=== PATIENT | male | born 1985 | race Caucasian/White ===

== ENCOUNTER 2019-08-11 02:31 | Emergency (ER) | payer SELFPAY ==
[2019-08-11 02:34] VITALS: PULSE 130; RESP 18; TEMP 36.2; O2SAT 98; BMI 23.1
--- NOTE | 2019-08-11 02:43 | CTR_ITS ---
PROCEDURE INFORMATION: Exam: CT Head Without Contrast Exam date and time: 08/11/2019 3:37 AM Age: 33 years old Clinical indication: Other: Left ear pain; Additional info: Left ear pain/ mastoid pain TECHNIQUE: Imaging protocol: Computed tomography of the head without contrast. Total DLP: 783.22 mGy-cm Radiation optimization: All CT scans at this facility use at least one of these dose optimization techniques: automated exposure control; mA and/or kV adjustment per patient size (includes targeted exams where dose is matched to clinical indication); or iterative reconstruction. COMPARISON: CT head wo con* [id number] 06/07/2018 8:02 AM FINDINGS: Brain: No hemorrhage. Unremarkable white matter. No mass effect. Ventricles: Still no ventriculomegaly. Bones/joints: Old fracture of the anterior wall of the left frontal sinus associated with mild depression, unchanged. No acute skull fracture. Sinuses: Slight mucosal thickening in several paranasal sinuses representing interval improvement. No air-fluid levels. Mastoid air cells: Probable mucosal thickening in the partially-included inferior left mastoid air cells. Visualized right mastoids clear. Soft tissues: Unremarkable. CT/CT head wo con* [id number] IMPRESSION: No acute intracranial findings. Probable minimal left mastoid disease. Interval improvement in the chronic sinus disease. Radiation Dose CTDIVOL = (mGy): DLP = 783.22 (mGy-cm)
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
[2019-08-11] MEDS: sodium chloride 0.9% 1,000 ML 999 ML IV (02:49)
[2019-08-11] MEDS: metoclopramide 5 mg/mL SDV 2 mL 10 MG IVP (02:50)
[2019-08-11] MEDS: diphenhydrAMINE 50 mg/mL SDV 1mL IVP (02:50)
[2019-08-11 03:23] LABS: Alanine Aminotransferase 45 U/L (0-41); Albumin Level 4.7 g/dL (3.5-5.2); Alkaline Phosphatase 79 IU/L (40-130); Anion Gap 28.1 (5-19); Aspartate Amino Transferase 56 U/L (0-40); Blood Urea Nitrogen 33 mg/dL (6-20); Calcium 10.2 mg/dL (8.5-10.5); Carbon Dioxide 19 mmol/L (22-29); Chloride 96 mmol/L (98-107); Globulin 3.7 g/dL (1.3-4.6); Glomerular Filtration Rate 27.2 mL/min (90-130); Glucose 64 mg/dL (65-115); Lipase 12 U/L (13-60); Osmolality Calculated 283 mOsm/kg (285-295); Potassium 4.1 mmol/L (3.5-5.1); Sodium 139 mmol/L (136-145); Total Bilirubin 2.5 mg/dL (0.15-1.2); Total Protein 8.4 g/dL (6.6-8.7)
[2019-08-11] MEDS: LORazepam 2 mg/mL INJ 1 mL 1 MG IVP (03:26)
[2019-08-11 03:28] VITALS: BP 117/81; PULSE 106; RESP 16; O2SAT 96
[2019-08-11 03:28] LABS: Basophils # 0.1 10^3/uL (0.0-0.1); Basophils % 0.4 %; Eosinophils % 0.1 %; Hematocrit 46.1 % (42.0-52.0); Hemoglobin 15.5 g/dL (11.7-16.6); Lymphocytes # 1.1 10^3/uL (0.8-4.8); Lymphocytes % 5.6 %; Mean Corpuscular HGB Conc 33.6 g/dL (30.0-36.0); Mean Corpuscular Hemoglobin 30.7 pg (28.0-34.0); Mean Corpuscular Volume 91.3 fL (80-94); Mean Platelet Volume 9.6 fL (7.4-10.4); Monocytes # 1.8 10^3/uL (0.2-0.9); Monocytes % 8.9 %; Neutrophils # 16.6 10^3/uL (1.8-7.7); Neutrophils % 84.3 %; Nucleated Red Blood Cells % 0 %; Platelet Count 326 10^3/cmm (130-400); Red Blood Count 5.05 10^6/uL (4.1-5.3); Red Cell Distribution Width 12.4 % (12.1-15.1); White Blood Count 19.7 10^3/uL (4.0-10.0)
--- NOTE | 2019-08-11 03:43 | US_ITS ---
WS: [id number] Gallbladder ultrasound, 08/11/2019 Clinical Data: abd pain Comparison: None. Findings: The gallbladder shows sludge but no stones. The wall measures 0.3 mm with no pericholecystic fluid. The common bile duct is 0.3 mm and there are no intrahepatic ductal abnormalities. Liver shows no cysts, masses or dilated intrahepatic ducts. The pancreas is obscured by overlying bowel gas but no cyst, pseudocyst, or evidence of pancreatitis is noted. Right kidney measures 5.41 x 5.50 x 10.3 cm and no cyst, masses or hydronephrosis can be seen. The aorta and inferior vena cava show no vascular abnormalities. US/US gall bladder [id number] Impression: 1. Sludge in the gallbladder. 2. No gallstones.
[2019-08-11 03:58] VITALS: BP 117/81; PULSE 68; RESP 16; O2SAT 97
[2019-08-11 04:13] LABS: ABG PCO2 34.9 mmHg (35-45); ABG PH Result 7.29 (7.35-7.45); Arterial Blood Gas Hematocrit 44.3 % (42-52); Blood Gas Allen Test Pos; Blood Gas Sample Site Radial, right; Blood Gas Sample Type Arterial; HCO3 ABG 16.7 mmol/L (22-26); Oxygen Device ROOM AIR
[2019-08-11] MEDS: lactated ringers 1,000 ML 999 ML IV (04:34)
[2019-08-11 04:38] LABS: Alcohol Level 18 mg/dL (0-10)
[2019-08-11 05:00] LABS: Anion Gap 25.3 (5-19); Blood Urea Nitrogen 36 mg/dL (6-20); Calcium 9.1 mg/dL (8.5-10.5); Carbon Dioxide 17 mmol/L (22-29); Chloride 100 mmol/L (98-107); Glomerular Filtration Rate 32.7 mL/min (90-130); Glucose 93 mg/dL (65-115); Osmolality Calculated 283 mOsm/kg (285-295); Potassium 4.3 mmol/L (3.5-5.1); Sodium 138 mmol/L (136-145)
[2019-08-11 05:38] VITALS: BP 110/73; PULSE 90; RESP 16; O2SAT 98
== END 2019-08-11 05:40 | disposition home or self-care (01) ==
PROVIDERS: Emergency Provider Emergency Medicine; Family Provider Family Medicine; PCP Family Medicine
DX: H60.502 Unspecified acute noninfective otitis externa, left ear (principal); R11.10 Vomiting, unspecified; F17.200 Nicotine dependence, unspecified, uncomplicated; Z59.0 Homelessness
CPT/HCPCS: 12345; 36415; 36600; 70450; 76705; 80048; 80053; 80307; 82803; 83690; 85025; 96361; 96365; 96375; 99283; 99284; J1200; J2060; J2765; J7030

== ENCOUNTER 2019-08-13 11:21 | Inpatient (IN) | payer SELFPAY ==
[2019-08-13 11:23] VITALS: BP 135/89; PULSE 118; RESP 18; O2SAT 98; BMI 21.2
--- NOTE | 2019-08-13 11:32 | ED_ITS ---
Entered by Rasheeda Lo, acting as scribe for Aug 13, 2019 11:21 HPI - Extremity Problem General: Chief complaint: Extremity Injury, Upper Stated complaint: BOTH HAND PAIN/SI Time Seen by Provider: 08/13/19 11:31 Source: patient and RN notes reviewed Mode of arrival: ambulatory Limitations: no limitations History of Present Illness: HPI Narrative: 33 yo male presents to ED with complaints of bilateral hand pain, redness and swelling. The patient's history is limited to agitation and is limited to the following: The patient states he has been punching anything and everything around him today. He said he has auditory and visual hallucinations. He said he feels like he is losing his mind. He said it has not been this bad before. He admits thoughts of self harm and suicidal ideation. 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 MD Complaint: extremity pain and extremity swelling Onset (ago): hour(s) (today) Pain Consistency: constant Location: left, right and upper extremity Severity scale (1-10): 8 Quality: aching Radiation: none Relieving factors: nothing Exacerbating factors: nothing Associated symptoms: Reports other (psychiatric symptoms); Deny chest pain, fever(s) or rash Context: other (per patient: drug induced schizophrenia) Review of Systems General: Reports: other (negative unless marked) Const: Denies: fever, chills, body aches, fatigue, malaise or diaphoresis Eyes: Denies: change in vision or blurry vision ENMT: Denies: throat pain, painful swallowing, hoarseness, ear pain, ear discharge, Change in hearing or nasal discharge Card: Denies: chest pain, palpitations, irregular heart rhythm, syncope, pre- syncope, shortness of breath on exertion or shortness of breath when lying down Resp: Denies: shortness of breath, productive cough, non-productive cough, wheezing, coughing up blood or chest congestion GI: Denies: abdominal pain, nausea, vomiting, vomiting blood, coffee grounds in vomit, diarrhea, constipation, cramping, blood in stool or black tarry stool : Denies: flank pain, difficulty urinating, painful urination, urinary frequency, urinary urgency, decreased urine ouput, urinary incontinence or blood in urine Musc: Denies: neck pain, back pain, joint warmth or joint stiffness Skin/Breast: Denies: rash, skin tenderness or yellow skin Neuro: Denies: headache, numbness in extremities, weakness in extremities, changes in sensation, lack of coordination, difficulty walking, dizziness, vertigo or confusion Endo: Denies: excessive thirst, tired all the time, cold intolerance, excessive sweating, flushing or hot flashes Delvis/Lymph: Denies: easy bruising, easy bleeding, petechiae or enlarged lymph nodes All/Imm: Denies: hives, throat swelling, tongue swelling, facial swelling or acute wheezing PFSH ED PFSH: Social History Smoking and tobacco status: current every day smoker Physical Exam Const: COMMON NORMALS: no apparent distress, oriented x3, no limitations, healthy appearing and well nourished EXAM LIMITATIONS: no altered mental status GENERAL APPEARANCE: cooperative and well developed ORIENTATION/CONSCIOUSNESS: Yes awake HENMT: COMMON NORMALS: normocephalic, head/scalp atraumatic, hearing grossly normal bilaterally, external ears normal, EAC's normal, external nose normal and moist oral mucous membranes HEAD & SCALP: normal to inspection, normocephalic and atraumatic FACE & SINUS: normal facial exam and face symmetric NOSE: external nose normal and nares normal EXTERNAL EAR: Yes external ears normal EXTERNAL AUDITORY CANAL: EAC's normal MOUTH: oral and palatal mucosa normal and tongue normal Eye: COMMON NORMALS: PERRL, EOMs intact bilaterally, conjunctivae normal and no scleral icterus GENERAL EYE: normal appearance of both eyes and normal light reflex CONJUNCTIVA: Yes conjunctivae normal SCLERA: sclerae normal CORNEA: Yes corneas normal PUPIL: Yes PERRL DIRECT OPHTHALMOSCOPY: Yes normal light reflex Neck/C-Spine: COMMON NORMALS: full ROM, no lymphadenopathy, supple, no meningeal signs and no JVD GENERAL: Yes normal visual inspection and Yes trachea midline CERVICAL SPINE: Yes cervical ROM normal Chest: COMMONS NORMALS: inspection of chest normal and palpation of chest normal Resp: COMMON NORMALS: normal respiratory effort, no retractions, no use of accessory muscles and clear to auscultation bilaterally EFFORT & INSPECTION: Yes able to speak in complete sentences AUSCULTATION: clear to auscultation bilaterally Cardio: COMMON NORMALS: no JVD, regular rate, regular rhythm, S1 normal heart sound, S2 normal heart sound, no gallops, no clicks, no murmurs and no rub JUGULAR VENOUS DISTENTION: no JVD RATE: regular rate RHYTHM: regular rhythm HEART SOUNDS: S1 normal and S2 normal GI: COMMON NORMALS: soft to palpation, non-tender, no hepatosplenomegaly and no masses INSPECTION: Yes normal to inspection PALPATION: Yes soft and Yes no hepatosplenomegaly : COMMON NORMALS: Yes no CVA tenderness BLADDER/KIDNEY EXAM: Yes no CVA tenderness Back/Pelvis: COMMON NORMALS: no CVA tenderness, thoracic and lumbar spine normal to inspection, no thoracic nor lumbar tenderness and thoraco-lumbar ROM normal Extremity: COMMON NORMALS: normal capillary refill, no clubbing, cyanosis or edema and no calf tenderness RIGHT UPPER EXTREMITY: Yes hand & digits (swelling, redness, tenderness) LEFT UPPER EXTREMITY: Yes hand & digits (swelling, redness, tenderness) Neuro: COMMON NORMALS: oriented x3, CN's II-XII intact bilaterally, moves all extremities, no focal motor deficits and no sensory deficits noted MENINGEAL SIGNS: Yes no meningeal signs Psych: COMMON NORMALS: mental status grossly normal, thought process normal, cooperative, affect normal, speech normal and activity/motor behavior normal SPEECH: Yes normal speech THOUGHT PROCESS: normal thought process Skin: COMMON NORMALS: no rashes or lesions noted, skin turgor normal, no jaundice, no petechiae and no mottling GENERAL SKIN EXAM: no rashes or lesions noted and turgor normal Course Vital Signs: Vital signs: Vital Signs Temperature 98.2 F 08/13/19 15:16 Pulse Rate 89 08/13/19 15:16 Respiratory Rate 18 08/13/19 15:16 Blood Pressure 121/78 08/13/19 15:16 Pulse Oximetry 99 08/13/19 15:16 MDM - Extremity (Nontraumatic) MDM Narrative: Medical decision making narrative: Sven is a 33-year-old male who comes in with homicidal and suicidal ideation. He will not mention who he wants to hurt or kill. He is also having auditory and visual hallucinations. I discussed the case in full with Dr. Kim he agrees to accept him. He is aware of his bilateral boxers fractures. Patient's liver enzymes are elevated but he does share that he has a history of hepatitis C. Lab Data: Attestation: I reviewed the patient's lab results. Labs: Lab Results 08/13/19 08/13/19 08/13/19 Range/Units 12:02 12:02 12:02 WBC 15.5 H (4.0-10.0) 10^3/ uL RBC 4.20 (4.1-5.3) 10^6/u L Hgb 12.4 (11.7-16.6) g/dL Hct 37.3 L (42.0-52.0) % MCV 88.8 (80-94) fL MCH 29.5 (28.0-34.0) pg MCHC 33.2 (30.0-36.0) g/dL RDW 12.6 (12.1-15.1) % Plt Count 234 (130-400) 10^3/c mm MPV 9.4 (7.4-10.4) fL Neut % (Auto) 84.6 % Lymph % (Auto) 6.9 % [place] % (Auto) 8.0 % Eos % (Auto) 0.0 % Baso % (Auto) 0.2 % Neut # (Auto) 13.1 H (1.8-7.7) 10^3/u L Lymph # (Auto) 1.1 (0.8-4.8) 10^3/u L [place] # (Auto) 1.2 H (0.2-0.9) 10^3/u L Eos # (Auto) 0.0 (0.0-0.8) 10^3/u L Baso # (Auto) 0.0 (0.0-0.1) 10^3/u L Nucleated RBC % (a uto) 0 % Nucleated RBCs # 0.0 /100WBC Sodium 140 (136-145) mmol/L Potassium 3.7 (3.5-5.1) mmol/L Chloride 100 (98-107) mmol/L Carbon Dioxide 21 L (22-29) mmol/L Anion Gap 22.7 H (5-19) BUN 26 H (6-20) mg/dL Creatinine 1.3 H (0.7-1.2) mg/dL GFR Calculation 63.2 L (90-130) mL/min Glucose 45 L (65-115) mg/dL POC Glucose (70-110) mg/dL Calculated Osmolal ity 284 L (285-295) mOsm/k g Calcium 9.6 (8.5-10.5) mg/dL Total Bilirubin 1.6 H (0.15-1.2) mg/dL AST 377 H (0-40) U/L ALT 97 H (0-41) U/L Alkaline Phosphata se 66 (40-130) IU/L Total Protein 7.0 (6.6-8.7) g/dL Albumin 4.3 (3.5-5.2) g/dL Globulin 2.7 (1.3-4.6) g/dL TSH 0.34 (0.27-4.20) uIU/ mL Salicylates < 0.3 L (3-10) mg/dL Acetaminophen < 5.0 L (10-30) ug/mL Phenytoin < 0.8 L (10-20) ug/mL Valproic Acid < 2.8 L (50-100) mcg/mL Carbamazepine 2.0 L (4.0-12.0) ug/mL [place] 0.1 L (0.6-1.2) mmol/L Ethyl Alcohol < 10 (0-10) mg/dL Hepatitis A IgM Ab (Nonreactive) Hep Bs Antigen (Nonreactive) Hep B Core IgM Ab (Nonreactive) Hepatitis C Antibo dy (Nonreactive) 08/13/19 08/13/19 Range/Units 12:02 13:08 WBC (4.0-10.0) 10^3/ uL RBC (4.1-5.3) 10^6/u L Hgb (11.7-16.6) g/dL Hct (42.0-52.0) % MCV (80-94) fL MCH (28.0-34.0) pg MCHC (30.0-36.0) g/dL RDW (12.1-15.1) % Plt Count (130-400) 10^3/c mm MPV (7.4-10.4) fL Neut % (Auto) % Lymph % (Auto) % [place] % (Auto) % Eos % (Auto) % Baso % (Auto) % Neut # (Auto) (1.8-7.7) 10^3/u L Lymph # (Auto) (0.8-4.8) 10^3/u L [place] # (Auto) (0.2-0.9) 10^3/u L Eos # (Auto) (0.0-0.8) 10^3/u L Baso # (Auto) (0.0-0.1) 10^3/u L Nucleated RBC % (a uto) % Nucleated RBCs # /100WBC Sodium (136-145) mmol/L Potassium (3.5-5.1) mmol/L Chloride (98-107) mmol/L Carbon Dioxide (22-29) mmol/L Anion Gap (5-19) BUN (6-20) mg/dL Creatinine (0.7-1.2) mg/dL GFR Calculation (90-130) mL/min Glucose (65-115) mg/dL POC Glucose 74 (70-110) mg/dL Calculated Osmolal ity (285-295) mOsm/k g Calcium (8.5-10.5) mg/dL Total Bilirubin (0.15-1.2) mg/dL AST (0-40) U/L ALT (0-41) U/L Alkaline Phosphata se (40-130) IU/L Total Protein (6.6-8.7) g/dL Albumin (3.5-5.2) g/dL Globulin (1.3-4.6) g/dL TSH (0.27-4.20) uIU/ mL Salicylates (3-10) mg/dL Acetaminophen (10-30) ug/mL Phenytoin (10-20) ug/mL Valproic Acid (50-100) mcg/mL Carbamazepine (4.0-12.0) ug/mL [place] (0.6-1.2) mmol/L Ethyl Alcohol (0-10) mg/dL Hepatitis A IgM Ab Non-reactive (Nonreactive) Hep Bs Antigen Non-reactive (Nonreactive) Hep B Core IgM Ab Non-reactive (Nonreactive) Hepatitis C Antibo dy Reactive H (Nonreactive) Imaging Data^: Xray Ortho: Radiologist's impression: [address] [address] XRay Report Signed Patient: Sven Wade #: [id number] : 1985Acct#:[id number] Age/Sex: 33 / MADM Date: 08/13/19 Loc: ERRoom/Bed: Attending Dr: Ordering Provider/Ordering MD: Henny Grant DO Date of Service: 08/13/19 Procedure(s): XR hand LT min 3V* [id number] Accession Number(s): [id number] Report Number: [id number] WS: [id number] Left hand, 3 views, 08/13/2019 Clinical Data: INJURY Comparison: Left hand, 07/20/2017. Findings: There is a fracture of the head of the left fifth metacarpal with ventral angulation. Soft tissue swelling over the fracture site is seen. The remainder of the hand is unremarkable. XR/XR hand LT min 3V* [id number] Impression: Fracture of the head of the left fifth metacarpal. Dictated By:Aaliyah Camacho MD Signed By:Aaliyah Camacho MDSigned Date/Time:08/13/19 [place] [address] XRay Report Signed Patient: Sven Wade #: [id number] : 1985Acct#:[id number] Age/Sex: 33 / MADM Date: 08/13/19 Loc: ERRoom/Bed: Attending Dr: Ordering Provider/Ordering MD: Henny Grant DO Date of Service: 08/13/19 Procedure(s): XR hand RT min 3V* [id number] Accession Number(s): [id number] Report Number: [id number] WS: [id number] Right hand, 3 views, 08/13/2019 Clinical Data: INJURY Comparison: Right hand x-ray, 06/23/2018. Findings: There is a fracture of the head of the right fifth metacarpal with ventral angulation. Soft tissue swelling over the fracture site is noted. The remainder of the hand is unremarkable. XR/XR hand RT min 3V* [id number] Impression: Fracture of the head of the right fifth metacarpal. Dictated By:Aaliyah Camacho MD Signed By:Aaliyah Camacho MDSigned Date/Time:08/13/19 EKG Data^: EKG 1: Attestation: I personally reviewed and interpreted this EKG as follows: EKG interpretation date: 08/13/19 EKG interpretation time: 12:34 Discharge Plan Discharge Patient Disposition: Admitted As Inpatient Admit Provider: Julio Kim Clinical Impression: Suicide ideation, Auditory hallucinations Boxer's fracture Qualifiers: Encounter type: initial encounter Fracture type: closed Qualified Code(s): S62.339A - Displaced fracture of neck of unspecified metacarpal bone, initial encounter for closed fracture Condition: Stable Referrals: Augusto Gallo Jr, MD [Primary Care Provider] - Discharge Date/Time: 08/13/19 15:15 Coding Level of Care Code ED Inspector Floor Sub Assembly for Chg Fwd Exam Comprehensive The documentation recorded by the Teresita burton Valerie R, accurately reflects the service I personally performed and the decisions made by Rudy chatman Eli N Aug 13, 2019 11:21
--- NOTE | 2019-08-13 11:36 | XR_ITS ---
WS: [id number] Right hand, 3 views, 08/13/2019 Clinical Data: INJURY Comparison: Right hand x-ray, 06/23/2018. Findings: There is a fracture of the head of the right fifth metacarpal with ventral angulation. Soft tissue sw elling over the fracture site is noted. The remainder of the hand is unremarkable. XR/XR hand RT min 3V* [id number] Impression: Fracture of the head of the right fifth metacarpal.
--- NOTE | 2019-08-13 11:36 | XR_ITS ---
WS: [id number] Left hand, 3 views, 08/13/2019 Clinical Data: INJURY Comparison: Left hand, 07/20/2017. Findings: There is a fracture of the head of the left fifth metacarpal with ventral angulation. Soft tissue swe lling over the fracture site is seen. The remainder of the hand is unremarkable. XR/XR hand LT min 3V* 72041 Impression: Fracture of the head of the left fifth metacarpal.
--- NOTE | 2019-08-13 11:36 | ECG_ITS ---
Measurements Intervals [place] Rate: 88 P: 69 HI: 139 QRS: 19 QRSD: 118 T: 48 QT: 393 QTc: 477 SINUS RHYTHM POSSIBLE LEFT ATRIAL ENLARGEMENT [-0.1mV P WAVE IN V1/V2] INCOMPLETE RIGHT BUNDLE BRANCH BLOCK [90+ ms QRS DURATION, TERMINAL R IN V1/V2, 40+ ms S IN I/aVL/V4/V5/V6] POSSIBLE LATERAL MYOCARDIAL INFARCTION , OF INDETERMINATE AGE [30 ms Q WAVE IN I/ I/aVL/V5/V6] Compared to ECG 07/03/2018 11:45:48 Incomplete right bundle-branch block now present Myocardial infarct finding now present Sinus bradycardia no longer present Electronically Signed On 08-13-2019 17:22:50 CDT by Jose Nance M.D. [email or web address]
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
--- NOTE | 2019-08-13 11:43 | PC.PHAR ---
pt states he takes no medications and when he was here on 08/11/2019 he never got those medications filled
[2019-08-13] MEDS: haloperidol inj 5 mg/mL INJ 1 mL IM (11:48)
[2019-08-13] MEDS: ibuprofen 200 mg Tablet 400 MG PO (11:48)
[2019-08-13 12:08] LABS: Basophils % 0.2 %; Hematocrit 37.3 % (42.0-52.0); Hemoglobin 12.4 g/dL (11.7-16.6); Lymphocytes # 1.1 10^3/uL (0.8-4.8); Lymphocytes % 6.9 %; Mean Corpuscular HGB Conc 33.2 g/dL (30.0-36.0); Mean Corpuscular Hemoglobin 29.5 pg (28.0-34.0); Mean Corpuscular Volume 88.8 fL (80-94); Mean Platelet Volume 9.4 fL (7.4-10.4); Monocytes # 1.2 10^3/uL (0.2-0.9); Neutrophils # 13.1 10^3/uL (1.8-7.7); Neutrophils % 84.6 %; Nucleated Red Blood Cells % 0 %; Platelet Count 234 10^3/cmm (130-400); Red Cell Distribution Width 12.6 % (12.1-15.1); White Blood Count 15.5 10^3/uL (4.0-10.0)
[2019-08-13 12:27] LABS: Lithium 0.1 mmol/L (0.6-1.2)
[2019-08-13 12:38] LABS: Alanine Aminotransferase 97 U/L (0-41); Albumin Level 4.3 g/dL (3.5-5.2); Alkaline Phosphatase 66 IU/L (40-130); Anion Gap 22.7 (5-19); Aspartate Amino Transferase 377 U/L (0-40); Blood Urea Nitrogen 26 mg/dL (6-20); Calcium 9.6 mg/dL (8.5-10.5); Carbon Dioxide 21 mmol/L (22-29); Chloride 100 mmol/L (98-107); Globulin 2.7 g/dL (1.3-4.6); Glomerular Filtration Rate 63.2 mL/min (90-130); Glucose 45 mg/dL (65-115); Osmolality Calculated 284 mOsm/kg (285-295); Phenytoin Dilantin < 0.8 ug/mL (10-20); Potassium 3.7 mmol/L (3.5-5.1); Sodium 140 mmol/L (136-145); Thyroid Stimulating Hormone 0.34 uIU/mL (0.27-4.20); Total Bilirubin 1.6 mg/dL (0.15-1.2)
[2019-08-13 12:39] LABS: Valproic Acid Level < 2.8 mcg/mL (50-100)
[2019-08-13 12:45] LABS: Acetaminophen < 5.0 ug/mL (10-30); Alcohol Level < 10 mg/dL (0-10); Salicylate < 0.3 mg/dL (3-10)
[2019-08-13 13:11] LABS: Glucose Point of Care 74 mg/dL (70-110)
[2019-08-13 13:42] LABS: Hepatitis A Antibody IgM. Non-Reactive (Nonreactive); Hepatitis B Core IgM Non-Reactive (Nonreactive); Hepatitis B Surface Antigen. Non-Reactive (Nonreactive); Hepatitis C Virus Antibody Reactive (Nonreactive)
[2019-08-13 14:45] VITALS: BP 127/78; PULSE 87; RESP 16; TEMP 37.1; O2SAT 97
[2019-08-13 15:16] VITALS: BP 121/78; PULSE 89; RESP 18; TEMP 36.8; O2SAT 99
[2019-08-13] MEDS: nicotine 2 mg Gum BUCCAL (20:27)
[2019-08-13] MEDS: acetaminophen 325 mg Tablet 650 MG PO (20:27)
[2019-08-13] MEDS: trazodone 50 mg Tablet PO (20:27)
--- NOTE | 2019-08-13 20:28 | PC.NURSE ---
tylenol given for bilateral arm pain.
[2019-08-13 21:29] VITALS: BP 108/73; PULSE 100; RESP 19; TEMP 36.7; O2SAT 98
[2019-08-14 06:00] VITALS: BP 96/56; PULSE 77; RESP 16; TEMP 36.6; O2SAT 96
[2019-08-14] MEDS: acetaminophen 325 mg Tablet 650 MG PO ×2 (11:03→20:11)
[2019-08-14] MEDS: nicotine 2 mg Gum BUCCAL ×4 (11:04→19:44)
[2019-08-14] MEDS: hyDROXYzine 25 mg Capsule 50 MG PO ×2 (12:04→22:59)
[2019-08-14 14:00] VITALS: BP 116/80; PULSE 82; RESP 20; TEMP 36.4; O2SAT 98
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
[2019-08-14] MEDS: ibuprofen 600 mg Tablet PO ×2 (17:08→22:59)
--- NOTE | 2019-08-14 19:47 | PC.NURSE ---
nicorette gum given per pt request.
[2019-08-14 20:02] VITALS: BP 132/89; PULSE 70; RESP 18; TEMP 36.6; O2SAT 97
--- NOTE | 2019-08-14 20:04 | PC.NURSE ---
VITAL SIGNS BLOOD PRESSURE TAKEN IN LEFT LEG WHILE PATIENT WAS IN SUPINE POSITION.
--- NOTE | 2019-08-14 23:00 | PC.NURSE ---
pt given motrin for pain and visteril for sleep at this time.
[2019-08-15] MEDS: ibuprofen 600 mg Tablet PO (05:18)
[2019-08-15] MEDS: nicotine 2 mg Gum BUCCAL ×4 (05:19→21:11)
[2019-08-15 06:00] VITALS: BP 108/61; PULSE 62; RESP 19; TEMP 36.6; O2SAT 96
[2019-08-15] MEDS: acetaminophen 325 mg Tablet 650 MG PO (10:58)
[2019-08-15 14:00] VITALS: BP 105/70; PULSE 74; RESP 18
[2019-08-15 14:14] LABS: Amphetamines Screen Urine Positive (Negative); Barbiturates Screen Urine Negative (Negative); Benzodiazepines Screen Urine Negative (Negative); Cocaine Screen Urine Negative (Negative); Opiate Screen Urine Negative (Negative); PCP Screen Urine Negative (Negative); THC Screen Urine Negative (Negative)
--- NOTE | 2019-08-15 16:04 | PM.NPN ---
Subjective NPU Subjective: Interval history: The patient is grief-stricken and ashamed. He feels terrible about his mom; his dad of methamphetamine abuse and now her son is all messed up with it. He is saddened and in tears. He's decided this is not life as he wants to be. He cannot tolerate a future like this. He is ready to enter recovery. We discussed the tool and production planner, to whom I transmitted a message to assist with the discharge plan involving rehab. He is in a lot of pain from his bilateral metacarpal fractures. Medications: Reviewed: Yes Medication Review Details: Current Medications Acetaminophen (Tylenol) 650 mg PO Q4H PRN PRN Reason: MILD PAIN Last Admin: 08/15/19 10:58 Dose: 650 mg Documented by: Hydrocodone Bitart/Acetaminophen ([place] 10-325 Mg) 1 tab PO Q4H PRN PRN Reason: MODERATE PAIN Benztropine Mesylate (Cogentin) 1 mg PO BID PRN PRN Reason: Mild Extrapyramidal symptoms Camphor/Menthol/Phenol (Blistex) 1 applic TOPICAL Q1H PRN PRN Reason: DRYNESS Diphenhydramine HCl (Benadryl) 50 mg IM ONCE PRN PRN Reason: Severe Extrapyramidal Symptoms Diphenhydramine HCl (Benadryl) 50 mg IM Q4H PRN PRN Reason: Severe Aggression Haloperidol (Haldol) 5 mg PO Q4H PRN PRN Reason: AGITATION Haloperidol Lactate (Haldol Inj) 5 mg IM Q4H PRN PRN Reason: Severe Aggression Hydroxyzine Pamoate (Vistaril) 50 mg PO Q6H PRN PRN Reason: ANXIETY Last Admin: 08/14/19 22:59 Dose: 50 mg Documented by: Ibuprofen (Motrin) 600 mg PO Q6H PRN PRN Reason: MODERATE PAIN Last Admin: 08/15/19 05:18 Dose: 600 mg Documented by: Loperamide HCl (Imodium Capsule) 2 mg PO Q6H PRN PRN Reason: DIARRHEA Lorazepam (Ativan) 2 mg IM Q4H PRN PRN Reason: Severe Aggression Nicotine (Nicoderm 21 Mg Patch) 1 patch TRANSDERMA DAILY PRN PRN Reason: NICOTINE WITHDRAWAL Nicotine Polacrilex (Nicorette) 2 mg BUCCAL Q2H PRN PRN Reason: NICOTINE WITHDRAWAL Last Admin: 08/15/19 15:15 Dose: 2 mg Documented by: Olanzapine (Zyprexa Zydis) 5 mg PO Q4H PRN PRN Reason: Agitation/Psychosis Ondansetron HCl (Zofran) 4 mg PO Q6H PRN PRN Reason: NAUSEA AND VOMITING Trazodone HCl (Desyrel) 50 mg PO BEDTIME PRN PRN Reason: SLEEP Last Admin: 08/13/19 20:27 Dose: 50 mg Documented by: Mental Status Exam MSE Comments: The patient presents at his stated age. He is thin and his forearms and hands are splinted and cast. He is clean and well-groomed. Mood is clearly depressed and affect is flat, which is to say appropriate to his mood. Thought processes are integrated and free of any racing, blocking or looseness of association. Speech is of normal rate and volume, without dysarthria, aprosody or pressure. There is no evidence of psychosis, such as but not limited to hallucinations, delusions or ideas of reference. He denies suicidal or homicidal ideation, plan or intent. He has growing insight, having reached, I believe, bottom and being desirous of recovery. Vitals/I&O/Wt Last Vital Signs Temp 97.9 F 08/15/19 06:00 Pulse 74 08/15/19 14:00 Resp 18 08/15/19 14:00 BP 105/70 08/15/19 14:00 Pulse Ox 96 08/15/19 06:00 Data NPU : 08/13/19 12:02 08/13/19 12:02 Involuntary Hold Information 96 Hour Hold: 96 Hour Involuntary Admission: Yes Attestations NPU Medical Necessity Statement*: I anticipate 5-6 midnights. Time Spent in Patient Care: Greater than 35 minutes (>than 50% of time spent in counselling and/or direct pt care on unit). Coding Level of Care Code Acute Radial Arm Saw Operator for Sergei Matute
[2019-08-15] MEDS: HYDROcodone-acetaminophen 10-325 mg Tablet 1 TAB PO ×2 (16:49→21:09)
[2019-08-15 22:00] VITALS: BP 117/71; PULSE 76; RESP 18; TEMP 36.6; O2SAT 98
[2019-08-16] MEDS: HYDROcodone-acetaminophen 10-325 mg Tablet 1 TAB PO ×5 (01:30→20:15)
[2019-08-16] MEDS: nicotine 2 mg Gum BUCCAL ×6 (05:25→21:18)
--- NOTE | 2019-08-16 05:27 | PC.NURSE ---
pt requesting Hydrocodine q 4 hours, continues to rate pain at 10.
[2019-08-16 05:37] VITALS: BP 138/82; PULSE 59; RESP 19; TEMP 36.6; O2SAT 98
[2019-08-16 14:00] VITALS: BP 129/84; PULSE 74; RESP 18; O2SAT 97
[2019-08-16] MEDS: acetaminophen 325 mg Tablet 650 MG PO (14:48)
--- NOTE | 2019-08-16 15:52 | PM.NPN ---
Subjective NPU Subjective: Interval history: The patient states that he is feeling clear of mind. He would like to have the portion of the splints around his elbows removed so that he can flex and contract those particular joints. I consulted with Dr. Gallagher, the ED physician on duty just now, and he reports that that would be advantageous and unlikely to interfere with healing of the fractures and the wrist. In the meantime the patient is eager to get to rehab program. He has had enough of this kind of life. Medications: Reviewed: Yes Medication Review Details: Current Medications Acetaminophen (Tylenol) 650 mg PO Q4H PRN PRN Reason: MILD PAIN Last Admin: 08/16/19 14:48 Dose: 650 mg Documented by: Hydrocodone Bitart/Acetaminophen ([place] 10-325 Mg) 1 tab PO Q4H PRN PRN Reason: MODERATE PAIN Last Admin: 08/16/19 15:44 Dose: 1 tab Documented by: Benztropine Mesylate (Cogentin) 1 mg PO BID PRN PRN Reason: Mild Extrapyramidal symptoms Camphor/Menthol/Phenol (Blistex) 1 applic TOPICAL Q1H PRN PRN Reason: DRYNESS Diphenhydramine HCl (Benadryl) 50 mg IM ONCE PRN PRN Reason: Severe Extrapyramidal Symptoms Diphenhydramine HCl (Benadryl) 50 mg IM Q4H PRN PRN Reason: Severe Aggression Haloperidol (Haldol) 5 mg PO Q4H PRN PRN Reason: AGITATION Haloperidol Lactate (Haldol Inj) 5 mg IM Q4H PRN PRN Reason: Severe Aggression Hydroxyzine Pamoate (Vistaril) 50 mg PO Q6H PRN PRN Reason: ANXIETY Last Admin: 08/14/19 22:59 Dose: 50 mg Documented by: Ibuprofen (Motrin) 600 mg PO Q6H PRN PRN Reason: MODERATE PAIN Last Admin: 08/15/19 05:18 Dose: 600 mg Documented by: Loperamide HCl (Imodium Capsule) 2 mg PO Q6H PRN PRN Reason: DIARRHEA Lorazepam (Ativan) 2 mg IM Q4H PRN PRN Reason: Severe Aggression Neomycin/Polymyxin/Bacitracin (Neosporin Oint Tube) 1 applic TOPICAL BID PRN PRN Reason: SKIN IRRITATION Nicotine (Nicoderm 21 Mg Patch) 1 patch TRANSDERMA DAILY PRN PRN Reason: NICOTINE WITHDRAWAL Nicotine Polacrilex (Nicorette) 2 mg BUCCAL Q2H PRN PRN Reason: NICOTINE WITHDRAWAL Last Admin: 08/16/19 14:50 Dose: 2 mg Documented by: Olanzapine (Zyprexa Zydis) 5 mg PO Q4H PRN PRN Reason: Agitation/Psychosis Ondansetron HCl (Zofran) 4 mg PO Q6H PRN PRN Reason: NAUSEA AND VOMITING Trazodone HCl (Desyrel) 50 mg PO BEDTIME PRN PRN Reason: SLEEP Last Admin: 08/13/19 20:27 Dose: 50 mg Documented by: Mental Status Exam MSE Comments: This 33-year-old male presents at his stated age. He is clean and well-groomed. Mood is somewhat irritable with the elbow problem but not intrinsically. Affect is appropriate. Thought processes are integrated and free of any racing, blocking or looseness of association. There is no evidence of psychosis, such as but not limited to hallucinations, delusions or ideas of reference. Cognitive functions are clearer and more focused although not formally tested. The patient has increasing insight and judgment. He denies suicidal or homicidal ideation, plan or intent. Vitals/I&O/Wt Last Vital Signs Temp 98 F 08/16/19 05:37 Pulse 74 08/16/19 14:00 Resp 18 08/16/19 14:00 BP 129/84 08/16/19 14:00 Pulse Ox 97 08/16/19 14:00 Weight last 48 hrs Weight 189 lb Data NPU : 08/13/19 12:02 08/13/19 12:02 Involuntary Hold Information 96 Hour Hold: 96 Hour Involuntary Admission: Yes Attestations NPU Medical Necessity Statement*: I anticipate 2-3 midnights additional care pending placement in rehab Time Spent in Patient Care: Greater than 35 minutes (>than 50% of time spent in counselling and/or direct pt care on unit). Coding Level of Care Code Acute Solar Installation Supervisor for Sergei Matute
[2019-08-16] MEDS: hyDROXYzine 25 mg Capsule 50 MG PO (21:18)
[2019-08-16 22:00] VITALS: BP 120/69; PULSE 66; RESP 12; TEMP 36.7; O2SAT 96
[2019-08-17] MEDS: nicotine 2 mg Gum BUCCAL ×3 (02:25→21:54)
[2019-08-17] MEDS: HYDROcodone-acetaminophen 10-325 mg Tablet 1 TAB PO ×4 (02:25→19:19)
[2019-08-17 06:00] VITALS: BP 72/45; PULSE 58; RESP 17; TEMP 36.8; O2SAT 95
--- NOTE | 2019-08-17 12:15 | PM.NPN ---
Subjective NPU Subjective: Interval history: this is my first meeting with this patient. Details of his admission and mental health history were reviewed. He often hears auditory hallucinations. However when pressed, he only has these hallucinations when eating drugs or in the following his use. we discussed possible medication interventions that he chooses to be on no medications to avoid side effects. His reality testing is intact and is good when he is clean and sober. Medications: Medication Review Details: Current Medications Acetaminophen (Tylenol) 650 mg PO Q4H PRN PRN Reason: MILD PAIN Last Admin: 08/16/19 14:48 Dose: 650 mg Documented by: Hydrocodone Bitart/Acetaminophen ([place] 10-325 Mg) 1 tab PO Q4H PRN PRN Reason: MODERATE PAIN Last Admin: 08/16/19 15:44 Dose: 1 tab Documented by: Benztropine Mesylate (Cogentin) 1 mg PO BID PRN PRN Reason: Mild Extrapyramidal symptoms Camphor/Menthol/Phenol (Blistex) 1 applic TOPICAL Q1H PRN PRN Reason: DRYNESS Diphenhydramine HCl (Benadryl) 50 mg IM ONCE PRN PRN Reason: Severe Extrapyramidal Symptoms Diphenhydramine HCl (Benadryl) 50 mg IM Q4H PRN PRN Reason: Severe Aggression Haloperidol (Haldol) 5 mg PO Q4H PRN PRN Reason: AGITATION Haloperidol Lactate (Haldol Inj) 5 mg IM Q4H PRN PRN Reason: Severe Aggression Hydroxyzine Pamoate (Vistaril) 50 mg PO Q6H PRN PRN Reason: ANXIETY Last Admin: 08/14/19 22:59 Dose: 50 mg Documented by: Ibuprofen (Motrin) 600 mg PO Q6H PRN PRN Reason: MODERATE PAIN Last Admin: 08/15/19 05:18 Dose: 600 mg Documented by: Loperamide HCl (Imodium Capsule) 2 mg PO Q6H PRN PRN Reason: DIARRHEA Lorazepam (Ativan) 2 mg IM Q4H PRN PRN Reason: Severe Aggression Neomycin/Polymyxin/Bacitracin (Neosporin Oint Tube) 1 applic TOPICAL BID PRN PRN Reason: SKIN IRRITATION Nicotine (Nicoderm 21 Mg Patch) 1 patch TRANSDERMA DAILY PRN PRN Reason: NICOTINE WITHDRAWAL Nicotine Polacrilex (Nicorette) 2 mg BUCCAL Q2H PRN PRN Reason: NICOTINE WITHDRAWAL Last Admin: 08/16/19 14:50 Dose: 2 mg Documented by: Olanzapine (Zyprexa Zydis) 5 mg PO Q4H PRN PRN Reason: Agitation/Psychosis Ondansetron HCl (Zofran) 4 mg PO Q6H PRN PRN Reason: NAUSEA AND VOMITING Trazodone HCl (Desyrel) 50 mg PO BEDTIME PRN PRN Reason: SLEEP Last Admin: 08/13/19 20:27 Dose: 50 mg Documented by: Mental Status Exam MSE Comments: Discharge Mental Status Exam: patient has a both arms wrapped in splints from fingertips to just below the elbows. He is in no apparent distress. Appearance: hygiene is good; no gross neurological deficits., gait is unremarkable; AIMS=0 Speech: Speech is of normal rate and rhythm and easily understood. Thought processes: Thought processes are abstract. Judgment is adequate for safety. Associations: intact Psychotic processes: There is no indication of guarding or paranoia. There is no attention to the internal stimuli. Auditory and visual hallucinations are denied. Judgment: Insight is fair. Problem solving skills are adequate for safety. Orientation: The patient is oriented to person, place time and situation. Memory: no deficits noted in immediate, intermediate, or remote spheres. Attention: The patient is alert and interpersonally engaged. Language: Verbalizations are coherent. Fund of knowledge: Fund of knowledge is adequate. Affect/Mood: Affect is consistent with a euthymic mood. denied suicidal ideation Affective range is appropriate. Psychosis: perception unimpaired except through cognitive distortion; reality testing intact. Cognition: Patient Appearance: Appropriate and Disheveled/Poor Hygiene Level of Consciousness: Awake, Alert, Appropriate and Follows Commands Patient Cognition Impaired: No Ability to Follow Directions: Good Patient Orientation (long list): Person, Place, Time, Name, Age, Birthday, Day of Month, Day of Week, Month, Time of Day and Year Comprehension Ability: No Impairment Hallucination Type: None Delusion Description: Not Present Thought Process: Appropriate Affect: Affect Description: Appropriate Behavior: Patient Behavior: Appropriate Speech Pattern: Appropriate Vitals/I&O/Wt Last Vital Signs Temp 98.3 F 08/17/19 06:00 Pulse 58 L 08/17/19 06:00 Resp 17 08/17/19 06:00 BP 72/45 08/17/19 06:00 Pulse Ox 95 08/17/19 06:00 Weight last 48 hrs Weight 85.729 kg Data NPU : 08/13/19 12:02 08/13/19 12:02 A&P Assessment and plan (1) Boxer's fracture: orthopedic service has been consult and they will schedule follow-up following discharge. Status: Acute Qualifiers: Encounter type: initial encounter Fracture type: closed Qualified Code(s): S62.339A - Displaced fracture of neck of unspecified metacarpal bone, initial encounter for closed fracture Code(s): S62.339A - Displaced fracture of neck of unspecified metacarpal bone, initial encounter for closed fracture (2) Methamphetamine dependence: This has gone on for years. he is not interested in a rehabilitation program at this time. Status: Acute Code(s): F15.20 - Other stimulant dependence, uncomplicated (3) Amphetamine abuse-episodic: patient states that his amphetamine use his field primarily by psychosocial issues. He is currently homeless and unemployed. Plan is to pursue resolution of those problems or at least establish a plan of action. Status: Acute Code(s): F15.10 - Other stimulant abuse, uncomplicated Involuntary Hold Information 96 Hour Hold: 96 Hour Involuntary Admission: Yes Attestations NPU Medical Necessity Statement*: patient will remain in the hospital for another 2 nights for the completion of his 96 hour commitment. Coding Level of Care Code Acute Frame Welder Cargo Utility Trailers for Sergei Matute Diagnoses Boxer's fracture S62.339A Encounter type: initial encounter Fracture type: closed Methamphetamine dependence F15.20 Amphetamine abuse-episodic F15.10
[2019-08-17] MEDS: ibuprofen 600 mg Tablet PO (13:57)
[2019-08-17 14:00] VITALS: BP 116/68; PULSE 65; RESP 20; TEMP 36.4; O2SAT 97
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
[2019-08-17 20:22] VITALS: BP 102/64; PULSE 59; RESP 15; TEMP 36.7; O2SAT 99
[2019-08-17] MEDS: doxepin 50 mg Capsule PO (20:43)
[2019-08-18] MEDS: HYDROcodone-acetaminophen 10-325 mg Tablet 1 TAB PO ×5 (05:11→23:08)
[2019-08-18 05:47] VITALS: BP 107/69; PULSE 116; RESP 22; TEMP 36.7; O2SAT 94
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
[2019-08-18 14:00] VITALS: BP 106/72; PULSE 66; RESP 16; TEMP 36.7; O2SAT 96
[2019-08-18] MEDS: nicotine 2 mg Gum BUCCAL ×2 (14:13→17:19)
[2019-08-18] MEDS: acetaminophen 325 mg Tablet 650 MG PO (20:19)
[2019-08-18] MEDS: doxepin 50 mg Capsule PO (20:20)
[2019-08-18 22:00] VITALS: BP 105/70; PULSE 74; RESP 18; TEMP 36.9; O2SAT 98
[2019-08-19 06:00] VITALS: BP 96/52; PULSE 48; RESP 16; TEMP 36.9; O2SAT 97
[2019-08-19] MEDS: HYDROcodone-acetaminophen 10-325 mg Tablet 1 TAB PO ×2 (07:55→13:02)
[2019-08-19 09:14] VITALS: BP 96/52; PULSE 48; RESP 16; TEMP 36.9; O2SAT 97
[2019-08-19] MEDS: nicotine 2 mg Gum BUCCAL (09:53)
[2019-08-19 16:43] VITALS: BP 96/52; PULSE 48; RESP 16; TEMP 36.9; O2SAT 97
--- NOTE | 2019-08-19 16:46 | PC.NURSE ---
discharge meds called into [facility] pharmacy
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
== END 2019-08-19 17:10 | disposition home or self-care (01) | DRG 563 ==
LOC: ER 13:17 → NP 13:39
PROVIDERS: Emergency Provider Emergency Medicine; Family Provider Family Medicine; PCP Family Medicine
DX: S62.339A Displaced fracture of neck of unspecified metacarpal bone, initial encounter for closed fracture (principal); R45.851 Suicidal ideations; F20.9 Schizophrenia, unspecified; F15.10 Other stimulant abuse, uncomplicated; F17.210 Nicotine dependence, cigarettes, uncomplicated; X58.XXXA Exposure to other specified factors, initial encounter; Z79.2 Long term (current) use of antibiotics
CPT/HCPCS: 12345; 36415; 36416; 73130; 80053; 80074; 80156; 80164; 80178; 80185; 80306; 80307; 82962; 84443; 85025; 93005; 96372; 97530; 97760; 99284; J1630; L3919

== ENCOUNTER 2019-09-27 15:00 | Emergency (ER) | payer SELFPAY ==
[2019-09-27 15:01] VITALS: BP 115/72; PULSE 62; RESP 16; TEMP 36.6; O2SAT 100; BMI 22.5
--- NOTE | 2019-09-27 15:02 | ED_ITS ---
Documented by User: Annika Bolton DO 10/01/19 22:30 HPI - General Adult General: Chief complaint: General Medical Stated complaint: NECK MASS Time Seen by Provider: 09/27/19 15:01 History of Present Illness: HPI narrative: Pt has a neck mass left neck that he has had for many years. He was told he needed to go to [facility] to see specialists for this mass but he never made it. He states the dr once drained it with a needle and since then he periodically drains it with a needle. He thinks this time he may have hit a vein because he thinks it filled with blood. He usually gets out brownish fluid sometimes blood and pus. Now it is so hard that it is affecting his ability to swallow Onset (ago): year(s) Location: neck Radiation: neck and other (left ear) Severity: severe Severity scale (1-10): 10 Quality: stabbing and aching Pain Consistency: constant Relieving factors: none Exacerbating factors: movement Associated symptoms: Deny chest pain, dyspnea, fevers/chills, headache(s), rash or vomiting Treatments prior to arrival: other (self needle aspiration) Review of Systems General: Reports: 10 or more systems reviewed and unremarkable except in HPI and below Const: Denies: fever, chills or fatigue ENMT: Denies: throat pain, enlarged tonsils, hoarseness or oral sores/lesions Card: Denies: chest pain or swelling of feet/ankles Resp: Denies: shortness of breath or productive cough GI: Denies: vomiting Musc: Denies: back pain or extremity swelling Skin/Breast: Reports: skin swelling (swelling in left neck) and new lesion; Denies: rash Neuro: Denies: headache, numbness in extremities or weakness in extremities Psych: Denies: anxiety, depression or mood swings Endo: Denies: excessive urination, excessive thirst, tired all the time or cold intolerance PFSH ED PFSH: Medical History Methamphetamine dependence Family History Family/Other , The whole family is afflicted with schizoaffective disorder versus bipolar disease. Rampant methamphetamine abuse abounds. Psychiatric illness Social History Smoking and tobacco status: current every day smoker Physical Exam Const: COMMON NORMALS: no apparent distress and oriented x3 GENERAL APPEARANCE: cooperative; not in distress HENMT: COMMON NORMALS: normocephalic HEAD & SCALP: normal to inspection and normocephalic MOUTH: oral and palatal mucosa normal and lip normal THROAT: posterior oropharynx normal and tonsils normal Neck/C-Spine: COMMON NORMALS: no meningeal signs; negative for full ROM and negative for no lymphadenopathy GENERAL: Yes anterior neck swelling (ant left lateral 4cm neck mass firm, tender, not red, nonpulsatile) CERVICAL SPINE: Yes cervical ROM normal Lymph: LYMPHATIC: lymphadenopathy (left supraclavicular very small) Resp: COMMON NORMALS: normal respiratory effort and clear to auscultation bilaterally EFFORT & INSPECTION: Yes able to speak in complete sentences and No respiratory distress AUSCULTATION: clear to auscultation bilaterally, no rales, no rhonchi and no wheezes Cardio: COMMON NORMALS: regular rate, regular rhythm, S1 normal heart sound, S2 normal heart sound and no murmurs RATE: regular rate RHYTHM: regular rhythm HEART SOUNDS: S1 normal and S2 normal PERIPHERAL PULSES: radial pulses present and dorsalis pedis pulses present GI: COMMON NORMALS: normal to inspection, nondistended, normoactive bowel sounds, soft to palpation and non-tender INSPECTION: Yes normal to inspection AUSCULTATION: Yes normoactive bowel sounds PALPATION: Yes soft, No tender, No guarding and No rigid RECTAL EXAM: Yes deferred : COMMON NORMALS: Yes no CVA tenderness BLADDER/KIDNEY EXAM: Yes no CVA tenderness Back/Pelvis: COMMON NORMALS: no CVA tenderness Extremity: COMMON NORMALS: normal to inspection, full ROM, normal capillary refill, no calf tenderness and no pedal edema Neuro: COMMON NORMALS: oriented x3, CN's II-XII intact bilaterally, moves all extremities and no focal motor deficits MENINGEAL SIGNS: Yes no meningeal signs Skin: COMMON NORMALS: no rashes or lesions noted GENERAL SKIN EXAM: no rashes or lesions noted Course Vital Signs: Vital signs: Vital Signs Temperature 97.8 F 09/27/19 15:01 Pulse Rate 79 09/27/19 19:19 Respiratory Rate 18 04/26/20 19:19 Blood Pressure 111/75 09/27/19 19:19 Pulse Oximetry 99 09/27/19 19:19 MDM - General Adult MDM Narrative: Medical decision making narrative: pt has a large neck mass that is heterogenous and has a thickened wall, it is much larger than prior ct and has changed its density, it now appears to be occluding part of left jugular vein or there may be some thrombosis there, He punctured it with a needle last night to drain it and got blood and there does appear to be some blood within the mass. I have started him on unasyn and vanc. We do not have ENT so I will transfer. 1645: Charlee states they will get ENT and see if we need to transfer to er. Lab Data: Attestation: I reviewed the patient's lab results. Lab results narrative: I have ordered a uds as the pt may be at risk for mrsa and other more serious infections causing thie mass if he is positive for ivda Labs: Lab Results 09/27/19 09/27/19 09/27/19 Range/Units 15:12 15:12 15:12 WBC 10.1 H (4.0-10.0) 10^3/ uL RBC 4.25 (4.1-5.3) 10^6/u L Hgb 12.6 (11.7-16.6) g/dL Hct 39.8 L (42.0-52.0) % MCV 93.6 (80-94) fL MCH 29.6 (28.0-34.0) pg MCHC 31.7 (30.0-36.0) g/dL RDW 13.3 (12.1-15.1) % Plt Count 248 (130-400) 10^3/c mm MPV 9.7 (7.4-10.4) fL Neut % (Auto) 75.4 % Lymph % (Auto) 14.9 % [place] % (Auto) 7.6 % Eos % (Auto) 1.6 % Baso % (Auto) 0.3 % Neut # (Auto) 7.6 (1.8-7.7) 10^3/u L Lymph # (Auto) 1.5 (0.8-4.8) 10^3/u L [place] # (Auto) 0.8 (0.2-0.9) 10^3/u L Eos # (Auto) 0.2 (0.0-0.8) 10^3/u L Baso # (Auto) 0.0 (0.0-0.1) 10^3/u L Nucleated RBC % (a uto) 0 % Nucleated RBCs # 0.0 /100WBC Sodium 137 (136-145) mmol/L Potassium 3.8 (3.5-5.1) mmol/L Chloride 100 (98-107) mmol/L Carbon Dioxide 27 (22-29) mmol/L Anion Gap 13.8 (5-19) BUN 8 (6-20) mg/dL Creatinine 0.9 (0.7-1.2) mg/dL GFR Calculation 96.0 (90-130) mL/min Glucose 94 (65-115) mg/dL Calculated Osmolal ity 280 L (285-295) mOsm/k g Lactate 1.2 (0.5-2.2) mmol/L Calcium 9.2 (8.5-10.5) mg/dL Total Bilirubin 1.0 (0.15-1.2) mg/dL AST 19 (0-40) U/L ALT 24 (0-41) U/L Alkaline Phosphata se 75 (40-130) IU/L Total Protein 6.9 (6.6-8.7) g/dL Albumin 3.8 (3.5-5.2) g/dL Globulin 3.1 (1.3-4.6) g/dL Urine Opiates Scre en (Negative) ng/mL Ur Barbiturates Sc reen (Negative) ng/mL Ur Phencyclidine S crn (Negative) ng/mL Ur Amphetamines Sc reen (Negative) ng/mL U Benzodiazepines Scrn (Negative) ng/mL Urine Cocaine Scre en (Negative) ng/mL U Marijuana (THC) Screen (Negative) ng/mL 09/27/19 Range/Units 15:45 WBC (4.0-10.0) 10^3/ uL RBC (4.1-5.3) 10^6/u L Hgb (11.7-16.6) g/dL Hct (42.0-52.0) % MCV (80-94) fL MCH (28.0-34.0) pg MCHC (30.0-36.0) g/dL RDW (12.1-15.1) % Plt Count (130-400) 10^3/c mm MPV (7.4-10.4) fL Neut % (Auto) % Lymph % (Auto) % [place] % (Auto) % Eos % (Auto) % Baso % (Auto) % Neut # (Auto) (1.8-7.7) 10^3/u L Lymph # (Auto) (0.8-4.8) 10^3/u L [place] # (Auto) (0.2-0.9) 10^3/u L Eos # (Auto) (0.0-0.8) 10^3/u L Baso # (Auto) (0.0-0.1) 10^3/u L Nucleated RBC % (a uto) % Nucleated RBCs # /100WBC Sodium (136-145) mmol/L Potassium (3.5-5.1) mmol/L Chloride (98-107) mmol/L Carbon Dioxide (22-29) mmol/L Anion Gap (5-19) BUN (6-20) mg/dL Creatinine (0.7-1.2) mg/dL GFR Calculation (90-130) mL/min Glucose (65-115) mg/dL Calculated Osmolal ity (285-295) mOsm/k g Lactate (0.5-2.2) mmol/L Calcium (8.5-10.5) mg/dL Total Bilirubin (0.15-1.2) mg/dL AST (0-40) U/L ALT (0-41) U/L Alkaline Phosphata se (40-130) IU/L Total Protein (6.6-8.7) g/dL Albumin (3.5-5.2) g/dL Globulin (1.3-4.6) g/dL Urine Opiates Scre en Negative (Negative) ng/mL Ur Barbiturates Sc reen Negative (Negative) ng/mL Ur Phencyclidine S crn Negative (Negative) ng/mL Ur Amphetamines Sc reen Negative (Negative) ng/mL U Benzodiazepines Scrn Negative (Negative) ng/mL Urine Cocaine Scre en Negative (Negative) ng/mL U Marijuana (THC) Screen Positive H (Negative) ng/mL Imaging Data^: Other CT: Radiologist's impression: CT Scan Report Signed Patient: Sven Wade #: [id number] : 1985Acct#:[id number] Age/Sex: 34 / MADM Date: 09/27/19 Loc: ERRoom/Bed: Attending Dr: Ordering Provider/Ordering MD: Annika Bolton DO Date of Service: 09/27/19 Procedure(s): CT neck w con* [id number] Accession Number(s): [id number] Report Number: [id number] PROCEDURE INFORMATION: Exam: CT Neck With Contrast Exam date and time: 09/27/2019 3:35 PM Age: 34 years old Clinical indication: Mass, lump, or swelling in neck; Patient HX: Known L submandibular mass w clavicular lymph nodes noted - PT attempted to drain the mass himself 2 days ago; Additional info: Neck mass TECHNIQUE: Imaging protocol: Computed tomography images of the neck with intravenous contrast. Total DLP: 641.01 mGy-cm Radiation optimization: All CT scans at this facility use at least one of these dose optimization techniques: automated exposure control; mA and/or kV adjustment per patient size (includes targeted exams where dose is matched to clinical indication); or iterative reconstruction. Contrast material: OMNI 300; Contrast volume: 95 ml; Contrast route: 20G; COMPARISON: CT neck w con* [id number] 07/05/2018 7:16 PM FINDINGS: Sinuses: There is mild mucosal thickening in the sinuses. No air-fluid levels. Nasopharynx: Unremarkable. Oropharynx: Unremarkable. No significant tonsillar enlargement. Hypopharynx: Unremarkable. Larynx: Unremarkable. Normal epiglottis. Retropharyngeal space: Unremarkable. Submandibular/Parotid glands: The mass is posterior and separate from the left submandibular gland. It is anterior lateral to the jugular vein. Previously, the left jugular vein was only mildly compressed by the lesion but was well opacified. Thyroid: Normal. No enlarged or calcified nodules. Lymph nodes: Subcentimeter lymph nodes are noted in the neck. Trachea: Visualized trachea is unremarkable. Lungs: Unremarkable as visualized. Vasculature: The left jugular vein is opacified superiorly at the skull base bed as it is followed inferiorly, it decreases in size and there is no enhancement in the vessel at the level of the angle of the mandible image 42 continuing into the lower neck. There is a small amount of contrast in the distal vessel but most of this appears to be reflux from the left subclavian vein. The opacified portion of the distal jugular vein is markedly flattened by the cystic mass. Note is made that there is a small amount of air in the left jugular vein and left subclavian vein in the lower neck. The contrast injection was in the left upper extremity in this is most likely iatrogenic. Bones/joints: Old healed fracture deformity of the left frontal bone is noted with residual bony deformity and depression measuring up to 4 mm unchanged since the prior exam. No bony destruction or acute bony abnormality. Soft tissues: The there is a 4.2 by 4.1 by 6.7 cm heterogeneous density mass in the left neck along the deep aspect of the anterior border of the left sternocleidomastoid muscle. The majority of the mass has fluid density Hounsfield units.There is some heterogeneous density within the mass especially along the inferior aspect of the mass where there is a mural nodule that measures 1.2 by 1.4 by 2.1 cm in size. This abnormality is also visualized on the old exam but it had a more homogeneous appearance and measured 3.7 by 2.0 by 4.4 cm. The prior exam Hounsfield unit measurement was 41. Today it measures 35 superiorly. On the prior exam, the wall was imperceptible and there are no solid components or nodularities. There also appears to be a septation in the inferior aspect of this lesion. The wall of this mass has a thickened appearance and is much thicker than on the prior exam. Note is made that some of this heterogeneous density could reflect blood products or complicating features related to the patient's attempt to recently drain the mass. No additional mass is identified. The mass appears well marginated without involvement of the adjacent muscles or soft tissues. There is some mild induration of the overlying subcutaneous fat. The combination of the induration of the subcutaneous fat and thick wall may indicate secondarily infected mass/cystic lesion. CT/CT neck w con* [id number] IMPRESSION: 1. Heterogeneous density mass in the left neck. This has increased in size unchanged in appearance compared to the prior exam. This has complex density characteristics with a nodule and septation inferiorly. The wall has a thickened appearance and there is induration overlying subcutaneous fat. The mass is much larger than on the prior exam. Some of the complex features may indicate that there is either hemorrhage or early infection of the mass given the history of attempt to aspirate or drain the mass himself. 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 2. Note is made that the complex features of the lesion and questionable nodule inferiorly may be complicating features such as blood products or infection but the possibility of superimposed carcinoma cannot be excluded. There have been an and anecdotal cases describing carcinoma within branchial cleft cyst. Most likely these are metastatic lesions from occult primaries. 3. The large mass is compressing the left jugular vein. There is a segment of the vein deep to the mass that demonstrates no enhancement concerning for compression/occlusion versus thrombosis. No additional vascular occlusion or mass effect. 4. No pathologic adenopathy. Radiation Dose CTDIVOL = (mGy): DLP = 641.01 (mGy-cm) Dictated By:Lisa Alonso Signed By:Yovani Alonsoigned Date/Time:09/27/191626 DD/ 25 Discharge Plan Discharge Patient Disposition: Home, Self-Care Clinical Impression: Mass in neck Condition: Stable Prescriptions: New hydrocodone-acetaminophen [[place]] 5-325 mg tablet 1 tab PO Q6H PRN (Reason: pain) Qty: 14 RF: 0 amoxicillin-pot clavulanate [Augmentin] 875-125 mg tablet 1 tab PO BID Qty: 14 RF: 0 Discharge Orders: Discharge Order (Routine); Ordered 09/27/19 Ordered By: Eduarda Haddad Referrals: shanthi valladares [Other] - 1-3 days Augusto Gallo Jr, MD [Primary Care Provider] - Discharge Diet: Advance as tolerated Discharge Activity: Resume usual activity Activity Restrictions/Additional Instructions: Return if any difficulty swallowing or mass increases in size at all. Return if fever. Take antibiotics as prescribed. Follow-up as scheduled as well. Discharge Date/Time: 09/27/19 19:19 Coding Level of Care Code ED Advertising Copy Writer for Chg Fwd Exam Comprehensive Documented by User: Eduarda Haddad MD 09/27/19 19:22 HPI - General Adult General: Chief complaint: General Medical Stated complaint: NECK MASS Time Seen by Provider: 09/27/19 15:01 [facility] ED PFSH: Medical History Methamphetamine dependence Family History Family/Other , The whole family is afflicted with schizoaffective disorder versus bipolar disease. Rampant methamphetamine abuse abounds. Psychiatric illness Social History Smoking and tobacco status: current every day smoker Course Vital Signs: Vital signs: Vital Signs Temperature 97.8 F 09/27/19 15:01 Pulse Rate 79 09/27/19 19:19 Respiratory Rate 18 09/27/19 19:19 Blood Pressure 111/75 09/27/19 19:19 Pulse Oximetry 99 09/27/19 19:19 MDM - General Adult MDM Narrative: Medical decision making narrative: Patient presents here with a neck mass. I took patient over from Dr. Bolton. Patient's resting in the room comfortably with no difficulty breathing and he is able to swallow liquids and solids here. I did speak to [facility] about transfer. Sent images over the cloud and ENT Dr. 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 He felt the best care at this time would be to have him follow-up in his clinic in 1 to 2 days put him on antibiotics outpatient. I had discussion with the patient he agreed to this. They are to call and set up an appointment. I informed patient if he had any difficulty breathing or difficulty swallowing or increased size of mass to return to the ER immediately. He understands this and agrees to this as well. I informed him that is very important that he follows up with ENT as scheduled as well. He is also no longer to attempt to drain this on his own. Lab Data: Labs: Lab Results 09/27/19 09/27/19 09/27/19 Range/Units 15:12 15:12 15:12 WBC 10.1 H (4.0-10.0) 10^3/ uL RBC 4.25 (4.1-5.3) 10^6/u L Hgb 12.6 (11.7-16.6) g/dL Hct 39.8 L (42.0-52.0) % MCV 93.6 (80-94) fL MCH 29.6 (28.0-34.0) pg MCHC 31.7 (30.0-36.0) g/dL RDW 13.3 (12.1-15.1) % Plt Count 248 (130-400) 10^3/c mm MPV 9.7 (7.4-10.4) fL Neut % (Auto) 75.4 % Lymph % (Auto) 14.9 % [place] % (Auto) 7.6 % Eos % (Auto) 1.6 % Baso % (Auto) 0.3 % Neut # (Auto) 7.6 (1.8-7.7) 10^3/u L Lymph # (Auto) 1.5 (0.8-4.8) 10^3/u L [place] # (Auto) 0.8 (0.2-0.9) 10^3/u L Eos # (Auto) 0.2 (0.0-0.8) 10^3/u L Baso # (Auto) 0.0 (0.0-0.1) 10^3/u L Nucleated RBC % (a uto) 0 % Nucleated RBCs # 0.0 /100WBC Sodium 137 (136-145) mmol/L Potassium 3.8 (3.5-5.1) mmol/L Chloride 100 (98-107) mmol/L Carbon Dioxide 27 (22-29) mmol/L Anion Gap 13.8 (5-19) BUN 8 (6-20) mg/dL Creatinine 0.9 (0.7-1.2) mg/dL GFR Calculation 96.0 (90-130) mL/min Glucose 94 (65-115) mg/dL Calculated Osmolal ity 280 L (285-295) mOsm/k g Lactate 1.2 (0.5-2.2) mmol/L Calcium 9.2 (8.5-10.5) mg/dL Total Bilirubin 1.0 (0.15-1.2) mg/dL AST 19 (0-40) U/L ALT 24 (0-41) U/L Alkaline Phosphata se 75 (40-130) IU/L Total Protein 6.9 (6.6-8.7) g/dL Albumin 3.8 (3.5-5.2) g/dL Globulin 3.1 (1.3-4.6) g/dL Urine Opiates Scre en (Negative) ng/mL Ur Barbiturates Sc reen (Negative) ng/mL Ur Phencyclidine S crn (Negative) ng/mL Ur Amphetamines Sc reen (Negative) ng/mL U Benzodiazepines Scrn (Negative) ng/mL Urine Cocaine Scre en (Negative) ng/mL U Marijuana (THC) Screen (Negative) ng/mL 09/27/19 Range/Units 15:45 WBC (4.0-10.0) 10^3/ uL RBC (4.1-5.3) 10^6/u L Hgb (11.7-16.6) g/dL Hct (42.0-52.0) % MCV (80-94) fL MCH (28.0-34.0) pg MCHC (30.0-36.0) g/dL RDW (12.1-15.1) % Plt Count (130-400) 10^3/c mm MPV (7.4-10.4) fL Neut % (Auto) % Lymph % (Auto) % [place] % (Auto) % Eos % (Auto) % Baso % (Auto) % Neut # (Auto) (1.8-7.7) 10^3/u L Lymph # (Auto) (0.8-4.8) 10^3/u L [place] # (Auto) (0.2-0.9) 10^3/u L Eos # (Auto) (0.0-0.8) 10^3/u L Baso # (Auto) (0.0-0.1) 10^3/u L Nucleated RBC % (a uto) % Nucleated RBCs # /100WBC Sodium (136-145) mmol/L Potassium (3.5-5.1) mmol/L Chloride (98-107) mmol/L Carbon Dioxide (22-29) mmol/L Anion Gap (5-19) BUN (6-20) mg/dL Creatinine (0.7-1.2) mg/dL GFR Calculation (90-130) mL/min Glucose (65-115) mg/dL Calculated Osmolal ity (285-295) mOsm/k g Lactate (0.5-2.2) mmol/L Calcium (8.5-10.5) mg/dL Total Bilirubin (0.15-1.2) mg/dL AST (0-40) U/L ALT (0-41) U/L Alkaline Phosphata se (40-130) IU/L Total Protein (6.6-8.7) g/dL Albumin (3.5-5.2) g/dL Globulin (1.3-4.6) g/dL Urine Opiates Scre en Negative (Negative) ng/mL Ur Barbiturates Sc reen Negative (Negative) ng/mL Ur Phencyclidine S crn Negative (Negative) ng/mL Ur Amphetamines Sc reen Negative (Negative) ng/mL U Benzodiazepines Scrn Negative (Negative) ng/mL Urine Cocaine Scre en Negative (Negative) ng/mL U Marijuana (THC) Screen Positive H (Negative) ng/mL Discharge Plan Discharge Patient Disposition: Home, Self-Care Clinical Impression: Mass in neck Condition: Stable Prescriptions: New hydrocodone-acetaminophen [[place]] 5-325 mg tablet 1 tab PO Q6H PRN (Reason: pain) Qty: 14 RF: 0 amoxicillin-pot clavulanate [Augmentin] 875-125 mg tablet 1 tab PO BID Qty: 14 RF: 0 Discharge Orders: Discharge Order (Routine); Ordered 09/27/19 Ordered By: Eduarda Haddad Referrals: shanthi valladares [Other] - 1-3 days Augusto Gallo Jr, MD [Primary Care Provider] - Discharge Diet: Advance as tolerated Discharge Activity: Resume usual activity Activity Restrictions/Additional Instructions: Return if any difficulty swallowing or mass increases in size at all. Return if fever. Take antibiotics as prescribed. Follow-up as scheduled as well. Discharge Date/Time: 09/27/19 19:19 Coding Level of Care Code ED Advertising Copy Writer for Chg Fwd Exam Comprehensive
--- NOTE | 2019-09-27 15:07 | CTR_ITS ---
PROCEDURE INFORMATION: Exam: CT Neck With Contrast Exam date and time: 09/27/2019 3:35 PM Age: 34 years old Clinical indication: Mass, lump, or swelling in neck; Patient HX: Known L submandibular mass w clavicular lymph nodes noted - PT attempted to drain the mass himself 2 days ago; Additional info: Neck mass TECHNIQUE: Imaging protocol: Computed tomography images of the neck with intravenous contrast. Total DLP: 641.01 mGy-cm Radiation optimization: All CT scans at this facility use at least one of these dose optimization techniques: automated exposure control; mA and/or kV adjustment per patient size (includes targeted exams where dose is matched to clinical indication); or iterative reconstruction. Contrast material: OMNI 300; Contrast volume: 95 ml; Contrast route: 20G; COMPARISON: CT neck w con* [id number] 07/05/2018 7:16 PM FINDINGS: Sinuses: There is mild mucosal thickening in the sinuses. No air-fluid levels. Nasopharynx: Unremarkable. Oropharynx: Unremarkable. No significant tonsillar enlargement. Hypopharynx: Unremarkable. Larynx: Unremarkable. Normal epiglottis. Retropharyngeal space: Unremarkable. Submandibular/Parotid glands: The mass is posterior and separate from the left submandibular gland. It is anterior lateral to the jugular vein. Previously, the left jugular vein was only mildly compressed by the lesion but was well opacified. Thyroid: Normal. No enlarged or calcified nodules. Lymph nodes: Subcentimeter lymph nodes are noted in the neck. Trachea: Visualized trachea is unremarkable. Lungs: Unremarkable as visualized. Vasculature: The left jugular vein is opacified superiorly at the skull base bed as it is followed inferiorly, it decreases in size and there is no enhancement in the vessel at the level of the angle of the mandible image 42 continuing into the lower neck. There is a small amount of contrast in the distal vessel but most of this appears to be reflux from the left subclavian vein. The opacified portion of the distal jugular vein is markedly flattened by the cystic mass. Note is made that there is a small amount of air in the left jugular vein and left subclavian vein in the lower neck. The contrast injection was in the left upper extremity in this is most likely iatrogenic. Bones/joints: Old healed fracture deformity of the left frontal bone is noted with residual bony deformity and depression measuring up to 4 mm unchanged since the prior exam. No bony destruction or acute bony abnormality. Soft tissues: The there is a 4.2 by 4.1 by 6.7 cm heterogeneous density mass in the left neck along the deep aspect of the anterior border of the left sternocleidomastoid muscle. The majority of the mass has fluid density Hounsfield units.There is some heterogeneous density within the mass especially along the inferior aspect of the mass where there is a mural nodule that measures 1.2 by 1.4 by 2.1 cm in size. This abnormality is also visualized on the old exam but it had a more homogeneous appearance and measured 3.7 by 2.0 by 4.4 cm. The prior exam Hounsfield unit measurement was 41. Today it measures 35 superiorly. On the prior exam, the wall was imperceptible and there are no solid components or nodularities. There also appears to be a septation in the inferior aspect of this lesion. The wall of this mass has a thickened appearance and is much thicker than on the prior exam. Note is made that some of this heterogeneous density could reflect blood products or complicating features related to the patient's attempt to recently drain the mass. No additional mass is identified. The mass appears well marginated without involvement of the adjacent muscles or soft tissues. There is some mild induration of the overlying subcutaneous fat. The combination of the induration of the subcutaneous fat and thick wall may indicate secondarily infected mass/cystic lesion. CT/CT neck w con* [id number] IMPRESSION: 1. Heterogeneous density mass in the left neck. This has increased in size unchanged in appearance compared to the prior exam. This has complex density characteristics with a nodule and septation inferiorly. The wall has a thickened appearance and there is induration overlying subcutaneous fat. The mass is much larger than on the prior exam. Some of the complex features may indicate that there is either hemorrhage or early infection of the mass given the history of attempt to aspirate or drain the mass himself. 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 2. Note is made that the complex features of the lesion and questionable nodule inferiorly may be complicating features such as blood products or infection but the possibility of superimposed carcinoma cannot be excluded. There have been an and anecdotal cases describing carcinoma within branchial cleft cyst. Most likely these are metastatic lesions from occult primaries. 3. The large mass is compressing the left jugular vein. There is a segment of the vein deep to the mass that demonstrates no enhancement concerning for compression/occlusion versus thrombosis. No additional vascular occlusion or mass effect. 4. No pathologic adenopathy. Radiation Dose CTDIVOL = (mGy): DLP = 641.01 (mGy-cm)
[2019-09-27 15:26] LABS: Basophils % 0.3 %; Eosinophils # 0.2 10^3/uL (0.0-0.8); Eosinophils % 1.6 %; Hematocrit 39.8 % (42.0-52.0); Hemoglobin 12.6 g/dL (11.7-16.6); Lymphocytes # 1.5 10^3/uL (0.8-4.8); Lymphocytes % 14.9 %; Mean Corpuscular HGB Conc 31.7 g/dL (30.0-36.0); Mean Corpuscular Hemoglobin 29.6 pg (28.0-34.0); Mean Corpuscular Volume 93.6 fL (80-94); Mean Platelet Volume 9.7 fL (7.4-10.4); Monocytes # 0.8 10^3/uL (0.2-0.9); Monocytes % 7.6 %; Neutrophils # 7.6 10^3/uL (1.8-7.7); Neutrophils % 75.4 %; Nucleated Red Blood Cells % 0 %; Platelet Count 248 10^3/cmm (130-400); Red Blood Count 4.25 10^6/uL (4.1-5.3); Red Cell Distribution Width 13.3 % (12.1-15.1); White Blood Count 10.1 10^3/uL (4.0-10.0)
[2019-09-27] MEDS: ondansetron 2 mg/ML SDV 2 mL 4 MG IVP (15:40)
[2019-09-27] MEDS: morphine 4 mg/mL SDV 1 mL IVP ×2 (15:40→17:50)
[2019-09-27 15:41] LABS: Lactate (Lactic Acid level) 1.2 mmol/L (0.5-2.2)
[2019-09-27 15:43] LABS: Alanine Aminotransferase 24 U/L (0-41); Albumin Level 3.8 g/dL (3.5-5.2); Alkaline Phosphatase 75 IU/L (40-130); Anion Gap 13.8 (5-19); Aspartate Amino Transferase 19 U/L (0-40); Blood Urea Nitrogen 8 mg/dL (6-20); Calcium 9.2 mg/dL (8.5-10.5); Carbon Dioxide 27 mmol/L (22-29); Chloride 100 mmol/L (98-107); Globulin 3.1 g/dL (1.3-4.6); Glucose 94 mg/dL (65-115); Osmolality Calculated 280 mOsm/kg (285-295); Potassium 3.8 mmol/L (3.5-5.1); Sodium 137 mmol/L (136-145); Total Protein 6.9 g/dL (6.6-8.7)
[2019-09-27] MEDS: iohexol 300 mg/mL 100 mL Btl IV (15:51)
[2019-09-27 16:00] LABS: Amphetamines Screen Urine Negative (Negative); Barbiturates Screen Urine Negative (Negative); Benzodiazepines Screen Urine Negative (Negative); Cocaine Screen Urine Negative (Negative); Opiate Screen Urine Negative (Negative); PCP Screen Urine Negative (Negative); THC Screen Urine Positive (Negative)
[2019-09-27 16:13] VITALS: BP 116/76; PULSE 58; RESP 16; O2SAT 98
[2019-09-27] MEDS: ampicillin-sulbactam 3 GM in sodium chloride 0.9% (plus) 50 ML IV (16:36)
[2019-09-27 17:48] VITALS: BP 101/66; PULSE 58; RESP 16; O2SAT 98
[2019-09-27] MEDS: vancomycin 1,000 MG in sodium chloride 0.9% 250 ML 250 MG IV (17:51)
[2019-09-27 19:19] VITALS: BP 111/75; PULSE 79; RESP 18; O2SAT 99
== END 2019-09-27 19:19 | disposition home or self-care (01) ==
PROVIDERS: Emergency Medicine; Emergency Provider Emergency Medicine; Family Provider Family Medicine; PCP Family Medicine
DX: R22.1 Localized swelling, mass and lump, neck (principal); F17.210 Nicotine dependence, cigarettes, uncomplicated
CPT/HCPCS: 12345; 70491; 80053; 80306; 83605; 85025; 87040; 96365; 96366; 96367; 96374; 96375; 96376; 99282; 99284; J0295; J2270; J2405; J3370; J7050; Q9967

== ENCOUNTER 2019-09-29 05:58 | Emergency (ER) | payer SELFPAY ==
--- NOTE | 2019-09-29 06:09 | W.ED.GENADLT ---
HPI - General Adult General: Chief complaint: Skin/Abscess/Foreign Body Stated complaint: MASS IN THROAT Time Seen by Provider: 09/29/19 06:07 History of Present Illness: HPI narrative: pt was seen two days ago for a mass in his neck. ent at [facility] was contacted and the pt was instructed to follow up in the clinic. pt returns to the er today with a complaint of the mass increasing in size and now is having trouble with swallowing and with secretions. Onset (ago): day(s) Location: neck Radiation: non-radiation Severity: severe Review of Systems General: Reports: 10 or more systems reviewed and unremarkable except in HPI and below ENMT: Reports: painful swallowing PFSH ED PFSH: Medical History Methamphetamine dependence Family History Family/Other , The whole family is afflicted with schizoaffective disorder versus bipolar disease. Rampant methamphetamine abuse abounds. Psychiatric illness Social History Smoking and tobacco status: current every day smoker Physical Exam HENMT: COMMON NORMALS: normocephalic, head/scalp atraumatic and external nose normal HEAD & SCALP: normocephalic and atraumatic FACE & SINUS: normal facial exam NOSE: external nose normal MOUTH: oral and palatal mucosa normal Neck/C-Spine: GENERAL: Yes mass left Resp: COMMON NORMALS: normal respiratory effort, no retractions, no use of accessory muscles and clear to auscultation bilaterally AUSCULTATION: clear to auscultation bilaterally Cardio: COMMON NORMALS: regular rate and regular rhythm RATE: regular rate RHYTHM: regular rhythm Extremity: COMMON NORMALS: normal to inspection, full ROM and normal capillary refill Skin: COMMON NORMALS: no rashes or lesions noted, no wounds, skin turgor normal, no jaundice, no petechiae and no mottling GENERAL SKIN EXAM: no rashes or lesions noted and turgor normal Course Vital Signs: Vital signs: Vital Signs Temperature 98.0 F 09/29/19 06:11 Pulse Rate 78 09/29/19 06:15 Respiratory Rate 18 09/29/19 06:15 Blood Pressure 130/74 09/29/19 06:15 Pulse Oximetry 98 09/29/19 06:15 Discharge Plan Discharge Patient Disposition: Xfer Other Clinical Impression: Mass in neck Condition: Stable Discharge Orders: Transfer Out of Facility (Order); Ordered 09/29/19 Ordered By: Fernando Walls Referrals: Augusto Gallo Jr, MD [Primary Care Provider] - Coding Level of Care Code ED Senior Research Scientist for Chg Fwd Exam Detailed
[2019-09-29 06:11] VITALS: BP 139/76; PULSE 79; RESP 18; TEMP 36.7; O2SAT 99; BMI 22.5
[2019-09-29 06:15] VITALS: BP 130/74; PULSE 78; RESP 18; O2SAT 98
[2019-09-29 07:00] VITALS: BP 124/79; RESP 15; O2SAT 95
[2019-09-29 07:17] VITALS: RESP 16
[2019-09-29] MEDS: sodium chloride 0.9% 1,000 ML 100 ML IV (07:17)
[2019-09-29] MEDS: ondansetron 2 mg/ML SDV 2 mL 4 MG IVP (07:17)
[2019-09-29] MEDS: morphine 4 mg/mL SDV 1 mL 2 MG IVP (07:17)
[2019-09-29 07:59] VITALS: BP 106/73; PULSE 70; RESP 16; O2SAT 96
== END 2019-09-29 08:00 | disposition other institution (70) ==
PROVIDERS: Emergency Provider Family Medicine; Family Provider Family Medicine; PCP Family Medicine
DX: R22.1 Localized swelling, mass and lump, neck (principal); F17.210 Nicotine dependence, cigarettes, uncomplicated
CPT/HCPCS: 12345; 96361; 96374; 96375; 99282; 99285; J2270; J2405; J7030

== ENCOUNTER 2019-10-25 11:36 | Inpatient (IN) | payer SELFPAY ==
[2019-10-25 11:38] VITALS: BP 140/86; PULSE 117; RESP 16; O2SAT 95; BMI 22.2
--- NOTE | 2019-10-25 11:41 | ECG_ITS ---
Measurements Intervals [place] Rate: 124 P: 51 TN: 152 QRS: 16 QRSD: 102 T: 48 QT: 309 QTc: 445 SINUS TACHYCARDIA ABNORMAL RHYTHM ECG Compared to ECG 08/13/2019 12:34:42 Sinus rhythm no longer present Incomplete right bundle-branch block no longer present Myocardial infarct finding no longer present Electronically Signed On 10-26-2019 10:33:08 CDT by Augusto Herring MD [email or web address]
--- NOTE | 2019-10-25 11:41 | XRR_ITS ---
PROCEDURE INFORMATION: Exam: XR Chest, 1 View Exam date and time: 10/25/2019 11:43 AM Age: 34 years old Clinical indication: Shortness of breath; Additional info: Cough TECHNIQUE: Imaging protocol: XR of the chest Views: 1 view. COMPARISON: CR Chest 2 views* [id number] 06/07/2018 8:10 AM FINDINGS: Lungs: Mild interstitial prominence without acute infiltrate. Pleural space: No pleural effusion. Heart/Mediastinum: No cardiomegaly. Bones/joints: Unremarkable. XR/XR chest 1V portable [id number] IMPRESSION: Mild interstitial prominence without acute infiltrate.
--- NOTE | 2019-10-25 11:43 | W.ED.AMS ---
HPI - Altered Mental Status General: Chief Complaint: Altered Mental Status Stated Complaint: AMS Time Seen by Provider: 10/25/19 11:40 History of Present Illness: HPI narrative: History is very limited as the patient is having hallucinations and appears to be acutely psychotic. Police found the patient in a park very diaphoretic and talking oddly. The concern of mental status changes was present and police called EMS. EMS reports the patient has been relatively cooperative but no meaningful history can be obtained. Patient is cooperative here but cannot give any further history. He does appear to be hallucinating during exam. Review of Systems General: Reports: ROS unobtainable due to mental status PFS ED PFSH: Medical History Methamphetamine dependence Family History Family/Other , The whole family is afflicted with schizoaffective disorder versus bipolar disease. Rampant methamphetamine abuse abounds. Psychiatric illness Social History Smoking and tobacco status: current every day smoker Physical Exam Const: GENERAL APPEARANCE: cooperative, anxious and disheveled NUTRITIONAL APPEARANCE: thin ORIENTATION/CONSCIOUSNESS: Yes awake and Yes oriented to place HENMT: COMMON NORMALS: normocephalic, atraumatic, hearing grossly normal bilaterally, external ears normal, EAC's normal, Normal external nose present and moist oral mucous membranes HEAD & SCALP: normal to inspection, normocephalic and atraumatic FACE & SINUS: normal facial exam and face symmetric NOSE: Normal external nose present and Normal nares present EXTERNAL EAR: Yes external ears normal EXTERNAL AUDITORY CANAL: EAC's normal MOUTH: Normal oral and palatal mucosa present, lip normal and tongue normal Eye: COMMON NORMALS: Equal, round and reactive pupils present, EOMs intact bilaterally, conjunctivae normal and no scleral icterus GENERAL EYE: appearance normal, both eyes and all related structures ALIGNMENT: Yes alignment normal PERIORBITAL: periorbital findings normal EYELID: eyelids normal CONJUNCTIVA: Yes conjunctivae normal SCLERA: sclerae normal PUPIL: Yes Equal, round and reactive pupils present Neck/C-Spine: COMMON NORMALS: full ROM, no lymphadenopathy, supple, no meningeal signs and no JVD GENERAL: Yes normal visual inspection and Yes trachea midline CERVICAL SPINE: Yes cervical ROM normal Chest: COMMONS NORMALS: normal inspection of the chest and normal palpation of entire chest wall Resp: COMMON NORMALS: normal respiratory effort, No retractions, No use of accessory muscles and clear to auscultation bilaterally EFFORT & INSPECTION: Yes able to speak in complete sentences AUSCULTATION: clear to auscultation bilaterally, no crackles, no rales, no rhonchi and no wheezes Cardio: COMMON NORMALS: no JVD, regular rate, regular rhythm, S1 normal heart sound present, S2 normal heart sound present, No gallops present (Cardio), No clicks present (Cardio), No murmurs present (Cardio) and No rub (Cardio) RATE: regular rate RHYTHM: regular rhythm HEART SOUNDS: S1 normal heart sound present, S2 normal heart sound present, no click, no gallops, no murmurs and no rubs GI: COMMON NORMALS: Soft to palpation, non-tender, No hepatosplenomegaly present and no masses PALPATION: Yes Soft to palpation, No Tenderness to palpation present (GI), No Guarding due to palpation present (GI), No Rigid due to palpation, Yes No hepatosplenomegaly present, No Hernia present, No Palpable mass present and No Pulsatile mass present : COMMON NORMALS: Yes no CVA tenderness BLADDER/KIDNEY EXAM: Yes no CVA tenderness Back/Pelvis: COMMON NORMALS: no CVA tenderness, thoracic and lumbar spine normal to inspection, no thoracic nor lumbar tenderness and thoraco-lumbar ROM normal Extremity: COMMON NORMALS: normal to inspection, full ROM, capillary refill normal, no joint enlargement, no clubbing, cyanosis or edema and no calf tenderness Neuro: OPHELIA COMA SCALE: document GCS findings Ophelia coma scale eye opening: Spontaneous [place] coma scale verbal response: Confused Ophelia coma scale motor response: Obey commands Ophelia coma scale total score: 14 COMMON NORMALS: CN's II-XII intact bilaterally, moves all extremities, no focal motor deficits and no sensory deficits noted SENSORIUM/ORIENTATION: Yes oriented to place MENINGEAL SIGNS: Yes no meningeal signs SPEECH: speech normal Psych: APPEARANCE: Yes disheveled ATTITUDE: Yes paranoid and Yes bizarre ACTIVITY/MOTOR BEHAVIOR: Yes fidgeting, Yes restless and Yes Avoids eye contact (attititude/behavior) SPEECH: Yes rapid and Yes Pressured speech present THOUGHT PROCESS: disorganized and Loose association thought process present THOUGHT CONTENT: Yes Hallucination(s) present Skin: COMMON NORMALS: no rashes or lesions noted, turgor normal, no jaundice, no petechiae and no mottling GENERAL SKIN EXAM: no rashes or lesions noted and turgor normal Course Vital Signs: Vital signs: Vital Signs Temperature 99.5 F 10/25/19 11:45 Pulse Rate 121 H 10/25/19 11:45 Respiratory Rate 16 10/25/19 11:45 Blood Pressure 140/86 10/25/19 11:45 Pulse Oximetry 96 10/25/19 11:45 MDM - Altered Mental Status MDM Narrative: Medical decision making narrative: The case was reviewed with Dr. Woodson. 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 The patient has not been combative or agitated here but did necessitate Haldol and Ativan as she kept trying to get out out of his bed and wander in the ER. Lab Data: Labs: Lab Results 10/25/19 10/25/19 10/25/19 Range/Units 11:50 11:50 11:50 WBC 5.3 (4.0-10.0) 10^3/ uL RBC 4.54 (4.1-5.3) 10^6/u L Hgb 13.5 (11.7-16.6) g/dL Hct 41.2 L (42.0-52.0) % MCV 90.7 (80-94) fL MCH 29.7 (28.0-34.0) pg MCHC 32.8 (30.0-36.0) g/dL RDW 14.6 (12.1-15.1) % Plt Count 267 (130-400) 10^3/c mm MPV 9.4 (7.4-10.4) fL Neut % (Auto) 61.5 % Lymph % (Auto) 25.9 % [place] % (Auto) 10.7 % Eos % (Auto) 1.1 % Baso % (Auto) 0.4 % Neut # (Auto) 3.3 (1.8-7.7) 10^3/u L Lymph # (Auto) 1.4 (0.8-4.8) 10^3/u L [place] # (Auto) 0.6 (0.2-0.9) 10^3/u L Eos # (Auto) 0.1 (0.0-0.8) 10^3/u L Baso # (Auto) 0.0 (0.0-0.1) 10^3/u L Nucleated RBC % (a uto) 0 % Nucleated RBCs # 0.0 /100WBC Sodium 140 (136-145) mmol/L Potassium 3.9 (3.5-5.1) mmol/L Chloride 102 (98-107) mmol/L Carbon Dioxide 25 (22-29) mmol/L Anion Gap 16.9 (5-19) BUN 12 (6-20) mg/dL Creatinine 1.2 (0.7-1.2) mg/dL GFR Calculation 68.9 L (90-130) mL/min Glucose 138 H (65-115) mg/dL Calculated Osmolal ity 288 (285-295) mOsm/k g Lactic Acid 1.7 (0.5-2.2) mmol/L Calcium 9.9 (8.5-10.5) mg/dL Magnesium 2.2 (1.7-2.3) mg/dL Total Bilirubin 0.6 (0.15-1.2) mg/dL AST 44 H (0-40) U/L ALT 25 (0-41) U/L Alkaline Phosphata se 88 (40-130) IU/L Creatine Kinase 623 H* (39-308) U/L Troponin T Baselin e (0-15) ng/mL Total Protein 7.5 (6.6-8.7) g/dL Albumin 4.4 (3.5-5.2) g/dL Globulin 3.1 (1.3-4.6) g/dL TSH 0.71 (0.27-4.20) uIU/ mL Urine Color (Yellow) Urine Appearance (CLEAR) Urine pH (5-7) Ur Specific Gravit y (1.005-1.030) Urine Protein (Negative) Urine Glucose (UA) (Normal) Urine Ketones (Negative) Urine Blood (Negative) Urine Nitrate (Negative) Urine Bilirubin (NEGATIVE) Urine Urobilinogen (Negative) mg/dL Ur Leukocyte Mela ase (Negative) Urine RBC (0-2) /hpf Urine WBC (0-5) /hpf Ur Squamous Epith Cells (0-5) Calcium Oxalate Cr ystal /hpf Urine Bacteria (NONE) Hyaline Casts Urine Mucus Salicylates < 0.3 L (3-10) mg/dL Urine Opiates Scre en (Negative) ng/mL Acetaminophen < 5.0 L (10-30) ug/mL Ur Barbiturates Sc reen (Negative) ng/mL Phenytoin < 0.8 L (10-20) ug/mL Valproic Acid 2.8 L (50-100) mcg/mL Carbamazepine < 2.0 L (4.0-12.0) ug/mL Ur Phencyclidine S crn (Negative) ng/mL Ur Amphetamines Sc reen (Negative) ng/mL U Benzodiazepines Scrn (Negative) ng/mL [place] (0.6-1.2) mmol/L Urine Cocaine Scre en (Negative) ng/mL U Marijuana (THC) Screen (Negative) ng/mL Ethyl Alcohol < 10 (0-10) mg/dL 10/25/19 10/25/19 10/25/19 Range/Units 11:50 11:50 13:00 WBC (4.0-10.0) 10^3/ uL RBC (4.1-5.3) 10^6/u L Hgb (11.7-16.6) g/dL Hct (42.0-52.0) % MCV (80-94) fL MCH (28.0-34.0) pg MCHC (30.0-36.0) g/dL RDW (12.1-15.1) % Plt Count (130-400) 10^3/c mm MPV (7.4-10.4) fL Neut % (Auto) % Lymph % (Auto) % [place] % (Auto) % Eos % (Auto) % Baso % (Auto) % Neut # (Auto) (1.8-7.7) 10^3/u L Lymph # (Auto) (0.8-4.8) 10^3/u L [place] # (Auto) (0.2-0.9) 10^3/u L Eos # (Auto) (0.0-0.8) 10^3/u L Baso # (Auto) (0.0-0.1) 10^3/u L Nucleated RBC % (a uto) % Nucleated RBCs # /100WBC Sodium (136-145) mmol/L Potassium (3.5-5.1) mmol/L Chloride (98-107) mmol/L Carbon Dioxide (22-29) mmol/L Anion Gap (5-19) BUN (6-20) mg/dL Creatinine (0.7-1.2) mg/dL GFR Calculation (90-130) mL/min Glucose (65-115) mg/dL Calculated Osmolal ity (285-295) mOsm/k g Lactic Acid (0.5-2.2) mmol/L Calcium (8.5-10.5) mg/dL Magnesium (1.7-2.3) mg/dL Total Bilirubin (0.15-1.2) mg/dL AST (0-40) U/L ALT (0-41) U/L Alkaline Phosphata se (40-130) IU/L Creatine Kinase (39-308) U/L Troponin T Baselin e 9 (0-15) ng/mL Total Protein (6.6-8.7) g/dL Albumin (3.5-5.2) g/dL Globulin (1.3-4.6) g/dL TSH (0.27-4.20) uIU/ mL Urine Color Yellow (Yellow) Urine Appearance Sl hazy (CLEAR) Urine pH 5 (5-7) Ur Specific Gravit y 1.025 (1.005-1.030) Urine Protein Neg (Negative) Urine Glucose (UA) Norm (Normal) Urine Ketones Negative (Negative) Urine Blood Neg (Negative) Urine Nitrate Negative (Negative) Urine Bilirubin 1+ H (NEGATIVE) Urine Urobilinogen Norm (Negative) mg/dL Ur Leukocyte Mela ase Negative (Negative) Urine RBC None (0-2) /hpf Urine WBC None (0-5) /hpf Ur Squamous Epith Cells Rare (0-5) Calcium Oxalate Cr ystal 5-10 H /hpf Urine Bacteria Trace (NONE) Hyaline Casts 10-15 H Urine Mucus 2+ Salicylates (3-10) mg/dL Urine Opiates Scre en (Negative) ng/mL Acetaminophen (10-30) ug/mL Ur Barbiturates Sc reen (Negative) ng/mL Phenytoin (10-20) ug/mL Valproic Acid (50-100) mcg/mL Carbamazepine (4.0-12.0) ug/mL Ur Phencyclidine S crn (Negative) ng/mL Ur Amphetamines Sc reen (Negative) ng/mL U Benzodiazepines Scrn (Negative) ng/mL [place] 0.1 L (0.6-1.2) mmol/L Urine Cocaine Scre en (Negative) ng/mL U Marijuana (THC) Screen (Negative) ng/mL Ethyl Alcohol (0-10) mg/dL 10/25/19 Range/Units 13:00 WBC (4.0-10.0) 10^3/ uL RBC (4.1-5.3) 10^6/u L Hgb (11.7-16.6) g/dL Hct (42.0-52.0) % MCV (80-94) fL MCH (28.0-34.0) pg MCHC (30.0-36.0) g/dL RDW (12.1-15.1) % Plt Count (130-400) 10^3/c mm MPV (7.4-10.4) fL Neut % (Auto) % Lymph % (Auto) % [place] % (Auto) % Eos % (Auto) % Baso % (Auto) % Neut # (Auto) (1.8-7.7) 10^3/u L Lymph # (Auto) (0.8-4.8) 10^3/u L [place] # (Auto) (0.2-0.9) 10^3/u L Eos # (Auto) (0.0-0.8) 10^3/u L Baso # (Auto) (0.0-0.1) 10^3/u L Nucleated RBC % (a uto) % Nucleated RBCs # /100WBC Sodium (136-145) mmol/L Potassium (3.5-5.1) mmol/L Chloride (98-107) mmol/L Carbon Dioxide (22-29) mmol/L Anion Gap (5-19) BUN (6-20) mg/dL Creatinine (0.7-1.2) mg/dL GFR Calculation (90-130) mL/min Glucose (65-115) mg/dL Calculated Osmolal ity (285-295) mOsm/k g Lactic Acid (0.5-2.2) mmol/L Calcium (8.5-10.5) mg/dL Magnesium (1.7-2.3) mg/dL Total Bilirubin (0.15-1.2) mg/dL AST (0-40) U/L ALT (0-41) U/L Alkaline Phosphata se (40-130) IU/L Creatine Kinase (39-308) U/L Troponin T Baselin e (0-15) ng/mL Total Protein (6.6-8.7) g/dL Albumin (3.5-5.2) g/dL Globulin (1.3-4.6) g/dL TSH (0.27-4.20) uIU/ mL Urine Color (Yellow) Urine Appearance (CLEAR) Urine pH (5-7) Ur Specific Gravit y (1.005-1.030) Urine Protein (Negative) Urine Glucose (UA) (Normal) Urine Ketones (Negative) Urine Blood (Negative) Urine Nitrate (Negative) Urine Bilirubin (NEGATIVE) Urine Urobilinogen (Negative) mg/dL Ur Leukocyte Mela ase (Negative) Urine RBC (0-2) /hpf Urine WBC (0-5) /hpf Ur Squamous Epith Cells (0-5) Calcium Oxalate Cr ystal /hpf Urine Bacteria (NONE) Hyaline Casts Urine Mucus Salicylates (3-10) mg/dL Urine Opiates Scre en Negative (Negative) ng/mL Acetaminophen (10-30) ug/mL Ur Barbiturates Sc reen Negative (Negative) ng/mL Phenytoin (10-20) ug/mL Valproic Acid (50-100) mcg/mL Carbamazepine (4.0-12.0) ug/mL Ur Phencyclidine S crn Negative (Negative) ng/mL Ur Amphetamines Sc reen Positive H (Negative) ng/mL U Benzodiazepines Scrn Negative (Negative) ng/mL [place] (0.6-1.2) mmol/L Urine Cocaine Scre en Negative (Negative) ng/mL U Marijuana (THC) Screen Negative (Negative) ng/mL Ethyl Alcohol (0-10) mg/dL EKG Data^: EKG 1: Attestation: I personally reviewed and interpreted this EKG as follows: EKG interpretation date: 10/25/19 EKG interpretation time: 11:49 Interpretation: Normal sinus rhythm 124 beats a minute, no blocks, normal intervals. No acute ST or T wave changes. Discharge Plan Discharge Patient Disposition: Admitted As Inpatient Clinical Impression: Acute psychosis Condition: Stable Prescriptions: No Action Unable to Assess RF: 0 Referrals: Augusto Gallo Jr, MD [Primary Care Provider] - Interventions: ED Charges Last Done: 10/25/19 11:57 Coding Level of Care Code ED Automobile Or Truck Rental Dispatcher for Sergei Matute
[2019-10-25 11:45] VITALS: BP 140/86; PULSE 121; RESP 16; TEMP 37.5; O2SAT 96
[2019-10-25] MEDS: LORazepam 2 mg/mL INJ 1 mL IVP (11:53)
[2019-10-25] MEDS: ondansetron 2 mg/ML SDV 2 mL 4 MG IVP (11:53)
[2019-10-25] MEDS: sodium chloride 0.9% 1,000 ML 999 ML IV (11:54)
[2019-10-25 11:59] LABS: Basophils % 0.4 %; Eosinophils # 0.1 10^3/uL (0.0-0.8); Eosinophils % 1.1 %; Hematocrit 41.2 % (42.0-52.0); Hemoglobin 13.5 g/dL (11.7-16.6); Lymphocytes # 1.4 10^3/uL (0.8-4.8); Lymphocytes % 25.9 %; Mean Corpuscular HGB Conc 32.8 g/dL (30.0-36.0); Mean Corpuscular Hemoglobin 29.7 pg (28.0-34.0); Mean Corpuscular Volume 90.7 fL (80-94); Mean Platelet Volume 9.4 fL (7.4-10.4); Monocytes # 0.6 10^3/uL (0.2-0.9); Monocytes % 10.7 %; Neutrophils # 3.3 10^3/uL (1.8-7.7); Neutrophils % 61.5 %; Nucleated Red Blood Cells % 0 %; Platelet Count 267 10^3/cmm (130-400); Red Blood Count 4.54 10^6/uL (4.1-5.3); Red Cell Distribution Width 14.6 % (12.1-15.1); White Blood Count 5.3 10^3/uL (4.0-10.0)
--- NOTE | 2019-10-25 12:12 | PC.NURSE ---
XR performed at bedside
[2019-10-25 12:20] LABS: Lactic Sepsis W/Reflex 1.7 mmol/L (0.5-2.2)
[2019-10-25 12:24] LABS: Troponin(5th) Baseline 9 ng/mL (0-15)
[2019-10-25 12:25] LABS: Lithium 0.1 mmol/L (0.6-1.2)
[2019-10-25 12:29] LABS: Alanine Aminotransferase 25 U/L (0-41); Albumin Level 4.4 g/dL (3.5-5.2); Alkaline Phosphatase 88 IU/L (40-130); Anion Gap 16.9 (5-19); Aspartate Amino Transferase 44 U/L (0-40); Blood Urea Nitrogen 12 mg/dL (6-20); Calcium 9.9 mg/dL (8.5-10.5); Carbon Dioxide 25 mmol/L (22-29); Chloride 102 mmol/L (98-107); Globulin 3.1 g/dL (1.3-4.6); Glomerular Filtration Rate 68.9 mL/min (90-130); Glucose 138 mg/dL (65-115); Magnesium 2.2 mg/dL (1.7-2.3); Osmolality Calculated 288 mOsm/kg (285-295); Potassium 3.9 mmol/L (3.5-5.1); Sodium 140 mmol/L (136-145); Thyroid Stimulating Hormone 0.71 uIU/mL (0.27-4.20); Total Bilirubin 0.6 mg/dL (0.15-1.2); Total Protein 7.5 g/dL (6.6-8.7); Valproic Acid Level 2.8 mcg/mL (50-100)
[2019-10-25 12:34] LABS: Acetaminophen < 5.0 ug/mL (10-30); Alcohol Level < 10 mg/dL (0-10); Salicylate < 0.3 mg/dL (3-10)
[2019-10-25 12:36] LABS: Carbamazepine Tegretol < 2.0 ug/mL (4.0-12.0); Phenytoin Dilantin < 0.8 ug/mL (10-20)
[2019-10-25 12:37] LABS: Creatine Phosphokinase 623 U/L (39-308)
[2019-10-25] MEDS: sodium chloride 0.9% 1,000 ML 100 ML IV (13:09)
[2019-10-25] MEDS: haloperidol inj 5 mg/mL INJ 1 mL IVP (13:09)
[2019-10-25 13:18] LABS: Bilirubin Urine 1+ (NEGATIVE); Blood Urine Neg (Negative); Glucose Urine UA Norm (Normal); Ketones Urine Negative (Negative); Leukocyte Esterase Urine Negative (Negative); Nitrate Urine Negative (Negative); Protein Urine Neg (Negative); Specific Gravity, Urine 1.025 (1.005-1.030); Urine Color Yellow (Yellow); Urobilinogen Urine Norm (Negative); pH Urine 5 (5-7)
[2019-10-25 13:20] LABS: Bacteria Urine TRACE; Mucus Urine 2+; Squamous Epithelial Cell Urine RARE (0-5)
[2019-10-25 13:21] LABS: Add Urine Culture? No; Urine Appearance SL Hazy (CLEAR)
[2019-10-25 13:22] LABS: Amphetamines Screen Urine Positive (Negative); Barbiturates Screen Urine Negative (Negative); Benzodiazepines Screen Urine Negative (Negative); Cocaine Screen Urine Negative (Negative); Opiate Screen Urine Negative (Negative); PCP Screen Urine Negative (Negative); THC Screen Urine Negative (Negative)
[2019-10-25 14:00] VITALS: BP 117/88; PULSE 85; RESP 16; O2SAT 98
[2019-10-25 14:27] VITALS: BP 114/72
--- NOTE | 2019-10-25 17:41 | ECG_ITS ---
Measurements Intervals [place] Rate: 62 P: 60 [place]: 146 QRS: 42 QRSD: 109 T: 53 QT: 389 QTc: 397 SINUS RHYTHM WITH SINUS ARRHYTHMIA Compared to ECG 08/13/2019 12:34:42 Incomplete right bundle-branch block no longer present Myocardial infarct finding no longer present Electronically Signed On 10-26-2019 10:34:54 CDT by Augusto Herring MD [email or web address]
--- NOTE | 2019-10-25 18:08 | PC.RESP ---
Smoking Cessation information and a schedule of classes sent to patient.
[2019-10-25 21:45] VITALS: BP 95/60; PULSE 90; RESP 12; TEMP 36.6; O2SAT 99
[2019-10-26 06:00] VITALS: BP 118/81; PULSE 86; RESP 16; TEMP 36.4; O2SAT 100
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
[2019-10-26 14:00] VITALS: BP 105/64; PULSE 81; RESP 18; TEMP 37; O2SAT 97
[2019-10-26] MEDS: paliperidone ER 6 mg Tablet PO (15:13)
[2019-10-26] MEDS: hyDROXYzine 25 mg Capsule 50 MG PO (21:20)
--- NOTE | 2019-10-26 21:20 | PC.NURSE ---
PRN VISTARIL PT REQUESTING VISTARIL FOR ANXIETY. VISTARIL 50 MG ADMINISTERED PO. WILL MONITOR FOR MEDICATION EFFECTIVENESS.
[2019-10-26 22:00] VITALS: BP 99/59; PULSE 57; RESP 17; TEMP 36.7; O2SAT 98
[2019-10-27 06:00] VITALS: BP 110/47; PULSE 83; RESP 17; TEMP 37; O2SAT 98
[2019-10-27] MEDS: paliperidone ER 6 mg Tablet PO (09:24)
[2019-10-27] MEDS: OLANZapine 5 mg ODT PO ×3 (11:59→21:19)
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
--- NOTE | 2019-10-27 12:58 | P.PN_ITS ---
Subjective NPU Subjective: Interval history: Sven presents today continuing to struggle with his energy level and psychotic thoughts. He reports that he is not having any side effects to the Invega and that he is feeling a little optimism that things might get better. Mental Status Exam MSE Comments: This is a well-nourished, well-developed, white male, with limited dress, grooming, and eye contact. No abnormal movements, except for psychomotor retardation. Cooperative with exam in mild distress, at times. Speech was decreased rate and volume. Mood described as down; affect congruent and occasionally tearful as he expressed fearfulness about things he was hearing and seeing with added agitation. Thought process, mostly organized, but confused at times. Thought content: patient denied any suicidal or homicidal ideation, there were no delusions reported but clear paranoia existed, possible hyper- congregational demon type thinking, he endorsed auditory and visual hallucinations. Attention and concentration were improving, and memory was unreliable, but none were formally tested. He is alert and oriented times three. Insight and judgment are impaired. Vitals/I&O/Wt Last Vital Signs Temp 98.5 F 10/27/19 22:00 Pulse 60 10/27/19 22:00 Resp 17 10/27/19 22:00 BP 98/57 10/27/19 22:00 Pulse Ox 98 10/27/19 22:00 Data NPU : 10/25/19 11:50 10/25/19 11:50 A&P Additional A&P Information (1) Acute psychosis: (2) Methamphetamine dependence: (3) Suicide ideation: (4) Auditory hallucinations: This is a 34 year old, white male, with reports of baseline psychosis, but with either exacerbation or creation of psychosis with methamphetamine use, with active methamphetamine addiction, who presents open to medication intervention. Continue current medication. Encourage individual, group, and milieu therapy. Continue q-15 minute checks for safety. Encourage follow up with mental health treatment, as well as sober living tr eatment at the highest level of care to which he is willing to commit. Involuntary Hold Information 96 Hour Hold: 96 Hour Involuntary Admission: Yes Attestations NPU Medical Necessity Statement*: Inpatient hospitalization is medically necessary and the clinically appropriate intervention at this time. We will monitor his medication and make adjustments as indicated. Likely length of stay is 3-5 days. Coding Level of Care Code Acute Telephone Clerk [employer] for Sergei Matute
--- NOTE | 2019-10-27 13:00 | PC.NURSE ---
PRN ZYPREXA DONOVAN FOLLOW UP MEDICATION EFFECTIVE. PATIENT LYING IN BED RESTING. NO FURTHER C/O HALLUCINATIONS.
[2019-10-27 14:00] VITALS: BP 104/64; PULSE 57; RESP 20; TEMP 36.7; O2SAT 99
--- NOTE | 2019-10-27 17:01 | PC.NURSE ---
PRN ZYPREXA ZYDIS ZYPREXA ZYDIS 5MG PO PER PATIENT C/O HALLUCINATIONS. WILL CONTINUE TO MONITOR FOR MEDICATION EFFECTIVENESS.
--- NOTE | 2019-10-27 18:00 | PC.NURSE ---
PRN ZYPREXA ZYDIS FOLLOW UP MEDICATION EFFECTIVE. NO FURTHER C/O HALLUCINATIONS. PATIENT LYING IN BED RESTING.
[2019-10-27] MEDS: hyDROXYzine 25 mg Capsule 50 MG PO (21:18)
[2019-10-27 22:00] VITALS: BP 98/57; PULSE 60; RESP 17; TEMP 36.9; O2SAT 98
[2019-10-28 06:00] VITALS: BP 91/52; PULSE 43; RESP 17; TEMP 36.8; O2SAT 98
[2019-10-28] MEDS: paliperidone ER 6 mg Tablet PO (08:25)
[2019-10-28 13:54] VITALS: BP 102/65; PULSE 79; RESP 18; TEMP 36.5; O2SAT 98
--- NOTE | 2019-10-28 15:43 | PM.NPN ---
Subjective NPU Subjective: Interval history: Sven presents today continuing to have paranoia and somewhat aggressive reactions to his thoughts about what people are thinking and things that he is seeing. He reports that he is doing okay with the medication. We discussed the fact that it would make sense for him to consider the Invega injection so that he does not get into the situation he is gotten into with nonadherence with his use and hopefully taking the medication regularly will increase his likelihood of sobriety. He was open to that possibility. Mental Status Exam MSE Comments: This is a well-nourished, well-developed, white male, with limited dress, grooming, and eye contact. No abnormal movements, except for psychomotor retardation. Cooperative with exam in mild distress, at times. Speech was decreased rate and volume. Mood described as down; affect congruent and occasionally tearful as he expressed fearfulness about things he was hearing and seeing with added agitation. Thought process, mostly organized, but confused at times. Thought content: patient denied any suicidal or homicidal ideation, there were no delusions reported but clear paranoia existed, possible hyper-scientology demon type thinking, he endorsed auditory and visual hallucinations. Attention and concentration were improving, and memory was unreliable, but none were formally tested. He is alert and oriented times three. Insight and judgment are impaired. Vitals/I&O/Wt Last Vital Signs Temp 98.4 F 10/28/19 21:43 Pulse 66 10/28/19 21:43 Resp 20 H 10/28/19 21:43 BP 102/61 10/28/19 21:43 Pulse Ox 97 10/28/19 21:43 Data NPU : 10/25/19 11:50 10/25/19 11:50 A&P Additional A&P Information (1) Acute psychosis: (2) Methamphetamine dependence: (3) Suicide ideation: (4) Auditory hallucinations: This is a 34 year old, white male, with reports of baseline psychosis, but with either exacerbation or creation of psychosis with methamphetamine use, with active methamphetamine addiction, who presents open to medication intervention. Continue current medication. Encourage individual, group, and milieu therapy. Continue q-15 minute checks for safety. Encourage follow up with mental health treatment, as well as sober living treatment at the highest level of care to which he is willing to commit. Involuntary Hold Information 96 Hour Hold: 96 Hour Involuntary Admission: Yes Attestations NPU Medical Necessity Statement*: Inpatient hospitalization is medically necessary and the clinically appropriate intervention at this time. We will monitor his medication and make adjustments as indicated. Likely length of stay is 2-4 days. Coding Level of Care Code Acute Block Making Machine Operator for Sergei Matute
[2019-10-28] MEDS: nicotine 2 mg Gum BUCCAL (19:39)
[2019-10-28] MEDS: hyDROXYzine 25 mg Capsule 50 MG PO (20:36)
[2019-10-28] MEDS: OLANZapine 5 mg ODT PO (20:37)
[2019-10-28] MEDS: acetaminophen 325 mg Tablet 650 MG PO (20:37)
[2019-10-28 21:43] VITALS: BP 102/61; PULSE 66; RESP 20; TEMP 36.9; O2SAT 97
[2019-10-29 06:00] VITALS: BP 96/60; PULSE 69; RESP 17; TEMP 36.7; O2SAT 97
[2019-10-29] MEDS: paliperidone ER 6 mg Tablet PO (08:08)
[2019-10-29] MEDS: nicotine 2 mg Gum BUCCAL ×3 (11:31→17:37)
--- NOTE | 2019-10-29 11:36 | P.PN_ITS ---
Subjective NPU Subjective: Interval history: Sven presents today reporting that he is starting to feel a little relief from his intense paranoia and seeing and hearing things. He reports that he is feeling more able to be outside of the room but it slow and improvement. He is still not made up his mind about the injection but has not said no to it. He was encouraged today to think about how troubling he finds the hallucinations and considering the injection as a layer protection against a poor choice. Mental Status Exam MSE Comments: This is a well-nourished, well-developed, white male, with limited dress, grooming, and eye contact. No abnormal movements, except for improving psychomotor retardation. Cooperative with exam in mild distress, at times. Speech was decreased rate and volume. Mood described as a little better; affect congruent. Thought process, mostly organized, and less confused. Thought content: patient denied any suicidal or homicidal ideation, there were no delusions reported but improving paranoia noted, possible hyper-catholic demon type thinking subsiding, he endorsed resolving auditory and visual hallucinations. Attention and concentration were improving, and memory was unreliable, but none were formally tested. He is alert and oriented times three. Insight and judgment are impaired, but improving. Vitals/I&O/Wt Last Vital Signs Temp 97.5 F L 10/29/19 21:25 Pulse 79 10/29/19 21:25 Resp 22 H 10/29/19 21:25 BP 111/76 10/29/19 21:25 Pulse Ox 98 10/29/19 21:25 Data NPU : 10/25/19 11:50 10/25/19 11:50 A&P Additional A&P Information (1) Acute psychosis: (2) Methamphetamine dependence: (3) Suicide ideation: (4) Auditory hallucinations: This is a 34 year old, white male, with reports of baseline psychosis, but with either exacerbation or creation of psychosis with methamphetamine use, with active methamphetamine addiction, who presents open to medication intervention. Continue current medication. Encourage individual, group, and milieu therapy. Continue q-15 minute checks for safety. Encourage follow up with mental health treatment, as well as sober living treatment at the highest level of care to which he is willing to commit. Involuntary Hold Information 96 Hour Hold: 96 Hour Involuntary Admission: Yes Attestations NPU Medical Necessity Statement*: Inpatient hospitalization is medically necessary and the clinically appropriate intervention at this time. We will monitor his medication and make adjustments as indicated. Likely length of stay is 1-3 days. Coding Level of Care Code Acute Public Health Aide for Sergei Matute
[2019-10-29 13:27] VITALS: BP 118/76; PULSE 87; RESP 18; TEMP 36.4; O2SAT 98
[2019-10-29] MEDS: acetaminophen 325 mg Tablet 650 MG PO (15:30)
[2019-10-29] MEDS: trazodone 50 mg Tablet PO (20:59)
[2019-10-29 21:25] VITALS: BP 111/76; PULSE 79; RESP 22; TEMP 36.4; O2SAT 98
[2019-10-30 06:00] VITALS: BP 98/55; PULSE 58; RESP 18; TEMP 36.6; O2SAT 99
[2019-10-30] MEDS: paliperidone ER 6 mg Tablet PO (08:11)
[2019-10-30] MEDS: nicotine 2 mg Gum BUCCAL ×5 (12:00→20:31)
--- NOTE | 2019-10-30 13:36 | PM.NPN ---
Subjective NPU Subjective: Interval history: Sven presents today reporting that he is feeling a lot better. We discussed the risks benefits and alternatives of initiating the Invega injection and he understood and agreed to proceed as is documented in his note. He reports that he feels like the injection gives him the best chance of being well and so we discussed the process a little more and he denied any other issues other than his resolving symptoms. Mental Status Exam MSE Comments: This is a well-nourished, well-developed, white male, with adequate dress, grooming, and eye contact. No abnormal movements, except for improving psychomotor retardation. Cooperative with exam in no acute distress. Speech was more normal rate and volume. Mood described as better; affect congruent. Thought process, mostly organized. Thought content: patient denied any suicidal or homicidal ideation, there were no delusions reported and improving paranoia noted, no hyper-congregation demon type thinking reported, he endorsed resolving auditory and visual hallucinations. Attention and concentration were improving, and memory was more reliable, but none were formally tested. He is alert and oriented times three. Insight and judgment are improving. Vitals/I&O/Wt Last Vital Signs Temp 98.6 F 10/31/19 12:31 Pulse 58 L 10/31/19 12:31 Resp 15 10/31/19 12:31 BP 100/58 10/31/19 12:31 Pulse Ox 97 10/31/19 12:31 Data NPU : 10/25/19 11:50 10/25/19 11:50 A&P Additional A&P Information (1) Acute psychosis: (2) Methamphetamine dependence: (3) Suicide ideation: (4) Auditory hallucinations: This is a 34 year old, white male, with reports of baseline psychosis, but with either exacerbation or creation of psychosis with methamphetamine use, with active methamphetamine addiction, who presents open to medication intervention. Continue current medication. Plan for Invega Sustenna 234 mg IM to deltoid tomorrow. Encourage individual, group, and milieu therapy. Continue q-15 minute checks for safety. Encourage follow up with mental health treatment, as well as sober living treatment at the highest level of care to which he is willing to commit. Involuntary Hold Information 96 Hour Hold: 96 Hour Involuntary Admission: Yes Attestations NPU Medical Necessity Statement*: Inpatient hospitalization is medically necessary and the clinically appropriate intervention at this time. We will monitor his medication and make adjustments as indicated. Likely length of stay is 1-2 days. Tentative plan for discharge tomorrow. Coding Level of Care Code Acute Housekeeping Supervisor for Sergei Matute
[2019-10-30 14:00] VITALS: BP 103/68; PULSE 95; RESP 18; TEMP 36.5; O2SAT 99
[2019-10-30] MEDS: hyDROXYzine 25 mg Capsule 50 MG PO (17:50)
--- NOTE | 2019-10-30 17:51 | PC.NURSE ---
PRN VISTARIL 50 MG GIVEN PO PER PT C/O STATED ANXIETY. PT SAYS MEM[facility] ARE COMING BACK WILL CONT TO MONITOR.
[2019-10-30] MEDS: trazodone 50 mg Tablet PO (20:31)
[2019-10-30 22:00] VITALS: BP 121/81; PULSE 75; RESP 20; TEMP 36.7; O2SAT 99
[2019-10-31 06:00] VITALS: BP 100/58; PULSE 58; RESP 15; TEMP 37; O2SAT 97
[2019-10-31] MEDS: paliperidone ER 6 mg Tablet PO (08:50)
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
[2019-10-31] MEDS: nicotine 2 mg Gum BUCCAL (12:10)
[2019-10-31] MEDS: paliperidone palmitate 234 mg Syringe IM (12:28)
[2019-10-31 12:31] VITALS: BP 100/58; PULSE 58; RESP 15; TEMP 37; O2SAT 97
== END 2019-10-31 13:00 | disposition home or self-care (01) | DRG 885 ==
LOC: ER 13:45 → NP 13:50
PROVIDERS: Emergency Medicine; Admitting Provider Psychiatry & Neurology Psychiatry; Family Provider Family Medicine; PCP Family Medicine; Visit Provider Psychiatry & Neurology Psychiatry
DX: F23 Brief psychotic disorder (principal); F15.20 Other stimulant dependence, uncomplicated; R45.851 Suicidal ideations; F17.210 Nicotine dependence, cigarettes, uncomplicated
CPT/HCPCS: 12345; 36415; 71045; 80053; 80156; 80164; 80178; 80185; 80306; 80307; 81001; 82550; 83605; 83735; 84443; 84484; 85025; 93005; 93010; 96372; 96375; 99283; J1630; J2060; J2405; J7030

== ENCOUNTER 2019-12-12 23:30 | Inpatient (IN) | payer SELFPAY ==
[2019-12-12 23:34] VITALS: BP 124/91; PULSE 110; RESP 18; TEMP 36.9; O2SAT 95; BMI 22.5
[2019-12-13 00:22] LABS: Basophils % 0.5 %; Eosinophils # 0.1 10^3/uL (0.0-0.8); Eosinophils % 0.7 %; Hematocrit 41.4 % (42.0-52.0); Hemoglobin 13.7 g/dL (11.7-16.6); Lymphocytes # 1.6 10^3/uL (0.8-4.8); Lymphocytes % 19.2 %; Mean Corpuscular HGB Conc 33.1 g/dL (30.0-36.0); Mean Corpuscular Hemoglobin 29.5 pg (28.0-34.0); Mean Platelet Volume 8.9 fL (7.4-10.4); Monocytes % 12.5 %; Neutrophils % 66.9 %; Nucleated Red Blood Cells % 0 %; Platelet Count 316 10^3/cmm (130-400); Red Blood Count 4.65 10^6/uL (4.1-5.3); White Blood Count 8.1 10^3/uL (4.0-10.0)
[2019-12-13] MEDS: ziprasidone 20 mg/mL SDV IM (00:25)
[2019-12-13 00:38] LABS: Alanine Aminotransferase 36 U/L (0-41); Alkaline Phosphatase 77 IU/L (40-130); Aspartate Amino Transferase 49 U/L (0-40); Blood Urea Nitrogen 13 mg/dL (6-20); Calcium 10.3 mg/dL (8.5-10.5); Carbon Dioxide 23 mmol/L (22-29); Chloride 101 mmol/L (98-107); Globulin 3.4 g/dL (1.3-4.6); Glomerular Filtration Rate 57.7 mL/min (90-130); Glucose 87 mg/dL (65-115); Osmolality Calculated 284 mOsm/kg (285-295); Sodium 139 mmol/L (136-145); Total Bilirubin 0.8 mg/dL (0.15-1.2); Total Protein 8.4 g/dL (6.6-8.7)
[2019-12-13 00:51] LABS: Acetaminophen < 5.0 ug/mL (10-30); Alcohol Level < 10 mg/dL (0-10); Salicylate < 0.3 mg/dL (3-10)
[2019-12-13 04:17] VITALS: RESP 16
[2019-12-13 05:22] VITALS: BP 120/76; PULSE 84; RESP 16; O2SAT 96
--- NOTE | 2019-12-13 05:36 | W.ED.PSYCH ---
HPI - Psych General: Chief Complaint: Psychiatric Symptoms Stated Complaint: HALLUCINATIONS Time Seen by Provider: 12/12/19 23:52 History of Present Illness: HPI Narrative: 34-year-old male brought in by EMS and police. Evidently this person was knocking on doors in the community, making nonsensical statements, and scaring neighbors. He made statements to police officers about bugs and is here trying to get into his brain. He also reports interactions with people that are not actually there. MD complaint: feels depressed and altered mental status Onset (ago): hour(s) Duration: constant History of same: Yes Relieving factors: none Exacerbating factors: drug use Associated psychiatric symptoms: auditory hallucinations and visual hallucinations Associated symptoms: Reports auditory hallucinations and visual hallucinations Review of Systems Const: Denies: fever(s) or chills Eyes: Reports: blurry vision ENMT: Denies: swelling of lips/tongue or epistaxis Card: Denies: chest pain, palpitations or irregular heart rhythm Resp: Denies: dyspnea, productive cough, non-productive cough or wheezing GI: Denies: abdominal pain, nausea or vomiting : Denies: difficulty urinating or hematuria Skin/Breast: Denies: rash Neuro: Reports: confusion; Denies: headache(s), dizziness, vertigo or seizure-like activity Psych: Reports: anxiety, visual hallucinations and auditory hallucinations PFSH ED PFSH: Medical History (Updated 12/13/19 @ 05:50 by Nomi Ramires DO) Methamphetamine dependence Family History Family/Other , The whole family is afflicted with schizoaffective disorder versus bipolar disease. Rampant methamphetamine abuse abounds. Psychiatric illness Social History Smoking and tobacco status: current every day smoker Physical Exam Const: GENERAL APPEARANCE: disheveled ORIENTATION/CONSCIOUSNESS: Yes oriented to person and Yes oriented to place; not oriented to time HENMT: COMMON NORMALS: normocephalic, external ears normal and Normal external nose present HEAD & SCALP: normocephalic FACE & SINUS: normal facial exam NOSE: Normal external nose present and No nasal discharge present EXTERNAL EAR: Yes external ears normal MOUTH: tongue normal Eye: COMMON NORMALS: Equal, round and reactive pupils present, EOMs intact bilaterally and conjunctivae normal EYELID: eyelids normal CONJUNCTIVA: Yes conjunctivae normal PUPIL: Yes Equal, round and reactive pupils present Neck/C-Spine: GENERAL: No tracheal deviation Chest: COMMONS NORMALS: normal inspection of the chest CHEST: No tenderness Resp: COMMON NORMALS: clear to auscultation bilaterally EFFORT & INSPECTION: No tachypneic, No respiratory distress, No retractions, No uses accessory muscles and No tracheal deviation AUSCULTATION: clear to auscultation bilaterally, no rhonchi, no wheezes and lung sounds not diminished Cardio: COMMON NORMALS: regular rate and regular rhythm RATE: regular rate RHYTHM: regular rhythm HEART SOUNDS: no murmurs PERIPHERAL PULSES: radial pulses present GI: INSPECTION: No abdominal distension AUSCULTATION: No Hyperactive bowel sounds present and No Hypoactive bowel sounds present PALPATION: No Guarding due to palpation present (GI) and No Rigid due to palpation PERCUSSION: no dullness to percussion and no tympanic to percussion Neuro: SENSORIUM/ORIENTATION: Yes oriented to person, Yes oriented to place and No oriented to time Psych: COMMON NORMALS: speech normal APPEARANCE: Yes disheveled ATTITUDE: Yes calm, Yes Withdrawn affect present and Yes bizarre ACTIVITY/MOTOR BEHAVIOR: Yes psychomotor slowing and Yes disorganized behavior SPEECH: Yes normal speech MOOD & AFFECT: Yes Flat affect present and Yes Blunted affect present THOUGHT PROCESS: Circumstantial thought process present, confused and Loose association thought process present THOUGHT CONTENT: Yes Hallucination(s) present ATTENTION/CONCENTRATION: Yes attention grossly impaired and Yes concentration grossly impaired MEMORY/COGNITION: Yes cognition grossly intact INSIGHT: Limited insight present (Psych) JUDGEMENT: Limited judgement present (Psych) Skin: COMMON NORMALS: no rashes or lesions noted GENERAL SKIN EXAM: no rashes or lesions noted MDM - Psych MDM Narrative: Medical decision making narrative: 34-year-old male who admits to methamphetamine use. He has a history significant for psychotic hallucinations, significant enough to place people around him in danger. He is willing to come in for neuropsychiatric evaluation. His labs are benign, save a creatinine of 1.4. Lab Data: Labs: Lab Results 12/13/19 12/13/19 Range/Units 00:14 00:14 WBC 8.1 (4.0-10.0) 10^3/ uL RBC 4.65 (4.1-5.3) 10^6/u L Hgb 13.7 (11.7-16.6) g/dL Hct 41.4 L (42.0-52.0) % MCV 89.0 (80-94) fL MCH 29.5 (28.0-34.0) pg MCHC 33.1 (30.0-36.0) g/dL RDW 13.0 (12.1-15.1) % Plt Count 316 (130-400) 10^3/c mm MPV 8.9 (7.4-10.4) fL Neut % (Auto) 66.9 % Lymph % (Auto) 19.2 % [place] % (Auto) 12.5 % Eos % (Auto) 0.7 % Baso % (Auto) 0.5 % Neut # (Auto) 5.40 (1.8-7.7) 10^3/u L Lymph # (Auto) 1.6 (0.8-4.8) 10^3/u L [place] # (Auto) 1.0 H (0.2-0.9) 10^3/u L Eos # (Auto) 0.1 (0.0-0.8) 10^3/u L Baso # (Auto) 0.0 (0.0-0.1) 10^3/u L Nucleated RBC % (a uto) 0 % Nucleated RBCs # 0.0 /100WBC Sodium 139 (136-145) mmol/L Potassium 4.0 (3.5-5.1) mmol/L Chloride 101 (98-107) mmol/L Carbon Dioxide 23 (22-29) mmol/L Anion Gap 19.0 (5-19) BUN 13 (6-20) mg/dL Creatinine 1.4 H (0.7-1.2) mg/dL GFR Calculation 57.7 L (90-130) mL/min Glucose 87 (65-115) mg/dL Calculated Osmolal ity 284 L (285-295) mOsm/k g Calcium 10.3 (8.5-10.5) mg/dL Total Bilirubin 0.8 (0.15-1.2) mg/dL AST 49 H (0-40) U/L ALT 36 (0-41) U/L Alkaline Phosphata se 77 (40-130) IU/L Total Protein 8.4 (6.6-8.7) g/dL Albumin 5.0 (3.5-5.2) g/dL Globulin 3.4 (1.3-4.6) g/dL Salicylates < 0.3 L (3-10) mg/dL Acetaminophen < 5.0 L (10-30) ug/mL Ethyl Alcohol < 10 (0-10) mg/dL Discharge Plan Discharge Patient Disposition: Admitted As Inpatient Admit Provider: Jose Antonio Cherry Clinical Impression: Amphetamine abuse-episodic, Acute psychosis Condition: Stable Interventions: ED Discharge Assessment Last Done: 12/13/19 05:22 ED Charges Last Done: 12/13/19 05:22 Discharge Date/Time: 12/13/19 04:18 Coding Level of Care Code ED Supervisor Riprap Placing for Michaelg Fwd Exam Comprehensive
[2019-12-13 06:00] VITALS: BP 102/58; PULSE 80; RESP 18; TEMP 36.1; O2SAT 97
--- NOTE | 2019-12-13 09:16 | PM.NHP ---
Providers/Chief Complaint Admitting Physician: Jose Antonio Cherry MD Primary Care Provider: Augusto Gallo Jr, MD Chief Complaint: HALLUCINATIONS HPI NPU History of Present Illness Sven Wade is a 34 year old male brought in by EMS and police. Evidently this person was knocking on doors in the community, making nonsensical statements, and scaring neighbors. He made statements to police officers about bugs and is here trying to get into his brain. He also reports interactions with people that are not actually there. His mood is depressed but he denies suicidal or homicidal ideation, plan or intent. He despairs of ever getting off meth. He has gone a number of times to inpatient rehab to have and wonders if it will help for him that here everything he already knows. Review of Systems Narrative: Const: Denies: fever(s) or chills Eyes: Reports: blurry vision ENMT: Denies: swelling of lips/tongue or epistaxis Card: Denies: chest pain, palpitations or irregular heart rhythm Resp: Denies: dyspnea, productive cough, non-productive cough or wheezing GI: Denies: abdominal pain, nausea or vomiting : Denies: difficulty urinating or hematuria Skin/Breast: Denies: rash Neuro: Reports: confusion; Denies: headache(s), dizziness, vertigo or seizure-like activity Psych: Reports: anxiety, visual hallucinations and auditory hallucinations Meds NPU Home Medications Medication Instructions Recorded Confirmed Last Taken Type paliperidone palmitate [Invega 156 mg IM Q30D #1 ml 10/31/19 Unknown Rx Sustenna] Allergies Allergy/AdvReac Type Severity Reaction Status Date / Time sulfamethoxazole Allergy ADR-Blurry Verified 09/27/19 15:09 [From Bactrim] Vision trimethoprim [From Bactrim] Allergy ADR-Blurry Verified 09/27/19 15:09 Vision PFSH NPU PFSH: Medical History (Updated 12/13/19 @ 05:50 by Nomi Ramires DO) Methamphetamine dependence Family History Family/Other , The whole family is afflicted with schizoaffective disorder versus bipolar disease. Rampant methamphetamine abuse abounds. Psychiatric illness Social History Smoking and tobacco status: current every day smoker Mental Status Exam MSE Comments: The patient is more coherent thyroid and he had been prescribed in the emergency room. He has a bit of a hangdog look but denies any suicidal or homicidal ideation, plan or intent. Mood is clearly depressed and affect is flat. Eye contact is poor. Thought processes organized and free of any racing blocking or looseness of association. Speech is of normal rate and volume, without dysarthria, aprosody or pressure. He acknowledges seeing things that are not there when he is on meth. Insight and judgment are reasonably good. He knows he has to get off the meth but finds terribly difficult. Cognitive functions are intact. Vitals/I&O/Wt Last Vital Signs Temp 97 F L 12/13/19 06:00 Pulse 80 12/13/19 06:00 Resp 18 12/13/19 06:00 BP 102/58 12/13/19 06:00 Pulse Ox 97 12/13/19 06:00 Weight last 48 hrs Weight 165 lb 3.2 oz Weight 180 lb Physical Exam Narrative: EXAM NARRATIVE: Const: GENERAL APPEARANCE: disheveled ORIENTATION/CONSCIOUSNESS: Yes oriented to person and Yes oriented to place; not oriented to time HENMT: COMMON NORMALS: normocephalic, external ears normal and Normal external nose present HEAD & SCALP: normocephalic FACE & SINUS: normal facial exam NOSE: Normal external nose present and No nasal discharge present EXTERNAL EAR: Yes external ears normal MOUTH: tongue normal Eye: COMMON NORMALS: Equal, round and reactive pupils present, EOMs intact bilaterally and conjunctivae normal EYELID: eyelids normal CONJUNCTIVA: Yes conjunctivae normal PUPIL: Yes Equal, round and reactive pupils present Neck/C-Spine: GENERAL: No tracheal deviation Chest: COMMONS NORMALS: normal inspection of the chest CHEST: No tenderness Resp: COMMON NORMALS: clear to auscultation bilaterally EFFORT & INSPECTION: No tachypneic, No respiratory distress, No retractions, No uses accessory muscles and No tracheal deviation AUSCULTATION: clear to auscultation bilaterally, no rhonchi, no wheezes and lung sounds not diminished Cardio: COMMON NORMALS: regular rate and regular rhythm RATE: regular rate RHYTHM: regular rhythm HEART SOUNDS: no murmurs PERIPHERAL PULSES: radial pulses present GI: INSPECTION: No abdominal distension AUSCULTATION: No Hyperactive bowel sounds present and No Hypoactive bowel sounds present PALPATION: No Guarding due to palpation present (GI) and No Rigid due to palpation PERCUSSION: no dullness to percussion and no tympanic to percussion Neuro: SENSORIUM/ORIENTATION: Yes oriented to person, Yes oriented to place and No oriented to time Psych: COMMON NORMALS: speech normal APPEARANCE: Yes disheveled ATTITUDE: Yes calm, Yes Withdrawn affect present and Yes bizarre ACTIVITY/MOTOR BEHAVIOR: Yes psychomotor slowing and Yes disorganized behavior SPEECH: Yes normal speech MOOD & AFFECT: Yes Flat affect present and Yes Blunted affect present THOUGHT PROCESS: Circumstantial thought process present, confused and Loose association thought process present THOUGHT CONTENT: Yes Hallucination(s) present ATTENTION/CONCENTRATION: Yes attention grossly impaired and Yes concentration grossly impaired MEMORY/COGNITION: Yes cognition grossly intact INSIGHT: Limited insight present (Psych) JUDGEMENT: Limited judgement present (Psych) Skin: COMMON NORMALS: no rashes or lesions noted GENERAL SKIN EXAM: no rashes or lesions noted Data NPU : 12/13/19 00:14 12/13/19 00:14 A&P Assessment and plan (1) Amphetamine abuse-episodic: We discussed possible rehabilitation resources. We will get the discharge planners to discuss this with him. Status: Acute (2) Methamphetamine dependence: See above Status: Acute (3) Acute psychosis: The patient has responded to paliperidone in depot and oral form. This will be continued. Status: Acute Involuntary Hold Information 96 Hour Hold: 96 Hour Involuntary Admission: No Attestations NPU Medical Necessity Statement*: I anticipate 7-10 midnights additional stay. Time Spent in Patient Care: Greater than 35 minutes Coding Level of Care Code Acute Pipe Fitter Supervisor Maintenance for [facility] Diagnoses Amphetamine abuse-episodic F15.10 Methamphetamine dependence F15.20 Acute psychosis F23
[2019-12-13] MEDS: paliperidone palmitate 156 mg Syringe IM (09:51)
[2019-12-13] MEDS: OLANZapine 5 mg ODT PO (10:48)
--- NOTE | 2019-12-13 10:48 | PC.NURSE ---
Addendum entered by Honey Pablo LPN 12/13/19 11:42: MEDICATION NOT EFFECTIVE. PATIENT ARGUING WITH PEOPLE THAT ARE NOT THERE. SEE NEXT NOTE. Original Note: PRN ZYPREX ZYDIS ZYPREXA ZYDIS 5MG PO FOR AGITATION/PSYCHOSIS. PATIENT IN THE HALLWAY HITTING AT THINGS THAT ARENT THERE IN THE AIR. WILL CONTINUE TO MONITOR FOR MEDICATION EFFECTIVENESS.
[2019-12-13] MEDS: ziprasidone hcl 20 mg Capsule PO (11:41)
--- NOTE | 2019-12-13 11:44 | PC.NURSE ---
PRN GEODON GEODON 20MG PO FOR AGITATION/PSYCHOSIS. WILL CONTINUE TO MONITOR FOR MEDICATION EFFECTIVENESS.
--- NOTE | 2019-12-13 12:40 | PC.NURSE ---
PRN GEODON FOLLOW UP MEDICATION EFFECTIVE. PATIENT IS LYING IN BED RESTING, RESPIRATIONS EVEN AND UNLABORED.
[2019-12-13 14:00] VITALS: BP 102/65; PULSE 65; RESP 16; TEMP 36.7; O2SAT 98
[2019-12-13 22:00] VITALS: BP 110/69; PULSE 74; RESP 18; TEMP 37; O2SAT 96
[2019-12-14 06:00] VITALS: BP 92/57; PULSE 82; RESP 19; TEMP 37; O2SAT 98
[2019-12-14] MEDS: paliperidone ER 6 mg Tablet PO (08:28)
--- NOTE | 2019-12-14 11:20 | PC.RESP ---
Smoking Cessation information and a schedule of classes sent to patient.
[2019-12-14 14:00] VITALS: BP 98/60; PULSE 70; RESP 18; TEMP 37; O2SAT 98
--- NOTE | 2019-12-14 14:33 | PM.NPN ---
Subjective NPU Subjective: Interval history: The patient says he feels better. He has been sleeping a lot, which he was unable to do and which he seriously needed. He is looking to go to rehab and will work with Jocelyne on that. Medications: Reviewed: Yes Medication Review Details: Current Medications Acetaminophen (Tylenol) 650 mg PO Q4H PRN PRN Reason: MILD PAIN Benztropine Mesylate (Cogentin) 1 mg PO BID PRN PRN Reason: Mild Extrapyramidal symptoms Camphor/Menthol/Phenol (Blistex) 1 applic TOPICAL Q1H PRN PRN Reason: DRYNESS Diphenhydramine HCl (Benadryl) 50 mg IM ONCE PRN PRN Reason: Severe Extrapyramidal Symptoms Diphenhydramine HCl (Benadryl) 50 mg IM Q4H PRN PRN Reason: Severe Aggression Haloperidol (Haldol) 5 mg PO Q4H PRN PRN Reason: AGITATION Haloperidol Lactate (Haldol Inj) 5 mg IM Q4H PRN PRN Reason: Severe Aggression Hydroxyzine Pamoate (Vistaril) 50 mg PO Q6H PRN PRN Reason: ANXIETY Loperamide HCl (Imodium Capsule) 2 mg PO Q6H PRN PRN Reason: DIARRHEA Lorazepam (Ativan) 2 mg IM Q4H PRN PRN Reason: Severe Aggression Nicotine (Nicoderm 21 Mg Patch) 1 patch TRANSDERMA DAILY PRN PRN Reason: NICOTINE WITHDRAWAL Nicotine Polacrilex (Nicorette) 2 mg BUCCAL Q2H PRN PRN Reason: NICOTINE WITHDRAWAL Olanzapine (Zyprexa Zydis) 5 mg PO Q4H PRN PRN Reason: Agitation/Psychosis Last Admin: 12/13/19 10:48 Dose: 5 mg Documented by: Ondansetron HCl (Zofran) 4 mg PO Q6H PRN PRN Reason: NAUSEA AND VOMITING Paliperidone (Invega) 6 mg PO DAILY MARIA A Last Admin: 12/14/19 08:28 Dose: 6 mg Documented by: Trazodone HCl (Desyrel) 50 mg PO BEDTIME PRN PRN Reason: SLEEP Ziprasidone (Geodon) 20 mg PO Q4H PRN PRN Reason: PSYCHOSIS Last Admin: 12/13/19 11:41 Dose: 20 mg Mental Status Exam MSE Comments: The patient is more coherent and he had been and as described in the emergency room. The hangdog look is gone. He now looks to straight in the eye and he continues to deny any suicidal or homicidal ideation, plan or intent. Mood is much brighter and affect is appropriate. Eye contact is poor. Thought processes are organized and free of any racing, blocking or looseness of association. Speech is of normal rate and volume, without dysarthria, aprosody or pressure. He acknowledges seeing things that are not there when he is on meth. Insight and judgment are reasonably good. He knows he has to get off the meth but finds it terribly difficult. Cognitive functions are intact. Vitals/I&O/Wt Last Vital Signs Temp 98.6 F 12/14/19 14:00 Pulse 70 12/14/19 14:00 Resp 18 12/14/19 14:00 BP 98/60 12/14/19 14:00 Pulse Ox 98 12/14/19 14:00 Weight last 48 hrs Weight 165 lb 3.2 oz Weight 180 lb Physical Exam Narrative: EXAM NARRATIVE: Const: GENERAL APPEARANCE: disheveled ORIENTATION/CONSCIOUSNESS: Yes oriented to person and Yes oriented to place; not oriented to time HENMT: COMMON NORMALS: normocephalic, external ears normal and Normal external nose present HEAD & SCALP: normocephalic FACE & SINUS: normal facial exam NOSE: Normal external nose present and No nasal discharge present EXTERNAL EAR: Yes external ears normal MOUTH: tongue normal Eye: COMMON NORMALS: Equal, round and reactive pupils present, EOMs intact bilaterally and conjunctivae normal EYELID: eyelids normal CONJUNCTIVA: Yes conjunctivae normal PUPIL: Yes Equal, round and reactive pupils present Neck/C-Spine: GENERAL: No tracheal deviation Chest: COMMONS NORMALS: normal inspection of the chest CHEST: No tenderness Resp: COMMON NORMALS: clear to auscultation bilaterally EFFORT & INSPECTION: No tachypneic, No respiratory distress, No retractions, No uses accessory muscles and No tracheal deviation AUSCULTATION: clear to auscultation bilaterally, no rhonchi, no wheezes and lung sounds not diminished Cardio: COMMON NORMALS: regular rate and regular rhythm RATE: regular rate RHYTHM: regular rhythm HEART SOUNDS: no murmurs PERIPHERAL PULSES: radial pulses present GI: INSPECTION: No abdominal distension AUSCULTATION: No Hyperactive bowel sounds present and No Hypoactive bowel sounds present PALPATION: No Guarding due to palpation present (GI) and No Rigid due to palpation PERCUSSION: no dullness to percussion and no tympanic to percussion Neuro: SENSORIUM/ORIENTATION: Yes oriented to person, Yes oriented to place and No oriented to time Psych: COMMON NORMALS: speech normal APPEARANCE: Yes disheveled ATTITUDE: Yes calm, Yes Withdrawn affect present and Yes bizarre ACTIVITY/MOTOR BEHAVIOR: Yes psychomotor slowing and Yes disorganized behavior SPEECH: Yes normal speech MOOD & AFFECT: Yes Flat affect present and Yes Blunted affect present THOUGHT PROCESS: Circumstantial thought process present, confused and Loose association thought process present THOUGHT CONTENT: Yes Hallucination(s) present ATTENTION/CONCENTRATION: Yes attention grossly impaired and Yes concentration grossly impaired MEMORY/COGNITION: Yes cognition grossly intact INSIGHT: Limited insight present (Psych) JUDGEMENT: Limited judgement present (Psych) Skin: COMMON NORMALS: no rashes or lesions noted GENERAL SKIN EXAM: no rashes or lesions noted Data NPU : 12/13/19 00:14 12/13/19 00:14 A&P Assessment and plan (1) Acute psychosis: The patient psychosis has receded. His brain is healing with lots of sleep. He intends to get involved in a recovery program. Status: Acute (2) Amphetamine abuse-episodic: The same elements apply. Status: Acute Involuntary Hold Information 96 Hour Hold: 96 Hour Involuntary Admission: No Attestations NPU Medical Necessity Statement*: I anticipate 3-5 additional midnights hospital stay. Coding Level of Care Code Acute Christmas Tree Contractor for Sergei Matute Diagnoses Acute psychosis F23 Amphetamine abuse-episodic F15.10
[2019-12-14] MEDS: nicotine 2 mg Gum BUCCAL (18:16)
[2019-12-14 21:05] VITALS: BP 91/55; PULSE 67; RESP 15; TEMP 36.8; O2SAT 99
[2019-12-15 06:00] VITALS: BP 80/45; PULSE 56; RESP 16; TEMP 36.6; O2SAT 98
[2019-12-15] MEDS: hyDROXYzine 25 mg Capsule 50 MG PO (08:32)
[2019-12-15] MEDS: paliperidone ER 6 mg Tablet PO (08:33)
--- NOTE | 2019-12-15 08:33 | PC.NURSE ---
Addendum entered by Maria Guadalupe Ross LPN 12/15/19 14:20: late entry prn med effective no further c/o anxiety Original Note: PRN VISTARIL 50 MG GIVEN PO PER PT C/O STATED ANXIETY. WILL CONT TO MONITOR
[2019-12-15 13:48] VITALS: BP 96/60; PULSE 95; RESP 18; TEMP 37.1; O2SAT 98
--- NOTE | 2019-12-15 16:44 | P.PN_ITS ---
Subjective NPU Subjective: Interval history: The patient continues to improve. He has been resting and sleeping, something of which he's not done a lot while on meth. There is a smile on his face and he says he really does not like the feeling of being on meth. Medications: Reviewed: Yes Medication Review Details: Current Medications Acetaminophen (Tylenol) 650 mg PO Q4H PRN PRN Reason: MILD PAIN Benztropine Mesylate (Cogentin) 1 mg PO BID PRN PRN Reason: Mild Extrapyramidal symptoms Camphor/Menthol/Phenol (Blistex) 1 applic TOPICAL Q1H PRN PRN Reason: DRYNESS Diphenhydramine HCl (Benadryl) 50 mg IM ONCE PRN PRN Reason: Severe Extrapyramidal Symptoms Diphenhydramine HCl (Benadryl) 50 mg IM Q4H PRN PRN Reason: Severe Aggression Haloperidol (Haldol) 5 mg PO Q4H PRN PRN Reason: AGITATION Haloperidol Lactate (Haldol Inj) 5 mg IM Q4H PRN PRN Reason: Severe Aggression Hydroxyzine Pamoate (Vistaril) 50 mg PO Q6H PRN PRN Reason: ANXIETY Last Admin: 12/15/19 08:32 Dose: 50 mg Documented by: Loperamide HCl (Imodium Capsule) 2 mg PO Q6H PRN PRN Reason: DIARRHEA Lorazepam (Ativan) 2 mg IM Q4H PRN PRN Reason: Severe Aggression Nicotine (Nicoderm 21 Mg Patch) 1 patch TRANSDERMA DAILY PRN PRN Reason: NICOTINE WITHDRAWAL Nicotine Polacrilex (Nicorette) 2 mg BUCCAL Q2H PRN PRN Reason: NICOTINE WITHDRAWAL Last Admin: 12/14/19 18:16 Dose: 2 mg Documented by: Olanzapine (Zyprexa Zydis) 5 mg PO Q4H PRN PRN Reason: Agitation/Psychosis Last Admin: 12/13/19 10:48 Dose: 5 mg Documented by: Ondansetron HCl (Zofran) 4 mg PO Q6H PRN PRN Reason: NAUSEA AND VOMITING Paliperidone (Invega) 6 mg PO DAILY MARIA A Last Admin: 12/15/19 08:33 Dose: 6 mg Documented by: Trazodone HCl (Desyrel) 50 mg PO BEDTIME PRN PRN Reason: SLEEP Ziprasidone (Geodon) 20 mg PO Q4H PRN PRN Reason: PSYCHOSIS Last Admin: 12/13/19 11:41 Dose: 20 mg Documented by: Mental Status Exam MSE Comments: The patient is more coherent and he had been and as described in the emergency room. The hangdog look is gone. He now looks to straight in the eye and he continues to deny any suicidal or homicidal ideation, plan or intent. Mood is much brighter and affect is appropriate. Eye contact is poor. Thought processes are organized and free of any racing, blocking or looseness of association. Speech is of normal rate and volume, without dysarthria, aprosody or pressure. He acknowledges seeing things that are not there when he is on meth. Insight and judgment are reasonably good. He knows he has to get off the meth but finds it terribly difficult. Cognitive functions are intact. Vitals/I&O/Wt Last Vital Signs Temp 98.7 F 12/15/19 13:48 Pulse 95 12/15/19 13:48 Resp 18 12/15/19 13:48 BP 96/60 12/15/19 13:48 Pulse Ox 98 12/15/19 13:48 Physical Exam Narrative: EXAM NARRATIVE: Narrative EXAM NARRATIVE: Const: GENERAL APPEARANCE: disheveled ORIENTAT ION/CONSCIOUSNESS: Yes oriented to person and Yes oriented to place; not oriented to time HENMT: COMMON NORMALS: normocephalic, external ears normal and Normal external nose present HEAD & SCALP: normocephalic FACE & SINUS: normal facial exam NOSE: Normal external nose present and No nasal discharge present EXTERNAL EAR: Yes external ears normal MOUTH: tongue normal Eye: COMMON NORMALS: Equal, round and reactive pupils present, EOMs intact bilaterally and conjunctivae normal EYELID: eyelids normal CONJUNCTIVA: Yes conjunctivae normal PUPIL: Yes Equal, round and reactive pupils present Neck/C-Spine: GENERAL: No tracheal deviation Chest: COMMONS NORMALS: normal inspection of the chest CHEST: No tenderness Resp: COMMON NORMALS: clear to auscultation bilaterally EFFORT & IN SPECTION: No tachypneic, No respiratory distress, No retractions, No uses accessory muscles and No tracheal deviation AUSCULTATION: clear to auscultation bilaterally, no rhonchi, no wheezes and lung sounds not diminished Cardio: COMMON NORMALS: regular rate and regular rhythm RATE: regular rate RHYTHM: regular rhythm HEART SOUNDS: no murmurs PERIPHERAL PULSES: radial pulses present GI: INSPECTION: No abdominal distension AUSCULTATION: No Hyperactive bowel sounds present and No Hypoactive bowel sounds present PALPATION: No Guarding due to palpation present (GI) and No Rigid due to palpation PERCUSSION: no dullness to percussion and no tympanic to percussion Neuro: SENSORIUM/ORIENTATION: Yes oriented to person, Yes oriented to place and No oriented to time Psych: COMMON NORMALS: speech normal APPEARANCE: Yes disheveled ATTITUDE: Yes calm, Yes Withdrawn affect present and Yes bizarre ACTIVITY/MOTOR BEHAVIOR: Yes psychomotor slowing and Yes disorganized behavior SPEECH: Yes normal speech MOOD & AFFECT: Yes Flat affect present and Yes Blunted affect present THOUGHT PROCESS: Circumstantial thought process present, confused and Loose association thought process present THOUGHT CONTENT: Yes Hallucination(s) present ATTENTION/CONCENTRATION: Yes attention grossly impaired and Yes concentration grossly impaired MEMORY/COGNITION: Yes cognition grossly intact INSIGHT: Limited insight present (Psych) JUDGEMENT: Limited judgement present (Psych) Skin: COMMON NORMALS: no rashes or lesions noted GENERAL SKIN EXAM: no rashes or lesions noted Data NPU : 12/13/19 00:14 12/13/19 00:14 A&P Assessment and plan (1) Amphetamine abuse-episodic: Status: Acute (2) Methamphetamine dependence: Status: Acute Involuntary Hold Information 96 Hour Hold: 96 Hour Involuntary Admission: No Attestations NPU Medical Necessity Statement*: I anticipate 3-5 midnights additional stay Time Spent in Patient Care: Greater than 35 minutes (>than 50% of time spent in counselling and/or direct pt care on unit) . 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
[2019-12-15] MEDS: nicotine 2 mg Gum BUCCAL (16:52)
[2019-12-15 22:00] VITALS: BP 120/71; PULSE 86; RESP 20; TEMP 36.6; O2SAT 97
[2019-12-16 06:00] VITALS: BP 108/64; PULSE 105; RESP 20; TEMP 36.1; O2SAT 94
[2019-12-16] MEDS: paliperidone ER 6 mg Tablet PO (08:48)
[2019-12-16] MEDS: nicotine 2 mg Gum BUCCAL (13:24)
--- NOTE | 2019-12-16 14:58 | P.DS_ITS ---
Diagnoses at Discharge Discharge Diagnosis (1) Amphetamine abuse-episodic: Status: Acute Problem details: Patient has successfully detoxed. He has an array of programs, 1 of which he has selected, into which he intends to enroll. (2) Methamphetamine dependence: Status: Acute Problem details: See above Reason for Visit Reason for Visit: HALLUCINATIONS Hospital Course Hospital Course The patient is once again relapse plan, essentially, his whole family is afflicted with substance abuse and schizoaffective disorder or schizophrenia. This is a very challenging case. Nonetheless, despite the long-term difficultie s, the patient is responding very well to the absence of toxic substances. He became very clear minded and developed insight into his problem. Every time I see him he looks better and feels better. The patient is a voluntary patient and is now requesting he be discharged, feeling like he is ready to reenter the real world. I have no clinical or factual information that would enable me to file a petition to the court to violate his [place] interests and so I have decided to discharge him. He is now competent, per my assessment today, to resume the increased risk of outpatient treatment. Involuntary Hold Information 96 Hour Hold: 96 Hour Involuntary Admission: No Mental Status Exam MSE Comments: The patient is more coherent and he had been and as described in the emergency room. The hangdog look is gone. He now looks to straight in the eye and he continues to deny any suicidal or homicidal ideation, plan or intent. Mood is much brighter and affect is appropriate. Eye contact is quite good. We see each other eye to eye. Thought processes are organized and free of any racing, blocking or looseness of association. Speech is of normal rate and volume, without dysarthria, aprosody or pressure. He acknowledges seeing things that are not there when he is on meth. Insight and judgment are reasonably good. He knows he has to get off the meth but finds it terribly difficult. He intends to deal with this through a recovery program. Cognitive functions are intact. Physical Exam Narrative: EXAM NARRATIVE: GENERAL APPEARANCE: disheveled ORIENTATION/CONSCIOUSNESS: Yes oriented to person and Yes oriented to place; not oriented to time HENMT: COMMON NORMALS: normocephalic, external ears normal and Normal external nose present HEAD & SCALP: normocephalic FACE & SINUS: normal facial exam NOSE: Normal external nose present and No nasal discharge present EXTERNAL EAR: Yes external ears normal MOUTH: tongue normal Eye: COMMON NORMALS: Equal, round and reactive pupils present, EOMs intact bilaterally and conjunctivae normal EYELID: eyelids normal CONJUNCTIVA: Yes conjunctivae normal PUPIL: Yes Equal, round and reactive pupils present Neck/C-Spine: GENERAL: No tracheal deviation Chest: COMMONS NORMALS: normal inspection of the chest CHEST: No tenderness Resp: COMMON NORMALS: clear to auscultation bilaterally EFFORT & INSPECTION: No tachypneic, No respiratory distress, No retractions, No uses accessory muscles and No tracheal deviation AUSCULTATION: clear to auscultation bilaterally, no rhonchi, no wheezes and lung sounds not diminished Cardio: COMMON NORMALS: regular rate and regular rhythm RATE: regular rate RHYTHM: regular rhythm HEART SOUNDS: no murmurs PERIPHERAL PULSES: radial pulses present GI: INSPECTION: No abdominal distension AUSCULTATION: No Hyperactive bowel sounds present and No Hypoactive bowel sounds present PALPATION: No Guarding due to palpation present (GI) and No Rigid due to palpation PERCUSSION: no dullness to percussion and no tympanic to percussion Neuro: SENSORIUM/ORIENTATION: Yes oriented to person, Yes oriented to place and No oriented to time Skin: no rashes or lesions noted Discharge Data Vitals: Last Vital Signs Temp 96.9 F L 12/16/19 06:00 Pulse 105 H 12/16/19 06:00 Resp 20 H 12/16/19 06:00 BP 108/64 12/16/19 06:00 Pulse Ox 94 12/16/19 06:00 Discharge Plan Discharge Patient Disposition: Home, Self-Care Condition: Stable Prescriptions: New paliperidone 6 mg Tablet Extended Release 24hr 6 mg PO DAILY 30 Days Qty: 30 RF: 1 Continued Invega Sustenna 156 mg/mL syringe 156 mg IM Q30D 30 Days Qty: 1 RF: 2 Discharge Orders: Discharge Order (Routine); Ordered 12/16/19 Ordered By: Julio Kim Referrals: [facility] [Outside] - 1-3 days (go to [facility] and request initial intake in order to get outpatient mental health services. go some time within the walk-in hours. It is first come first serve. walk-in hours: 7:30 a.m.-2:30 p.m.) [facility] [Outside] Discharge Diet: Usual diet Discharge Activity: Resume usual activity Activity Restrictions/Additional Instructions: You were given a list of ministries per your request. You said that you wanted to wait to make your phone calls when you get out of hospital. If you want to get help with medicaid application, call Jonathan from [facility]. [phone] ext. [phone]. Discharge Attestations NPU Time Spent in Discharge Care*: greater than 30 min Specific Discharge Activities: Specific discharge activities: educating patient, discussing with piano case and bench assembler/social workers/dc planners, documenting/other paperwork and evaluating patient/reviewing data Status at Discharge: Cognitive status at discharge: cognitively intact , Behavioral status at discharge: cooperative , Functional status at discharge: independent ambulation Overall status at discharge: patient is back to baseline Coding Level of Care Code Acute Senior Systems Architect for Sergei Matute Diagnoses Amphetamine abuse-episodic F15.10 Methamphetamine dependence F15.20
[2019-12-16 15:14] VITALS: BP 108/64; PULSE 105; RESP 20; TEMP 36.1; O2SAT 94
== END 2019-12-16 16:17 | disposition home or self-care (01) | DRG 897 ==
LOC: ER 12-13 00:30 → NP 12-13 02:12
PROVIDERS: Admitting Provider Psychiatry & Neurology Psychiatry; Emergency Provider Emergency Medicine; PCP Family Medicine; Visit Provider Psychiatry & Neurology Psychiatry
DX: F15.229 Other stimulant dependence with intoxication, unspecified (principal); F17.210 Nicotine dependence, cigarettes, uncomplicated
CPT/HCPCS: 12345; 80053; 80307; 85025; 96372; 99284; J3486

== ENCOUNTER 2020-03-05 04:42 | Emergency (ER) | payer SELFPAY ==
[2020-03-05 04:47] VITALS: BP 131/96; PULSE 79; RESP 18; TEMP 36.3; O2SAT 100; BMI 22.5
--- NOTE | 2020-03-05 05:32 | ED_ITS ---
HPI - Ear Problem General: Chief complaint: Ear Stated complaint: ear pain, lump on leg Time Seen by Provider: 03/05/20 05:01 History of Present Illness: MD Complaint: ear pain Location: right ear Duration: constant Severity: moderate Relieving factors: nothing Exacerbating factors: nothing Associated symptoms: Reports ear or mastoid pain; Denies fever(s), headache(s) or neck pain Treatment prior to arrival: none Review of Systems Const: Denies: fever(s) or chills ENMT: Reports: ear or mastoid pain; Denies: throat pain, odynophagia or ear discharge Card: Denies: chest pain or palpitations Resp: Denies: dyspnea or productive cough Musc: Denies: neck pain Neuro: Denies: headache(s) PFSH ED PFSH: Medical History (Updated 03/05/20 @ 05:18 by Nomi Ramires DO) Methamphetamine dependence See above Family History Family/Other , The whole family is afflicted with schizoaffective disorder versus bipolar disease. Rampant methamphetamine abuse abounds. Psychiatric illness Social History Smoking and tobacco status: current every day smoker Physical Exam Const: GENERAL APPEARANCE: well developed ORIENTATION/CONSCIOUSNESS: Yes oriented to person, Yes oriented to place and Yes oriented to time HENMT: COMMON NORMALS: normocephalic and Normal external nose present HEAD & SCALP: normocephalic FACE & SINUS: normal facial exam NOSE: Normal ext ernal nose present and No nasal discharge present EXTERNAL AUDITORY CANAL: Abnormal EAC present EAC laterality: right Details: erythema, edema and otic discharge MOUTH: tongue normal Eye: COMMON NORMALS: Equal, round and reactive pupils present, EOMs intact bilaterally and conjunctivae normal EYELID: eyelids normal CONJUNCTIVA: Yes conjunctivae normal PUPIL: Yes Equal, round and reactive pupils present Neck/C-Spine: COMMON NORMALS: full ROM GENERAL: No tracheal deviation CERVICAL SPINE: Yes normal cervical lordosis and No Cervical spine tenderness Chest: COMMONS NORMALS: normal inspection of the chest CHEST: No tenderness Resp: COMMON NORMALS: clear to auscultation bilaterally EFFORT & INSPECTION: No tachypneic, No respiratory distress, No retractions, No uses accessory muscles and No tracheal deviation AUSCULTATION: clear to auscultation bilaterally, no rhonchi, no wheezes and lung sounds not diminished Cardio: COMMON NORMALS: regular rate and regular rhythm RATE: regular rate RHYTHM: regular rhythm HEART SOUNDS: no murmurs PERIPHERAL PULSES: radial pulses present GI: INSPECTION: No abdominal distension AUSCULTATION: No Hyperactive bowel sounds present and No Hypoactive bowel sounds present PALPATION: No Guarding due to palpation present (GI) and No Rigid due to palpation PERCUSSION: no dullness to percussion and no tympanic to percussion : COMMON NORMALS: Yes no CVA tenderness BLADDER/KIDNEY EXAM: Yes no CVA tenderness Back/Pelvis: COMMON NORMALS: no CVA tenderness Neuro: SENSORIUM/ORIENTATION: Yes oriented to person, Yes oriented to place and Yes oriented to time Psych: COMMON NORMALS: mental status grossly normal Skin: NARRATIVE SKIN EXAM: Multiple red skin pick type areas to the forearms thighs and legs. None are mildly cellulitic. No streaking, no lymphadenitis. Course Vital Signs: Vital signs: Vital Signs Temperature 97.3 F L 03/05/20 04:47 Pulse Rate 79 03/05/20 04:47 Respiratory Rate 18 03/05/20 04:47 Blood Pressure 131/96 03/05/20 04:47 Pulse Oximetry 100 03/05/20 04:47 Discharge Plan Discharge Patient Disposition: Home Clinical Impression: Otitis externa Qualifiers: Otitis externa type: diffuse Chronicity: acute Laterality: right Qualified Code(s): H60.311 - Diffuse otitis externa, right ear Cellulitis Qualifiers: Site of cellulitis: extremity Site of cellulitis of extremity: upper extremity Laterality: unspecified laterality Qualified Code(s): L03.119 - Cellulitis of unspecified part of limb Condition: Stable Prescriptions: New Cortisporin-TC 3.3-3-10-0.5 mg/mL drops,suspension 4 drop EAR-BOTH QID Qty: 10 RF: 0 doxycycline hyclate 100 mg capsule 100 mg PO BID 14 Days Qty: 28 RF: 0 No Action paliperidone 6 mg Tablet Extended Release 24hr 6 mg PO DAILY 30 Days Qty: 30 RF: 1 Invega Sustenna 156 mg/mL syringe 156 mg IM Q30D 30 Days Qty: 1 RF: 2 Discharge Orders: Discharge Order (Routine); Ordered 03/05/20 Ordered By: Nomi Ramires Referrals: Augusto Gallo Jr, MD [Primary Care Provider] - 4-7 days Discharge Diet: Advance as tolerated Discharge Activity: Increase activity as tolerated Patient Instructions: Cellulitis (ED), Otitis Externa (ED) Activity Restrictions/Additional Instructions: Return for fever greater than 100 despite 2-3 doses of antibiotics, worsening pain, loss of hearing, other concerning symptoms. Coding Level of Care Code ED Consulting Analyst for Sergei Matute
[2020-03-05] MEDS: doxycycline 100 mg Tablet PO (05:33)
[2020-03-05 05:38] VITALS: BP 123/74; PULSE 88; RESP 16; O2SAT 98
== END 2020-03-05 05:39 | disposition home or self-care (01) ==
PROVIDERS: Emergency Provider Emergency Medicine; PCP Family Medicine
DX: H60.311 Diffuse otitis externa, right ear (principal); L03.113 Cellulitis of right upper limb; F17.210 Nicotine dependence, cigarettes, uncomplicated
CPT/HCPCS: 12345; 99282

== ENCOUNTER 2020-03-17 17:02 | Inpatient (IN) | payer SELFPAY ==
[2020-03-17 17:14] VITALS: BP 132/87; PULSE 123; RESP 18; TEMP 36.6; O2SAT 97
--- NOTE | 2020-03-17 17:15 | ECG_ITS ---
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 Measurements Intervals [place] Rate: 106 P: 69 [place]: 150 QRS: 31 QRSD: 101 T: 55 QT: 333 QTc: 444 Interpretive Statements SINUS TACHYCARDIA ABNORMAL RHYTHM ECG Compared to ECG 10/25/2019 17:18:16 Sinus rhythm no longer present Sinus arrhythmia no longer present Electronically Signed On 03-17-2020 18:33:12 CDT by Wei Alicia M.D. [id number]
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
[2020-03-17] MEDS: LORazepam 2 mg/mL INJ 1 mL IM ×2 (17:41→21:30)
[2020-03-17] MEDS: diphenhydrAMINE 50 mg/mL SDV 1mL IM ×2 (17:42→21:30)
[2020-03-17] MEDS: haloperidol inj 5 mg/mL INJ 1 mL IM ×2 (17:42→21:31)
[2020-03-17] MEDS: diphenhydrAMINE 50 mg Capsule PO (17:49)
[2020-03-17 18:01] LABS: Amphetamines Screen Urine Positive (Negative); Barbiturates Screen Urine Negative (Negative); Benzodiazepines Screen Urine Negative (Negative); Cocaine Screen Urine Negative (Negative); Opiate Screen Urine Negative (Negative); PCP Screen Urine Negative (Negative); THC Screen Urine Positive (Negative)
[2020-03-17 18:33] LABS: Basophils % 0.5 %; Eosinophils # 0.1 10^3/uL (0.0-0.8); Eosinophils % 1.1 %; Hematocrit 43.8 % (42.0-52.0); Hemoglobin 14.2 g/dL (11.7-16.6); Lymphocytes # 1.7 10^3/uL (0.8-4.8); Mean Corpuscular HGB Conc 32.4 g/dL (30.0-36.0); Mean Corpuscular Hemoglobin 30.3 pg (28.0-34.0); Mean Corpuscular Volume 93.4 fL (80-94); Mean Platelet Volume 9.1 fL (7.4-10.4); Monocytes # 0.7 10^3/uL (0.2-0.9); Monocytes % 8.4 %; Neutrophils # 5.88 10^3/uL (1.8-7.7); Neutrophils % 69.5 %; Nucleated Red Blood Cells % 0 %; Platelet Count 326 10^3/cmm (130-400); Red Blood Count 4.69 10^6/uL (4.1-5.3); Red Cell Distribution Width 13.4 % (12.1-15.1); White Blood Count 8.5 10^3/uL (4.0-10.0)
[2020-03-17 19:26] LABS: Alanine Aminotransferase 28 U/L (0-41); Albumin Level 4.6 g/dL (3.5-5.2); Alkaline Phosphatase 94 IU/L (40-130); Anion Gap 16.1 (5-19); Aspartate Amino Transferase 34 U/L (0-40); Blood Urea Nitrogen 19 mg/dL (6-20); Carbon Dioxide 26 mmol/L (22-29); Chloride 103 mmol/L (98-107); Globulin 3.3 g/dL (1.3-4.6); Glomerular Filtration Rate 62.8 mL/min (90-130); Glucose 99 mg/dL (65-115); Osmolality Calculated 294 mOsm/kg (285-295); Potassium 4.1 mmol/L (3.5-5.1); Sodium 141 mmol/L (136-145); Thyroid Stimulating Hormone 1.26 uIU/mL (0.27-4.20); Total Bilirubin 0.8 mg/dL (0.15-1.2); Total Protein 7.9 g/dL (6.6-8.7)
[2020-03-17 19:28] LABS: Acetaminophen < 5.0 ug/mL (10-30); Alcohol Level < 10 mg/dL (0-10)
[2020-03-17 19:56] VITALS: PULSE 102; RESP 20; TEMP 37; O2SAT 97
[2020-03-17] MEDS: hyDROXYzine 25 mg Capsule 50 MG PO (20:13)
[2020-03-17] MEDS: trazodone 50 mg Tablet PO (20:13)
[2020-03-17] MEDS: OLANZapine 5 mg ODT PO (20:14)
--- NOTE | 2020-03-17 21:31 | PC.NURSE ---
patient pacing barba , banging on door, hitting head on nurses station window, pushing at windows, going into other patients rooms, followed by 1:1 sitter, very manic. Given 50mg Benadril IM , 2mg Atavan IM, and 5 mg haldol IM.
[2020-03-17 22:00] VITALS: PULSE 102; RESP 20; TEMP 37; O2SAT 97
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
[2020-03-18 06:00] VITALS: PULSE 102; RESP 20; TEMP 37; O2SAT 97
[2020-03-18 06:19] VITALS: RESP 14
[2020-03-18] MEDS: paliperidone ER 6 mg Tablet PO (10:29)
[2020-03-18] MEDS: doxycycline 100 mg Tablet PO ×2 (10:29→16:52)
--- NOTE | 2020-03-18 11:20 | PC.RESP ---
Smoking Cessation information sent to patient.
[2020-03-18 14:00] VITALS: BP 88/57; PULSE 67; RESP 16; TEMP 36.9; O2SAT 98
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
[2020-03-18 21:40] VITALS: BP 110/66; PULSE 67; RESP 13; TEMP 36.8; O2SAT 96
[2020-03-19 06:00] VITALS: BP 123/92; PULSE 62; RESP 16; TEMP 36.7; O2SAT 97
[2020-03-19] MEDS: doxycycline 100 mg Tablet PO ×2 (09:26→18:02)
[2020-03-19] MEDS: paliperidone ER 6 mg Tablet PO (09:26)
[2020-03-19] MEDS: nicotine 2 mg Gum BUCCAL ×3 (13:07→18:02)
[2020-03-19 14:00] VITALS: BP 99/60; PULSE 88; RESP 18; TEMP 36.8; O2SAT 97
--- NOTE | 2020-03-19 14:56 | P.PN_ITS ---
Subjective NPU Subjective: Interval history: Sven presented today slightly more winded and able to articulate that in fact he has been struggling with being off of his medication for maybe about 3 weeks. He also has been struggling with active addiction but has not decided exactly what he wants to do. He has been compliant with the initiation of his Invega and reports he is starting to feel better today. Mental Status Exam MSE Comments: This is a slender white male in hospital crust with adequate grooming but limited eye contact. No abnormal movements except for improving psychomotor retardation. More cooperative with exam in no acute distress. Speech was limited and decreased rate and volume. Mood described as depressed, affect subdued. Thought process linear. Thought content: Patient endorses lessening suicidal ideation but denied homicidal ideation, there were no delusions reported and none were noted other than reports of paranoia but he was not able to elaborate given his level of somnolence, he did not endorse auditory visual hallucinations and did not appear to be attending to internal stimuli but again he was very lethargic. Attention and concentration were improving, and memory was more reliable but none were formally tested. He is less somnolent and oriented x3. Insight and judgment are impaired and impulse control is impaired. Vitals/I&O/Wt Last Vital Signs Temp 98.0 F 03/19/20 21:45 Pulse 110 H 03/19/20 21:45 Resp 15 03/19/20 21:45 BP 101/63 03/19/20 21:45 Pulse Ox 96 03/19/20 21:45 Weight last 48 hrs Weight 79.379 kg Data NPU : 03/17/20 17:58 03/17/20 17:58 A&P Additional A&P Information (1) Acute psychosis: (2) Amphetamine abuse-episodic: (3) Methamphetamine dependence: (4) Auditory hallucinations: This is a 34-year-old white male with psychosis and active methamphetamine addiction with reports that there is a foundational diagnosis of schizophrenia/schizoaffective disorder who presents extremely lethargic in methamphetamine withdrawal. 1. Continue current medications. He was restarted on his Invega. 2. Continue one-to-one for now and moved to every 15 minute checks as soon as is safe. 3. Encourage individual, group and milieu therapy. 4. Encourage sober living treatment after discharge to the highest level of care to which he is willing to commit Involuntary Hold Information 96 Hour Hold: 96 Hour Involuntary Admission: Yes 96 Hour Hold Ending Date: 03/23/20 96 Hour Hold Ending Time: 17:25 Attestations NPU Medical Necessity Statement*: Inpatient hospitalization is medically necessary and the clinically appropriate intervention at this time. We will initiate/monitor medications and make changes as indicated. Likely length of stay 3-5 days. Coding Level of Care Code Acute Spanish Speaking Babysitter for Sergei Matute
[2020-03-19] MEDS: OLANZapine 5 mg ODT PO (18:04)
--- NOTE | 2020-03-19 18:04 | PC.NURSE ---
PRN ZYPREXA ZYDIS Patient stated he was feeling anxious and hearing voices. Requested medication. Given 5 mg zyprexa zydis 5 mg po.
[2020-03-19 21:45] VITALS: BP 101/63; PULSE 110; RESP 15; TEMP 36.7; O2SAT 96
[2020-03-20] MEDS: nicotine 2 mg Gum BUCCAL ×5 (01:41→17:49)
[2020-03-20] MEDS: acetaminophen 325 mg Tablet 650 MG PO ×3 (01:41→16:01)
[2020-03-20 06:00] VITALS: BP 94/64; PULSE 118; RESP 15; TEMP 36.4; O2SAT 96
[2020-03-20] MEDS: paliperidone ER 6 mg Tablet PO (09:04)
[2020-03-20] MEDS: doxycycline 100 mg Tablet PO ×2 (09:04→17:13)
[2020-03-20 10:42] VITALS: O2SAT 96
[2020-03-20] MEDS: albuterol 8 gm MDI 2 PUFF INHALATION ×2 (10:50→21:04)
[2020-03-20 10:51] VITALS: PULSE 94; RESP 18; O2SAT 96
[2020-03-20 14:00] VITALS: BP 111/63; PULSE 56; RESP 16; TEMP 37; O2SAT 99
--- NOTE | 2020-03-20 14:25 | P.PN_ITS ---
Subjective NPU Subjective: Interval history: Sven presents today expressing significant increase in his overall clarity. He reports that he is really struggling with his addiction as well as his psychosis. We had a long discussion about the interconnectedness of those issues. He reports that in the height of his psychosis there is some creature that walks around with him showing him things that I would never want to see and are hard not to think about. He reports that the ability to stop using escapes him because he has been using since he was 12. He reports that he is considering rehab. We agreed we would work with the treatment team in the morning to see what the possibilities are. Mental Status Exam MSE Comments: This is a slender white male in hospital crust with adequate grooming but limited eye contact. No abnormal movements except for improving psychomotor retardation. More cooperative with exam in no acute distress. Speech was more spontaneous and more normal rate and volume. Mood described as feeling a bit better, affect less subdued. Thought process organized. Thought content: Patient denied suicidal ideation or homicidal ideation, there were no delusions reported and none were noted other than reports of paranoia, he did not endorse auditory visual hallucinations and did not appear to be attending to internal stimuli. Attention and concentration were improving, and memory was more reliable but none were formally tested. He is l alert and oriented x3. Insight and judgment are improving and impulse control is impaired. Vitals/I&O/Wt Last Vital Signs Temp 97.9 F 03/20/20 22:00 Pulse 66 03/20/20 22:00 Resp 17 03/20/20 22:00 BP 98/53 03/20/20 22:00 Pulse Ox 97 03/20/20 22:00 Weight last 48 hrs Weight 77.111 kg Data NPU : 03/17/20 17:58 03/17/20 17:58 A&P Additional A&P Information (1) Acute psychosis: (2) Amphetamine abuse-episodic: (3) Methamphetamine dependence: (4) Auditory hallucinations: This is a 34-year-old white male with psychosis and active methamphetamine addiction with reports that there is a foundational diagnosis of sc hizophrenia/schizoaffective disorder who presents extremely lethargic in methamphetamine withdrawal. 1. Continue current medications. 2. Continue one-to-one for now and moved to every 15 minute checks as soon as is safe. 3. Encourage individual, group and milieu therapy. 4. Encourage sober living treatment after discharge to the highest level of care to which he is willing to commit Involuntary Hold Information 96 Hour Hold: 96 Hour Involuntary Admission: Yes 96 Hour Hold Ending Date: 03/23/20 96 Hour Hold Ending Time: 17:25 Attestations NPU Medical Necessity Statement*: Inpatient hospitalization is medically necessary and the clinically appropriate intervention at this time. We will initiate/monitor medications and make changes as indicated. Likely length of stay 2-4 days. Coding Level of Care Code Acute Easement Worker for Sergei Matute
[2020-03-20] MEDS: hyDROXYzine 25 mg Capsule 50 MG PO ×2 (18:24→21:10)
--- NOTE | 2020-03-20 18:33 | PC.NURSE ---
PRN VISTARIL Patient stated he was feeling anxious and hearing voices. Given 50 mg VISTARIL po.
[2020-03-20 21:05] VITALS: PULSE 92; RESP 16; O2SAT 98
[2020-03-20] MEDS: guaiFENesin-dextromethorphan UDC 10 mL PO (21:10)
[2020-03-20 22:00] VITALS: BP 98/53; PULSE 66; RESP 17; TEMP 36.6; O2SAT 97
[2020-03-21] MEDS: guaiFENesin-dextromethorphan UDC 10 mL PO (04:20)
[2020-03-21 06:00] VITALS: BP 96/53; PULSE 65; RESP 16; TEMP 36.7; O2SAT 97
[2020-03-21] MEDS: doxycycline 100 mg Tablet PO ×2 (08:39→17:24)
[2020-03-21] MEDS: paliperidone ER 6 mg Tablet PO (08:39)
[2020-03-21] MEDS: nicotine 2 mg Gum BUCCAL ×2 (11:05→14:54)
[2020-03-21] MEDS: ziprasidone hcl 40 mg Capsule PO (12:16)
[2020-03-21 14:23] VITALS: BP 108/68; PULSE 70; RESP 18; TEMP 36.6; O2SAT 98
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
[2020-03-21 17:34] VITALS: BP 108/68; PULSE 70; RESP 18; TEMP 36.6; O2SAT 98
== END 2020-03-21 17:45 | disposition home or self-care (01) | DRG 885 ==
LOC: ER 17:51 → NP 18:26
PROVIDERS: Emergency Medicine; Admitting Provider Psychiatry & Neurology Psychiatry; PCP Family Medicine; Visit Provider Psychiatry & Neurology Psychiatry
DX: F23 Brief psychotic disorder (principal); F15.229 Other stimulant dependence with intoxication, unspecified; Z59.0 Homelessness; F17.210 Nicotine dependence, cigarettes, uncomplicated
CPT/HCPCS: 12345; 36415; 80053; 80306; 80307; 84443; 85025; 93005; 94640; 94664; 96372; 99284; J1200; J1630; J2060; J3535; Q0163

== ENCOUNTER 2020-07-12 21:54 | Inpatient (IN) | payer SELFPAY ==
[2020-07-12 22:00] VITALS: BP 149/90; PULSE 101; RESP 20; TEMP 36.4; O2SAT 96; BMI 23.7
--- NOTE | 2020-07-12 22:12 | ECG_ITS ---
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 Measurements Intervals [place] Rate: 89 P: 61 [place]: 147 QRS: 15 QRSD: 110 T: 44 QT: 375 QTc: 457 Interpretive Statements SINUS RHYTHM INCOMPLETE RIGHT BUNDLE BRANCH BLOCK [90+ ms QRS DURATION, TERMINAL R IN V1/V2, 40+ ms S IN I/aVL/V4/V5/V6] Compared to ECG 03/17/2020 17:36:42 Incomplete right bundle-branch block now present Sinus tachycardia no longer present Electronically Signed On 07-13-2020 11:45:28 RETAIL WORKER by Rosemary Ordaz M.D. [email or web address]
[2020-07-12 22:27] LABS: Basophils % 0.6 %; Eosinophils # 0.4 10^3/uL (0.0-0.8); Eosinophils % 7.7 %; Hematocrit 40.2 % (42.0-52.0); Hemoglobin 13.3 g/dL (11.7-16.6); Lymphocytes # 1.5 10^3/uL (0.8-4.8); Mean Corpuscular HGB Conc 33.1 g/dL (30.0-36.0); Mean Corpuscular Hemoglobin 30.6 pg (28.0-34.0); Mean Corpuscular Volume 92.4 fL (80-94); Monocytes # 0.6 10^3/uL (0.2-0.9); Monocytes % 11.2 %; Neutrophils # 2.67 10^3/uL (1.8-7.7); Neutrophils % 51.3 %; Nucleated Red Blood Cells % 0 %; Platelet Count 293 10^3/cmm (130-400); Red Blood Count 4.35 10^6/uL (4.1-5.3); White Blood Count 5.2 10^3/uL (4.0-10.0)
--- NOTE | 2020-07-12 22:34 | PC.NURSE ---
EKG taken and given to ED physician
[2020-07-12 22:41] LABS: Alanine Aminotransferase 77 U/L (0-41); Albumin Level 4.1 g/dL (3.5-5.2); Alkaline Phosphatase 63 IU/L (40-130); Anion Gap 14.6 (5-19); Aspartate Amino Transferase 80 U/L (0-40); Blood Urea Nitrogen 11 mg/dL (6-20); Calcium 9.1 mg/dL (8.5-10.5); Carbon Dioxide 27 mmol/L (22-29); Chloride 102 mmol/L (98-107); Globulin 2.8 g/dL (1.3-4.6); Glomerular Filtration Rate 68.9 mL/min (90-130); Glucose 93 mg/dL (65-115); Osmolality Calculated 289 mOsm/kg (285-295); Potassium 3.6 mmol/L (3.5-5.1); Salicylate 0.4 mg/dL (3-10); Sodium 140 mmol/L (136-145); Total Protein 6.9 g/dL (6.6-8.7)
[2020-07-12 22:46] LABS: Acetaminophen < 5.0 ug/mL (10-30); Alcohol Level < 10 mg/dL (0-10); Creatine Phosphokinase 962 U/L (39-308)
[2020-07-12 22:50] LABS: Amphetamines Screen Urine Positive (Negative); Barbiturates Screen Urine Negative (Negative); Benzodiazepines Screen Urine Negative (Negative); Cocaine Screen Urine Negative (Negative); Opiate Screen Urine Negative (Negative); PCP Screen Urine Negative (Negative); THC Screen Urine Positive (Negative)
[2020-07-12 22:51] LABS: Bilirubin Urine 1+ (Negative); Blood Urine 3+ (Negative); Glucose Urine UA Norm (Normal); Ketones Urine 1+ (Negative); Leukocyte Esterase Urine Trace (Negative); Nitrate Urine Negative (Negative); Protein Urine 1+ (Negative); Urine Appearance Hazy (CLEAR); Urine Color Dark Yellow (Yellow); Urobilinogen Urine 4 mg/dL (Negative); pH Urine 5 (5-7)
[2020-07-12 22:52] LABS: RBC Urine >100 /hpf (0-2); Squamous Epithelial Cell Urine 0-4 /hpf (0-5); WBC Urine 0-4 /hpf (0-5)
[2020-07-12 22:53] LABS: Bacteria Urine 2+ /hpf; Mucus Urine 3+ /hpf
[2020-07-12 22:54] LABS: Add Urine Culture? Yes
[2020-07-12] MEDS: sodium chloride 0.9% 1,000 ML 999 ML IV ×2 (23:01→23:49)
[2020-07-12] MEDS: LORazepam 2 mg/mL INJ 1 mL 1 MG IVP (23:12)
--- NOTE | 2020-07-12 23:21 | W.ED.PSYCH ---
HPI - Psych General: Chief Complaint: Psychiatric Symptoms Stated Complaint: SI Time Seen by Provider: 07/12/20 22:04 Source: patient Mode of arrival: ambulatory Limitations: altered mental status History of Present Illness: HPI Narrative: 34-year-old male with auditory and visual hallucinations, suicidal and homicidal ideations, difficulty sleeping, severe anxiety for the past several days. The visual hallucinations are causing him a lot of distress, he often feels like he needs to intervene in a violent manner. The voices he is hearing are telling him to do bad things . He has a history of underlying schizoaffective disorder, exacerbated by chronic methamphetamine abuse. He has not been on his prescribed medication for many months. He has had multiple admissions here for similar symptoms, the last being in March 2020. He states that he has been hospitalized at other hospitals since that time however. No recent alcohol ingestion. Duration: intermittent History of same: Yes Relieving factors: none Exacerbating factors: drug use Context: recent drug abuse and not taking psychiatric medications Associated psychiatric symptoms: depression, suicidal ideation, homicidal ideation, racing thoughts, auditory hallucinations, visual hallucinations and delusions Associated symptoms: Reports delusions Treatments prior to arrival: none If self harm: admits thoughts of self harm Review of Systems General: Reports: 10 or more systems reviewed and unremarkable except in HPI and below and ROS unobtainable due to mental status Const: Denies: fever(s) or chills Musc: Reports: neck pain and joint pain Skin/Breast: Denies: rash or pruritus Neuro: Denies: headache(s) Psych: Reports: anxiety and depression All/Imm: Denies: urticaria PFSH ED PFSH: Medical History Methamphetamine dependence See above Family History Family/Other , The whole family is afflicted with schizoaffective disorder versus bipolar disease. Rampant methamphetamine abuse abounds. Psychiatric illness Social History Smoking and tobacco status: current every day smoker Physical Exam Const: COMMON NORMALS: patient oriented x3 GENERAL APPEARANCE: anxious NUTRITIONAL APPEARANCE: thin ORIENTATION/CONSCIOUSNESS: Yes awake, Yes oriented to person, Yes oriented to place and Yes oriented to time HENMT: COMMON NORMALS: normocephalic and atraumatic HEAD & SCALP: normocephalic and atraumatic FACE & SINUS: face symmetric; no ecchymosis and no laceration Eye: COMMON NORMALS: conjunctivae normal and no scleral icterus GENERAL EYE: appearance normal, both eyes and all related structures ALIGNMENT: Yes alignment normal PERIORBITAL: periorbital findings normal EYELID: eyelids normal CONJUNCTIVA: Yes conjunctivae normal Neck/C-Spine: COMMON NORMALS: full ROM, no lymphadenopathy and supple Chest: COMMONS NORMALS: normal inspection of the chest and normal palpation of entire chest wall Resp: COMMON NORMALS: normal respiratory effort and No use of accessory muscles EFFORT & INSPECTION: Yes able to speak in complete sentences, No tachypneic and No respiratory distress Cardio: COMMON NORMALS: regular rate, regular rhythm, S1 normal heart sound present and S2 normal heart sound present RATE: regular rate RHYTHM: regular rhythm HEART SOUNDS: S1 normal heart sound present and S2 normal heart sound present GI: COMMON NORMALS: Normal to inspection, nondistended, normoactive bowel sounds present, Soft to palpation, non-tender and No hepatosplenomegaly present PALPATION: Yes Soft to palpation and Yes No hepatosplenomegaly present Extremity: COMMON NORMALS: normal to inspection, full ROM and no clubbing, cyanosis or edema Neuro: COMMON NORMALS: patient oriented x3, CN's II-XII intact bilaterally, moves all extremities and no focal motor deficits SENSORIUM/ORIENTATION: Yes oriented to person, Yes oriented to place and Yes oriented to time SPEECH: speech normal GAIT: Yes Normal gait present Psych: COMMON NORMALS: speech normal ATTITUDE: Yes agitated ACTIVITY/MOTOR BEHAVIOR: Yes psychomotor agitation, Yes fidgeting, Yes restless and Yes Avoids eye contact (attititude/behavior) SPEECH: Yes normal speech MOOD & AFFECT: Yes depressed mood, Yes anxious, Yes irritable and Yes tearful THOUGHT PROCESS: disorganized, Illogical thought process present and racing thoughts THOUGHT CONTENT: Yes Suicidality present, Yes Homicidality present, Yes delusions, Yes Hallucination(s) present and Yes Ideas of reference present (thought content) ATTENTION/CONCENTRATION: Yes attention grossly intact MEMORY/COGNITION: Yes memory grossly intact INSIGHT: Poor insight present (Psych) JUDGEMENT: Poor judgement present (Psych) Skin: COMMON NORMALS: no rashes or lesions noted GENERAL SKIN EXAM: no rashes or lesions noted, no ecchymo, no erythema and no excoriation(s) MDM - Psych MDM Narrative: Medical decision making narrative: 34-year-old male with a long history of polysubstance abuse and underlying schizoaffective disorder presenting in acute psychosis exacerbated by methamphetamine use. Expressing suicidal and homicidal ideations. Having command hallucinations Work-up significant for elevated [id number], and mildly elevated AST/ALT Repeat CK after 2 L saline bolus in the mid seven hundreds. Good urine output. Tox screen positive for methamphetamines, marijuana. Alcohol level<10 Normal CBC and chemistry. Anxiety and restlessness improved after an IV dose of lorazepam and Haldol. Discussed the case with Dr. Woodson, psychiatry, he accepts the admission to the Neuropsych Unit. Lab Data: Labs: Lab Results 07/12/20 07/12/20 07/12/20 Range/Units 22:20 22:20 22:30 WBC 5.2 (4.0-10.0) 10^3/ uL RBC 4.35 (4.1-5.3) 10^6/u L Hgb 13.3 (11.7-16.6) g/dL Hct 40.2 L (42.0-52.0) % MCV 92.4 (80-94) fL MCH 30.6 (28.0-34.0) pg MCHC 33.1 (30.0-36.0) g/dL RDW 14.0 (12.1-15.1) % Plt Count 293 (130-400) 10^3/c mm MPV 9.0 (7.4-10.4) fL Neut % (Auto) 51.3 % Lymph % (Auto) 29.0 % Mcdowell % (Auto) 11.2 % Eos % (Auto) 7.7 % Baso % (Auto) 0.6 % Neut # (Auto) 2.67 (1.8-7.7) 10^3/u L Lymph # (Auto) 1.5 (0.8-4.8) 10^3/u L Mcdowell # (Auto) 0.6 (0.2-0.9) 10^3/u L Eos # (Auto) 0.4 (0.0-0.8) 10^3/u L Baso # (Auto) 0.0 (0.0-0.1) 10^3/u L Nucleated RBC % (a uto) 0 % Nucleated RBCs # 0.0 /100WBC Sodium 140 (136-145) mmol/L Potassium 3.6 (3.5-5.1) mmol/L Chloride 102 (98-107) mmol/L Carbon Dioxide 27 (22-29) mmol/L Anion Gap 14.6 (5-19) BUN 11 (6-20) mg/dL Creatinine 1.2 (0.7-1.2) mg/dL GFR Calculation 68.9 L (90-130) mL/min Glucose 93 (65-115) mg/dL Calculated Osmolal ity 289 (285-295) mOsm/k g Calcium 9.1 (8.5-10.5) mg/dL Total Bilirubin 1.0 (0.15-1.2) mg/dL AST 80 H (0-40) U/L ALT 77 H (0-41) U/L Alkaline Phosphata se 63 (40-130) IU/L Creatine Kinase 962 H* (39-308) U/L Total Protein 6.9 (6.6-8.7) g/dL Albumin 4.1 (3.5-5.2) g/dL Globulin 2.8 (1.3-4.6) g/dL Urine Color (Yellow) Urine Appearance (CLEAR) Urine pH (5-7) Ur Specific Gravit y (1.005-1.030) Urine Protein (Negative) Urine Glucose (UA) (Normal) Urine Ketones (Negative) Urine Blood (Negative) Urine Nitrate (Negative) Urine Bilirubin (Negative) Urine Urobilinogen (Negative) mg/dL Ur Leukocyte Mela ase (Negative) Urine RBC (0-2) /hpf Urine WBC (0-5) /hpf Ur Squamous Epith Cells (0-5) /hpf Calcium Oxalate Cr ystal /hpf Amorphous Sediment Urine Bacteria (NONE) /hpf Urine Mucus /hpf Salicylates 0.4 L (3-10) mg/dL Urine Opiates Scre en Negative (Negative) ng/mL Acetaminophen < 5.0 L (10-30) ug/mL Ur Barbiturates Sc reen Negative (Negative) ng/mL Ur Phencyclidine S crn Negative (Negative) ng/mL Ur Amphetamines Sc reen Positive H (Negative) ng/mL U Benzodiazepines Scrn Negative (Negative) ng/mL Urine Cocaine Scre en Negative (Negative) ng/mL U Marijuana (THC) Screen Positive H (Negative) ng/mL Ethyl Alcohol < 10 (0-10) mg/dL 07/12/20 07/13/20 Range/Units 22:30 00:25 WBC (4.0-10.0) 10^3/ uL RBC (4.1-5.3) 10^6/u L Hgb (11.7-16.6) g/dL Hct (42.0-52.0) % MCV (80-94) fL MCH (28.0-34.0) pg MCHC (30.0-36.0) g/dL RDW (12.1-15.1) % Plt Count (130-400) 10^3/c mm MPV (7.4-10.4) fL Neut % (Auto) % Lymph % (Auto) % Mcdowell % (Auto) % Eos % (Auto) % Baso % (Auto) % Neut # (Auto) (1.8-7.7) 10^3/u L Lymph # (Auto) (0.8-4.8) 10^3/u L Mcdowell # (Auto) (0.2-0.9) 10^3/u L Eos # (Auto) (0.0-0.8) 10^3/u L Baso # (Auto) (0.0-0.1) 10^3/u L Nucleated RBC % (a uto) % Nucleated RBCs # /100WBC Sodium (136-145) mmol/L Potassium (3.5-5.1) mmol/L Chloride (98-107) mmol/L Carbon Dioxide (22-29) mmol/L Anion Gap (5-19) BUN (6-20) mg/dL Creatinine (0.7-1.2) mg/dL GFR Calculation (90-130) mL/min Glucose (65-115) mg/dL Calculated Osmolal ity (285-295) mOsm/k g Calcium (8.5-10.5) mg/dL Total Bilirubin (0.15-1.2) mg/dL AST (0-40) U/L ALT (0-41) U/L Alkaline Phosphata se (40-130) IU/L Creatine Kinase 726 H* (39-308) U/L Total Protein (6.6-8.7) g/dL Albumin (3.5-5.2) g/dL Globulin (1.3-4.6) g/dL Urine Color Dark yellow (Yellow) Urine Appearance Hazy A (CLEAR) Urine pH 5 (5-7) Ur Specific Gravit y 1.020 (1.005-1.030) Urine Protein 1+ H (Negative) Urine Glucose (UA) Norm (Normal) Urine Ketones 1+ H (Negative) Urine Blood 3+ H (Negative) Urine Nitrate Negative (Negative) Urine Bilirubin 1+ H (Negative) Urine Urobilinogen 4 H (Negative) mg/dL Ur Leukocyte Mela ase Trace H (Negative) Urine RBC >100 H (0-2) /hpf Urine WBC 0-4 H (0-5) /hpf Ur Squamous Epith Cells 0-4 H (0-5) /hpf Calcium Oxalate Cr ystal 10-15 H /hpf Amorphous Sediment Not Reportable Urine Bacteria 2+ H (NONE) /hpf Urine Mucus 3+ /hpf Salicylates (3-10) mg/dL Urine Opiates Scre en (Negative) ng/mL Acetaminophen (10-30) ug/mL Ur Barbiturates Sc reen (Negative) ng/mL Ur Phencyclidine S crn (Negative) ng/mL Ur Amphetamines Sc reen (Negative) ng/mL U Benzodiazepines Scrn (Negative) ng/mL Urine Cocaine Scre en (Negative) ng/mL U Marijuana (THC) Screen (Negative) ng/mL Ethyl Alcohol (0-10) mg/dL Discharge Plan Discharge Admit Provider: Westley Woodson Coding Level of Care Code ED Organizational Development Consultant for Chg Fwd Exam Comprehensive
[2020-07-12] MEDS: haloperidol inj 5 mg/mL INJ 1 mL IVP (23:37)
[2020-07-12 23:48] VITALS: PULSE 88; RESP 16; O2SAT 98
[2020-07-13 00:53] LABS: Creatine Phosphokinase 726 U/L (39-308)
[2020-07-13 01:37] VITALS: PULSE 68; RESP 16; O2SAT 98
[2020-07-13 01:54] VITALS: BP 120/71; PULSE 85; RESP 18; TEMP 36.4; O2SAT 97
[2020-07-13 02:11] VITALS: PULSE 68; RESP 18; O2SAT 99
--- NOTE | 2020-07-13 02:57 | PC.NURSE ---
34/M AH/VH, SI/HI, difficulty sleeping, severe anxiety for the past several days. The visual hallucinations are causing him a lot of distress, he often feels like he needs to intervene in a violent manner. The voices he is hearing are telling him to do bad things . He has a history of underlying schizoaffective disorder, exacerbated by chronic methamphetamine abuse. He has not been on his prescribed medication for many months. He has had multiple admissions here for similar symptoms, the last being in March 2020. He states that he has been hospitalized at other hospitals since that time however. No recent alcohol ingestion. POSITIVE METH AND THC
[2020-07-13 03:26] VITALS: BP 120/71; PULSE 85; RESP 18; TEMP 36.4; O2SAT 97
[2020-07-13 13:59] VITALS: BP 100/62; PULSE 65; RESP 16; TEMP 36.8; O2SAT 99
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
[2020-07-13 22:00] VITALS: BP 96/59; PULSE 74; RESP 18; TEMP 36.8; O2SAT 97
[2020-07-14 06:00] VITALS: BP 102/60; PULSE 66; RESP 16; TEMP 37.1; O2SAT 97
[2020-07-14 14:00] VITALS: BP 108/64; PULSE 61; RESP 18; TEMP 36.6; O2SAT 100
[2020-07-14] MEDS: OLANZapine 5 mg ODT PO (14:30)
--- NOTE | 2020-07-14 14:32 | PC.NURSE ---
Patient behavior Patient requested medication for anxiety. Given 5 mg zyprexa zydis. Patient pacing the barba.
--- NOTE | 2020-07-14 16:04 | P.PN_ITS ---
Subjective NPU Subjective: Interval history: Continues to report significant perceptual disturbances, auditory and visual hallucinations. States that he typically uses methamphetamine near daily but reports having perceptual disturbances outside of the use of substance. Reports near daily low mood states, decreased motivation and interest. Patient acknowledged his history of lack of compliance with both psychiatric medication, psychiatric follow-up as well as substance treatment. He communic ated his interest in talking to someone about setting up substance counseling and follow-up psychiatric care. Mental Status Exam MSE Comments: Lying down, unshaven, tattoos covering exposed skin on upper e xtremities, calm, cooperative, good eye contact Psychomotor activity is somewhat decreased, no agitation Speech is normal rate and volume, spontaneous, clear articulation, not pressured I am still having problems, constricted affect, not labile Alert and oriented to person, place, time, situation Memory and concentration is fair to intact per interview Thought process, linear, no flight of ideas Thought content, no delusions, does not appear to be attending to any internal stimuli, no suicidal or homicidal ideation Insight and judgment appear to be fair Vitals/I&O/Wt Last Vital Signs Temp 97.9 F 07/14/20 14:00 Pulse 61 07/14/20 14:00 Resp 18 07/14/20 14:00 BP 108/64 07/14/20 14:00 Pulse Ox 100 07/14/20 14:00 Weight last 48 hrs Weight 86.183 kg Data NPU : 07/12/20 22:20 07/12/20 22:20 Micro: Microbiology 07/12/20 22:30 Urine Culture - Preliminary Urine,Clean Catch Microbiology 07/12/20 22:30 Urine,Clean Catch Urine Culture - Preliminary A&P Assessment and plan (1) Psychosis: Status: Acute (2) Methamphetamine dependence: Status: Acute Additional A&P Information Patient continues to report significant perceptual disturbances and depressive symptoms with longstanding history of substance abuse. Communicates interest in seeking post discharge counseling for his substance use as well as outpatient medication management. START olanzapine 2.5 mg twice daily targeting mood and psychotic symptoms Encourage patient participate in unit activities to include group sessions and unit milieu Coordinate with social service technician for post discharge substance counseling and psychiatric follow-up Involuntary Hold Information 96 Hour Hold: 96 Hour Involuntary Admission: No Attestations NPU Medical Necessity Statement*: Require psychiatric hospitalization for medication stabilization as well as coordination for safe discharge including psychiatric and substance counseling follow-up Coding Level of Care Code Acute Customer Relations Consultant for Michaelg Fwd Diagnoses Psychosis F29 Methamphetamine dependence F15.20
[2020-07-14] MEDS: OLANZapine 5 mg TABLET 2.5 MG PO (16:56)
[2020-07-14 20:30] VITALS: BP 81/52; PULSE 55; RESP 17; TEMP 36.7; O2SAT 99
[2020-07-14] MEDS: trazodone 50 mg Tablet PO (21:40)
[2020-07-14] MEDS: hyDROXYzine 25 mg Capsule 50 MG PO (21:40)
[2020-07-15 06:00] VITALS: BP 89/60; PULSE 60; RESP 17; TEMP 36.3; O2SAT 97
[2020-07-15] MEDS: OLANZapine 5 mg TABLET 2.5 MG PO ×2 (08:42→17:46)
[2020-07-15 14:00] VITALS: BP 97/58; PULSE 59; RESP 20; TEMP 36.6; O2SAT 96
--- NOTE | 2020-07-15 16:40 | P.PN_ITS ---
Subjective NPU Subjective: Interval history: Reports significant improvement in his mood, denies any interval suicidal ideation Reports significant improvement in auditory hallucinations, reports that they are currently minimal Reports appetite is been good Reports that he slept well and feels rested Reports being compliant with medication and denies any medication side effects Mental Status Exam MSE Comments: Appears stated age, appropriately groomed and dressed, calm, cooperative, good eye contact Psychomotor activity is neither increased nor decreased, no agitation Speech is normal rate and volume, spontaneous, clear articulation, not pressured I feel a little better, constricted affect, not labile Alert and oriented to person, place, time, situation Memory and concentration is fair to intact per interview Thought process, linear, no flight of ideas Thought content, no delusions, does not appear to be attending to any internal stimuli, no suicidal or homicidal ideation Insight and judgment appear to be fair Vitals/I&O/Wt Last Vital Signs Temp 97.8 F 07/15/20 14:00 Pulse 59 L 07/15/20 14:00 Resp 20 H 07/15/20 14:00 BP 97/58 07/15/20 14:00 Pulse Ox 96 07/15/20 14:00 Data NPU : 07/12/20 22:20 07/12/20 22:20 Micro: Microbiology 07/12/20 22:30 Urine Culture - Final Urine,Clean Catch Microbiology 07/12/20 22:30 Urine,Clean Catch Urine Culture - Final A&P Assessment and plan (1) Psychosis: Status: Acute (2) Methamphetamine dependence: Status: Acute Additional A&P Information Patient continues to have some auditory hallucinations but reports significant improvement after starting low-dose antipsychotic. Reports significant improvement in mood. CONTINUE current medication, continue to monitor Anticipate discharge tomorrow Involuntary Hold Information 96 Hour Hold: 96 Hour Involuntary Admission: No Attestations NPU Medical Necessity Statement*: Continues to require psychiatric hospitalization for medication stabilization Coding Level of Care Code Acute Benefits Specialist Recruiter for Sergei Matute Diagnoses Psychosis F29 Methamphetamine dependence F15.20
[2020-07-15 20:05] VITALS: BP 103/55; PULSE 58; RESP 17; TEMP 36.8; O2SAT 97
[2020-07-15] MEDS: hyDROXYzine 25 mg Capsule 50 MG PO (21:01)
[2020-07-15] MEDS: trazodone 50 mg Tablet PO (21:02)
[2020-07-16 06:00] VITALS: BP 92/57; PULSE 57; RESP 16; TEMP 36.7; O2SAT 99
[2020-07-16] MEDS: OLANZapine 5 mg TABLET 2.5 MG PO ×2 (09:15→17:36)
[2020-07-16 14:00] VITALS: BP 107/66; PULSE 73; RESP 20; TEMP 36.2; O2SAT 97
--- NOTE | 2020-07-16 15:06 | PM.NPN ---
Subjective NPU Subjective: Interval history: Patient reports intermittent low mood symptoms but overall reports significant improvement. Denies any interval suicidal ideation. Reports minimal visual hallucinations, denies any auditory hallucinations, denies any delusions Patient reports good appetite, improved sleep Patient reports being compliant with his medication and denies any medication side effects No reports of any interval behavioral disturbances Mental Status Exam MSE Comments: Lying in bed, calm, cooperative, good eye contact Psychomotor activity is neither increased nor decreased, no agitation Speech is normal rate and volume, spontaneous, clear articulation, not pressured I feel okay, constricted affect, not labile Alert and oriented to person, place, time, situation Memory and concentration is fair to intact per interview Thought process, linear, no flight of ideas Thought content, no delusions, does not appear to be attending to any internal stimuli, no suicidal or homicidal ideation Insight and judgment appear to be fair Vitals/I&O/Wt Last Vital Signs Temp 98.0 F 07/16/20 06:00 Pulse 57 L 07/16/20 06:00 Resp 16 07/16/20 06:00 BP 92/57 07/16/20 06:00 Pulse Ox 99 07/16/20 06:00 Data NPU : 07/12/20 22:20 07/12/20 22:20 Micro: Microbiology 07/12/20 22:30 Urine Culture - Final Urine,Clean Catch Microbiology 07/12/20 22:30 Urine,Clean Catch Urine Culture - Final A&P Assessment and plan (1) Psychosis: Status: Acute Qualifiers: Psychosis type: unspecified psychosis type Qualified Code(s): F29 - Unspecified psychosis not due to a substance or known physiological condition (2) Methamphetamine dependence: Status: Acute Additional A&P Information Reports significant improvement in psychotic symptoms, some intermittent low mood, tolerating medication well with no reports of any medication side effects CONTINUE current medication, continue to monitor Repeat CMP Involuntary Hold Information 96 Hour Hold: 96 Hour Involuntary Admission: No Attestations NPU Medical Necessity Statement*: Continues to require psychiatric hospitalization for medication stabilization Coding Level of Care Code Acute Assembler Installer Structures for Sergei Matute Diagnoses Psychosis F29 Psychosis type: unspecified psychosis type Methamphetamine dependence F15.20
[2020-07-16] MEDS: nicotine 2 mg Gum BUCCAL ×2 (16:22→19:34)
[2020-07-16 19:23] LABS: Alanine Aminotransferase 79 U/L (0-41); Albumin Level 3.8 g/dL (3.5-5.2); Alkaline Phosphatase 61 IU/L (40-130); Anion Gap 10.3 (5-19); Aspartate Amino Transferase 49 U/L (0-40); Blood Urea Nitrogen 17 mg/dL (6-20); Carbon Dioxide 29 mmol/L (22-29); Chloride 96 mmol/L (98-107); Globulin 2.8 g/dL (1.3-4.6); Glucose 100 mg/dL (65-115); Osmolality Calculated 274 mOsm/kg (285-295); Potassium 4.3 mmol/L (3.5-5.1); Sodium 131 mmol/L (136-145); Total Bilirubin 0.4 mg/dL (0.15-1.2); Total Protein 6.6 g/dL (6.6-8.7)
[2020-07-16 21:36] VITALS: BP 125/75; PULSE 77; RESP 18; TEMP 36.7; O2SAT 98
[2020-07-16] MEDS: hyDROXYzine 25 mg Capsule 50 MG PO (22:42)
[2020-07-16] MEDS: trazodone 50 mg Tablet PO (22:44)
[2020-07-17 06:00] VITALS: BP 98/52; PULSE 82; RESP 17; TEMP 36.4; O2SAT 95
[2020-07-17] MEDS: OLANZapine 5 mg TABLET 2.5 MG PO (07:52)
[2020-07-17] MEDS: nicotine 2 mg Gum BUCCAL (13:47)
--- NOTE | 2020-07-17 13:57 | PM.NDC ---
Diagnoses at Discharge Discharge Diagnosis (1) Psychosis: Status: Acute Qualifiers: Psychosis type: unspecified psychosis type Qualified Code(s): F29 - Unspecified psychosis not due to a substance or known physiological condition (2) Methamphetamine dependence: Status: Acute Reason for Visit Reason for Visit: SI Hospital Course Hospital Course 34-year-old male with history of schizoaffective disorder methamphetamine dependence presented to the emergency department with report of worsening anxiety, insomnia, psychotic symptoms of seeing things and hearing things. Patient was started on olanzapine 2.5 mg twice daily targeting his psychotic symptoms with good effect. Patient had initially endorsed some depressive symptoms as well as suicidal ideation but subsequently reported improvement with no suicidal ideation to the remainder of his hospital stay. Patient mostly stayed in his room and sleeping but intermittently participate in unit milieu with no reports of any behavioral disturbances. Patient was compliant with medication and no reports of any medication side effects. Patient reported no perceptual disturbances for greater than 48 hours prior to discharge and continued to have no suicidal ideation and did not appear to pose an imminent threat of harm to self or others. Low to moderate risk of harm to self or others given no current suicidal ideation and no current report of any psychiatric symptoms although patient's risk may be elevated if he continues to be noncompliant with medication and medication management follow-up and continues to use substances which may lead to unexpected, impulsive behavior. Risk mitigation included psychiatric hospitalization for observation for any ongoing suicidal or homicidal ideation and psychotic symptoms as well as medication stabilization and recommendation to abstain from the use of substances and alcohol as well as coordinating for post discharge follow-up. Patient was able to communicate his understanding of the need to abstain from the use of substances and alcohol as well as the need for compliance with his medication, medication management and counseling follow-up in order to further mitigate his risk of harm to self and others. Involuntary Hold Information 96 Hour Hold: 96 Hour Involuntary Admission: No Mental Status Exam MSE Comments: Standing up in his room, calm, cooperative, good eye contact Psychomotor activity is neither increased nor decreased, no agitation Speech is normal rate and volume, spontaneous, clear articulation, not pressured I feel much better, somewhat constricted but full range of affect, not labile Alert and oriented to person, place, time, situation Memory and concentration is fair to intact per interview Thought process, linear, no flight of ideas Thought content, no delusions, does not appear to be attending to any internal stimuli, no suicidal or homicidal ideation Insight and judgment appear to be fair Discharge Data Data Completed and Pending: Labs from last 24 hours 07/16/20 18:45 Sodium 131 L Potassium 4.3 Chloride 96 L Carbon Dioxide 29 Anion Gap 10.3 BUN 17 Creatinine 0.9 GFR Calculation 96.0 Glucose 100 Calculated Osmolal ity 274 L Calcium 9.0 Total Bilirubin 0.4 AST 49 H ALT 79 H Alkaline Phosphata se 61 Total Protein 6.6 Albumin 3.8 Globulin 2.8 Vitals: Last Vital Signs Temp 97.6 F 07/17/20 06:00 Pulse 82 07/17/20 06:00 Resp 17 07/17/20 06:00 BP 98/52 07/17/20 06:00 Pulse Ox 95 07/17/20 06:00 Discharge Plan Discharge Patient Disposition: Home Condition: Stable Prescriptions: New olanzapine 5 mg Tablet 2.5 mg PO BID Qty: 60 RF: 0 Discontinued Invega Sustenna 156 mg/mL Syringe 156 mg IM Q30D RF: 0 paliperidone 6 mg Tablet Extended Release 24hr 6 mg PO DAILY 30 Days Qty: 30 RF: 1 ziprasidone HCl 40 mg Capsule 40 mg PO 0700,1700 30 Days Qty: 60 RF: 1 Discharge Orders: Discharge Order (Routine); Ordered 07/17/20 Ordered By: Meme Valdes Referrals: [facility] [Outside] (Paperwork was provided to you while at the hospital. 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
[2020-07-17 14:05] VITALS: BP 98/52; PULSE 82; RESP 17; TEMP 36.4; O2SAT 95
== END 2020-07-17 14:20 | disposition home or self-care (01) | DRG 885 ==
LOC: ER 23:05 → NP 07-13 02:08
PROVIDERS: Emergency Medicine; Admitting Provider Psychiatry & Neurology Psychiatry; Emergency Provider Family Medicine; PCP Family Medicine; Visit Provider Psychiatry & Neurology Psychiatry
DX: F29 Unspecified psychosis not due to a substance or known physiological condition (principal); R45.851 Suicidal ideations; F15.20 Other stimulant dependence, uncomplicated; R45.850 Homicidal ideations; G47.00 Insomnia, unspecified; F41.9 Anxiety disorder, unspecified; Z91.14 Patient's other noncompliance with medication regimen; F25.9 Schizoaffective disorder, unspecified
CPT/HCPCS: 12345; 36415; 80053; 80306; 80307; 81001; 82550; 85025; 87086; 93005; 99284; J1630; J2060; J7030

== ENCOUNTER 2020-09-02 12:33 | Emergency (ER) | payer SELFPAY ==
[2020-09-02 12:49] VITALS: BP 149/89; PULSE 113; RESP 18; TEMP 36.7; O2SAT 96
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
[2020-09-02] MEDS: vancomycin 1,000 MG in sodium chloride 0.9% 250 ML 250 MG IV (13:32)
[2020-09-02 13:35] LABS: Basophils % 0.5 %; Eosinophils # 0.6 10^3/uL (0.0-0.8); Hematocrit 36.5 % (42.0-52.0); Hemoglobin 11.9 g/dL (11.7-16.6); Lymphocytes % 25.5 %; Mean Corpuscular HGB Conc 32.6 g/dL (30.0-36.0); Mean Corpuscular Hemoglobin 28.4 pg (28.0-34.0); Mean Corpuscular Volume 87.1 fL (80-94); Mean Platelet Volume 9.1 fL (7.4-10.4); Monocytes # 0.7 10^3/uL (0.2-0.9); Monocytes % 8.9 %; Neutrophils # 4.62 10^3/uL (1.8-7.7); Neutrophils % 57.6 %; Nucleated Red Blood Cells % 0 %; Platelet Count 334 10^3/cmm (130-400); Red Blood Count 4.19 10^6/uL (4.1-5.3); Red Cell Distribution Width 12.8 % (12.1-15.1)
[2020-09-02 13:54] LABS: Alanine Aminotransferase 14 U/L (0-41); Alkaline Phosphatase 98 IU/L (40-130); Anion Gap 15.9 (5-19); Aspartate Amino Transferase 15 U/L (0-40); Blood Urea Nitrogen 17 mg/dL (6-20); Calcium 9.5 mg/dL (8.5-10.5); Carbon Dioxide 25 mmol/L (22-29); Chloride 99 mmol/L (98-107); Globulin 3.5 g/dL (1.3-4.6); Glomerular Filtration Rate 95.5 mL/min (90-130); Glucose 109 mg/dL (65-115); Osmolality Calculated 284 mOsm/kg (285-295); Potassium 3.9 mmol/L (3.5-5.1); Sodium 136 mmol/L (136-145); Total Bilirubin 0.3 mg/dL (0.15-1.2); Total Protein 7.5 g/dL (6.6-8.7)
[2020-09-02 13:55] LABS: Lactate (Lactic Acid level) 1.1 mmol/L (0.5-2.2)
[2020-09-02] MEDS: iohexol 300 mg/mL 100 mL Btl IV (13:55)
[2020-09-02] MEDS: cephALEXin 500 mg Capsule PO (16:30)
[2020-09-02] MEDS: HYDROcodone-acetaminophen 5-325 mg Tablet 1 TAB PO (16:30)
[2020-09-02 16:38] VITALS: BP 121/86; PULSE 105; RESP 18; O2SAT 99
== END 2020-09-02 16:34 | disposition home or self-care (01) ==
PROVIDERS: Emergency Provider Family Medicine; PCP Family Medicine
DX: T81.49XA Infection following a procedure, other surgical site, initial encounter (principal); F17.210 Nicotine dependence, cigarettes, uncomplicated
CPT/HCPCS: 73701; 80053; 83605; 85025; 87040; 87070; 87077; 87186; 96365; 99283; J3370; J7050; Q9967

== ENCOUNTER 2020-09-17 08:34 | Emergency (ER) | payer SELFPAY ==
[2020-09-17 08:38] VITALS: BP 130/95; PULSE 112; RESP 16; TEMP 36.8; O2SAT 97; BMI 21.2
[2020-09-17 08:55] VITALS: BP 130/95; PULSE 108; RESP 18; O2SAT 96
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
[2020-09-17 09:16] LABS: Basophils % 0.6 %; Eosinophils # 0.3 10^3/uL (0.0-0.8); Eosinophils % 4.2 %; Hematocrit 35.7 % (42.0-52.0); Hemoglobin 11.5 g/dL (11.7-16.6); Lymphocytes # 1.7 10^3/uL (0.8-4.8); Lymphocytes % 26.3 %; Mean Corpuscular HGB Conc 32.2 g/dL (30.0-36.0); Mean Corpuscular Hemoglobin 27.8 pg (28.0-34.0); Mean Corpuscular Volume 86.4 fL (80-94); Mean Platelet Volume 9.2 fL (7.4-10.4); Monocytes # 0.8 10^3/uL (0.2-0.9); Monocytes % 11.6 %; Neutrophils # 3.69 10^3/uL (1.8-7.7); Neutrophils % 56.8 %; Nucleated Red Blood Cells % 0 %; Platelet Count 336 10^3/cmm (130-400); Red Blood Count 4.13 10^6/uL (4.1-5.3); Red Cell Distribution Width 13.6 % (12.1-15.1); White Blood Count 6.5 10^3/uL (4.0-10.0)
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
[2020-09-17] MEDS: LORazepam 2 mg/mL INJ 1 mL IVP (09:31)
[2020-09-17 10:07] LABS: Alanine Aminotransferase 16 U/L (0-41); Albumin Level 4.1 g/dL (3.5-5.2); Alkaline Phosphatase 90 IU/L (40-130); Anion Gap 11.8 (5-19); Aspartate Amino Transferase 20 U/L (0-40); Blood Urea Nitrogen 12 mg/dL (6-20); Carbon Dioxide 30 mmol/L (22-29); Chloride 100 mmol/L (98-107); Glomerular Filtration Rate 84.5 mL/min (90-130); Glucose 89 mg/dL (65-115); Lipase 14 U/L (13-60); Osmolality Calculated 285 mOsm/kg (285-295); Potassium 3.8 mmol/L (3.5-5.1); Sodium 138 mmol/L (136-145); Total Bilirubin 0.4 mg/dL (0.15-1.2); Total Protein 7.1 g/dL (6.6-8.7)
[2020-09-17 10:19] LABS: Acetaminophen < 5.0 ug/mL (10-30); Salicylate < 0.3 mg/dL (3-10)
[2020-09-17 11:15] LABS: Amphetamines Screen Urine Positive (Negative); Barbiturates Screen Urine Negative (Negative); Benzodiazepines Screen Urine Negative (Negative); Cocaine Screen Urine Negative (Negative); Opiate Screen Urine Negative (Negative); PCP Screen Urine Negative (Negative); THC Screen Urine Positive (Negative)
[2020-09-17 11:20] LABS: Urine Appearance Clear (CLEAR); Urine Color Yellow (Yellow); pH Urine 5 (5-7)
[2020-09-17 11:21] LABS: Add Urine Culture? Yes; Add Urine Microscopic? YES; Bacteria Urine TRACE /hpf; Bilirubin Urine Neg (Negative); Blood Urine 3+ (Negative); Glucose Urine UA Norm (Normal); Ketones Urine 1+ (Negative); Leukocyte Esterase Urine Negative (Negative); Nitrate Urine Negative (Negative); Protein Urine Neg (Negative); RBC Urine 15-25 /hpf (0-2); Urobilinogen Urine Norm (Negative); WBC Urine 0-4 /hpf (0-5)
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
[2020-09-17 14:33] VITALS: BP 116/77; PULSE 86; RESP 18; TEMP 36.6; O2SAT 97
--- NOTE | 2020-09-22 09:10 | DCPLANNER ---
alteration manager had message to schedule a follow up appointment for patient with Wound Care. alteration manager called the Wound Care clinic, spoke with Debbie, a follow up appointment was scheduled for September at 10:00 with Gabriella. alteration manager called phone number [phone], case folder was unable to speak with patient, and unable to leave a voicemail for patient due to no voicemail box set up at this time. alteration manager then called phone number [phone] a recording stated that the text mail subscriber is not taking calls at this time. alteration manager called the Wound Care clinic, and cancelled the appointment.
== END 2020-09-17 14:40 | disposition home or self-care (01) ==
PROVIDERS: Emergency Provider Family Medicine; PCP Family Medicine
DX: F19.959 Other psychoactive substance use, unspecified with psychoactive substance-induced psychotic disorder, unspecified (principal); H60.90 Unspecified otitis externa, unspecified ear; S81.801A Unspecified open wound, right lower leg, initial encounter; W33.01XA Accidental discharge of shotgun, initial encounter; F17.210 Nicotine dependence, cigarettes, uncomplicated
CPT/HCPCS: 36415; 76882; 80053; 80306; 80307; 81001; 83690; 85025; 87086; 96374; 99284; J2060

== ENCOUNTER 2020-09-28 12:50 | Inpatient (IN) | payer SELFPAY ==
[2020-09-28 12:52] VITALS: BP 161/98; PULSE 91; RESP 18; TEMP 36.6; O2SAT 100; BMI 23.7
[2020-09-28 13:00] VITALS: BP 161/97; PULSE 91; RESP 18; O2SAT 100
--- NOTE | 2020-09-28 13:34 | PC.PHAR ---
PT STATES HE THINKS HE MAY HAVE TAKEN IBUPROFEN 600MG OR STATES MAYBE IT WAS A VIAGRA-PT STATES HE THINKS HE WAS SUPPOSE TO BE TAKING [id number] GABAPENTIN PT STATES HE IS UNSURE IF HE HAS TAKEN THEM RECENTLY-EXT MED HISTORY DOESNT PULL UP ANY OF THOSE MEDS EXCEPT FOR GABAPENTIN 300MG TID FILLED ON 04/12/20 30D/S
[2020-09-28 14:05] LABS: Basophils % 0.4 %; Eosinophils % 0.1 %; Hematocrit 37.8 % (42.0-52.0); Hemoglobin 11.6 g/dL (11.7-16.6); Lymphocytes % 11.4 %; Mean Corpuscular HGB Conc 30.7 g/dL (30.0-36.0); Mean Corpuscular Hemoglobin 26.7 pg (28.0-34.0); Mean Corpuscular Volume 87.1 fL (80-94); Mean Platelet Volume 9.2 fL (7.4-10.4); Monocytes # 0.7 10^3/uL (0.2-0.9); Monocytes % 8.1 %; Neutrophils # 7.14 10^3/uL (1.8-7.7); Neutrophils % 79.4 %; Nucleated Red Blood Cells % 0 %; Platelet Count 356 10^3/cmm (130-400); Red Blood Count 4.34 10^6/uL (4.1-5.3); Red Cell Distribution Width 13.5 % (12.1-15.1)
[2020-09-28 14:12] LABS: Amphetamines Screen Urine Positive (Negative); Barbiturates Screen Urine Negative (Negative); Benzodiazepines Screen Urine Negative (Negative); Cocaine Screen Urine Negative (Negative); Opiate Screen Urine Negative (Negative); PCP Screen Urine Negative (Negative); THC Screen Urine Positive (Negative)
[2020-09-28 14:22] LABS: Alanine Aminotransferase 14 U/L (0-41); Albumin Level 4.5 g/dL (3.5-5.2); Alkaline Phosphatase 101 IU/L (40-130); Anion Gap 19.5 (5-19); Aspartate Amino Transferase 26 U/L (0-40); Blood Urea Nitrogen 15 mg/dL (6-20); Calcium 9.5 mg/dL (8.5-10.5); Carbon Dioxide 25 mmol/L (22-29); Chloride 100 mmol/L (98-107); Globulin 3.3 g/dL (1.3-4.6); Glomerular Filtration Rate 68.5 mL/min (90-130); Glucose 78 mg/dL (65-115); Osmolality Calculated 292 mOsm/kg (285-295); Potassium 3.5 mmol/L (3.5-5.1); Salicylate 2.3 mg/dL (3-10); Sodium 141 mmol/L (136-145); Total Bilirubin 0.7 mg/dL (0.15-1.2); Total Protein 7.8 g/dL (6.6-8.7)
[2020-09-28 14:23] LABS: Acetaminophen < 5.0 ug/mL (10-30); Alcohol Level < 10 mg/dL (0-10)
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
[2020-09-28 15:47] VITALS: BP 159/89; PULSE 111; RESP 18; O2SAT 98
[2020-09-28 16:46] VITALS: BP 136/78; PULSE 110; RESP 20; TEMP 37.1; O2SAT 98
[2020-09-28 20:04] VITALS: BP 175/98; PULSE 93; RESP 16; TEMP 36.6; O2SAT 96
[2020-09-29 03:36] VITALS: BP 170/96; PULSE 90; RESP 18; TEMP 36.4; O2SAT 96
[2020-09-29] MEDS: OLANZapine 5 mg ODT PO ×2 (05:51→20:18)
[2020-09-29] MEDS: hyDROXYzine 25 mg Capsule 50 MG PO (05:51)
[2020-09-29 06:00] VITALS: RESP 19
[2020-09-29] MEDS: water for injection-sterile 10 ML (08:34)
[2020-09-29] MEDS: ziprasidone 20 mg/mL SDV (08:35)
--- NOTE | 2020-09-29 08:35 | PC.NURSE ---
Patient behavior At approximately 0800 the patient started making threats to punch you pussies out . He started punching the air towards female staff. He had an object in his sheet and was hitting the window. Called Dr Woodson and he gave orders to move patient to 170 and give PRN order of Geodon IM 20 mg. Code 10 was called at 0822 when patient started punching door in 170. Patient stated he did not want any females around him. Female nursing staff stood outside of doorway per pt request. After several minutes of verbal de escalation with male staff he calmly agreed to take the injection. Injection was administered at 0831 without incident.
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
[2020-09-29 14:00] VITALS: RESP 16
[2020-09-29] MEDS: nicotine 2 mg Gum BUCCAL ×2 (16:30→19:41)
[2020-09-29] MEDS: ziprasidone hcl 40 mg Capsule PO (16:41)
[2020-09-29] MEDS: acetaminophen 325 mg Tablet 650 MG PO ×2 (16:43→20:17)
[2020-09-29] MEDS: trazodone 50 mg Tablet PO (20:18)
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
--- NOTE | 2020-09-29 21:47 | PC.NURSE ---
Patient came to nurses station at approximately 20:00 requesting medication to help with his anxiety, increasing agitation, and his hallucinations. Patient was fighting with imaginary images and becoming increasingly more anxious and agitated. Patient was given 5mg Zyprexa and 50mg Trazodone PO at 20:18. Both RN's reassessed patient at approximately 21:30. Patient was much clearer in his thought process and was calmly resting in his room.
[2020-09-29 22:00] VITALS: BP 110/74; PULSE 102; RESP 17; TEMP 36.6; O2SAT 96
[2020-09-30 06:00] VITALS: BP 90/43; PULSE 64; RESP 16; TEMP 36.7; O2SAT 96
--- NOTE | 2020-09-30 06:16 | PC.NURSE ---
PM behavior pt calm and cooperative most of the night. At one point, PRN medication for anxiety and medication to help patient rest was needed. Med nurse notified. Pt did say his foot hurt some, gave tylenol and elevated it. He rested all night with few interruptions. will continue to observe
[2020-09-30] MEDS: ziprasidone hcl 20 mg Capsule PO (07:29)
[2020-09-30 14:00] VITALS: BP 94/52; PULSE 54; RESP 18; TEMP 36.7; O2SAT 97
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
[2020-09-30] MEDS: acetaminophen 325 mg Tablet 650 MG PO ×2 (15:27→19:27)
[2020-09-30] MEDS: nicotine 2 mg Gum BUCCAL ×3 (15:27→19:50)
[2020-09-30] MEDS: ziprasidone hcl 40 mg Capsule PO (16:48)
[2020-09-30] MEDS: hyDROXYzine 25 mg Capsule 50 MG PO (17:52)
--- NOTE | 2020-09-30 17:53 | PC.NURSE ---
PRN VISTARIL 50 MG GIVEN PO PER PT C/O STATED ANXIETY. WILL CONT TO MONITOR
[2020-09-30 19:58] VITALS: BP 93/62; PULSE 74; RESP 18; TEMP 36.9; O2SAT 96
[2020-09-30] MEDS: trazodone 50 mg Tablet PO (20:16)
--- NOTE | 2020-09-30 20:16 | PC.NURSE ---
PRN Trazodone patient requesting Trazodone to help him sleep this evening. Given at 2016. Will monitor for effectiveness.
--- NOTE | 2020-09-30 21:00 | PC.NURSE ---
PRN Follow Up Patient lying in bed with eyes closed. resp even and unlabored.
[2020-10-01 06:00] VITALS: BP 90/56; PULSE 60; RESP 16; TEMP 36.6; O2SAT 97
[2020-10-01] MEDS: ziprasidone hcl 20 mg Capsule 40 MG PO (06:44)
[2020-10-01] MEDS: nicotine 2 mg Gum BUCCAL ×3 (11:48→16:45)
[2020-10-01] MEDS: acetaminophen 325 mg Tablet 650 MG PO (12:47)
[2020-10-01 14:00] VITALS: BP 121/68; PULSE 78; RESP 16; TEMP 36.6; O2SAT 98
[2020-10-01] MEDS: ziprasidone hcl 40 mg Capsule PO (16:33)
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
[2020-10-01 20:54] VITALS: BP 87/53; PULSE 67; RESP 17; TEMP 36.6; O2SAT 99
[2020-10-02 06:00] VITALS: BP 87/54; PULSE 65; RESP 17; TEMP 36.6; O2SAT 99
[2020-10-02] MEDS: ziprasidone hcl 20 mg Capsule 40 MG PO (07:34)
[2020-10-02 14:00] VITALS: BP 96/59; PULSE 72; RESP 18; TEMP 36.6; O2SAT 96
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
[2020-10-02] MEDS: nicotine 2 mg Gum BUCCAL ×3 (15:23→20:52)
[2020-10-02] MEDS: ziprasidone hcl 40 mg Capsule PO (16:27)
[2020-10-02] MEDS: acetaminophen 325 mg Tablet 650 MG PO (17:18)
[2020-10-02] MEDS: hyDROXYzine 25 mg Capsule 50 MG PO ×2 (18:13→20:50)
--- NOTE | 2020-10-02 18:14 | PC.NURSE ---
PRN VISTARIL 50 MG GIVEN PO PER PT C/O STATED ANXIETY. PT STATED HE FEELS LIKE A WITCH HAS HER HANDS WRAPPED AROUND HIS THROAT PT SAID IT'S REALLY STARTING TO PISS ME OFF WILL CONT TO MONITOR
--- NOTE | 2020-10-02 21:34 | PC.NURSE ---
2049 Pt requested Vistaril 50mg po for anxiety and Nicotine Gum to help with cravings
[2020-10-02 21:41] VITALS: BP 127/70; PULSE 83; RESP 18; TEMP 36.8; O2SAT 95
[2020-10-03 06:00] VITALS: BP 106/51; PULSE 60; RESP 16; TEMP 36.9; O2SAT 98
[2020-10-03] MEDS: ziprasidone hcl 20 mg Capsule 40 MG PO (06:05)
[2020-10-03] MEDS: nicotine 2 mg Gum BUCCAL ×3 (11:53→16:13)
[2020-10-03 14:00] VITALS: PULSE 91; RESP 16; TEMP 36.5; O2SAT 96
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
[2020-10-03 15:26] VITALS: PULSE 91; RESP 16; TEMP 36.5; O2SAT 96
--- NOTE | 2020-10-03 18:18 | PC.RESP ---
Smoking Cessation information sent to patient.
== END 2020-10-03 16:30 | disposition home or self-care (01) | DRG 897 ==
LOC: ER 13:06 → NP 15:34
PROVIDERS: Admitting Provider Psychiatry & Neurology Psychiatry; Emergency Provider Family Medicine; PCP Family Medicine; Visit Provider Psychiatry & Neurology Psychiatry
DX: F15.259 Other stimulant dependence with stimulant-induced psychotic disorder, unspecified (principal); F15.222 Other stimulant dependence with intoxication with perceptual disturbance; F20.9 Schizophrenia, unspecified; S81.801D Unspecified open wound, right lower leg, subsequent encounter; W34.00XD Accidental discharge from unspecified firearms or gun, subsequent encounter; F17.210 Nicotine dependence, cigarettes, uncomplicated; Z81.8 Family history of other mental and behavioral disorders; Z91.5 Personal history of self-harm
CPT/HCPCS: 80053; 80306; 80307; 85025; 99285; J3486

== ENCOUNTER 2020-10-22 16:38 | Emergency (ER) | payer SELFPAY ==
[2020-10-22 16:46] VITALS: BP 94/67; PULSE 114; RESP 22; TEMP 36.6; O2SAT 99; BMI 23.1
--- NOTE | 2020-10-22 17:12 | W.ED.ABDPA2 ---
HPI - Abdominal Pain General: Chief Complaint: Abdominal Pain Stated Complaint: ABD PAIN Time Seen by Provider: 10/22/20 17:06 History of Present Illness: HPI narrative: Patient is a 35-year-old male comes to the ED with multiple complaints. He is complaining of having developing abdominal pain, shortness of breath and left knee pain. Patient is a poor historian and being very vague when answering my questions. Patient says the abdominal pain started a couple hours ago and he endorses having some nausea. He rates the abdominal pain a 6 out of 10 and location is generalized throughout the abdomen and no specific location of pain in the abdomen. Denies any emesis, diarrhea, constipation or UTI symptoms. He does endorse having less urine output. Patient reports not drinking much fluids and feeling dehydrated over the past couple days. He is also complaining of having shortness of breath that started today as well. He denies any chest pain, but states he feels like he cannot catch his breath. His third complaint is of left knee pain after having a fall. Patient says injury occurred a couple days ago when he fell causing some left knee pain and swelling. Patient also complained of some right ear pain. Denies fever, chills. Patient has a past medical history of schizophrenia and methamphetamine abuse. Associated Symptoms: Reports nausea; Denies chills, constipation, diarrhea, dysuria, fever(s), hematochezia, hematuria and vomiting Review of Systems Const: Denies: fever(s), chills or fatigue Eyes: Denies: change in vision or eye discomfort ENMT: Reports: ear or mastoid pain; Denies: throat pain, odynophagia, ear discharge, nasal discharge or nasal congestion Card: Denies: chest pain, palpitations, edema, swelling of feet/ankles, dyspnea on exertion or orthopnea Resp: Reports: dyspnea; Denies: productive cough or non-productive cough GI: Reports: abdominal pain and nausea; Denies: vomiting, diarrhea, constipation or hematochezia : Reports: oliguria; Denies: flank pain, difficulty urinating, dysuria or hematuria Musc: Denies: neck pain, back pain or extremity swelling Skin/Breast: Denies: rash or new lesions Neuro: Denies: headache(s), numbness in extremities or weakness in extremities PFS ED PFSH: Medical History Methamphetamine dependence Family History Family/Other , The whole family is afflicted with schizoaffective disorder versus bipolar disease. Rampant methamphetamine abuse abounds. Psychiatric illness Social History Smoking and tobacco status: current every day smoker Physical Exam Narrative: EXAM NARRATIVE: Patient is a 35-year-old male who is lying comfortably on exam bed when entered the room. He appears nontoxic and in no acute distress. He is very vague when answering HPI questions. Const: COMMON NORMALS: no acute distress, patient oriented x3 and alert GENERAL APPEARANCE: cooperative and comfortable HENMT: COMMON NORMALS: normocephalic HEAD & SCALP: normocephalic EXTERNAL AUDITORY CANAL: Abnormal EAC present EAC laterality: right Details: erythema, edema and EAC tenderness MOUTH: moist mucous membranes abnormal Details: parched THROAT: posterior oropharynx normal and uvula midline Eye: COMMON NORMALS: Equal, round and reactive pupils present PUPIL: Yes Equal, round and reactive pupils present Neck/C-Spine: COMMON NORMALS: supple GENERAL: Yes normal visual inspection Resp: COMMON NORMALS: normal respiratory effort, No retractions, No use of accessory muscles and clear to auscultation bilaterally EFFORT & INSPECTION: Yes able to speak in complete sentences, Yes tachypneic (20-22 rpm), No respiratory distress and No labored AUSCULTATION: clear to auscultation bilaterally and wheezes expiratory wheezes and upper bilaterally (Patient had very mild wheezing in the upper lungs bilaterally.) Cardio: COMMON NORMALS: regular rate, regular rhythm, S1 normal heart sound present, S2 normal heart sound present, No gallops present (Cardio), No clicks present (Cardio), No murmurs present (Cardio) and Peripheral pulses 2+ throughout RATE: regular rate RHYTHM: regular rhythm HEART SOUNDS: S1 normal heart sound present and S2 normal heart sound present PERIPHERAL PULSES: Peripheral pulses 2+ throughout GI: COMMON NORMALS: Normal to inspection, nondistended, normoactive bowel sounds present, Soft to palpation and no masses PALPATION: Yes Soft to palpation and Yes Tenderness to palpation present (GI) (Generalized abdominal tenderness. No localized tenderness noted.) : COMMON NORMALS: Yes no CVA tenderness BLADDER/KIDNEY EXAM: Yes no CVA tenderness Back/Pelvis: COMMON NORMALS: no CVA tenderness Extremity: COMMON NORMALS: normal to inspection and no pedal edema Neuro: COMMON NORMALS: patient oriented x3 SENSORIUM/ORIENTATION: Yes alert GAIT: Yes Normal gait present Skin: GENERAL SKIN EXAM: dry skin Course Reevaluation(s): Reevaluation #1: After patient received 2 L of IV fluid he reports an improvement in his symptoms. DuoNeb breathing treatment resolved his shortness of breath. Patient's wheezing resolved upon auscultation. Vital Signs: Vital signs: Vital Signs Temperature 97.6 F 10/22/20 22:32 Pulse Rate 118 H 10/22/20 22:32 Respiratory Rate 18 10/22/20 22:32 Blood Pressure 129/74 10/22/20 22:32 Pulse Oximetry 97 10/22/20 22:32 MDM - Abdominal Pain MDM Narrative: Medical decision making narrative: Patient is a 35-year-old male comes to the ED with abdominal pain, shortness of breath and left knee pain. Symptoms started a couple days ago. Patient states he has not had much to drink over the past couple days and feels very dehydrated. Patient was vague and did not give a lot of details during history. Exam showed a nontoxic appearing 35-year-old male was not in any acute distress or pain. He had dry oral mucous membranes. Mild generalized tenderness on the abdomen. Right EAC was remarkable for erythema edema and tenderness. He had some mild wheezing in the upper lobes in the right left lung. White blood cell count 16.6 and creatinine was 2.0. Rest of CBC and CMP were unremarkable. UA was unremarkable and urine drug screen was positive for methamphetamines. Troponins were negative and EKG showed sinus tachycardia, [address] segment elevation or depression seen. Chest x-ray shows no acute findings. CT of abdomen pelvis showed 2 nonobstructing kidney stones but no other acute findings. Left knee x-ray showed no acute findings. Patient was given 2 L of IV fluids and 1 DuoNeb breathing treatment while here in the ED. His shortness of breath resolved after breathing treatment. Mild upper lobe bilateral wheezing resolved as well upon auscultation. Patient was diagnosed with acute dehydration, creatinine elevation and otitis externa. Patient was told to follow-up with PCP 3 days for reevaluation and to recheck creatinine level. He was discharged home with a prescription for Ciprodex. Return to ED precautions given. Patient understood agree with plan. Lab Data: Attestation: I reviewed the patient's lab results. Labs: Lab Results 10/22/20 10/22/20 10/22/20 Range/Units 17:20 17:20 17:20 WBC 16.6 H (4.0-10.0) 10^3/ uL RBC 4.39 (4.1-5.3) 10^6/u L Hgb 11.7 (11.7-16.6) g/dL Hct 37.0 L (42.0-52.0) % MCV 84.3 (80-94) fL MCH 26.7 L (28.0-34.0) pg MCHC 31.6 (30.0-36.0) g/dL RDW 15.2 H (12.1-15.1) % Plt Count 322 (130-400) 10^3/c mm MPV 9.4 (7.4-10.4) fL Neut % (Auto) 80.4 % Lymph % (Auto) 8.3 % [place] % (Auto) 10.8 % Eos % (Auto) 0.0 % Baso % (Auto) 0.3 % Neut # (Auto) 13.30 H (1.8-7.7) 10^3/u L Lymph # (Auto) 1.4 (0.8-4.8) 10^3/u L [place] # (Auto) 1.8 H (0.2-0.9) 10^3/u L Eos # (Auto) 0.0 (0.0-0.8) 10^3/u L Baso # (Auto) 0.1 (0.0-0.1) 10^3/u L Nucleated RBC % (a uto) 0 % Nucleated RBCs # 0.0 /100WBC Sodium 135 L (136-145) mmol/L Potassium 4.2 (3.5-5.1) mmol/L Chloride 96 L (98-107) mmol/L Carbon Dioxide 17 L (22-29) mmol/L Anion Gap 26.2 H (5-19) BUN 40 H (6-20) mg/dL Creatinine 2.0 H (0.7-1.2) mg/dL GFR Calculation 38.0 L (90-130) mL/min Glucose 113 (65-115) mg/dL Calculated Osmolal ity 291 (285-295) mOsm/k g Calcium 9.0 (8.5-10.5) mg/dL Total Bilirubin 1.2 (0.15-1.2) mg/dL AST 61 H (0-40) U/L ALT 23 (0-41) U/L Alkaline Phosphata se 110 (40-130) IU/L Troponin T Gen 5 n g/L 25 H (0-15) ng/L Troponin T Baselin e (0-15) ng/L Troponin T 120 Min [place] (0-15) ng/L Delta Troponin T (0-10) ABS# Total Protein 7.6 (6.6-8.7) g/dL Albumin 4.6 (3.5-5.2) g/dL Globulin 3.0 (1.3-4.6) g/dL Lipase 12 L (13-60) U/L Urine Color (Yellow) Urine Appearance (CLEAR) Urine pH (5-7) Ur Specific Gravit y (1.005-1.030) Urine Protein (Negative) Urine Glucose (UA) (Normal) Urine Ketones (Negative) Urine Blood (Negative) Urine Nitrate (Negative) Urine Bilirubin (Negative) Urine Urobilinogen (Negative) mg/dL Ur Leukocyte Mela ase (Negative) Urine RBC (0-2) /hpf Urine WBC (0-5) /hpf Ur Squamous Epith Cells (0-5) /hpf Amorphous Sediment Urine Bacteria (NONE) /hpf Hyaline Casts /lpf Urine Opiates Scre en (Negative) ng/mL Ur Barbiturates Sc reen (Negative) ng/mL Ur Phencyclidine S crn (Negative) ng/mL Ur Amphetamines Sc reen (Negative) ng/mL U Benzodiazepines Scrn (Negative) ng/mL Urine Cocaine Scre en (Negative) ng/mL U Marijuana (THC) Screen (Negative) ng/mL Ethyl Alcohol 30 H (0-10) mg/dL 10/22/20 10/22/20 10/22/20 Range/Units 17:20 18:00 18:00 WBC (4.0-10.0) 10^3/ uL RBC (4.1-5.3) 10^6/u L Hgb (11.7-16.6) g/dL Hct (42.0-52.0) % MCV (80-94) fL MCH (28.0-34.0) pg MCHC (30.0-36.0) g/dL RDW (12.1-15.1) % Plt Count (130-400) 10^3/c mm MPV (7.4-10.4) fL Neut % (Auto) % Lymph % (Auto) % [place] % (Auto) % Eos % (Auto) % Baso % (Auto) % Neut # (Auto) (1.8-7.7) 10^3/u L Lymph # (Auto) (0.8-4.8) 10^3/u L [place] # (Auto) (0.2-0.9) 10^3/u L Eos # (Auto) (0.0-0.8) 10^3/u L Baso # (Auto) (0.0-0.1) 10^3/u L Nucleated RBC % (a uto) % Nucleated RBCs # /100WBC Sodium (136-145) mmol/L Potassium (3.5-5.1) mmol/L Chloride (98-107) mmol/L Carbon Dioxide (22-29) mmol/L Anion Gap (5-19) BUN (6-20) mg/dL Creatinine (0.7-1.2) mg/dL GFR Calculation (90-130) mL/min Glucose (65-115) mg/dL Calculated Osmolal ity (285-295) mOsm/k g Calcium (8.5-10.5) mg/dL Total Bilirubin (0.15-1.2) mg/dL AST (0-40) U/L ALT (0-41) U/L Alkaline Phosphata se (40-130) IU/L Troponin T Gen 5 n g/L (0-15) ng/L Troponin T Baselin e 25 H (0-15) ng/L Troponin T 120 Min [place] (0-15) ng/L Delta Troponin T (0-10) ABS# Total Protein (6.6-8.7) g/dL Albumin (3.5-5.2) g/dL Globulin (1.3-4.6) g/dL Lipase (13-60) U/L Urine Color Yellow (Yellow) Urine Appearance Clear (CLEAR) Urine pH 5 (5-7) Ur Specific Gravit y 1.020 (1.005-1.030) Urine Protein Neg (Negative) Urine Glucose (UA) Norm (Normal) Urine Ketones 1+ H (Negative) Urine Blood 3+ H (Negative) Urine Nitrate Negative (Negative) Urine Bilirubin Neg (Negative) Urine Urobilinogen Norm (Negative) mg/dL Ur Leukocyte Mela ase Negative (Negative) Urine RBC 25-40 H (0-2) /hpf Urine WBC 0-4 H (0-5) /hpf Ur Squamous Epith Cells 0-4 H (0-5) /hpf Amorphous Sediment Not Reportable Urine Bacteria Trace (NONE) /hpf Hyaline Casts 0-4 H /lpf Urine Opiates Scre en Negative (Negative) ng/mL Ur Barbiturates Sc reen Negative (Negative) ng/mL Ur Phencyclidine S crn Negative (Negative) ng/mL Ur Amphetamines Sc reen Positive H (Negative) ng/mL U Benzodiazepines Scrn Negative (Negative) ng/mL Urine Cocaine Scre en Negative (Negative) ng/mL U Marijuana (THC) Screen Positive H (Negative) ng/mL Ethyl Alcohol (0-10) mg/dL 10/22/20 Range/Units 19:42 WBC (4.0-10.0) 10^3/ uL RBC (4.1-5.3) 10^6/u L Hgb (11.7-16.6) g/dL Hct (42.0-52.0) % MCV (80-94) fL MCH (28.0-34.0) pg MCHC (30.0-36.0) g/dL RDW (12.1-15.1) % Plt Count (130-400) 10^3/c mm MPV (7.4-10.4) fL Neut % (Auto) % Lymph % (Auto) % [place] % (Auto) % Eos % (Auto) % Baso % (Auto) % Neut # (Auto) (1.8-7.7) 10^3/u L Lymph # (Auto) (0.8-4.8) 10^3/u L [place] # (Auto) (0.2-0.9) 10^3/u L Eos # (Auto) (0.0-0.8) 10^3/u L Baso # (Auto) (0.0-0.1) 10^3/u L Nucleated RBC % (a uto) % Nucleated RBCs # /100WBC Sodium (136-145) mmol/L Potassium (3.5-5.1) mmol/L Chloride (98-107) mmol/L Carbon Dioxide (22-29) mmol/L Anion Gap (5-19) BUN (6-20) mg/dL Creatinine (0.7-1.2) mg/dL GFR Calculation (90-130) mL/min Glucose (65-115) mg/dL Calculated Osmolal ity (285-295) mOsm/k g Calcium (8.5-10.5) mg/dL Total Bilirubin (0.15-1.2) mg/dL AST (0-40) U/L ALT (0-41) U/L Alkaline Phosphata se (40-130) IU/L Troponin T Gen 5 n g/L (0-15) ng/L Troponin T Baselin e (0-15) ng/L Troponin T 120 Min [place] 19.74 H (0-15) ng/L Delta Troponin T -5.26 L (0-10) ABS# Total Protein (6.6-8.7) g/dL Albumin (3.5-5.2) g/dL Globulin (1.3-4.6) g/dL Lipase (13-60) U/L Urine Color (Yellow) Urine Appearance (CLEAR) Urine pH (5-7) Ur Specific Gravit y (1.005-1.030) Urine Protein (Negative) Urine Glucose (UA) (Normal) Urine Ketones (Negative) Urine Blood (Negative) Urine Nitrate (Negative) Urine Bilirubin (Negative) Urine Urobilinogen (Negative) mg/dL Ur Leukocyte Mela ase (Negative) Urine RBC (0-2) /hpf Urine WBC (0-5) /hpf Ur Squamous Epith Cells (0-5) /hpf Amorphous Sediment Urine Bacteria (NONE) /hpf Hyaline Casts /lpf Urine Opiates Scre en (Negative) ng/mL Ur Barbiturates Sc reen (Negative) ng/mL Ur Phencyclidine S crn (Negative) ng/mL Ur Amphetamines Sc reen (Negative) ng/mL U Benzodiazepines Scrn (Negative) ng/mL Urine Cocaine Scre en (Negative) ng/mL U Marijuana (THC) Screen (Negative) ng/mL Ethyl Alcohol (0-10) mg/dL Imaging Data ^: CXR: Attestation: I personally reviewed and interpreted this imaging study as follows: Radiologist's impression: [facility] [address] [place] [address]. [place] [address] XRay Report Signed Patient: Sven Wade Unit #: [id number] : 1985 Age/Sex: 35 / M ADM Date: 10/22/20 Loc: ER Room/Bed: Attending Dr: Ordering Provider/Ordering MD: Georgi Simon Date of Service: 10/22/20 Procedure(s): XR chest 1V portable [id number] Accession Number(s): [id number] Report Number: [id number] PROCEDURE INFORMATION: Exam: XR Chest Exam date and time: 10/22/2020 6:33 PM Age: 35 years old Clinical indication: Dyspnea; Additional info: SOB TECHNIQUE: Imaging protocol: XR of the chest. Views: 1 view. COMPARISON: CR XR chest 1V portable [id number] 10/25/2019 12:02 PM FINDINGS: Lungs: Mildly hyperaerated lungs consistent with deep inspiratory effort vs mild reactive airway disease. Pleural spaces: Unremarkable. No pleural effusion. No pneumothorax. Heart/Mediastinum: Unremarkable. No cardiomegaly. Bones/joints: Dextroscoliosis. XR/XR chest 1V portable [id number] IMPRESSION: Mildly hyperaerated lungs consistent with deep inspiratory effort vs mild reactive airway disease. Dictated By: Chavez Huertas MD Signed By: Chavez Huertas MD Signed Date/Time: 10/22/201932 DD/ 31 CT Abd/Pel: Attestation: I personally reviewed and interpreted this imaging study as follows: Radiologist's impression: [facility] [address] [place] [address]. [place] [address] CT Scan Report Signed Patient: Sven Wade Unit #: [id number] : 1985 Age/Sex: 35 / M ADM Date: 10/22/20 Loc: ER Room/Bed: Attending Dr: Ordering Provider/Ordering MD: Georgi Simon Date of Service: 10/22/20 Procedure(s): CT abdomen pelvis wo con [id number] Accession Number(s): [id number] Report Number: [id number] PROCEDURE INFORMATION: Exam: CT Abdomen And Pelvis Without Contrast Exam date and time: 10/22/2020 6:39 PM Age: 35 years old Clinical indication: Abdominal pain; Localized; Patient HX: C/O upper abd pain today TECHNIQUE: Imaging protocol: Computed tomography of the abdomen and pelvis without contrast. Radiation optimization: All CT scans at this facility use at least one of these dose optimization techniques: automated exposure control; mA and/or kV adjustment per patient size (includes targeted exams where dose is matched to clinical indication); or iterative reconstruction. COMPARISON: CT Abdomen/Pelvis Renal [id number] 06/07/2018 10:17 AM RADIATION DOSE METRICS: Total DLP (mGy-cm): 1020.73 FINDINGS: Liver: Normal. No mass. Gallbladder and bile ducts: Normal. No calcified stones. No ductal dilation. Pancreas: Normal. No ductal dilation. Spleen: Calcified splenic granulomas. Adrenal glands: Normal. No mass. Kidneys and ureters: Bilateral nonobstructing renal calyceal stones. Stomach and bowel: Unremarkable. No obstruction. No mucosal thickening. Appendix: No evidence of appendicitis. Intraperitoneal space: Unremarkable. No free air. No significant fluid collection. Vasculature: One or more calcified pelvic phleboliths. Lymph nodes: Unremarkable. No enlarged lymph nodes. Urinary bladder: Unremarkable as visualized. Reproductive: Unremarkable as visualized. Bones/joints: Unremarkable. No acute fracture. Soft tissues: Unremarkable. CT/CT abdomen pelvis wo con [id number] IMPRESSION: 1. Bilateral nonobstructing renal calyceal stones. 2. No acute findings. Radiation Dose CTDIVOL = (mGy): DLP = 1020.73 (mGy-cm) Dictated By: Chavez Huertas MD Signed By: Chavez Huertas MD Signed Date/Time: 10/22/201931 DD/ 30 Xray Ortho: Attestation: I personally reviewed and interpreted this imaging study as follows: Radiologist's impression: [facility] [address] [place] [address] XRay Report Signed Patient: Sven Wade Unit #: [id number] : 1985 Age/Sex: 35 / M ADM Date: 10/22/20 Loc: ER Room/Bed: Attending Dr: Ordering Provider/Ordering MD: Georgi Simon Date of Service: 10/22/20 Procedure(s): XR knee LT 3V* [id number] Accession Number(s): [id number] Report Number: [id number] PROCEDURE INFORMATION: Exam: XR Left Knee Exam date and time: 10/22/2020 6:31 PM Age: 35 years old Clinical indication: Pain; Knee; Left; Additional info: Left knee injury TECHNIQUE: Imaging protocol: XR Left knee. Views: 3 views. COMPARISON: No relevant prior studies available. FINDINGS: Bones/joints: Normal. Soft tissues: Normal. XR/XR knee LT 3V* [id number] IMPRESSION: No acute findings. Dictated By: Chavez Huertas MD Signed By: Chavez Huertas MD Signed Date/Time: 10/22/201934 DD/ 33 EKG Data ^: EKG 1: Attestation: I personally reviewed and interpreted this EKG as follows: EKG interpretation date: 10/22/20 Interpretation: Sinus tachycardia, 103 bpm, no ST segment elevation or depression noted. EKG 2: Attestation: I personally reviewed and interpreted this EKG as follows: EKG interpretation date: 10/22/20 Interpretation: 2-hour EKG?sinus tachycardia, 105 bpm, no ST segment elevation or depression seen. Discharge Plan Discharge Patient Disposition: Home Clinical Impression: Acute dehydration, Creatinine elevation Otitis externa Qualifiers: Otitis externa type: other infective Chronicity: acute Laterality: right Qualified Code(s): H60.391 - Other infective otitis externa, right ear Condition: Stable Prescriptions: New Ciprodex 0.3-0.1 % drops,suspension 4 drp otic (ear) BID 7 Days Qty: 7.5 RF: 0 No Action Unable to Assess RF: 0 ziprasidone HCl 40 mg Capsule 40 mg PO BID 30 Days Qty: 60 RF: 1 Discharge Orders: Discharge ED (Routine); Ordered 10/22/20 Ordered By: Georgi Simon Referrals: Augusto Gallo Jr, MD [Primary Care Provider] - Discharge Diet: Regular Discharge Activity: Increase activity as tolerated Patient Instructions: Dehydration (ED), Otitis Externa (ED) Activity Restrictions/Additional Instructions: Follow-up with medical provider as directed in 2 to 3 days. And your PCP have them recheck your creatinine levels. Also will contact behavioral health on Saturday morning to discuss your Geodon prescription. Make sure you drink plenty of fluids and stay hydrated. Take medications as prescribed. Return to the ER or your medical provider if condition worsens. Please read and understand discharge instructions. Thank you for choosing [facility] for your healthcare needs today. Please realize this is an emergency room and that we are providing you with a medical screening exam and this may not be complete and all inclusive of all the testing and or work up that you may need to determine your ailment or severity of your illness. It is very important that you follow up as instructed or that you return to the Emergency Department should you have concerns or if your condition changes or worsens in any way. Coding Level of Care Code ED Internal Medicine Specialist for Sergei Fwd Exam Comprehensive
[2020-10-22 17:40] LABS: Basophils # 0.1 10^3/uL (0.0-0.1); Basophils % 0.3 %; Hemoglobin 11.7 g/dL (11.7-16.6); Lymphocytes # 1.4 10^3/uL (0.8-4.8); Lymphocytes % 8.3 %; Mean Corpuscular HGB Conc 31.6 g/dL (30.0-36.0); Mean Corpuscular Hemoglobin 26.7 pg (28.0-34.0); Mean Corpuscular Volume 84.3 fL (80-94); Mean Platelet Volume 9.4 fL (7.4-10.4); Monocytes # 1.8 10^3/uL (0.2-0.9); Monocytes % 10.8 %; Neutrophils % 80.4 %; Nucleated Red Blood Cells % 0 %; Platelet Count 322 10^3/cmm (130-400); Red Blood Count 4.39 10^6/uL (4.1-5.3); Red Cell Distribution Width 15.2 % (12.1-15.1); White Blood Count 16.6 10^3/uL (4.0-10.0)
[2020-10-22 17:48] VITALS: RESP 18
--- NOTE | 2020-10-22 17:48 | ECG_ITS ---
[facility] Test Date: 2020-10-22 Pat Name: Sven Wade Department: Room: Gender: Male [employer] Agent: : 1985 Requested By: Georgi Simon Order Number: [id number] Fleming MD: Wei Alicia M.D. Measurements Intervals [place] Rate: 103 P: 71 NM: 148 QRS: 53 QRSD: 118 T: 49 QT: 370 QTc: 485 Interpretive Statements SINUS TACHYCARDIA INCOMPLETE RIGHT BUNDLE BRANCH BLOCK [90+ ms QRS DURATION, TERMINAL R IN V1/V2, 40+ ms S IN I/aVL/V4/V5/V6] Compared to ECG 07/12/2020 22:20:43 Sinus rhythm no longer present Electronically Signed On 10-23-2020 15:34:41 CDT by Wei Alicia M.D. [id number]
--- NOTE | 2020-10-22 17:48 | XRR_ITS ---
PROCEDURE INFORMATION: Exam: XR Chest Exam date and time: 10/22/2020 6:33 PM Age: 35 years old Clinical indication: Dyspnea; Additional info: SOB TECHNIQUE: Imaging protocol: XR of the chest. Views: 1 view. COMPARISON: CR XR chest 1V portable [id number] 10/25/2019 12:02 PM FINDINGS: Lungs: Mildly hyperaerated lungs consistent with deep inspiratory effort vs mild reactive airway disease. Pleural spaces: Unremarkable. No pleural effusion. No pneumothorax. Heart/Mediastinum: Unremarkable. No cardiomegaly. Bones/joints: Dextroscoliosis. XR/XR chest 1V portable [id number] IMPRESSION: Mildly hyperaerated lungs consistent with deep inspiratory effort vs mild reactive airway disease.
[2020-10-22 17:50] LABS: Alanine Aminotransferase 23 U/L (0-41); Albumin Level 4.6 g/dL (3.5-5.2); Alcohol Level 30 mg/dL (0-10); Alkaline Phosphatase 110 IU/L (40-130); Aspartate Amino Transferase 61 U/L (0-40); Blood Urea Nitrogen 40 mg/dL (6-20); Carbon Dioxide 17 mmol/L (22-29); Chloride 96 mmol/L (98-107); Glucose 113 mg/dL (65-115); Lipase 12 U/L (13-60); Osmolality Calculated 291 mOsm/kg (285-295); Sodium 135 mmol/L (136-145); Total Bilirubin 1.2 mg/dL (0.15-1.2); Total Protein 7.6 g/dL (6.6-8.7)
[2020-10-22 17:52] LABS: Anion Gap 26.2 (5-19); Potassium 4.2 mmol/L (3.5-5.1)
[2020-10-22] MEDS: ondansetron 2 mg/ML SDV 2 mL 4 MG IVP (17:57)
[2020-10-22] MEDS: sodium chloride 0.9% 1,000 ML 999 ML IV ×2 (17:57→19:49)
[2020-10-22 18:15] LABS: Troponin T (5th) Once 25 ng/L (0-15)
[2020-10-22 18:20] LABS: Amphetamines Screen Urine Positive (Negative); Barbiturates Screen Urine Negative (Negative); Benzodiazepines Screen Urine Negative (Negative); Cocaine Screen Urine Negative (Negative); Opiate Screen Urine Negative (Negative); PCP Screen Urine Negative (Negative); THC Screen Urine Positive (Negative)
[2020-10-22 18:22] LABS: Urine Appearance Clear (CLEAR); Urine Color Yellow (Yellow)
[2020-10-22 18:23] LABS: Bilirubin Urine Neg (Negative); Blood Urine 3+ (Negative); Glucose Urine UA Norm (Normal); Ketones Urine 1+ (Negative); Leukocyte Esterase Urine Negative (Negative); Nitrate Urine Negative (Negative); Protein Urine Neg (Negative); Urobilinogen Urine Norm (Negative); pH Urine 5 (5-7)
[2020-10-22 18:24] LABS: RBC Urine 25-40 /hpf (0-2); Squamous Epithelial Cell Urine 0-4 /hpf (0-5); WBC Urine 0-4 /hpf (0-5)
[2020-10-22 18:25] LABS: Add Urine Culture? Yes; Bacteria Urine TRACE /hpf; Hyaline Casts Urine 0-4 /lpf
--- NOTE | 2020-10-22 18:27 | CTR_ITS ---
PROCEDURE INFORMATION: Exam: CT Abdomen And Pelvis Without Contrast Exam date and time: 10/22/2020 6:39 PM Age: 35 years old Clinical indication: Abdominal pain; Localized; Patient HX: C/O upper abd pain today TECHNIQUE: Imaging protocol: Computed tomography of the abdomen and pelvis without contrast. Radiation optimization: All CT scans at this facility use at least one of these dose optimization techniques: automated exposure control; mA and/or kV adjustment per patient size (includes targeted exams where dose is matched to clinical indication); or iterative reconstruction. COMPARISON: CT Abdomen/Pelvis Renal [id number] 06/07/2018 10:17 AM RADIATION DOSE METRICS: Total DLP (mGy-cm): 1020.73 FINDINGS: Liver: Normal. No mass. Gallbladder and bile ducts: Normal. No calcified stones. No ductal dilation. Pancreas: Normal. No ductal dilation. Spleen: Calcified splenic granulomas. Adrenal glands: Normal. No mass. Kidneys and ureters: Bilateral nonobstructing renal calyceal stones. Stomach and bowel: Unremarkable. No obstruction. No mucosal thickening. Appendix: No evidence of appendicitis. Intraperitoneal space: Unremarkable. No free air. No significant fluid collection. Vasculature: One or more calcified pelvic phleboliths. Lymph nodes: Unremarkable. No enlarged lymph nodes. Urinary bladder: Unremarkable as visualized. Reproductive: Unremarkable as visualized. Bones/joints: Unremarkable. No acute fracture. Soft tissues: Unremarkable. CT/CT abdomen pelvis wo con [id number] IMPRESSION: 1. Bilateral nonobstructing renal calyceal stones. 2. No acute findings. Radiation Dose CTDIVOL = (mGy): DLP = 1020.73 (mGy-cm)
--- NOTE | 2020-10-22 18:30 | XRR_ITS ---
PROCEDURE INFORMATION: Exam: XR Left Knee Exam date and time: 10/22/2020 6:31 PM Age: 35 years old Clinical indication: Pain; Knee; Left; Additional info: Left knee injury TECHNIQUE: Imaging protocol: XR Left knee. Views: 3 views. COMPARISON: No relevant prior studies available. FINDINGS: Bones/joints: Normal. Soft tissues: Normal. XR/XR knee LT 3V* [id number] IMPRESSION: No acute findings.
[2020-10-22 18:38] LABS: Troponin(5th) Baseline 25 ng/L (0-15)
[2020-10-22] MEDS: ipratropium-albuterol 3 mL Neb INHALATION (19:53)
[2020-10-22 19:54] VITALS: PULSE 109; RESP 18; O2SAT 99
--- NOTE | 2020-10-22 20:28 | ECG_ITS ---
[facility] Test Date: 2020-10-22 Pat Name: Sven Wade Department: Room: Gender: Male Family Practice Physician Assistant: ALKA : 1985 Requested By: Georgi Simon Order Number: [id number] Bernadette MD: Wei Alicia M.D. Measurements Intervals [place] Rate: 105 P: 70 HI: 153 QRS: 40 QRSD: 114 T: 52 QT: 370 QTc: 490 Interpretive Statements SINUS TACHYCARDIA MODERATE INTRAVENTRICULAR CONDUCTION DELAY [110+ ms QRS DURATION] Compared to ECG 10/22/2020 18:03:06 Intraventricular conduction delay now present Incomplete right bundle-branch block no longer present Electronically Signed On 10-23-2020 15:36:55 CDT by Wei Alicia M.D. [id number]
[2020-10-22 20:34] VITALS: RESP 16; O2SAT 96
[2020-10-22] MEDS: morphine 4 mg/mL SDV 1 mL IVP (20:34)
[2020-10-22 20:35] VITALS: BP 128/83; PULSE 130; RESP 16; TEMP 37; O2SAT 100
[2020-10-22 21:12] LABS: Troponin 5 2HR 19.74 ng/L (0-15); Troponin 5 2HR Delta -5.26 ABS# (0-10)
[2020-10-22] MEDS: hyDROXYzine 25 mg Capsule 50 MG PO (22:29)
[2020-10-22] MEDS: ciprofloxacin-dexameth Otic Susp 7.5 mL Btl 4 DROP EAR-RIGHT (22:30)
[2020-10-22 22:32] VITALS: BP 129/74; PULSE 118; RESP 18; TEMP 36.4; O2SAT 97
== END 2020-10-22 22:30 | disposition home or self-care (01) ==
PROVIDERS: Emergency Provider Physician Assistant; PCP Family Medicine
DX: E86.0 Dehydration (principal); H60.391 Other infective otitis externa, right ear; F17.210 Nicotine dependence, cigarettes, uncomplicated
CPT/HCPCS: 71045; 73562; 74176; 80053; 80306; 80307; 81001; 83690; 84484; 85025; 87086; 93005; 94640; 96361; 96374; 96375; 99284; J2270; J2405; J7030

== ENCOUNTER 2020-10-23 20:43 | Inpatient (IN) | payer SELFPAY ==
[2020-10-23] VITALS (13 sets, daily range): BP systolic 107–149; BP diastolic 57–102; PULSE 99–128; RESP 20–38; TEMP 37.7–38.7; O2SAT 92–100; BMI 23.1
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
--- NOTE | 2020-10-23 20:58 | CTR_ITS ---
PROCEDURE INFORMATION: Exam: CT Head Without Contrast Exam date and time: 10/23/2020 9:25 PM Age: 35 years old Clinical indication: Altered mental status/memory loss; Confusion or disorientation; Patient HX: Ans; Additional info: AMS TECHNIQUE: Imaging protocol: Computed tomography of the head without contrast. Radiation optimization: All CT scans at this facility use at least one of these dose optimization techniques: automated exposure control; mA and/or kV adjustment per patient size (includes targeted exams where dose is matched to clinical indication); or iterative reconstruction. COMPARISON: CT head wo con* [id number] 08/11/2019 3:52 AM RADIATION DOSE METRICS: Total DLP (mGy-cm): 1708.86 FINDINGS: Brain: Normal. No hemorrhage. Unremarkable white matter. No mass effect. Cerebral ventricles: No ventriculomegaly. Bones/joints: Unremarkable. No acute fracture. Paranasal sinuses: Visualized sinuses are unremarkable. No fluid levels. Mastoid air cells: Visualized mastoid air cells are well aerated. Soft tissues: Unremarkable. CT/CT head wo con* [id number] IMPRESSION: Negative for intracranial hemorrhage or mass effect. Radiation Dose CTDIVOL = (mGy): DLP = 1708.86 (mGy-cm)
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
[2020-10-23] MEDS: LORazepam 2 mg/mL INJ 1 mL IM (21:03)
--- NOTE | 2020-10-23 21:06 | ECG_ITS ---
[facility] Test Date: 2020-10-23 Pat Name: Sven Wade Department: Room: [facility] Gender: Male Mental Health Associate: : 1985 Requested By: Eduarda Haddad Order Number: [id number] Bernadette MD: Wei Alicia M.D. Measurements Intervals [place] Rate: 112 P: ID: QRS: 16 QRSD: 112 T: -1 QT: 328 QTc: 448 Interpretive Statements Sinus tachycardia INCOMPLETE RIGHT BUNDLE BRANCH BLOCK [90+ ms QRS DURATION, TERMINAL R IN V1/V2, 40+ ms S IN I/aVL/V4/V5/V6] POSSIBLE INFERIOR MYOCARDIAL INFARCTION , PROBABLY OLD [30 ms Q WAVE IN II/aVF] ABNORMAL RHYTHM ECG Compared to ECG 10/22/2020 20:31:30 Incomplete right bundle-branch block now present Myocardial infarct finding now present Intraventricular conduction delay no longer present Electronically Signed On 10-23-2020 22:51:53 CDT by Wei Alicia M.D. [id number]
[2020-10-23 21:09] LABS: Basophils # 0.1 10^3/uL (0.0-0.1); Basophils % 0.4 %; Eosinophils % 0.1 %; Hematocrit 32.4 % (42.0-52.0); Hemoglobin 10.5 g/dL (11.7-16.6); Lymphocytes # 1.3 10^3/uL (0.8-4.8); Lymphocytes % 9.7 %; Mean Corpuscular HGB Conc 32.4 g/dL (30.0-36.0); Mean Corpuscular Hemoglobin 27.2 pg (28.0-34.0); Mean Corpuscular Volume 83.9 fL (80-94); Mean Platelet Volume 9.2 fL (7.4-10.4); Monocytes # 1.3 10^3/uL (0.2-0.9); Monocytes % 9.4 %; Neutrophils # 10.97 10^3/uL (1.8-7.7); Nucleated Red Blood Cells % 0 %; Platelet Count 289 10^3/cmm (130-400); Red Blood Count 3.86 10^6/uL (4.1-5.3); Red Cell Distribution Width 15.3 % (12.1-15.1); White Blood Count 13.7 10^3/uL (4.0-10.0)
[2020-10-23] MEDS: LORazepam 2 mg/mL INJ 1 mL IVP ×2 (21:10→22:48)
[2020-10-23] MEDS: sodium chloride 0.9% 1,000 ML 999 ML IV ×3 (21:25→23:35)
[2020-10-23 21:31] LABS: Acetaminophen < 5.0 ug/mL (10-30); Alanine Aminotransferase 34 U/L (0-41); Albumin Level 4.3 g/dL (3.5-5.2); Alcohol Level < 10 mg/dL (0-10); Alkaline Phosphatase 94 IU/L (40-130); Anion Gap 21.8 (5-19); Aspartate Amino Transferase 119 U/L (0-40); Blood Urea Nitrogen 26 mg/dL (6-20); Calcium 8.8 mg/dL (8.5-10.5); Carbon Dioxide 18 mmol/L (22-29); Chloride 100 mmol/L (98-107); Globulin 2.7 g/dL (1.3-4.6); Glomerular Filtration Rate 68.5 mL/min (90-130); Glucose 126 mg/dL (65-115); Osmolality Calculated 288 mOsm/kg (285-295); Potassium 3.8 mmol/L (3.5-5.1); Salicylate 0.5 mg/dL (3-10); Sodium 136 mmol/L (136-145); Total Bilirubin 1.5 mg/dL (0.15-1.2)
[2020-10-23 21:42] LABS: Lactic Sepsis W/Reflex 1.6 mmol/L (0.5-2.2)
[2020-10-23 21:47] LABS: Creatine Phosphokinase 3333 U/L (39-308)
--- NOTE | 2020-10-23 21:59 | XRR_ITS ---
PROCEDURE INFORMATION: Exam: XR Chest Exam date and time: 10/23/2020 9:59 PM Age: 35 years old Clinical indication: Fever TECHNIQUE: Imaging protocol: XR of the chest. Views: 1 view. COMPARISON: CR (CHEST, ) 10/22/2020 6:21 PM FINDINGS: Lungs: Unremarkable. No consolidation. Pleural spaces: Unremarkable. No pleural effusion. No pneumothorax. Heart/Mediastinum: Unremarkable. No cardiomegaly. Bones/joints: Unremarkable. XR/XR chest 1V portable [id number] IMPRESSION: Negative for infiltrate.
--- NOTE | 2020-10-23 22:15 | CTR_ITS ---
PROCEDURE INFORMATION: Exam: CT Right Lower Extremity Without Contrast; Lower Leg Exam date and time: 10/23/2020 10:22 PM Age: 35 years old Clinical indication: Cellulitis; Lower leg; Right; Prior surgery; Surgery date: 1-6 months; Surgery type: Im yasmine, debridement; Patient HX: Medial aspect redness and swelling; Additional info: R/O abscess cellulitis TECHNIQUE: Imaging protocol: CT of the Right lower extremity without contrast was performed. Exam focused on the lower leg. Radiation optimization: All CT scans at this facility use at least one of these dose optimization techniques: automated exposure control; mA and/or kV adjustment per patient size (includes targeted exams where dose is matched to clinical indication); or iterative reconstruction. COMPARISON: CT lower leg RT w con [id number] 09/02/2020 2:06 PM RADIATION DOSE METRICS: Total DLP (mGy-cm): 1336.94 FINDINGS: Bones/joints: Intramedullary yasmine again seen bridging a comminuted displaced fracture of the mid tibia with associated surrounding radiodense foreign bodies, similar to prior exam. Surrounding this is some subcutaneous edema suggestive of cellulitis or dependent edema without focal fluid collection to indicate an abscess. Soft tissues: See Bones/joints finding. CT/CT lower leg RT w con [id number] IMPRESSION: Intramedullary yasmine again seen bridging a comminuted displaced fracture of the mid tibia with associated surrounding radiodense foreign bodies, similar to prior exam. Surrounding this is some subcutaneous edema suggestive of cellulitis or dependent edema without focal fluid collection to indicate an abscess. Presence of beam hardening artifact from the yasmine and radiodense foreign bodies somewhat limits evaluation. Radiation Dose CTDIVOL = (mGy): DLP = 1336.94 (mGy-cm)
[2020-10-23 22:28] LABS: Add Urine Microscopic? YES; Bilirubin Urine Neg (Negative); Blood Urine 3+ (Negative); Glucose Urine UA Norm (Normal); Ketones Urine 1+ (Negative); Leukocyte Esterase Urine Negative (Negative); Nitrate Urine Negative (Negative); Protein Urine Neg (Negative); Urine Appearance SL Hazy (CLEAR); Urine Color Yellow (Yellow); Urobilinogen Urine Norm (Negative); pH Urine 5 (5-7)
[2020-10-23 22:31] LABS: Amphetamines Screen Urine Positive (Negative); Barbiturates Screen Urine Negative (Negative); Benzodiazepines Screen Urine Negative (Negative); Cocaine Screen Urine Negative (Negative); Opiate Screen Urine Negative (Negative); PCP Screen Urine Negative (Negative); THC Screen Urine Positive (Negative)
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
[2020-10-23 22:42] LABS: RBC Urine >100 /hpf (0-2); Squamous Epithelial Cell Urine 0-4 /hpf (0-5); WBC Urine 0-4 /hpf (0-5)
[2020-10-23 22:43] LABS: Add Urine Culture? Yes; Bacteria Urine 2+ /hpf
[2020-10-23] MEDS: iohexol 300 mg/mL 100 mL Btl IV (23:03)
[2020-10-23 23:11] LABS: Procalcitonin 1.59 ng/mL (0-0.5)
[2020-10-23] MEDS: vancomycin 1,000 MG in sodium chloride 0.9% 250 ML 250 MG IV (23:35)
[2020-10-23] MEDS: lactated ringers 1,000 ML 150 ML IV (23:36)
[2020-10-23] MEDS: famotidine 20 mg/2 mL INJ IVP (23:36)
[2020-10-23] MEDS: heparin 5,000 unit/mL INJ 1 mL 5000 UNIT SUBCUT (23:37)
[2020-10-24] VITALS (37 sets, daily range): BP systolic 95–127; BP diastolic 54–83; PULSE 69–104; RESP 14–25; TEMP 36.2–37.1; O2SAT 93–100; BMI 21.9
[2020-10-24] MEDS: piperacillin-tazobactam 3.375 GM in sodium chloride 0.9% (plus) 50 ML IV ×3 (02:05→18:33)
[2020-10-24 04:01] LABS: Basophils % 0.4 %; Eosinophils % 0.1 %; Hematocrit 30.8 % (42.0-52.0); Hemoglobin 9.7 g/dL (11.7-16.6); Lymphocytes # 1.7 10^3/uL (0.8-4.8); Lymphocytes % 16.3 %; Mean Corpuscular HGB Conc 31.5 g/dL (30.0-36.0); Mean Corpuscular Hemoglobin 26.8 pg (28.0-34.0); Mean Corpuscular Volume 85.1 fL (80-94); Mean Platelet Volume 9.2 fL (7.4-10.4); Monocytes % 9.7 %; Neutrophils # 7.65 10^3/uL (1.8-7.7); Neutrophils % 73.1 %; Nucleated Red Blood Cells % 0 %; Platelet Count 224 10^3/cmm (130-400); Red Blood Count 3.62 10^6/uL (4.1-5.3); Red Cell Distribution Width 15.5 % (12.1-15.1); White Blood Count 10.5 10^3/uL (4.0-10.0)
[2020-10-24 04:27] LABS: Alanine Aminotransferase 27 U/L (0-41); Albumin Level 3.5 g/dL (3.5-5.2); Alkaline Phosphatase 74 IU/L (40-130); Anion Gap 14.2 (5-19); Aspartate Amino Transferase 86 U/L (0-40); Blood Urea Nitrogen 17 mg/dL (6-20); Calcium 7.6 mg/dL (8.5-10.5); Carbon Dioxide 21 mmol/L (22-29); Chloride 109 mmol/L (98-107); Creatinine Clr Calc Pharmacy 148.8709; Globulin 2.1 g/dL (1.3-4.6); Glomerular Filtration Rate 109.4 mL/min (90-130); Glucose 99 mg/dL (65-115); Magnesium 1.9 mg/dL (1.7-2.3); Osmolality Calculated 292 mOsm/kg (285-295); Potassium 4.2 mmol/L (3.5-5.1); Sodium 140 mmol/L (136-145); Total Bilirubin 1.3 mg/dL (0.15-1.2); Total Protein 5.6 g/dL (6.6-8.7)
[2020-10-24 04:29] LABS: Creatine Phosphokinase 1933 U/L (39-308)
[2020-10-24] MEDS: lactated ringers 1,000 ML 150 ML IV ×2 (06:18→20:16)
[2020-10-24] MEDS: heparin 5,000 unit/mL INJ 1 mL 5000 UNIT SUBCUT ×3 (06:19→21:54)
[2020-10-24] MEDS: vancomycin 1,250 MG/250 ML PIGGYBACK 250 MG IV ×3 (08:08→22:38)
--- NOTE | 2020-10-24 09:57 | PC.CHAP ---
Pastoral Care Encounter/Spiritual Assessment Type of Contact [] Declined sales representative consultant visit [] Patient/Family/Request visit [] Outpatient visit [x] Follow-up visit [] Physician referral [] Code/Alert [] Routine visit [] Staff referral [] Actively dying [x] Patient sleeping [] Family support [] [] Out of room [] Palliative care [] [] Receiving care in room [] Pre-surgical visit [] Trauma [] Long length of stay [] ICU visit [] Other: Relational/Emotional Strength [] Patient feels connected with others/family/visitors/staff [] Distress [] Loneliness/isolation [] Abandonment Spirituality of Patient [] Person of Corinna [] Attends Yarsanism of their [place] [] Believes in Prayer [] Reads Bible or Adventist materials [] There are Spiritual issues to be addressed Business Support Manager Interventions [] Prayer [] Active listening [] Non-anxious presence [] Spiritual/emotional support [] Crisis/trauma care [] Spiritual counseling [] Bereavement support [] Provided bereavement packet [] Provided Bible/devotional materials [] Provided toy/stuffed animal, coloring book to patient or family member [] Provided Communion [] Anointing/[place] [] Salvation [] Completed spiritual assessment [] Other: Impact on Illness or Injury [] Angry [] Fearful [] Anxious [] Often cries [] Exhaustion [] Unable to work [] Unable to attend orthodoxy [] Unable to walk/stand [] Unable to read [] Unable to drive [] Unable to eat/drink [] Unable to sleep [] Unable to be with family [] Patient intubated [] Other: Summary Time spent with patient
[2020-10-24] MEDS: famotidine 20 mg/2 mL INJ IVP ×2 (10:08→21:54)
[2020-10-24] MEDS: ziprasidone hcl 40 mg Capsule PO ×2 (13:06→18:33)
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
--- NOTE | 2020-10-24 15:49 | PC.NURSE ---
Report faxed to [facility].
--- NOTE | 2020-10-24 16:00 | PC.NURSE ---
Report called to [facility]. Report given to MAURO Lantigua.
--- NOTE | 2020-10-24 16:24 | PC.NURSE ---
Pt transferred to room [facility]. 1:1 sitter with pt. Further report given to MAURO Santana.
[2020-10-25] VITALS (8 sets, daily range): BP systolic 94–122; BP diastolic 54–83; PULSE 58–99; RESP 12–18; TEMP 36.4–37.1; O2SAT 95–99
[2020-10-25] MEDS: lactated ringers 1,000 ML 150 ML IV (01:52)
[2020-10-25] MEDS: piperacillin-tazobactam 3.375 GM in sodium chloride 0.9% (plus) 50 ML IV (02:42)
--- NOTE | 2020-10-25 05:24 | PC.NURSE ---
Shift Summary patient came in two days ago due to heat stroke and rabdo, CK is treanding down, he is on ivf and tolerating them well, he is having great urine output. Patients seems to be improving on mental status as the time goes on he is becoming more alert and aware of his surroundings, he is also developing a healthy appetite. Patient on IV antibiotics for now and has a 96 hour hold due to some admitting suicide ideation. Patient is not currently having any thoughts at this time.
[2020-10-25] MEDS: ziprasidone hcl 40 mg Capsule PO ×2 (06:00→16:08)
[2020-10-25] MEDS: heparin 5,000 unit/mL INJ 1 mL 5000 UNIT SUBCUT (06:01)
[2020-10-25 06:04] LABS: Basophils % 0.5 %; Eosinophils # 0.3 10^3/uL (0.0-0.8); Eosinophils % 5.9 %; Hematocrit 30.3 % (42.0-52.0); Hemoglobin 9.4 g/dL (11.7-16.6); Lymphocytes # 1.3 10^3/uL (0.8-4.8); Lymphocytes % 29.9 %; Mean Corpuscular Hemoglobin 27.2 pg (28.0-34.0); Mean Corpuscular Volume 87.6 fL (80-94); Mean Platelet Volume 9.3 fL (7.4-10.4); Monocytes # 0.4 10^3/uL (0.2-0.9); Monocytes % 8.6 %; Neutrophils # 2.31 10^3/uL (1.8-7.7); Neutrophils % 54.9 %; Nucleated Red Blood Cells % 0 %; Platelet Count 161 10^3/cmm (130-400); Red Blood Count 3.46 10^6/uL (4.1-5.3); Red Cell Distribution Width 15.9 % (12.1-15.1); White Blood Count 4.2 10^3/uL (4.0-10.0)
[2020-10-25 06:27] LABS: Anion Gap 10.8 (5-19); Blood Urea Nitrogen 8 mg/dL (6-20); Calcium 7.6 mg/dL (8.5-10.5); Carbon Dioxide 26 mmol/L (22-29); Chloride 109 mmol/L (98-107); Glomerular Filtration Rate 127.6 mL/min (90-130); Glucose 93 mg/dL (65-115); Osmolality Calculated 292 mOsm/kg (285-295); Potassium 3.8 mmol/L (3.5-5.1); Sodium 142 mmol/L (136-145)
[2020-10-25 06:43] LABS: Creatine Phosphokinase 443 U/L (39-308)
[2020-10-25] MEDS: vancomycin 1,250 MG/250 ML PIGGYBACK 250 MG IV (09:31)
--- NOTE | 2020-10-25 11:51 | PM.PN ---
Subjective Subjective: Interval history: Patient was seen and examined this morning, currently no active complaints. Vitals/I&O/Wt Last Vital Signs Temp 97.6 F 10/25/20 11:07 Pulse 79 10/25/20 11:07 Resp 15 10/25/20 11:07 BP 122/82 10/25/20 11:07 Pulse Ox 98 10/25/20 11:07 10/24/20 10/25/20 10/25/20 22:59 06:59 14:59 Intake Total 1350 / 3580 1090 / 4670 530 / 530 Output Total 1000 / 1000 2200 / 3200 Balance 350 / 2580 -1110 / 1470 530 / 530 Weight last 48 hrs Weight 85.275 kg Weight 79.379 kg Weight 79.379 kg Weight 83.915 kg Physical Exam Const: COMMON NORMALS: patient oriented x3 HENMT: COMMON NORMALS: normocephalic and atraumatic HEAD & SCALP: normocephalic and atraumatic Chest: COMMONS NORMALS: normal inspection of the chest Resp: COMMON NORMALS: clear to auscultation bilaterally EFFORT & INSPECTION: Yes symmetric chest movement AUSCULTATION: clear to auscultation bilaterally Cardio: COMMON NORMALS: regular rate, regular rhythm, S1 normal heart sound present, S2 normal heart sound present, No gallops present (Cardio), No murmurs present (Cardio), No rub (Cardio) and Peripheral pulses 2+ throughout RATE: regular rate RHYTHM: regular rhythm HEART SOUNDS: S1 normal heart sound present and S2 normal heart sound present PERIPHERAL PULSES: Peripheral pulses 2+ throughout GI: COMMON NORMALS: Normal to inspection, nondistended, normoactive bowel sounds present, Soft to palpation, non-tender, No hepatosplenomegaly present and no masses AUSCULTATION: Yes normoactive bowel sounds PALPATION: Yes Soft to palpation and Yes No hepatosplenomegaly present RECTAL EXAM: Yes deferred Extremity: COMMON NORMALS: no clubbing, cyanosis or edema and no pedal edema OTHER: Right lower extremity chronically healed wound present. Neuro: COMMON NORMALS: patient oriented x3 Urinary Catheter Management^: Malone: Cath Placed During This Visit: yes Reason for Continuing Indwelling Catheter: Accurate Measurement of Urinary Output in Critically Ill Patients Urinary Catheter Date of Insertion: 10/24/20 Urinary Catheter Time of Insertion: 02:20 Data : 10/25/20 05:44 10/25/20 05:44 Micro: Microbiology 10/24/20 14:50 MRSA Culture - Final Nose 10/23/20 21:45 Urine Culture - Preliminary Urine Catheterized 10/23/20 21:15 Blood Culture - Preliminary Blood NEGATIVE TO DATE 10/23/20 21:15 Blood Culture - Preliminary Blood NEGATIVE TO DATE A&P Assessment and plan (1) Cellulitis of right lower extremity: CT lower leg RT w con: Intramedullary yasmine again seen bridging a comminuted displaced fracture of the mid tibia with associated surrounding radiodense foreign bodies, similar to prior exam. Surrounding this is some subcutaneous edema suggestive of cellulitis or dependent edema without focal fluid collection to indicate an abscess. Procalcitonin:1.59 : Mildly elevated Blood culture: MRSA PCR : Positive: Blood Culture :Negative till date. Initially on Vanco and Zosyn. He was switched to levofloxacin 750 mg p.o. daily for another 7 days. Mupirocin nasal ointment twice daily for 3 days Status: Acute (2) Rhabdomyolysis: [id number] ---> 433 No gross electrolyte abnormalities, LES is improving. Initially on IV hydration (NS at 150 cc an hour).Currently he has been asked to have good oral intake. IV fluids has been discontinued. Monitor intake output Status: Acute (3) Acute dehydration: Resolved Status: Acute (4) LES (acute kidney injury): Prerenal LES: Resolved Status: Acute (5) Anemia: Status: Acute (6) Chronic schizophrenia: Status: Acute (7) Methamphetamine dependence: Status: Acute (8) Heat exhaustion: Status: Acute (9) Elevated troponin: Status: Acute Additional A&P Information CODE STATUS: Full code DVT prophylaxis: Heparin 5000 subcu every 8 hours Disposition: Currently under 96-hour hold, will transfer the patient to N.P.U once medically stable. Attestations Medical Necessity Statement*: Patient has been transferred to NPU for further management. Coding Level of Care Code Acute Counseling Center Manager for Michael Giovani Diagnoses Cellulitis of right lower extremity L03.115 Rhabdomyolysis M62.82 Acute dehydration E86.0 LES (acute kidney injury) N17.9 Anemia D64.9 Chronic schizophrenia F20.9 Methamphetamine dependence F15.20 Heat exhaustion T67.5XXA Elevated troponin R77.8
[2020-10-25] MEDS: hyDROXYzine 25 mg Capsule 50 MG PO (14:36)
[2020-10-25] MEDS: nicotine 2 mg Gum BUCCAL (16:07)
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
[2020-10-25] MEDS: mupirocin oint 22 gm 1 APPLIC NASAL (17:16)
[2020-10-26] MEDS: levoFLOXacin 750 mg Tablet PO (06:13)
[2020-10-26] MEDS: ziprasidone hcl 40 mg Capsule PO ×2 (06:13→16:52)
[2020-10-26 06:28] VITALS: BP 102/61; PULSE 61; RESP 16; TEMP 37.2; O2SAT 96
[2020-10-26 07:36] LABS: Basophils % 0.5 %; Eosinophils # 0.3 10^3/uL (0.0-0.8); Eosinophils % 7.3 %; Hematocrit 29.5 % (42.0-52.0); Hemoglobin 9.2 g/dL (11.7-16.6); Lymphocytes # 1.2 10^3/uL (0.8-4.8); Lymphocytes % 31.8 %; Mean Corpuscular HGB Conc 31.2 g/dL (30.0-36.0); Mean Corpuscular Hemoglobin 27.1 pg (28.0-34.0); Mean Corpuscular Volume 86.8 fL (80-94); Mean Platelet Volume 9.6 fL (7.4-10.4); Monocytes # 0.3 10^3/uL (0.2-0.9); Monocytes % 8.4 %; Neutrophils % 51.7 %; Nucleated Red Blood Cells % 0 %; Platelet Count 171 10^3/cmm (130-400); Red Cell Distribution Width 15.9 % (12.1-15.1); White Blood Count 3.7 10^3/uL (4.0-10.0)
[2020-10-26 07:55] LABS: Blood Urea Nitrogen 8 mg/dL (6-20); Calcium 7.7 mg/dL (8.5-10.5); Carbon Dioxide 28 mmol/L (22-29); Chloride 107 mmol/L (98-107); Creatine Phosphokinase 298 U/L (39-308); Glomerular Filtration Rate 188.1 mL/min (90-130); Glucose 89 mg/dL (65-115); Osmolality Calculated 292 mOsm/kg (285-295); Sodium 142 mmol/L (136-145)
--- NOTE | 2020-10-26 08:41 | PC.NURSE ---
refused scheduled Thiamine & Bactroban ointment this morning
--- NOTE | 2020-10-26 09:10 | PC.NURSE ---
Patient refused wound care 10/26/20 [id number]
--- NOTE | 2020-10-26 11:29 | PC.NURSE ---
Offered patient wound care to his right lower leg again. Patient states his leg is fine and it does not need to be cleaned. Patient also states the doctor came in this morning and stated his leg was fine and no wound care needed to be done This nurse did not see a provider enter patient's room and at this time no Physician notes are seen in the chart. Nurse will continue to monitor.
[2020-10-26] MEDS: nicotine 2 mg Gum BUCCAL ×4 (11:52→22:01)
[2020-10-26 14:00] VITALS: BP 110/73; PULSE 62; RESP 18; TEMP 36.9; O2SAT 98
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
[2020-10-26] MEDS: hyDROXYzine 25 mg Capsule 50 MG PO (15:03)
--- NOTE | 2020-10-26 15:03 | PC.NURSE ---
PRN VISTARIL 50 MG GIVEN PO PER PT C/O STATED ANXIETY. WILL CONT TO MONITOR FOR DESIRED MED EFFECTIVENESS.
[2020-10-26] MEDS: famotidine 20 mg Tablet PO (20:09)
[2020-10-26] MEDS: mupirocin oint 22 gm 1 APPLIC NASAL (20:09)
[2020-10-26 21:16] VITALS: BP 107/61; PULSE 62; RESP 20; TEMP 37.2; O2SAT 97
--- NOTE | 2020-10-26 22:02 | PC.NURSE ---
prn 2201 administered Santiago Gum, will continue to monitor until end of my shift.
[2020-10-27 05:41] VITALS: BP 110/71; PULSE 56; RESP 16; TEMP 37; O2SAT 97
[2020-10-27] MEDS: levoFLOXacin 750 mg Tablet PO (05:55)
[2020-10-27] MEDS: ziprasidone hcl 40 mg Capsule PO ×2 (06:26→16:07)
[2020-10-27 07:54] LABS: Basophils % 0.3 %; Eosinophils # 0.3 10^3/uL (0.0-0.8); Eosinophils % 8.6 %; Hematocrit 33.2 % (42.0-52.0); Hemoglobin 10.3 g/dL (11.7-16.6); Lymphocytes # 1.4 10^3/uL (0.8-4.8); Lymphocytes % 36.1 %; Mean Corpuscular Hemoglobin 26.9 pg (28.0-34.0); Mean Corpuscular Volume 86.7 fL (80-94); Monocytes # 0.4 10^3/uL (0.2-0.9); Monocytes % 9.1 %; Neutrophils # 1.81 10^3/uL (1.8-7.7); Neutrophils % 45.6 %; Nucleated Red Blood Cells % 0 %; Platelet Count 195 10^3/cmm (130-400); Red Blood Count 3.83 10^6/uL (4.1-5.3); Red Cell Distribution Width 15.8 % (12.1-15.1)
[2020-10-27] MEDS: thiamine 100 mg Tablet PO (07:58)
--- NOTE | 2020-10-27 07:59 | PC.NURSE ---
refused scheduled Bactroban ointment this morning
[2020-10-27 08:18] LABS: Anion Gap 10.3 (5-19); Blood Urea Nitrogen 10 mg/dL (6-20); Calcium 8.3 mg/dL (8.5-10.5); Carbon Dioxide 29 mmol/L (22-29); Chloride 104 mmol/L (98-107); Creatine Phosphokinase 160 U/L (39-308); Glomerular Filtration Rate 127.6 mL/min (90-130); Glucose 88 mg/dL (65-115); Osmolality Calculated 286 mOsm/kg (285-295); Potassium 4.3 mmol/L (3.5-5.1); Sodium 139 mmol/L (136-145)
[2020-10-27] MEDS: nicotine 2 mg Gum BUCCAL ×5 (09:58→19:33)
[2020-10-27 14:00] VITALS: BP 124/74; PULSE 84; RESP 20; TEMP 36.3; O2SAT 95
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
[2020-10-27] MEDS: trazodone 50 mg Tablet PO (20:43)
[2020-10-27] MEDS: famotidine 20 mg Tablet PO (20:43)
[2020-10-27] MEDS: acetaminophen 325 mg Tablet 650 MG PO (20:43)
[2020-10-27] MEDS: mupirocin oint 22 gm 1 APPLIC NASAL (20:47)
--- NOTE | 2020-10-27 20:47 | PC.NURSE ---
Addendum entered by Pamela Cline RN 10/28/20 01:05: Revisited patient to reassess, pt is sleeping, no visible display of pain noted. Original Note: PRN Meds/Dressing change Trazodone 50mg PO given to help patient with his insomnia, Tylenol 650mg PO given for pain in his right lower leg rated at a 6 at this time. Patient bathed, removed bandage and dressing, wound is clean and dry, no new open areas, mild clear drainage noted, pt has a hydrofera blue andtibacterial foam dressing applied, covered by curlex and regular tape. It is snug and circulation is good at this time.
--- NOTE | 2020-10-27 21:20 | PC.NURSE ---
Wound Care/Sunburn care PT bathed, new hydrofera blue dressing applied, and covered with curlex. Scant amount of serous drainage noted, pt tolerated dressing change well. Pt has a large sunburn that is peeling and tender to touch. Applied skin barrier cream to relieve itch.
[2020-10-27 22:00] VITALS: BP 125/89; PULSE 86; RESP 18; TEMP 36.7; O2SAT 100
--- NOTE | 2020-10-28 04:49 | PC.NURSE ---
PM ASSESSMENT PT IS RESTING IN HIS ROOM AFTER BATHING, HIS LEG IS MUCH IMPROVED FROM THE FIRST TIME THAT THIS NURSE SAW IT A MONTH AGO. PT STATES, IT DOES NOT CAUSE MUCH DISCOMFORT ANYMORE. NURSE APPLIED NEW DRESSING THIS EVENING, HYDROFERA BLUE, AND CURLEX. Tolerated dressing change well. Pt is resting at this time.
[2020-10-28 06:00] VITALS: BP 91/55; PULSE 53; RESP 17; TEMP 36.7; O2SAT 98
[2020-10-28] MEDS: ziprasidone hcl 40 mg Capsule PO (06:06)
[2020-10-28] MEDS: levoFLOXacin 750 mg Tablet PO (06:06)
[2020-10-28] MEDS: thiamine 100 mg Tablet PO (08:04)
--- NOTE | 2020-10-28 08:05 | PC.NURSE ---
REFUSED SCHEDULED BACTROBAN OINTMENT
[2020-10-28 09:05] VITALS: BP 91/55; PULSE 53; RESP 17; TEMP 36.7; O2SAT 98
[2020-10-28] MEDS: nicotine 2 mg Gum BUCCAL (09:42)
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
== END 2020-10-28 12:12 | disposition home or self-care (01) | DRG 92 ==
LOC: ER 22:04 → ICU 23:08 → MEDSURG 10-24 18:16 → NP 10-26 08:10 → ICU 10-26 09:48 → MEDSURG 10-26 09:48
PROVIDERS: Internal Medicine; Admitting Provider Internal Medicine; Emergency Provider Emergency Medicine; PCP Family Medicine; Visit Provider Psychiatry & Neurology Psychiatry
DX: G92 Toxic encephalopathy (principal); E87.2 Acidosis; F15.20 Other stimulant dependence, uncomplicated; M62.82 Rhabdomyolysis; L03.115 Cellulitis of right lower limb; N17.9 Acute kidney failure, unspecified; T43.625A Adverse effect of amphetamines, initial encounter; Z59.0 Homelessness; E86.0 Dehydration; T67.5XXA Heat exhaustion, unspecified, initial encounter; X58.XXXA Exposure to other specified factors, initial encounter; F12.90 Cannabis use, unspecified, uncomplicated; Z81.8 Family history of other mental and behavioral disorders; F17.210 Nicotine dependence, cigarettes, uncomplicated; D64.9 Anemia, unspecified; F20.9 Schizophrenia, unspecified; S81.831D Puncture wound without foreign body, right lower leg, subsequent encounter; W34.00XD Accidental discharge from unspecified firearms or gun, subsequent encounter
CPT/HCPCS: 36415; 51702; 70450; 71045; 73701; 80048; 80053; 80202; 80306; 80307; 81001; 82550; 83605; 83735; 84145; 85025; 87040; 87086; 87641; 93005; 96361; 96372; 96374; 99285; J1644; J2060; J2543; J3370; J3411; J3490; J7030; J7050; Q9967

== ENCOUNTER 2020-11-07 09:54 | Emergency (ER) | payer SELFPAY ==
[2020-11-07 09:56] VITALS: BP 151/100; PULSE 106; RESP 18; TEMP 36.3; O2SAT 96; BMI 24.3
--- NOTE | 2020-11-07 10:30 | ED_ITS ---
Documented by User: RACHEL Larios 11/08/20 12:52 HPI - Psych General: Chief Complaint: Psychiatric Symptoms Stated Complaint: AMS Time Seen by Provider: 11/07/20 09:59 History of Present Illness: HPI Narrative: Patient is a 35-year-old male who comes to the ED with altered mental status. Patient is seen random things that did not make any sense or answer any question I have asked. During HPI patient has made statements such as: He cannot hear me because I am 3 rooms away.... I am not demonic I had sex with a witch. That is what happens when you have sex with a witch...I've messed up my life. Also when I escorted patient to the bathroom he opened the door and said that he can going there there is a lady and there was a belt and link assembly supervisor and she will probably beat me up. (There was nobody in the bathroom) when I asked patient why he came to the ED he said because I want you guys to kill me. Associated symptoms: Reports auditory hallucinations, visual hallucinations and suicidal ideation Review of Systems Const: Denies: fever(s), chills or fatigue Eyes: Denies: change in vision or eye discomfort ENMT: Denies: throat pain, odynophagia, nasal discharge or nasal congestion Card: Denies: chest pain, palpitations, edema, swelling of feet/ankles, dyspnea on exertion or orthopnea Resp: Denies: dyspnea, productive cough or non-productive cough GI: Denies: abdominal pain, nausea, vomiting, diarrhea, constipation or hematochezia : Denies: flank pain, difficulty urinating, dysuria or hematuria Musc: Denies: neck pain, back pain or extremity swelling Skin/Breast: Denies: rash or new lesions Neuro: Denies: headache(s), numbness in extremities or weakness in extremities Psych: Reports: visual hallucinations, auditory hallucinations and suicidal ideation [facility] ED PFSH: Medical History Creatinine elevation Methamphetamine dependence Noncompliance Otitis externa Family History Family/Other , The whole family is afflicted with schizoaffective disorder versus bipolar disease. Rampant methamphetamine abuse abounds. Psychiatric illness Social History Smoking and tobacco status: current every day smoker Physical Exam Const: COMMON NORMALS: alert HENMT: COMMON NORMALS: normocephalic HEAD & SCALP: normocephalic MOUTH: Normal oral and palatal mucosa present THROAT: posterior oropharynx normal and uvula midline Neck/C-Spine: COMMON NORMALS: supple GENERAL: Yes normal visual inspection Resp: COMMON NORMALS: normal respiratory effort, No retractions, No use of accessory muscles and clear to auscultation bilaterally AUSCULTATION: clear to auscultation bilaterally Cardio: COMMON NORMALS: regular rate, regular rhythm, S1 normal heart sound present, S2 normal heart sound present, No gallops present (Cardio), No clicks present (Cardio), No murmurs present (Cardio) and Peripheral pulses 2+ throughout RATE: regular rate RHYTHM: regular rhythm HEART SOUNDS: S1 normal heart sound present and S2 normal heart sound present PERIPHERAL PU LSES: Peripheral pulses 2+ throughout GI: COMMON NORMALS: Normal to inspection, nondistended, normoactive bowel sounds present, Soft to palpation, non-tender and no masses PALPATION: Yes Soft to palpation : COMMON NORMALS: Yes no CVA tenderness BLADDER/KIDNEY EXAM: Yes no CVA tenderness Back/Pelvis: COMMON NORMALS: no CVA tenderness Extremity: COMMON NORMALS: normal to inspection Neuro: COMMON NORMALS: moves all extremities SENSORIUM/ORIENTATION: Yes alert Psych: COMMON NORMALS: speech normal APPEARANCE: Yes disheveled ATTITUDE: Yes bizarre ACTIVITY/MOTOR BEHAVIOR: Yes disorganized behavior SPEECH: Yes normal speech THOUGHT PROCESS: disorganized, confused and Illogical thought process present THOUGHT CONTENT: Yes Hallucination(s) present (Patient sees and is talking to people in the room that are not there.) auditory (he hears people talking to him that aren't there) and visual (sees people in room that arent there) INSIGHT: Poor insight present (Psych) JUDGEMENT: Poor judgement present (Psych) Skin: GENERAL SKIN EXAM: dry skin Course 2 Consultations: Consultation #1: Dr. Valdes was called and told about patient case. He then came down to the ED to evaluate patient. He thinks patient needs to be in a dual accredited psychiatric facility that handles substance abuse as well. He does not accept patient into Neuropsych Unit here at [facility]. Dr. Valdes then rescinded the 96-hour hold order. Patient is free to be discharged home. Time: 14:08 Vital Signs: Vital signs: Vital Signs Temperature 97.4 F L 11/07/20 09:56 Pulse Rate 79 11/07/20 17:00 Respiratory Rate 20 H 11/07/20 17:00 Blood Pressure 112/71 11/07/20 17:00 Pulse Oximetry 96 11/07/20 17:00 MDM - Psych MDM Narrative: Medical decision making narrative: Patient is a 35-year-old male comes to the ED for hallucinations. Patient has a history of substance abuse, especially meth and upon exam patient is having hallucinations. Cassidy olmos's urine drug screen tested positive for methamphetamines. I contacted Dr. Valdes and told about patient case and 96-hour hold due to his hallucinations. Dr. Valdes was consulted and he came down to the ED to evaluate patient. Dr. Valdes then rescinded the 96-hour hold and said that patient will not be admitted into the stress unit here. Patient can be discharged home. Patient diagnosed with substance abuse disorder. If patient causes any issues here in the ED upon discharge we will contact the police for them to detain him. Dr. Skinner was made aware of this case and was involved in plan of care and discharge. Lab Data: Attestation: I reviewed the patient's lab results. Labs: Lab Results 11/07/20 11/07/20 11/07/20 Range/Units 13:15 13:15 13:20 WBC 10.8 H (4.0-10.0) 10^3/ uL RBC 4.28 (4.1-5.3) 10^6/u L Hgb 11.7 (11.7-16.6) g/dL Hct 34.6 L (42.0-52.0) % MCV 80.8 (80-94) fL MCH 27.3 L (28.0-34.0) pg MCHC 33.8 (30.0-36.0) g/dL RDW 16.5 H (12.1-15.1) % Plt Count 425 H (130-400) 10^3/c mm MPV 8.5 (7.4-10.4) fL Neut % (Auto) 70.7 % Lymph % (Auto) 18.6 % Warren % (Auto) 9.4 % Eos % (Auto) 0.2 % Baso % (Auto) 0.8 % Neut # (Auto) 7.64 (1.8-7.7) 10^3/u L Lymph # (Auto) 2.0 (0.8-4.8) 10^3/u L Warren # (Auto) 1.0 H (0.2-0.9) 10^3/u L Eos # (Auto) 0.0 (0.0-0.8) 10^3/u L Baso # (Auto) 0.1 (0.0-0.1) 10^3/u L Nucleated RBC % (a uto) 0 % Nucleated RBCs # 0.0 /100WBC Sodium 136 (136-145) mmol/L Potassium 4.1 (3.5-5.1) mmol/L Chloride 99 (98-107) mmol/L Carbon Dioxide 25 (22-29) mmol/L Anion Gap 16.1 (5-19) BUN 14 (6-20) mg/dL Creatinine 1.3 H (0.7-1.2) mg/dL GFR Calculation 62.5 L (90-130) mL/min Glucose 101 (65-115) mg/dL Calculated Osmolal ity 283 L (285-295) mOsm/k g Calcium 9.1 (8.5-10.5) mg/dL Total Bilirubin 0.8 (0.15-1.2) mg/dL AST 26 (0-40) U/L ALT 14 (0-41) U/L Alkaline Phosphata se 107 (40-130) IU/L Total Protein 7.9 (6.6-8.7) g/dL Albumin 4.5 (3.5-5.2) g/dL Globulin 3.4 (1.3-4.6) g/dL Urine Color Yellow (Yellow) Urine Appearance Cloudy (CLEAR) Urine pH 5 (5-7) Ur Specific Gravit y 1.010 (1.005-1.030) Urine Protein Neg (Negative) Urine Glucose (UA) Norm (Normal) Urine Ketones Negative (Negative) Urine Blood 3+ H (Negative) Urine Nitrate Negative (Negative) Urine Bilirubin Neg (Negative) Urine Urobilinogen Norm (Negative) mg/dL Ur Leukocyte Mela ase Negative (Negative) Urine RBC 40-50 H (0-2) /hpf Urine WBC 0-4 H (0-5) /hpf Ur Squamous Epith Cells 0-4 H (0-5) /hpf Amorphous Sediment Not Reportable Urine Bacteria Trace (NONE) /hpf Salicylates < 0.3 L (3-10) mg/dL Urine Opiates Scre en (Negative) ng/mL Acetaminophen < 5.0 L (10-30) ug/mL Ur Barbiturates Sc reen (Negative) ng/mL Ur Phencyclidine S crn (Negative) ng/mL Ur Amphetamines Sc reen (Negative) ng/mL U Benzodiazepines Scrn (Negative) ng/mL Urine Cocaine Scre en (Negative) ng/mL U Marijuana (THC) Screen (Negative) ng/mL Ethyl Alcohol 14 H (0-10) mg/dL 11/07/20 Range/Units 13:20 WBC (4.0-10.0) 10^3/ uL RBC (4.1-5.3) 10^6/u L Hgb (11.7-16.6) g/dL Hct (42.0-52.0) % MCV (80-94) fL MCH (28.0-34.0) pg MCHC (30.0-36.0) g/dL RDW (12.1-15.1) % Plt Count (130-400) 10^3/c mm MPV (7.4-10.4) fL Neut % (Auto) % Lymph % (Auto) % Warren % (Auto) % Eos % (Auto) % Baso % (Auto) % Neut # (Auto) (1.8-7.7) 10^3/u L Lymph # (Auto) (0.8-4.8) 10^3/u L Warren # (Auto) (0.2-0.9) 10^3/u L Eos # (Auto) (0.0-0.8) 10^3/u L Baso # (Auto) (0.0-0.1) 10^3/u L Nucleated RBC % (a uto) % Nucleated RBCs # /100WBC Sodium (136-145) mmol/L Potassium (3.5-5.1) mmol/L Chloride (98-107) mmol/L Carbon Dioxide (22-29) mmol/L Anion Gap (5-19) BUN (6-20) mg/dL Creatinine (0.7-1.2) mg/dL GFR Calculation (90-130) mL/min Glucose (65-115) mg/dL Calculated Osmolal ity (285-295) mOsm/k g Calcium (8.5-10.5) mg/dL Total Bilirubin (0.15-1.2) mg/dL AST (0-40) U/L ALT (0-41) U/L Alkaline Phosphata se (40-130) IU/L Total Protein (6.6-8.7) g/dL Albumin (3.5-5.2) g/dL Globulin (1.3-4.6) g/dL Urine Color (Yellow) Urine Appearance (CLEAR) Urine pH (5-7) Ur Specific Gravit y (1.005-1.030) Urine Protein (Negative) Urine Glucose (UA) (Normal) Urine Ketones (Negative) Urine Blood (Negative) Urine Nitrate (Negative) Urine Bilirubin (Negative) Urine Urobilinogen (Negative) mg/dL Ur Leukocyte Mela ase (Negative) Urine RBC (0-2) /hpf Urine WBC (0-5) /hpf Ur Squamous Epith Cells (0-5) /hpf Amorphous Sediment Urine Bacteria (NONE) /hpf Salicylates (3-10) mg/dL Urine Opiates Scre en Negative (Negative) ng/mL Acetaminophen (10-30) ug/mL Ur Barbiturates Sc reen Negative (Negative) ng/mL Ur Phencyclidine S crn Negative (Negative) ng/mL Ur Amphetamines Sc reen Positive H (Negative) ng/mL U Benzodiazepines Scrn Negative (Negative) ng/mL Urine Cocaine Scre en Negative (Negative) ng/mL U Marijuana (THC) Screen Positive H (Negative) ng/mL Ethyl Alcohol (0-10) mg/dL Discharge Plan Discharge Patient Disposition: Home Clinical Impression: Active substance abuse Condition: Stable Prescriptions: No Action trazodone 50 mg Tablet 50 mg PO BEDTIME PRN (Reason: Sleep) 30 Days Qty: 30 RF: 1 ziprasidone HCl 40 mg Capsule 40 mg PO BID 30 Days Qty: 60 RF: 1 famotidine 20 mg tablet 20 mg PO BEDTIME RF: 0 Discharge Orders: Discharge ED (Routine); Ordered 11/07/20 Ordered By: Georgi Simon Referrals: Augusto Gallo Jr, MD [Primary Care Provider] - Discharge Diet: Regular Discharge Activity: Resume usual activity Patient Instructions: Methamphetamine Abuse (ED) Activity Restrictions/Additional Instructions: Follow-up with medical provider as directed. Continue taking all previously prescribed medications. Return to the ER or your medical provider if condition worsens. Please read and understand discharge instructions. Thank you for choosing [facility] for your healthcare needs today. Please realize this is an emergency room and that we are providing you with a medical screening exam and this may not be complete and all inclusive of all the testing and or work up that you may need to determine your ailment or severity of your illness. It is very important that you follow up as instructed or that you return to the Emergency Department should you have concerns or if your condition changes or worsens in any way. Coding Level of Care Code ED Runstitching Machine Operator for Chg Fwd Exam Comprehensive Documented by User: Reji Skinner DO 11/09/20 06:27 HPI - Psych General: Chief Complaint: Psychiatric Symptoms Stated Complaint: AMS Time Seen by Provider: 11/07/20 09:59 [facility] ED PFSH: Medical History Creatinine elevation Methamphetamine dependence Noncompliance Otitis externa Family History Family/Other , The whole family is afflicted with schizoaffective disorder versus bipolar disease. Rampant methamphetamine abuse abounds. Psychiatric illness Social History Smoking and tobacco status: current every day smoker Course Vital Signs: Vital signs: Vital Signs Temperature 97.4 F L 11/07/20 09:56 Pulse Rate 79 11/07/20 17:00 Respiratory Rate 20 H 11/07/20 17:00 Blood Pressure 112/71 11/07/20 17:00 Pulse Oximetry 96 11/07/20 17:00 MDM - Psych MDM Narrative: Medical decision making narrative: Patient is acutely psychotic secondary to methamphetamine use Dr. Valdes was consulted. He is not recommend admission and rescinded the 96-hour hold. See his note for details. Patient was released from restraints and observed once he had been awake and alert enough to ambulate he was discharged home. Reviewed the case with RACHEL Larios agree with his assessment and plan. Lab Data: Labs: Lab Results 11/07/20 11/07/20 11/07/20 Range/Units 13:15 13:15 13:20 WBC 10.8 H (4.0-10.0) 10^3/ uL RBC 4.28 (4.1-5.3) 10^6/u L Hgb 11.7 (11.7-16.6) g/dL Hct 34.6 L (42.0-52.0) % MCV 80.8 (80-94) fL MCH 27.3 L (28.0-34.0) pg MCHC 33.8 (30.0-36.0) g/dL RDW 16.5 H (12.1-15.1) % Plt Count 425 H (130-400) 10^3/c mm MPV 8.5 (7.4-10.4) fL Neut % (Auto) 70.7 % Lymph % (Auto) 18.6 % Warren % (Auto) 9.4 % Eos % (Auto) 0.2 % Baso % (Auto) 0.8 % Neut # (Auto) 7.64 (1.8-7.7) 10^3/u L Lymph # (Auto) 2.0 (0.8-4.8) 10^3/u L Warren # (Auto) 1.0 H (0.2-0.9) 10^3/u L Eos # (Auto) 0.0 (0.0-0.8) 10^3/u L Baso # (Auto) 0.1 (0.0-0.1) 10^3/u L Nucleated RBC % (a uto) 0 % Nucleated RBCs # 0.0 /100WBC Sodium 136 (136-145) mmol/L Potassium 4.1 (3.5-5.1) mmol/L Chloride 99 (98-107) mmol/L Carbon Dioxide 25 (22-29) mmol/L Anion Gap 16.1 (5-19) BUN 14 (6-20) mg/dL Creatinine 1.3 H (0.7-1.2) mg/dL GFR Calculation 62.5 L (90-130) mL/min Glucose 101 (65-115) mg/dL Calculated Osmolal ity 283 L (285-295) mOsm/k g Calcium 9.1 (8.5-10.5) mg/dL Total Bilirubin 0.8 (0.15-1.2) mg/dL AST 26 (0-40) U/L ALT 14 (0-41) U/L Alkaline Phosphata se 107 (40-130) IU/L Total Protein 7.9 (6.6-8.7) g/dL Albumin 4.5 (3.5-5.2) g/dL Globulin 3.4 (1.3-4.6) g/dL Urine Color Yellow (Yellow) Urine Appearance Cloudy (CLEAR) Urine pH 5 (5-7) Ur Specific Gravit y 1.010 (1.005-1.030) Urine Protein Neg (Negative) Urine Glucose (UA) Norm (Normal) Urine Ketones Negative (Negative) Urine Blood 3+ H (Negative) Urine Nitrate Negative (Negative) Urine Bilirubin Neg (Negative) Urine Urobilinogen Norm (Negative) mg/dL Ur Leukocyte Mela ase Negative (Negative) Urine RBC 40-50 H (0-2) /hpf Urine WBC 0-4 H (0-5) /hpf Ur Squamous Epith Cells 0-4 H (0-5) /hpf Amorphous Sediment Not Reportable Urine Bacteria Trace (NONE) /hpf Salicylates < 0.3 L (3-10) mg/dL Urine Opiates Scre en (Negative) ng/mL Acetaminophen < 5.0 L (10-30) ug/mL Ur Barbiturates Sc reen (Negative) ng/mL Ur Phencyclidine S crn (Negative) ng/mL Ur Amphetamines Sc reen (Negative) ng/mL U Benzodiazepines Scrn (Negative) ng/mL Urine Cocaine Scre en (Negative) ng/mL U Marijuana (THC) Screen (Negative) ng/mL Ethyl Alcohol 14 H (0-10) mg/dL 06/07/21 Range/Units 13:20 WBC (4.0-10.0) 10^3/ uL RBC (4.1-5.3) 10^6/u L Hgb (11.7-16.6) g/dL Hct (42.0-52.0) % MCV (80-94) fL MCH (28.0-34.0) pg MCHC (30.0-36.0) g/dL RDW (12.1-15.1) % Plt Count (130-400) 10^3/c mm MPV (7.4-10.4) fL Neut % (Auto) % Lymph % (Auto) % Warren % (Auto) % Eos % (Auto) % Baso % (Auto) % Neut # (Auto) (1.8-7.7) 10^3/u L Lymph # (Auto) (0.8-4.8) 10^3/u L Warren # (Auto) (0.2-0.9) 10^3/u L Eos # (Auto) (0.0-0.8) 10^3/u L Baso # (Auto) (0.0-0.1) 10^3/u L Nucleated RBC % (a uto) % Nucleated RBCs # /100WBC Sodium (136-145) mmol/L Potassium (3.5-5.1) mmol/L Chloride (98-107) mmol/L Carbon Dioxide (22-29) mmol/L Anion Gap (5-19) BUN (6-20) mg/dL Creatinine (0.7-1.2) mg/dL GFR Calculation (90-130) mL/min Glucose (65-115) mg/dL Calculated Osmolal ity (285-295) mOsm/k g Calcium (8.5-10.5) mg/dL Total Bilirubin (0.15-1.2) mg/dL AST (0-40) U/L ALT (0-41) U/L Alkaline Phosphata se (40-130) IU/L Total Protein (6.6-8.7) g/dL Albumin (3.5-5.2) g/dL Globulin (1.3-4.6) g/dL Urine Color (Yellow) Urine Appearance (CLEAR) Urine pH (5-7) Ur Specific Gravit y (1.005-1.030) Urine Protein (Negative) Urine Glucose (UA) (Normal) Urine Ketones (Negative) Urine Blood (Negative) Urine Nitrate (Negative) Urine Bilirubin (Negative) Urine Urobilinogen (Negative) mg/dL Ur Leukocyte Mela ase (Negative) Urine RBC (0-2) /hpf Urine WBC (0-5) /hpf Ur Squamous Epith Cells (0-5) /hpf Amorphous Sediment Urine Bacteria (NONE) /hpf Salicylates (3-10) mg/dL Urine Opiates Scre en Negative (Negative) ng/mL Acetaminophen (10-30) ug/mL Ur Barbiturates Sc reen Negative (Negative) ng/mL Ur Phencyclidine S crn Negative (Negative) ng/mL Ur Amphetamines Sc reen Positive H (Negative) ng/mL U Benzodiazepines Scrn Negative (Negative) ng/mL Urine Cocaine Scre en Negative (Negative) ng/mL U Marijuana (THC) Screen Positive H (Negative) ng/mL Ethyl Alcohol (0-10) mg/dL Discharge Plan Discharge Patient Disposition: Home Clinical Impression: Active substance abuse Condition: Stable Prescriptions: No Action trazodone 50 mg Tablet 50 mg PO BEDTIME PRN (Reason: Sleep) 30 Days Qty: 30 RF: 1 ziprasidone HCl 40 mg Capsule 40 mg PO BID 30 Days Qty: 60 RF: 1 famotidine 20 mg tablet 20 mg PO BEDTIME RF: 0 Discharge Orders: Discharge ED (Routine); Ordered 11/07/20 Ordered By: Georgi Simon Referrals: Augusto Gallo Jr, MD [Primary Care Provider] - Discharge Diet: Regular Discharge Activity: Resume usual activity Patient Instructions: Methamphetamine Abuse (ED) Activity Restrictions/Additional Instructions: Follow-up with medical provider as directed. Continue taking all previously prescribed medications. Return to the ER or your medical provider if condition worsens. Please read and understand discharge instructions. Thank you for choosing [facility] for your healthcare needs today. Please realize this is an emergency room and that we are providing you with a m edical screening exam and this may not be complete and all inclusive of all the testing and or work up that you may need to determine your ailment or severity of your illness. It is very important that you follow up as instructed or that you return to the Emergency Department should you have concerns or if your condition changes or worsens in any way. Coding Level of Care Code ED Runstitching Machine Operator for Chg Fwd Exam Comprehensive
[2020-11-07] MEDS: LORazepam 2 mg Tablet PO ×2 (10:35→13:07)
--- NOTE | 2020-11-07 10:53 | PC.NURSE ---
Unable to obtain blood or urine sample or change patient into disposable scrubs due to patient incoherence and staff safety. Will attempt later after medications have become effective or patients mental status improves
[2020-11-07] MEDS: OLANZapine 10 mg TABLET PO ×2 (11:16→13:07)
--- NOTE | 2020-11-07 11:28 | PC.PHAR ---
pt unable to verify medications-medications entered are meds that show have been filled recently by [facility] delivered to pt before leaving the hospital
[2020-11-07 13:17] VITALS: RESP 18
[2020-11-07 13:22] LABS: Basophils # 0.1 10^3/uL (0.0-0.1); Basophils % 0.8 %; Eosinophils % 0.2 %; Hematocrit 34.6 % (42.0-52.0); Hemoglobin 11.7 g/dL (11.7-16.6); Lymphocytes % 18.6 %; Mean Corpuscular HGB Conc 33.8 g/dL (30.0-36.0); Mean Corpuscular Hemoglobin 27.3 pg (28.0-34.0); Mean Corpuscular Volume 80.8 fL (80-94); Mean Platelet Volume 8.5 fL (7.4-10.4); Monocytes % 9.4 %; Neutrophils # 7.64 10^3/uL (1.8-7.7); Neutrophils % 70.7 %; Nucleated Red Blood Cells % 0 %; Platelet Count 425 10^3/cmm (130-400); Red Blood Count 4.28 10^6/uL (4.1-5.3); Red Cell Distribution Width 16.5 % (12.1-15.1); White Blood Count 10.8 10^3/uL (4.0-10.0)
[2020-11-07 13:37] LABS: Alanine Aminotransferase 14 U/L (0-41); Albumin Level 4.5 g/dL (3.5-5.2); Alcohol Level 14 mg/dL (0-10); Alkaline Phosphatase 107 IU/L (40-130); Anion Gap 16.1 (5-19); Aspartate Amino Transferase 26 U/L (0-40); Blood Urea Nitrogen 14 mg/dL (6-20); Calcium 9.1 mg/dL (8.5-10.5); Carbon Dioxide 25 mmol/L (22-29); Chloride 99 mmol/L (98-107); Globulin 3.4 g/dL (1.3-4.6); Glomerular Filtration Rate 62.5 mL/min (90-130); Glucose 101 mg/dL (65-115); Osmolality Calculated 283 mOsm/kg (285-295); Potassium 4.1 mmol/L (3.5-5.1); Sodium 136 mmol/L (136-145); Total Bilirubin 0.8 mg/dL (0.15-1.2); Total Protein 7.9 g/dL (6.6-8.7)
[2020-11-07 13:39] LABS: Bilirubin Urine Neg (Negative); Blood Urine 3+ (Negative); Glucose Urine UA Norm (Normal); Ketones Urine Negative (Negative); Leukocyte Esterase Urine Negative (Negative); Nitrate Urine Negative (Negative); Protein Urine Neg (Negative); RBC Urine 40-50 /hpf (0-2); Squamous Epithelial Cell Urine 0-4 /hpf (0-5); Urine Appearance Cloudy (CLEAR); Urine Color Yellow (Yellow); Urobilinogen Urine Norm (Negative); WBC Urine 0-4 /hpf (0-5); pH Urine 5 (5-7)
[2020-11-07 13:40] LABS: Bacteria Urine TRACE /hpf
[2020-11-07 13:41] LABS: Acetaminophen < 5.0 ug/mL (10-30); Salicylate < 0.3 mg/dL (3-10)
[2020-11-07 13:42] LABS: Amphetamines Screen Urine Positive (Negative); Barbiturates Screen Urine Negative (Negative); Benzodiazepines Screen Urine Negative (Negative); Cocaine Screen Urine Negative (Negative); Opiate Screen Urine Negative (Negative); PCP Screen Urine Negative (Negative); THC Screen Urine Positive (Negative)
[2020-11-07 13:46] LABS: Add Urine Culture? Yes
--- NOTE | 2020-11-07 14:15 | P.CONIM_ITS ---
Providers/Reason for Consult Consulting Physican/Specialty*: Meme Valdes DO Reason for Consult*: Amphetamine-induced psychotic episode Primary Care Provider: Augusto Gallo Jr, MD Psych Consult HPI History of Present Illness Sven Wade is a 35 year old male with multiple emergency department encounters in the context of ongoing methamphetamine and cannabis use presenting to the emergency department with psychotic symptoms in the context of amphetamine intoxication. Patient is currently unable to participate in interview secondary to substance intoxication as well as being provided as needed medication including 2 doses of Ativan and olanzapine. He has been observed acting bizarrely, responding to internal stimuli as well as demonstrating physically agitated behavior. Patient unable to participate in psychiatric review of systems; patient's chart with recent episodes of care reviewed as part of this evaluation. Review of Systems General: Reports: ROS unobtainable due to mental status PFSH NPU PFSH: Medical History (Updated 11/07/20 @ 14:30 by Meme Valdes DO) Creatinine elevation Methamphetamine dependence Noncompliance Otitis externa Family History Family/Other , The whole family is afflicted with schizoaffective disorder versus bipolar disease. Rampant methamphetamine abuse abounds. Psychiatric illness Social History Smoking and tobacco status: current every day smoker Other Psychiatric History: Other Psychiatric History: Patient with longstanding substance abuse history frequently presenting with substance- induced psychosis with no observed or reported history of disorganized thoughts, speech or behavior during periods of sustained sobriety. Mental Status Exam MSE Comments: Shaved head, lying in bed, malodorous, does not respond to verbal questions, does not participate in interview, keeps his eyes closed. Vitals/I&O/Wt Last Vital Signs Temp 97.4 F L 11/07/20 09:56 Pulse 106 H 11/07/20 09:56 Resp 18 11/07/20 13:17 BP 151/100 11/07/20 09:56 Pulse Ox 96 11/07/20 09:56 Weight last 48 hrs Weight 88.451 kg A&P Assessment and plan (1) Methamphetamine-induced psychotic disorder: Status: Acute (2) Methamphetamine abuse: Status: Acute (3) Cannabis abuse: Status: Acute Additional A&P Information Patient routinely presents to the emergency department with amphetamine intoxication and psychotic symptoms most recently being hospitalized with a mphetamine intoxication and dehydration. Patient currently presenting with psychotic symptoms and appears to be attending to internal stimuli and has episodes of physical agitation. Urine drug screen once again positive for amphetamines and cannabis with patient being positive for amphetamines on last several presentations to the emergency department. Per previous consultation, patient typically requests admission or presents in the context of acute substance intoxication only to not participate in care and immediately request discharge patient. He continues to be noncompliant with treatment and treatment follow-up although reportedly had attempted attending a [facility]-based program a month ago which did not allow for ongoing use of psychotropic medication. Despite reporting need for psychotropic medication as a means to gain admission, patient frequently refuses medication and has no documented outpatient medication management follow-up. Patient's longstanding history of substance use which demonstrates poor judgment and potential risk for subsequent unexpected, impulsive behavior continues to elevate his risk which cannot be modified or mitigated without ongoing substance treatment which the patient has not been compliant. Risk medication would include recommendation to abstain from the use of substances and alcohol as well as the need for post discharge compliance with substance counseling/treatment in order to further mitigate his risk of harm to self and others. Patient is not currently able to communicate his understanding of the above recommendations but unfortunately continues to engage in risk-taking behavior to include substance abuse. Inpatient psychiatric hospitalization is not indicated at this time. Inpatient psychiatric hospitalization will not further mitigate this risk. Patient's current and previous presentations are purely in the context of serial episodes of amphetamine intoxication with no demonstrated psychosis outside of substance use. Patient requires substance detox with follow on residential or intensive outpatient substance treatment. Involuntary Hold Information 96 Hour Hold: 96 Hour Involuntary Admission: Yes 96 Hour Hold Ending Date: 10/27/20 96 Hour Hold Ending Time: 17:00 Attestations NPU Medical Necessity Statement*: Intensive outpatient or residential substance treatment is the most appropriate level of care after substance detox. 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
[2020-11-07] MEDS: LORazepam 2 mg/mL INJ 1 mL IM (14:37)
[2020-11-07] MEDS: haloperidol inj 5 mg/mL INJ 1 mL 10 MG IM (14:38)
[2020-11-07 15:00] VITALS: BP 117/61; PULSE 90; RESP 16; O2SAT 97
[2020-11-07 17:00] VITALS: BP 112/71; PULSE 79; RESP 20; O2SAT 96
--- NOTE | 2020-11-07 18:05 | PC.NURSE ---
Patient incontinent of urine, cleansed, placed brief on patient, and new scrubs.
== END 2020-11-07 18:55 | disposition home or self-care (01) ==
PROVIDERS: Emergency Provider Physician Assistant; PCP Family Medicine
DX: F19.10 Other psychoactive substance abuse, uncomplicated (principal); F17.210 Nicotine dependence, cigarettes, uncomplicated
CPT/HCPCS: 80053; 80306; 80307; 81001; 85025; 87086; 96372; 99284; 99291; J1630; J2060

== ENCOUNTER 2020-11-12 05:31 | Emergency (ER) | payer SELFPAY ==
[2020-11-12 05:33] VITALS: BP 124/76; PULSE 114; RESP 18; TEMP 36.7; O2SAT 100; BMI 21.2
[2020-11-12 05:58] LABS: Basophils % 0.4 %; Hematocrit 38.3 % (42.0-52.0); Hemoglobin 12.3 g/dL (11.7-16.6); Lymphocytes # 0.7 10^3/uL (0.8-4.8); Mean Corpuscular HGB Conc 32.1 g/dL (30.0-36.0); Monocytes # 0.7 10^3/uL (0.2-0.9); Monocytes % 12.9 %; Neutrophils % 74.2 %; Nucleated Red Blood Cells % 0 %; Platelet Count 231 10^3/cmm (130-400); Red Blood Count 4.56 10^6/uL (4.1-5.3); Red Cell Distribution Width 16.3 % (12.1-15.1); White Blood Count 5.5 10^3/uL (4.0-10.0)
[2020-11-12 06:15] LABS: Alanine Aminotransferase 30 U/L (0-41); Albumin Level 4.4 g/dL (3.5-5.2); Alkaline Phosphatase 113 IU/L (40-130); Anion Gap 17.6 (5-19); Aspartate Amino Transferase 54 U/L (0-40); Blood Urea Nitrogen 16 mg/dL (6-20); Calcium 8.7 mg/dL (8.5-10.5); Carbon Dioxide 25 mmol/L (22-29); Chloride 91 mmol/L (98-107); Globulin 3.1 g/dL (1.3-4.6); Glomerular Filtration Rate 62.5 mL/min (90-130); Glucose 128 mg/dL (65-115); Osmolality Calculated 273 mOsm/kg (285-295); Potassium 3.6 mmol/L (3.5-5.1); Sodium 130 mmol/L (136-145); Total Bilirubin 0.8 mg/dL (0.15-1.2); Total Protein 7.5 g/dL (6.6-8.7)
[2020-11-12 06:17] LABS: Acetaminophen < 5.0 ug/mL (10-30); Salicylate < 0.3 mg/dL (3-10)
--- NOTE | 2020-11-12 06:18 | ED_ITS ---
HPI - Psych General: Chief Complaint: Psychiatric Symptoms Stated Complaint: HALLUCINATIONS Time Seen by Provider: 11/12/20 05:50 History of Present Illness: HPI Narrative: 35-year-old male presents to the emergency room with complaints of breath about every year. He is having some auditory hallucinations he denies any suicidal or homicidal ideation. Patient frequently is admitted to the emergency room with similar presentation. Multiple psychiatric consults on the chart. MD complaint: altered mental status Onset (ago): hour(s) Duration: intermittent History of same: Yes Relieving factors: medication Exacerbating factors: drug use Context: recent drug abuse Associated psychiatric symptoms: racing thoughts and auditory hallucinations Associated symptoms: Reports auditory hallucinations and racing thoughts; Deny homicidal ideation or suicidal ideation Treatments prior to arrival: none Review of Systems Const: Denies: fever(s), chills, body aches, change in appetite, fatigue or malaise ENMT: Denies: throat pain, ear or mastoid pain, nasal discharge or nasal congestion Card: Denies: chest pain, edema, dyspnea on exertion or orthopnea Resp: Denies: dyspnea, productive cough or non-productive cough GI: Denies: abdominal pain, nausea, vomiting, hematemesis, coffee ground emesis, diarrhea, constipation, bloating, hematochezia or melena : Denies: flank pain, dysuria, urinary frequency or urinary urgency Skin/Breast: Denies: rash or pruritus Psych: Reports: auditory hallucinations; Denies: suicidal ideation or homicidal ideation [facility] ED PFSH: Medical History Creatinine elevation Methamphetamine dependence Noncompliance Otitis externa Family History Family/Other , The whole family is afflicted with schizoaffective disorder versus bipolar disease. Rampant methamphetamine abuse abounds. Psychiatric illness Social History Smoking and tobacco status: current every day smoker Physical Exam Const: COMMON NORMALS: no acute distress GENERAL APPEARANCE: cooperative and comfortable ORIENTATION/CONSCIOUSNESS: Yes awake HENMT: COMMON NORMALS: normocephalic, atraumatic, hearing grossly normal bilaterally, external ears normal, EAC's normal, TM's normal bilaterally, Normal nasal mucous membranes and turbinates present, moist oral mucous membranes and oropharynx normal HEAD & SCALP: normocephalic and atraumatic NOSE: Normal nasal mucous membranes and turbinates present EXTERNAL EAR: Yes external ears normal EXTERNAL AUDITORY CANAL: EAC's normal TYMPANIC MEMBRANE: TM's normal bilaterally Eye: COMMON NORMALS: Equal, round and reactive pupils present, EOMs intact bilaterally, conjunctivae normal and no scleral icterus CONJUNCTIVA: Yes conjunctivae normal PUPIL: Yes Equal, round and reactive pupils present Neck/C-Spine: COMMON NORMALS: full ROM, no lymphadenopathy, supple and no JVD Lymph: LYMPHATIC: no lymphadenopathy noted and no lymphedema noted Resp: COMMON NORMALS: normal respiratory effort, No retractions, No use of accessory muscles and clear to auscultation bilaterally AUSCULTATION: clear to auscultation bilaterally Cardio: COMMON NORMALS: no JVD, regular rate, regular rhythm and No murmurs present (Cardio) RATE: regular rate RHYTHM: regular rhythm GI: COMMON NORMALS: Soft to palpation and No hepatosplenomegaly present AUSCULTATION: Yes normoactive bowel sounds PALPATION: Yes Soft to palpation, No Tenderness to palpation present (GI), No Guarding due to palpation present (GI) and Yes No hepatosplenomegaly present Extremity: COMMON NORMALS: normal to inspection, capillary refill normal, no clubbing, cyanosis or edema, no calf tenderness and no pedal edema Skin: COMMON NORMALS: no rashes or lesions noted GENERAL SKIN EXAM: no rashes or lesions noted Course Vital Signs: Vital signs: Vital Signs Temperature 98.0 F 11/12/20 05:33 Pulse Rate 114 H 11/12/20 05:33 Respiratory Rate 18 11/12/20 05:33 Blood Pressure 124/76 11/12/20 05:33 Pulse Oximetry 100 11/12/20 05:33 MDM - Psych MDM Narrative: Medical decision making narrative: Patient has a rather mild meth induced psychosis. On frequent occasions when he is coming he has been markedly worse tenderness. He is very cooperative today. He is neither suicidal or homicidal. The auditory hallucinations he is experiencing are due to methamphetamine. There is no indication for psychiatric care at this time patient again encouraged to stop using methamphetamine. His response indicates a low probability of that happening. Lab Data: Labs: Lab Results 0611/12/20 11/12/20 Range/Units 05:50 05:50 05:50 WBC 5.5 (4.0-10.0) 10^3/ uL RBC 4.56 (4.1-5.3) 10^6/u L Hgb 12.3 (11.7-16.6) g/dL Hct 38.3 L (42.0-52.0) % MCV 84.0 (80-94) fL MCH 27.0 L (28.0-34.0) pg MCHC 32.1 (30.0-36.0) g/dL RDW 16.3 H (12.1-15.1) % Plt Count 231 (130-400) 10^3/c mm MPV 9.0 (7.4-10.4) fL Neut % (Auto) 74.2 % Lymph % (Auto) 12.0 % [place] % (Auto) 12.9 % Eos % (Auto) 0.0 % Baso % (Auto) 0.4 % Neut # (Auto) 4.10 (1.8-7.7) 10^3/u L Lymph # (Auto) 0.7 L (0.8-4.8) 10^3/u L [place] # (Auto) 0.7 (0.2-0.9) 10^3/u L Eos # (Auto) 0.0 (0.0-0.8) 10^3/u L Baso # (Auto) 0.0 (0.0-0.1) 10^3/u L Nucleated RBC % (a uto) 0 % Nucleated RBCs # 0.0 /100WBC Sodium 130 L (136-145) mmol/L Potassium 3.6 (3.5-5.1) mmol/L Chloride 91 L (98-107) mmol/L Carbon Dioxide 25 (22-29) mmol/L Anion Gap 17.6 (5-19) BUN 16 (6-20) mg/dL Creatinine 1.3 H (0.7-1.2) mg/dL GFR Calculation 62.5 L (90-130) mL/min Glucose 128 H (65-115) mg/dL Calculated Osmolal ity 273 L (285-295) mOsm/k g Calcium 8.7 (8.5-10.5) mg/dL Total Bilirubin 0.8 (0.15-1.2) mg/dL AST 54 H (0-40) U/L ALT 30 (0-41) U/L Alkaline Phosphata se 113 (40-130) IU/L Total Protein 7.5 (6.6-8.7) g/dL Albumin 4.4 (3.5-5.2) g/dL Globulin 3.1 (1.3-4.6) g/dL Urine Color Dark yellow (Yellow) Urine Appearance Clear (CLEAR) Urine pH 5 (5-7) Ur Specific Gravit y 1.015 (1.005-1.030) Urine Protein Neg (Negative) Urine Glucose (UA) Norm (Normal) Urine Ketones Negative (Negative) Urine Blood 2+ H (Negative) Urine Nitrate Negative (Negative) Urine Bilirubin Neg (Negative) Urine Urobilinogen Norm (Negative) mg/dL Ur Leukocyte Mela ase Negative (Negative) Urine RBC 15-25 H (0-2) /hpf Urine WBC 0-4 H (0-5) /hpf Ur Squamous Epith Cells None (0-5) /hpf Amorphous Sediment Not Reportable Urine Bacteria 1+ H (NONE) /hpf Urine Mucus 1+ /hpf Salicylates < 0.3 L (3-10) mg/dL Acetaminophen < 5.0 L (10-30) ug/mL Discharge Plan Discharge Patient Disposition: Home Clinical Impression: Drug-induced psychotic disorder, Methamphetamine dependence, Amphetamine abuse- episodic Condition: Stable Prescriptions: No Action trazodone 50 mg Tablet 50 mg PO BEDTIME PRN (Reason: Sleep) 30 Days Qty: 30 RF: 1 ziprasidone HCl 40 mg Capsule 40 mg PO BID 30 Days Qty: 60 RF: 1 famotidine 20 mg tablet 20 mg PO BEDTIME RF: 0 Discharge Orders: Discharge ED (Routine); Ordered 11/12/20 Ordered By: Reji Skinner Referrals: Augusto Gallo Jr, MD [Primary Care Provider] - Discharge Diet: Usual diet Discharge Activity: Resume usual activity Patient Instructions: Opioid Safety Activity Restrictions/Additional Instructions: Avoid use of methamphetamine Coding Level of Care Code ED Manager Reliability for g Fwd Exam Comprehensive
[2020-11-12 07:04] LABS: Specific Gravity, Urine 1.015 (1.005-1.030); Urine Appearance Clear (CLEAR); Urine Color Dark Yellow (Yellow); pH Urine 5 (5-7)
[2020-11-12 07:05] LABS: Add Urine Microscopic? YES; Bilirubin Urine Neg (Negative); Blood Urine 2+ (Negative); Glucose Urine UA Norm (Normal); Ketones Urine Negative (Negative); Leukocyte Esterase Urine Negative (Negative); Nitrate Urine Negative (Negative); Protein Urine Neg (Negative); Urobilinogen Urine Norm (Negative)
[2020-11-12 07:06] LABS: Add Urine Culture? Yes; Bacteria Urine 1+ /hpf; Mucus Urine 1+ /hpf; RBC Urine 15-25 /hpf (0-2); WBC Urine 0-4 /hpf (0-5)
== END 2020-11-12 07:54 | disposition home or self-care (01) ==
PROVIDERS: Emergency Medicine; Emergency Provider Family Medicine; PCP Family Medicine
DX: F06.8 Other specified mental disorders due to known physiological condition (principal); F15.90 Other stimulant use, unspecified, uncomplicated
CPT/HCPCS: 80053; 80307; 81001; 85025; 87086; 99283

== ENCOUNTER 2020-11-15 04:21 | Emergency (ER) | payer SELFPAY ==
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
[2020-11-15 04:29] VITALS: BP 130/83; PULSE 110; RESP 16; TEMP 36.6; O2SAT 95; BMI 21.9
[2020-11-15 04:39] VITALS: PULSE 110; RESP 16; O2SAT 99
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
== END 2020-11-15 04:40 | disposition home or self-care (01) ==
PROVIDERS: Emergency Provider Emergency Medicine
DX: H92.01 Otalgia, right ear (principal); S81.839A Puncture wound without foreign body, unspecified lower leg, initial encounter; W34.00XA Accidental discharge from unspecified firearms or gun, initial encounter; F17.210 Nicotine dependence, cigarettes, uncomplicated
CPT/HCPCS: 99281

== ENCOUNTER 2020-11-28 18:58 | Emergency (ER) | payer SELFPAY ==
[2020-11-28 19:02] VITALS: BP 126/84; PULSE 117; RESP 18; TEMP 36.6; O2SAT 97; BMI 20.8
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
[2020-11-28] MEDS: sodium chloride 0.9% 1,000 ML 999 ML IV (20:02)
[2020-11-28 20:10] LABS: Basophils # 0.1 10^3/uL (0.0-0.1); Basophils % 0.7 %; Eosinophils % 0.4 %; Hemoglobin 10.9 g/dL (11.7-16.6); Lymphocytes # 0.5 10^3/uL (0.8-4.8); Lymphocytes % 6.9 %; Mean Corpuscular HGB Conc 32.1 g/dL (30.0-36.0); Mean Corpuscular Hemoglobin 27.3 pg (28.0-34.0); Mean Corpuscular Volume 85.2 fL (80-94); Mean Platelet Volume 8.9 fL (7.4-10.4); Monocytes # 0.4 10^3/uL (0.2-0.9); Monocytes % 4.7 %; Neutrophils # 6.45 10^3/uL (1.8-7.7); Nucleated Red Blood Cells % 0 %; Platelet Count 315 10^3/cmm (130-400); Red Blood Count 3.99 10^6/uL (4.1-5.3); Red Cell Distribution Width 16.3 % (12.1-15.1); White Blood Count 7.4 10^3/uL (4.0-10.0)
[2020-11-28 20:26] LABS: Alanine Aminotransferase 12 U/L (0-41); Alkaline Phosphatase 105 IU/L (40-130); Anion Gap 14.3 (5-19); Aspartate Amino Transferase 19 U/L (0-40); Blood Urea Nitrogen 11 mg/dL (6-20); C Reactive Protein 8.3 mg/L (0.0-4.9); Calcium 8.1 mg/dL (8.5-10.5); Carbon Dioxide 26 mmol/L (22-29); Chloride 99 mmol/L (98-107); Glomerular Filtration Rate 75.7 mL/min (90-130); Glucose 99 mg/dL (65-115); Osmolality Calculated 279 mOsm/kg (285-295); Potassium 4.3 mmol/L (3.5-5.1); Sodium 135 mmol/L (136-145); Total Bilirubin 0.6 mg/dL (0.15-1.2)
[2020-11-28] MEDS: vancomycin 1,500 MG/300 ML PIGGYBACK 200 MG IV (21:13)
[2020-11-28 21:16] VITALS: BP 117/71; PULSE 90; RESP 18; O2SAT 100
[2020-11-28 22:28] VITALS: BP 116/63; PULSE 90; O2SAT 100
[2020-11-28 22:51] VITALS: BP 138/78; PULSE 88; RESP 19; O2SAT 100
[2020-11-28 23:21] VITALS: BP 133/86; PULSE 104; RESP 18; O2SAT 95
--- NOTE | 2020-11-29 13:28 | DCPLANNER ---
Addendum entered by Sheron Quinn 12/14/20 09:43: medical manager spoke with Ginger at the ortho clinic about followup appointment. medical manager was told that Dr. Damon reviewed patients information, was told that the yasmine was placed by the [place] [facility], and patient would need to be referred back to them for review. Patient has not had a phone number in his chart, but one was placed in the chart. medical manager called [phone], unable to speak with patient and unable to leave a voicemail for patient at this time. Original Note: Body Team Member received message to schedule follow up with ortho for possible chronic osteomylitis-right lower leg. Called ortho clinic and spoke to Theresa and provided her needed information. She will contact patient with appointment details.
--- NOTE | 2020-11-29 13:34 | DCPLANNER ---
Addendum entered by Sheron Quinn 12/06/20 07:18: Patient did not attend appointment. Original Note: Received message to schedule follow up appoinment for patient with wound care clinic. Called wound care clinic and spoke to Gini. Scheduled appointment on Saturday12/02/20 @ 1000. Called patient's mother and was unable to reach her. No phone number listed for patient.
== END 2020-11-28 23:21 | disposition home or self-care (01) ==
PROVIDERS: Emergency Provider Physician Assistant
DX: L03.115 Cellulitis of right lower limb (principal); M86.661 Other chronic osteomyelitis, right tibia and fibula; H92.01 Otalgia, right ear; F17.210 Nicotine dependence, cigarettes, uncomplicated
CPT/HCPCS: 73590; 80053; 85025; 86140; 96365; 99284; J3370; J7030

== ENCOUNTER 2020-11-30 01:18 | Emergency (ER) | payer SELFPAY ==
[2020-11-30 01:23] VITALS: BP 119/79; PULSE 87; RESP 18; TEMP 37.3; O2SAT 99; BMI 20.5
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
== END 2020-11-30 01:40 | disposition home or self-care (01) ==
PROVIDERS: Emergency Provider Emergency Medicine
DX: S81.801A Unspecified open wound, right lower leg, initial encounter (principal); F17.210 Nicotine dependence, cigarettes, uncomplicated; W34.00XA Accidental discharge from unspecified firearms or gun, initial encounter
CPT/HCPCS: 99282

== ENCOUNTER 2020-12-05 00:54 | Emergency (ER) | payer SELFPAY ==
[2020-12-05 01:19] VITALS: BP 132/88; PULSE 107; RESP 20; TEMP 36.7; O2SAT 98
[2020-12-05 02:13] LABS: Basophils # 0.1 10^3/uL (0.0-0.1); Basophils % 0.8 %; Eosinophils # 0.1 10^3/uL (0.0-0.8); Hematocrit 35.3 % (42.0-52.0); Lymphocytes # 1.7 10^3/uL (0.8-4.8); Lymphocytes % 21.5 %; Mean Corpuscular HGB Conc 31.2 g/dL (30.0-36.0); Mean Corpuscular Hemoglobin 26.8 pg (28.0-34.0); Mean Corpuscular Volume 85.9 fL (80-94); Mean Platelet Volume 8.5 fL (7.4-10.4); Monocytes # 0.6 10^3/uL (0.2-0.9); Monocytes % 7.6 %; Neutrophils # 5.43 10^3/uL (1.8-7.7); Neutrophils % 68.6 %; Nucleated Red Blood Cells % 0 %; Platelet Count 312 10^3/cmm (130-400); Red Blood Count 4.11 10^6/uL (4.1-5.3); White Blood Count 7.9 10^3/uL (4.0-10.0)
[2020-12-05 02:30] LABS: Alanine Aminotransferase 17 U/L (0-41); Albumin Level 4.1 g/dL (3.5-5.2); Alkaline Phosphatase 114 IU/L (40-130); Anion Gap 14.7 (5-19); Aspartate Amino Transferase 26 U/L (0-40); Blood Urea Nitrogen 11 mg/dL (6-20); Calcium 9.3 mg/dL (8.5-10.5); Carbon Dioxide 29 mmol/L (22-29); Chloride 101 mmol/L (98-107); Globulin 3.1 g/dL (1.3-4.6); Glomerular Filtration Rate 75.7 mL/min (90-130); Glucose 98 mg/dL (65-115); Osmolality Calculated 291 mOsm/kg (285-295); Potassium 3.7 mmol/L (3.5-5.1); Sodium 141 mmol/L (136-145); Total Bilirubin 0.3 mg/dL (0.15-1.2); Total Protein 7.2 g/dL (6.6-8.7)
[2020-12-05 02:31] LABS: Acetaminophen < 5.0 ug/mL (10-30); Alcohol Level < 10 mg/dL (0-10); Salicylate < 0.3 mg/dL (3-10)
[2020-12-05 02:58] VITALS: BP 147/99; PULSE 88; RESP 16; O2SAT 100
[2020-12-05 03:05] LABS: Urine Appearance SL Hazy (CLEAR); Urine Color Yellow (Yellow); pH Urine 6.5 (5-7)
[2020-12-05 03:06] LABS: Add Urine Culture? Yes; Add Urine Microscopic? YES; Bacteria Urine TRACE /hpf; Bilirubin Urine Neg (Negative); Blood Urine 3+ (Negative); Glucose Urine UA Norm (Normal); Ketones Urine Negative (Negative); Leukocyte Esterase Urine Negative (Negative); Nitrate Urine Negative (Negative); Protein Urine Neg (Negative); RBC Urine TOO NUMEROUS TO CNT /hpf (0-2); Specific Gravity, Urine 1.015 (1.005-1.030); Squamous Epithelial Cell Urine 0-4 /hpf (0-5); Urobilinogen Urine Norm (Negative); WBC Urine 0-4 /hpf (0-5)
[2020-12-05 03:29] LABS: Amphetamines Screen Urine Positive (Negative); Barbiturates Screen Urine Negative (Negative); Benzodiazepines Screen Urine Negative (Negative); Cocaine Screen Urine Negative (Negative); Opiate Screen Urine Negative (Negative); PCP Screen Urine Negative (Negative); THC Screen Urine Positive (Negative)
[2020-12-05 04:10] VITALS: BP 137/95; PULSE 93; RESP 15; O2SAT 99
[2020-12-05] MEDS: sodium chloride 0.9% 1,000 ML 999 ML IV ×2 (04:16→04:19)
[2020-12-05] MEDS: LORazepam 2 mg/mL INJ 1 mL 1.5 MG IVP (05:29)
[2020-12-05 05:52] VITALS: BP 143/91; PULSE 88; RESP 16; O2SAT 100
--- NOTE | 2020-12-05 08:11 | W.ED.GENADLT ---
HPI - General Adult General: Chief complaint: General Medical Stated complaint: eye problems, sob Time Seen by Provider: 12/05/20 02:53 History of Present Illness: HPI narrative: 35-year-old male well-known to the ER. He presents feeling off . He states too much caffeine, too much heat, too much meth . He is feeling achy and dehydrated. He denies suicidality. He denies hallucinations. Onset (ago): hour(s) Radiation: non-radiation Severity: moderate Quality: aching ( All over ) Pain Consistency: constant Relieving factors: none Exacerbating factors: none Associated symptoms: Reports decreased appetite, headache(s), nausea and weakness (Generalized); Deny chest pain, cough, dyspnea, fevers/chills or vomiting Treatments prior to arrival: none Review of Systems Const: Denies: fever(s) Card: Denies: chest pain Resp: Denies: dyspnea GI: Reports: nausea; Denies: vomiting Neuro: Reports: headache(s) PFSH ED PFSH: Medical History Creatinine elevation Elevated troponin External otitis of right ear Methamphetamine dependence Noncompliance Open wound of right lower leg Otitis externa Family History Family/Other , The whole family is afflicted with schizoaffective disorder versus bipolar disease. Rampant methamphetamine abuse abounds. Psychiatric illness Social History Smoking and tobacco status: current every day smoker Physical Exam Const: GENERAL APPEARANCE: cooperative, disheveled and appears older than stated age NUTRITIONAL APPEARANCE: thin ORIENTATION/CONSCIOUSNESS: Yes awake, Yes oriented to person, Yes oriented to place and Yes oriented to time HENMT: COMMON NORMALS: normocephalic HEAD & SCALP: normocephalic Eye: COMMON NORMALS: Equal, round and reactive pupils present and EOMs intact bilaterally PUPIL: Yes Equal, round and reactive pupils present Chest: COMMONS NORMALS: normal inspection of the chest Resp: COMMON NORMALS: normal respiratory effort, No use of accessory muscles and clear to auscultation bilaterally AUSCULTATION: clear to auscultation bilaterally Cardio: COMMON NORMALS: regular rate and regular rhythm RATE: regular rate RHYTHM: regular rhythm GI: COMMON NORMALS: Normal to inspection, nondistended, normoactive bowel sounds present and Soft to palpation PALPATION: Yes Soft to palpation Neuro: SENSORIUM/ORIENTATION: Yes oriented to person, Yes oriented to place and Yes oriented to time Psych: COMMON NORMALS: mental status grossly normal, cooperative and speech normal APPEARANCE: Yes unkempt ATTITUDE: Yes calm ACTIVITY/MOTOR BEHAVIOR: Yes appropriate eye contact SPEECH: Yes normal speech MOOD & AFFECT: Yes depressed mood THOUGHT CONTENT: No Suicidality present and No Homicidality present ATTENTION/CONCENTRATION: Yes attention grossly intact and Yes concentration grossly intact MEMORY/COGNITION: Yes memory grossly intact and Yes cognition grossly intact Course Vital Signs: Vital signs: Vital Signs Temperature 98.1 F 12/05/20 01:19 Pulse Rate 88 12/05/20 05:52 Respiratory Rate 16 12/05/20 05:52 Blood Pressure 143/91 12/05/20 05:52 Pulse Oximetry 100 12/05/20 05:52 MDM - General Adult MDM Narrative: Medical decision making narrative: . 4-year presents not feeling well. Symptoms are likely related to methamphetamine abuse. He is given 2 L of fluids, and some lorazepam, and is feeling better. He denied being suicidal. He rested here and was discharged. He is medically stable. His labs are benign. Lab Data: Labs: Lab Results 12/05/20 12/05/20 12/05/20 Range/Units 02:02 02:02 02:50 WBC 7.9 (4.0-10.0) 10^3/ uL RBC 4.11 (4.1-5.3) 10^6/u L Hgb 11.0 L (11.7-16.6) g/dL Hct 35.3 L (42.0-52.0) % MCV 85.9 (80-94) fL MCH 26.8 L (28.0-34.0) pg MCHC 31.2 (30.0-36.0) g/dL RDW 16.0 H (12.1-15.1) % Plt Count 312 (130-400) 10^3/c mm MPV 8.5 (7.4-10.4) fL Neut % (Auto) 68.6 % Lymph % (Auto) 21.5 % [place] % (Auto) 7.6 % Eos % (Auto) 1.0 % Baso % (Auto) 0.8 % Neut # (Auto) 5.43 (1.8-7.7) 10^3/u L Lymph # (Auto) 1.7 (0.8-4.8) 10^3/u L [place] # (Auto) 0.6 (0.2-0.9) 10^3/u L Eos # (Auto) 0.1 (0.0-0.8) 10^3/u L Baso # (Auto) 0.1 (0.0-0.1) 10^3/u L Nucleated RBC % (a uto) 0 % Nucleated RBCs # 0.0 /100WBC Sodium 141 (136-145) mmol/L Potassium 3.7 (3.5-5.1) mmol/L Chloride 101 (98-107) mmol/L Carbon Dioxide 29 (22-29) mmol/L Anion Gap 14.7 (5-19) BUN 11 (6-20) mg/dL Creatinine 1.1 (0.7-1.2) mg/dL GFR Calculation 75.7 L (90-130) mL/min Glucose 98 (65-115) mg/dL Calculated Osmolal ity 291 (285-295) mOsm/k g Calcium 9.3 (8.5-10.5) mg/dL Total Bilirubin 0.3 (0.15-1.2) mg/dL AST 26 (0-40) U/L ALT 17 (0-41) U/L Alkaline Phosphata se 114 (40-130) IU/L Total Protein 7.2 (6.6-8.7) g/dL Albumin 4.1 (3.5-5.2) g/dL Globulin 3.1 (1.3-4.6) g/dL Urine Color Yellow (Yellow) Urine Appearance Sl hazy (CLEAR) Urine pH 6.5 (5-7) Ur Specific Gravit y 1.015 (1.005-1.030) Urine Protein Neg (Negative) Urine Glucose (UA) Norm (Normal) Urine Ketones Negative (Negative) Urine Blood 3+ H (Negative) Urine Nitrate Negative (Negative) Urine Bilirubin Neg (Negative) Urine Urobilinogen Norm (Negative) mg/dL Ur Leukocyte Mela ase Negative (Negative) Urine RBC Too numerous to c nt H (0-2) /hpf Urine WBC 0-4 H (0-5) /hpf Ur Squamous Epith Cells 0-4 H (0-5) /hpf Amorphous Sediment Not Reportable Urine Bacteria Trace (NONE) /hpf Urine Yeast 1+ H /hpf Salicylates < 0.3 L (3-10) mg/dL Urine Opiates Scre en (Negative) ng/mL Acetaminophen < 5.0 L (10-30) ug/mL Ur Barbiturates Sc reen (Negative) ng/mL Ur Phencyclidine S crn (Negative) ng/mL Ur Amphetamines Sc reen (Negative) ng/mL U Benzodiazepines Scrn (Negative) ng/mL Urine Cocaine Scre en (Negative) ng/mL U Marijuana (THC) Screen (Negative) ng/mL Ethyl Alcohol < 10 (0-10) mg/dL 12/05/20 Range/Units 02:50 WBC (4.0-10.0) 10^3/ uL RBC (4.1-5.3) 10^6/u L Hgb (11.7-16.6) g/dL Hct (42.0-52.0) % MCV (80-94) fL MCH (28.0-34.0) pg MCHC (30.0-36.0) g/dL RDW (12.1-15.1) % Plt Count (130-400) 10^3/c mm MPV (7.4-10.4) fL Neut % (Auto) % Lymph % (Auto) % [place] % (Auto) % Eos % (Auto) % Baso % (Auto) % Neut # (Auto) (1.8-7.7) 10^3/u L Lymph # (Auto) (0.8-4.8) 10^3/u L [place] # (Auto) (0.2-0.9) 10^3/u L Eos # (Auto) (0.0-0.8) 10^3/u L Baso # (Auto) (0.0-0.1) 10^3/u L Nucleated RBC % (a uto) % Nucleated RBCs # /100WBC Sodium (136-145) mmol/L Potassium (3.5-5.1) mmol/L Chloride (98-107) mmol/L Carbon Dioxide (22-29) mmol/L Anion Gap (5-19) BUN (6-20) mg/dL Creatinine (0.7-1.2) mg/dL GFR Calculation (90-130) mL/min Glucose (65-115) mg/dL Calculated Osmolal ity (285-295) mOsm/k g Calcium (8.5-10.5) mg/dL Total Bilirubin (0.15-1.2) mg/dL AST (0-40) U/L ALT (0-41) U/L Alkaline Phosphata se (40-130) IU/L Total Protein (6.6-8.7) g/dL Albumin (3.5-5.2) g/dL Globulin (1.3-4.6) g/dL Urine Color (Yellow) Urine Appearance (CLEAR) Urine pH (5-7) Ur Specific Gravit y (1.005-1.030) Urine Protein (Negative) Urine Glucose (UA) (Normal) Urine Ketones (Negative) Urine Blood (Negative) Urine Nitrate (Negative) Urine Bilirubin (Negative) Urine Urobilinogen (Negative) mg/dL Ur Leukocyte Mela ase (Negative) Urine RBC (0-2) /hpf Urine WBC (0-5) /hpf Ur Squamous Epith Cells (0-5) /hpf Amorphous Sediment Urine Bacteria (NONE) /hpf Urine Yeast /hpf Salicylates (3-10) mg/dL Urine Opiates Scre en Negative (Negative) ng/mL Acetaminophen (10-30) ug/mL Ur Barbiturates Sc reen Negative (Negative) ng/mL Ur Phencyclidine S crn Negative (Negative) ng/mL Ur Amphetamines Sc reen Positive H (Negative) ng/mL U Benzodiazepines Scrn Negative (Negative) ng/mL Urine Cocaine Scre en Negative (Negative) ng/mL U Marijuana (THC) Screen Positive H (Negative) ng/mL Ethyl Alcohol (0-10) mg/dL Discharge Plan Discharge Patient Disposition: Home Clinical Impression: Acute dehydration, Amphetamine abuse-episodic Condition: Stable Prescriptions: No Action trazodone 50 mg Tablet 50 mg PO BEDTIME PRN (Reason: Sleep) 30 Days Qty: 30 RF: 1 ziprasidone HCl 40 mg Capsule 40 mg PO BID 30 Days Qty: 60 RF: 1 Discharge Orders: Discharge ED (Routine); Ordered 12/05/20 Ordered By: Nomi Ramires Discharge Diet: Advance as tolerated Discharge Activity: Increase activity as tolerated Patient Instructions: Dehydration (ED), Methamphetamine Abuse (ED) Activity Restrictions/Additional Instructions: Avoid illicit substances. Push oral fluids, noncaffeinated, for the next 48 hours. Return for any problems. Coding Level of Care Code ED Public Finance Specialist for Sergei Matute
== END 2020-12-05 05:54 | disposition home or self-care (01) ==
PROVIDERS: Emergency Provider Emergency Medicine
DX: F15.10 Other stimulant abuse, uncomplicated (principal); E86.0 Dehydration; F17.210 Nicotine dependence, cigarettes, uncomplicated
CPT/HCPCS: 36415; 80053; 80306; 80307; 81001; 85025; 96361; 96374; 99284; J2060; J7030

== ENCOUNTER 2020-12-06 22:42 | Emergency (ER) | payer SELFPAY ==
[2020-12-06 23:16] VITALS: BP 109/66; RESP 18; TEMP 36.7; O2SAT 94; BMI 22.6
--- NOTE | 2020-12-07 00:36 | W.ED.PSYCH ---
HPI - Psych General: Chief Complaint: Psychiatric Symptoms Stated Complaint: BODY FEELS INFLAMED, DEHYDRATED Time Seen by Provider: 12/06/20 23:23 History of Present Illness: HPI Narrative: Patient is a well-appearing 35-year-old male seen for multiple psychiatric symptoms. He states that he hears voices almost constantly and wishes that they would stop. He also feels sensations in his body as if there are 2 magnets pulling at each other, affecting various parts of his body. He admits to using methamphetamine and other drugs various times. He is unsure of the last time he used methamphetamine. He is speaking clearly. He denies homicidal and suicidal ideation and I believe him. He has no other acute complaints. Review of Systems General: Reports: 10 or more systems reviewed and unremarkable except in HPI and below PFSH ED PFSH: Medical History Creatinine elevation Elevated troponin External otitis of right ear Methamphetamine dependence Noncompliance Open wound of right lower leg Otitis externa Family History Family/Other , The whole family is afflicted with schizoaffective disorder versus bipolar disease. Rampant methamphetamine abuse abounds. Psychiatric illness Social History Smoking and tobacco status: current every day smoker Physical Exam Const: COMMON NORMALS: no acute distress, patient oriented x3 and alert HENMT: COMMON NORMALS: normocephalic and atraumatic HEAD & SCALP: normocephalic and atraumatic Eye: COMMON NORMALS: Equal, round and reactive pupils present, EOMs intact bilaterally and no scleral icterus PUPIL: Yes Equal, round and reactive pupils present Resp: COMMON NORMALS: normal respiratory effort and No retractions Cardio: COMMON NORMALS: regular rate, regular rhythm and No murmurs present (Cardio) RATE: regular rate RHYTHM: regular rhythm GI: COMMON NORMALS: Normal to inspection, nondistended, normoactive bowel sounds present, Soft to palpation and non-tender PALPATION: Yes Soft to palpation Neuro: COMMON NORMALS: patient oriented x3 SENSORIUM/ORIENTATION: Yes alert Psych: COMMON NORMALS: cooperative, normal affect and speech normal APPEARANCE: Yes grossly normal ATTITUDE: Yes engaged, Yes paranoid, No agitated, No aggressive and No hostile ACTIVITY/MOTOR BEHAVIOR: Yes fidgeting SPEECH: Yes normal speech MOOD & AFFECT: Yes depressed mood and Yes tearful THOUGHT PROCESS: Flight of ideas present THOUGHT CONTENT: No Suicidality present, No Homicidality present and Yes Hallucination(s) present auditory, visual and tactile ATTENTION/CONCENTRATION: Yes attention grossly intact and Yes concentration grossly intact MEMORY/COGNITION: Yes memory grossly intact INSIGHT: Fair insight present (Psych) Skin: COMMON NORMALS: no rashes or lesions noted GENERAL SKIN EXAM: no rashes or lesions noted Course Vital Signs: Vital signs: Vital Signs Temperature 98.1 F 12/06/20 23:16 Respiratory Rate 18 12/06/20 23:16 Blood Pressure 109/66 12/06/20 23:16 Pulse Oximetry 94 12/06/20 23:16 Discharge Plan Discharge Prescriptions: No Action trazodone 50 mg Tablet 50 mg PO BEDTIME PRN (Reason: Sleep) 30 Days Qty: 30 RF: 1 ziprasidone HCl 40 mg Capsule 40 mg PO BID 30 Days Qty: 60 RF: 1 Coding Level of Care Code ED Systems Software Developer for Sergei Matute
[2020-12-07 01:07] VITALS: BP 104/60; PULSE 74; RESP 14; O2SAT 96
[2020-12-07] MEDS: OLANZapine 10 mg ODT PO (01:29)
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
[2020-12-07 06:31] VITALS: BP 116/68; PULSE 74; RESP 18; O2SAT 98
== END 2020-12-07 06:25 | disposition home or self-care (01) ==
PROVIDERS: Emergency Provider Student in an Organized Health Care Education/Training Program
DX: R44.0 Auditory hallucinations (principal); F17.210 Nicotine dependence, cigarettes, uncomplicated; F15.10 Other stimulant abuse, uncomplicated
CPT/HCPCS: 99283

== ENCOUNTER 2020-12-16 16:00 | Emergency (ER) | payer SELFPAY ==
[2020-12-16 16:08] VITALS: BP 154/90; PULSE 78; RESP 24; TEMP 37; O2SAT 100; BMI 21.6
--- NOTE | 2020-12-16 16:44 | CTR_ITS ---
PROCEDURE INFORMATION: Exam: CT Abdomen And Pelvis Without Contrast Exam date and time: 12/16/2020 4:44 PM Age: 35 years old Clinical indication: Abdominal pain; Left; Patient HX: C/O L flank/llq abd pain; Additional info: Flank pain TECHNIQUE: Imaging protocol: Computed tomography of the abdomen and pelvis without contrast. Radiation optimization: All CT scans at this facility use at least one of these dose optimization techniques: automated exposure control; mA and/or kV adjustment per patient size (includes targeted exams where dose is matched to clinical indication); or iterative reconstruction. COMPARISON: CT abdomen pelvis wo con [id number] 10/22/2020 6:44 PM RADIATION DOSE METRICS: Total DLP (mGy-cm): 687.75 FINDINGS: Liver: Normal. No mass. Gallbladder and bile ducts: Normal. No calcified stones. No ductal dilation. Pancreas: Normal. No ductal dilation. Spleen: Normal. No splenomegaly. Adrenal glands: Normal. No mass. Kidneys and ureters: Multiple small nonobstructing bilateral kidney stones. Left collecting system mild severity hydroureteronephrosis. 2 mm calcification in the left UVJ. Stomach and bowel: Unremarkable. No obstruction. No mucosal thickening. Appendix: No evidence of appendicitis. Normal appearance. Intraperitoneal space: Unremarkable. No free air. No significant fluid collection. Vasculature: Unremarkable. No abdominal aortic aneurysm. Lymph nodes: Unremarkable. No enlarged lymph nodes. Urinary bladder: Unremarkable as visualized. Reproductive: Unremarkable as visualized. Bones/joints: Unremarkable. No acute fracture. Soft tissues: Unremarkable. CT/CT kidney stone [id number] IMPRESSION: 1. Small left distal ureteral stone causing mild severity left-sided hydroureteronephrosis. 2. Numerous additional small nonobstructing bilateral kidney stones. Radiation Dose CTDIVOL = (mGy): DLP = 687.75 (mGy-cm)
--- NOTE | 2020-12-16 16:47 | ED_ITS ---
HPI - Back Pain/Injury General: Chief Complaint: Back Pain/Injury Stated Complaint: ABDOMINAL PAIN Time Seen by Provider: 12/16/20 16:43 History of Present Illness: HPI Narrative: This patient is a 35-year-old male who presents to the emergency department left flank pain going to the left lower side. Patient states it began earlier today. Patient has a long history of methamphetamine use and does admit that he used yesterday. Patient denies any history of back problems. Will do medical evaluation treat as needed Pertinent past history: kidney stones Onset (ago): hour(s) Severity: moderate Quality: sharp and stabbing Associated symptoms: Reports abdominal pain; Deny chills, dysuria, fatigue, fever(s), nausea, urinary urgency or vomiting Review of Systems General: Reports: 10 or more systems reviewed and unremarkable except in HPI and below Const: Denies: fever(s), chills, body aches or fatigue Eyes: Denies: change in vision or blurry vision ENMT: Denies: throat pain, hoarseness or mouth pain Card: Denies: chest pain, palpitations, irregular heart rhythm, edema, swelling of feet/ankles or lightheadedness Resp: Denies: dyspnea, productive cough, non-productive cough, wheezing or pain on inspiration GI: Reports: abdominal pain; Denies: nausea or vomiting : Reports: flank pain; Denies: dysuria, urinary frequency, urinary urgency or urinary hesitancy Musc: Denies: neck pain, back pain, extremity pain, extremity swelling, joint pain, joint swelling, joint redness, joint warmth or limited range of motion Skin/Breast: Denies: rash, pruritus, erythema or skin tenderness Neuro: Denies: headache(s), numbness in extremities or weakness in extremities Psych: Denies: anxiety or depression PFSH ED PFSH: Medical History Creatinine elevation Elevated troponin External otitis of right ear Methamphetamine dependence Noncompliance Open wound of right lower leg Otitis externa Family History Family/Other , The whole family is afflicted with schizoaffective disorder versus bipolar disease. Rampant methamphetamine abuse abounds. Psychiatric illness Social History Smoking and tobacco status: current every day smoker cigarettes Packs smoked per day: 1 Years cigarettes smoked: 11 Quit status (tobacco): has tried quititng Number of times tried to quit tobacco: 3 Second hand smoke exposure: Yes Physical Exam Const: COMMON NORMALS: no acute distress, average body habitus, patient oriented x3, no limitations, healthy appearing, alert and well nourished HENMT: COMMON NORMALS: normocephalic, atraumatic, external ears normal, EAC's normal, TM's normal bilaterally, Normal external nose present and Normal nasal mucous membranes and turbinates present HEAD & SCALP: normocephalic and atraumatic NOSE: Normal external nose present and Normal nasal mucous membranes and turbinates present EXTERNAL EAR: Yes external ears normal EXTERNAL AUDITORY CANAL: EAC's normal TYMPANIC MEMBRANE: TM's normal bilaterally Neck/C-Spine: COMMON NORMALS: full ROM, no lymphadenopathy, supple, no meningeal signs, no JVD, Thyroid normal and No carotid bruits THYROID: Thyroid normal Chest: COMMONS NORMALS: normal inspection of the chest, normal palpation of entire chest wall, normal inspection of the breasts and normal palpation of the breasts Breast/axilla inspection: Yes normal inspection of the breasts BREAST/AXILLA PALPATION: Yes normal palpation of the breasts Resp: COMMON NORMALS: normal respiratory effort, No retractions, No use of accessory muscles, clear to auscultation bilaterally and percussion normal AUSCULTATION: clear to auscultation bilaterally PERCUSSION: percussion normal Cardio: COMMON NORMALS: no JVD, regular rate, regular rhythm, S1 normal heart sound present, S2 normal heart sound present, No gallops present (Cardio), No clicks present (Cardio), No murmurs present (Cardio), No rub (Cardio) and Peripheral pulses 2+ throughout RATE: regular rate RHYTHM: regular rhythm HEART SOUNDS: S1 normal heart sound present and S2 normal heart sound present PERIPHERAL PULSES: Peripheral pulses 2+ throughout GI: COMMON NORMALS: Normal to inspection, nondistended, normoactive bowel sounds present, Soft to palpation, non-tender, No hepatosplenomegaly present, no masses and no bruits PALPATION: Yes Soft to palpation and Yes No hepatosplenomegaly present : COMMON NORMALS: Yes no CVA tenderness BLADDER/KIDNEY EXAM: Yes no CVA tenderness Back/Pelvis: COMMON NORMALS: no CVA tenderness, thoracic and lumbar spine normal to inspection, no thoracic nor lumbar tenderness, thoraco-lumbar ROM normal and straight leg raise negative bilaterally Extremity: COMMON NORMALS: normal to inspection, full ROM, capillary refill normal, no joint enlargement, no clubbing, cyanosis or edema, no calf tenderness and no pedal edema Neuro: COMMON NORMALS: patient oriented x3 SENSORIUM/ORIENTATION: Yes alert MENINGEAL SIGNS: Yes no meningeal signs Course Reevaluation(s): Reevaluation #1: Patient appears to have kidney stone on the left. Patient has a long history of methamphetamine abuse and does a admit the same. Patient be discharged home on Flomax and diclofenac. Patient is to follow-up with primary care physician or urology as instructed. Patient should avoid methamphetamine use and abuse. Time: 17:51 Vital Signs: Vital signs: Vital Signs Temperature 98.6 F 12/16/20 16:08 Pulse Rate 78 12/16/20 16:08 Respiratory Rate 24 H 12/16/20 16:08 Blood Pressure 154/90 12/16/20 16:08 Pulse Oximetry 100 12/16/20 16:08 MDM - Back Pain/Injury MDM Narrative: Medical decision making narrative: This patient is a 35-year-old male who presents to the emergency department left flank pain going to the left lower side. Patient states it began earlier today. Patient has a long history of methamphetamine use and does admit that he used yesterday. Patient denies any history of back problems. Patient appears to have kidney stone on the left. Patient has a long history of methamphetamine abuse and does a admit the same. Patient be discharged home on Flomax and diclofenac. Patient is to follow-up with primary care physician or urology as instructed. Patient should avoid methamphetamine use and abuse. Medical Records: Attestation: I reviewed the patient's medical records. Lab Data: Attestation: I reviewed the patient's lab results. Labs: Lab Results 12/16/20 12/16/20 12/16/20 Range/Units 15:45 17:09 17:09 WBC 6.3 (4.0-10.0) 10^3/ uL RBC 4.19 (4.1-5.3) 10^6/u L Hgb 11.4 L (11.7-16.6) g/dL Hct 35.7 L (42.0-52.0) % MCV 85.2 (80-94) fL MCH 27.2 L (28.0-34.0) pg MCHC 31.9 (30.0-36.0) g/dL RDW 16.0 H (12.1-15.1) % Plt Count 325 (130-400) 10^3/c mm MPV 9.7 (7.4-10.4) fL Neut % (Auto) 44.8 % Lymph % (Auto) 39.4 % Edmunds % (Auto) 9.2 % Eos % (Auto) 5.7 % Baso % (Auto) 0.6 % Neut # (Auto) 2.83 (1.8-7.7) 10^3/u L Lymph # (Auto) 2.5 (0.8-4.8) 10^3/u L Edmunds # (Auto) 0.6 (0.2-0.9) 10^3/u L Eos # (Auto) 0.4 (0.0-0.8) 10^3/u L Baso # (Auto) 0.0 (0.0-0.1) 10^3/u L Nucleated RBC % (a uto) 0 % Nucleated RBCs # 0.0 /100WBC Urine Color Yellow (Yellow) Urine Appearance Hazy A (CLEAR) Urine pH 8 H (5-7) Ur Specific Gravit y 1.010 (1.005-1.030) Urine Protein Neg (Negative) Urine Glucose (UA) Norm (Normal) Urine Ketones Negative (Negative) Urine Blood 3+ H (Negative) Urine Nitrate Negative (Negative) Urine Bilirubin Neg (Negative) Prot Sulfosalicyli c Acd Negative (Negative) Urine Urobilinogen Norm (Negative) mg/dL Ur Leukocyte Mela ase Negative (Negative) Urine RBC 15-25 H (0-2) /hpf Urine WBC None (0-5) /hpf Ur Squamous Epith Cells 0-4 H (0-5) /hpf Amorphous Sediment Not Reportable Urine Bacteria 2+ H (NONE) /hpf Urine Opiates Scre en Negative (Negative) ng/mL Ur Barbiturates Sc reen Negative (Negative) ng/mL Ur Phencyclidine S crn Negative (Negative) ng/mL Ur Amphetamines Sc reen Positive H (Negative) ng/mL U Benzodiazepines Scrn Negative (Negative) ng/mL Urine Cocaine Scre en Negative (Negative) ng/mL U Marijuana (THC) Screen Positive H (Negative) ng/mL Imaging Data^: CT Abd/Pel: Attestation: I personally reviewed and interpreted this imaging study as follows: Radiologist's impression: MPRESSION: 1. Small left distal ureteral stone causing mild severity left-sided hydroureteronephrosis. 2. Numerous additional small nonobstructing bilateral kidney stones. Discharge Plan Discharge Patient Disposition: Home Clinical Impression: Kidney stone, Noncompliance, Methamphetamine use disorder, severe Condition: Stable Prescriptions: New Flomax 0.4 mg capsule 0.4 mg PO DAILY Qty: 20 RF: 0 diclofenac sodium 75 mg tablet,delayed release (DR/EC) 75 mg PO BID PRN (Reason: pain) Qty: 20 RF: 0 No Action naltrexone 50 mg tablet 50 mg PO DAILY Qty: 30 RF: 2 ziprasidone HCl 40 mg capsule 40 mg PO BID 30 Days Qty: 60 RF: 2 trazodone 50 mg Tablet 50 mg PO BEDTIME PRN (Reason: Sleep) 30 Days Qty: 30 RF: 1 Discharge Orders: Discharge ED (Routine); Ordered 12/16/20 Ordered By: Kenji Jackman Discharge Diet: Advance as tolerated Discharge Activity: Resume usual activity Patient Instructions: Opioid Safety Activity Restrictions/Additional Instructions: Encourage p.o. fluids. Stop taking methamphetamine. Take medications as prescribed. Follow-up with PCP in 2 to 3 days. Coding Level of Care Code ED Habitat Biologist for Sergei Matute Exam Comprehensive
[2020-12-16] MEDS: ondansetron 2 mg/ML SDV 2 mL 4 MG IVP (17:08)
[2020-12-16] MEDS: ketorolac 30 mg/mL INJ 15 MG IVP (17:08)
[2020-12-16] MEDS: sodium chloride 0.9% 1,000 ML 999 ML IV (17:08)
[2020-12-16 17:18] LABS: Basophils % 0.6 %; Eosinophils # 0.4 10^3/uL (0.0-0.8); Eosinophils % 5.7 %; Hematocrit 35.7 % (42.0-52.0); Hemoglobin 11.4 g/dL (11.7-16.6); Lymphocytes # 2.5 10^3/uL (0.8-4.8); Lymphocytes % 39.4 %; Mean Corpuscular HGB Conc 31.9 g/dL (30.0-36.0); Mean Corpuscular Hemoglobin 27.2 pg (28.0-34.0); Mean Corpuscular Volume 85.2 fL (80-94); Mean Platelet Volume 9.7 fL (7.4-10.4); Monocytes # 0.6 10^3/uL (0.2-0.9); Monocytes % 9.2 %; Neutrophils # 2.83 10^3/uL (1.8-7.7); Neutrophils % 44.8 %; Nucleated Red Blood Cells % 0 %; Platelet Count 325 10^3/cmm (130-400); Red Blood Count 4.19 10^6/uL (4.1-5.3); White Blood Count 6.3 10^3/uL (4.0-10.0)
[2020-12-16 17:28] LABS: Amphetamines Screen Urine Positive (Negative); Barbiturates Screen Urine Negative (Negative); Benzodiazepines Screen Urine Negative (Negative); Cocaine Screen Urine Negative (Negative); Opiate Screen Urine Negative (Negative); PCP Screen Urine Negative (Negative); THC Screen Urine Positive (Negative)
[2020-12-16 17:30] LABS: Add Urine Microscopic? YES; Bilirubin Urine Neg (Negative); Blood Urine 3+ (Negative); Glucose Urine UA Norm (Normal); Ketones Urine Negative (Negative); Leukocyte Esterase Urine Negative (Negative); Nitrate Urine Negative (Negative); Protein Urine Neg (Negative); Sulfosalicylic Acid Urine Negative (Negative); Urine Appearance Hazy (CLEAR); Urine Color Yellow (Yellow); Urobilinogen Urine Norm (Negative); pH Urine 8 (5-7)
[2020-12-16 17:31] LABS: Add Urine Culture? Yes; Bacteria Urine 2+ /hpf; RBC Urine 15-25 /hpf (0-2); Squamous Epithelial Cell Urine 0-4 /hpf (0-5)
[2020-12-16 17:51] LABS: Alanine Aminotransferase 13 U/L (0-41); Albumin Level 3.8 g/dL (3.5-5.2); Alkaline Phosphatase 119 IU/L (40-130); Anion Gap 16.3 (5-19); Aspartate Amino Transferase 20 U/L (0-40); Blood Urea Nitrogen 12 mg/dL (6-20); Calcium 8.8 mg/dL (8.5-10.5); Carbon Dioxide 24 mmol/L (22-29); Chloride 102 mmol/L (98-107); Globulin 3.3 g/dL (1.3-4.6); Glomerular Filtration Rate 95.5 mL/min (90-130); Glucose 90 mg/dL (65-115); Lipase 29 U/L (13-60); Osmolality Calculated 285 mOsm/kg (285-295); Potassium 4.3 mmol/L (3.5-5.1); Sodium 138 mmol/L (136-145); Total Bilirubin 0.3 mg/dL (0.15-1.2); Total Protein 7.1 g/dL (6.6-8.7)
[2020-12-16 18:11] VITALS: PULSE 52; RESP 17; O2SAT 100
== END 2020-12-16 18:11 | disposition home or self-care (01) ==
PROVIDERS: Emergency Provider Emergency Medicine
DX: N20.0 Calculus of kidney (principal); F15.99 Other stimulant use, unspecified with unspecified stimulant-induced disorder; Z91.19 Patient's noncompliance with other medical treatment and regimen; F17.210 Nicotine dependence, cigarettes, uncomplicated
CPT/HCPCS: 74176; 80053; 80306; 81001; 83690; 85025; 87086; 96361; 96374; 96375; 99283; J1885; J2405; J7030

== ENCOUNTER 2021-01-07 15:22 | Emergency (ER) | payer SELFPAY ==
[2021-01-07 15:59] VITALS: BP 101/66; PULSE 95; RESP 16; TEMP 37.6; O2SAT 99
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
[2021-01-07] MEDS: HYDROcodone-acetaminophen 5-325 mg Tablet 1 TAB PO (19:08)
[2021-01-07] MEDS: clindamycin 150 mg Capsule 300 MG PO (19:08)
[2021-01-07 19:09] VITALS: BP 90/62; PULSE 85; PULSE 89; O2SAT 95
[2021-01-07 19:14] VITALS: BP 90/64; PULSE 85; RESP 18; O2SAT 95
== END 2021-01-07 19:15 | disposition home or self-care (01) ==
PROVIDERS: Emergency Provider Emergency Medicine
DX: L03.115 Cellulitis of right lower limb (principal); F17.210 Nicotine dependence, cigarettes, uncomplicated
CPT/HCPCS: 99283

== ENCOUNTER 2021-01-12 13:39 | Emergency (ER) | payer SELFPAY ==
[2021-01-12 13:55] VITALS: BP 119/75; PULSE 85; RESP 16; TEMP 36.4; O2SAT 99
--- NOTE | 2021-01-12 14:13 | PC.NURSE ---
camilo in talking to pt educating pt on keeping wound care apt and taking.
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
== END 2021-01-12 14:49 | disposition home or self-care (01) ==
PROVIDERS: Emergency Provider Nurse Practitioner Family
DX: S81.801A Unspecified open wound, right lower leg, initial encounter (principal); F17.210 Nicotine dependence, cigarettes, uncomplicated; W34.00XA Accidental discharge from unspecified firearms or gun, initial encounter
CPT/HCPCS: 99282

== ENCOUNTER 2021-01-18 15:28 | Emergency (ER) | payer SELFPAY ==
[2021-01-18 15:32] VITALS: BP 96/63; PULSE 74; RESP 16; TEMP 36.4; O2SAT 100; BMI 21.1
--- NOTE | 2021-01-18 15:42 | ED_ITS ---
HPI - General Adult General: Chief complaint: Psychiatric Symptoms Stated complaint: SUICIDAL Time Seen by Provider: 01/18/21 15:38 History of Present Illness: HPI narrative: This patient presents to the emergency department 35-year-old male with a complaint of hallucinations and thoughts of suicidal ideation. Patient states he thinks he sees things that are not there states at times he will be walking down the road did not know how he got there. Patient states he has had thoughts of just jumping out in front of traffic. Patient states he is otherwise homeless but does state his mom's backyard living outside. Patient is well-known to this facility and has a long history of methamphetamine abuse. No other drug abuse. Patient states he has not used anything in about a week. Will do medical evaluation treat as needed Associated symptoms: Deny chest pain, dyspnea, headache(s), nausea, rash, palpitations or vomiting Review of Systems General: Reports: 10 or more systems reviewed and unremarkable except in HPI and below Const: Denies: fever(s), chills, body aches or fatigue Eyes: Denies: change in vision or blurry vision ENMT: Denies: throat pain, hoarseness or mouth pain Card: Denies: chest pain, palpitations, irregular heart rhythm, edema, swelling of feet/ankles or lightheadedness Resp: Denies: dyspnea, productive cough, non-productive cough, wheezing or pain on inspiration GI: Denies: abdominal pain, nausea or vomiting : Denies: flank pain, dysuria, urinary frequency, urinary urgency or urinary hesitancy Musc: Denies: neck pain, back pain, extremity pain, extremity swelling, joint pain, joint swelling, joint redness, joint warmth or limited range of motion Skin/Breast: Denies: rash, pruritus, erythema or skin tenderness Neuro: Denies: headache(s), numbness in extremities or weakness in extremities Psych: Reports: auditory hallucinations and suicidal ideation; Denies: anxiety or depression PFSH ED PFSH: Medical History Creatinine elevation Elevated troponin External otitis of right ear Methamphetamine dependence Noncompliance Open wound of right lower leg Otitis externa Family History Family/Other , The whole family is afflicted with schizoaffective disorder versus bipolar disease. Rampant methamphetamine abuse abounds. Psychiatric illness Social History Smoking and tobacco status: current every day smoker cigarettes Packs smoked per day: 1 Years cigarettes smoked: 11 Quit status (tobacco): has tried quititng Number of times tried to quit tobacco: 3 Second hand smoke exposure: Yes Physical Exam Const: COMMON NORMALS: no acute distress, average body habitus, patient oriented x3, no limitations, healthy appearing, alert and well nourished HENMT: COMMON NORMALS: normocephalic, atraumatic, hearing grossly normal bilaterally, external ears normal, EAC's normal, TM's normal bilaterally, Normal external nose present, Normal nasal mucous membranes and turbinates present, moist oral mucous membranes, oropharynx normal, dentition normal and gingiva normal HEAD & SCALP: normocephalic and atraumatic NOSE: Normal external nose present and Normal nasal mucous membranes and turbinates present EXTERNAL EAR: Yes external ears normal EXTERNAL AUDITORY CANAL: EAC's normal TYMPANIC MEMBRANE: TM's normal bilaterally Neck/C-Spine: COMMON NORMALS: full ROM, no lymphadenopathy, supple, no meningeal signs, no JVD, Thyroid normal and No carotid bruits THYROID: Thyroid normal Chest: COMMONS NORMALS: normal inspection of the chest, normal palpation of entire chest wall, normal inspection of the breasts and normal palpation of the breasts Breast/axilla inspection: Yes normal inspection of the breasts BREAST/AXILLA PALPATION: Yes normal palpation of the breasts Resp: COMMON NORMALS: normal respiratory effort, No retractions, No use of accessory muscles, clear to auscultation bilaterally and percussion normal AUSCULTATION: clear to auscultation bilaterally PERCUSSION: percussion normal Cardio: COMMON NORMALS: no JVD, regular rate, regular rhythm, S1 normal heart sound present, S2 normal heart sound present, No gallops present (Cardio), No clicks present (Cardio), No murmurs present (Cardio), No rub (Cardio) and Peripheral pulses 2+ throughout RATE: regular rate RHYTHM: regular rhythm HEART SOUNDS: S1 normal heart sound present and S2 normal heart sound present PERIPHERAL PULSES: Peripheral pulses 2+ throughout GI: COMMON NORMALS: Normal to inspection, nondistended, normoactive bowel sounds present, Soft to palpation, non-tender, No hepatosplenomegaly present, no masses and no bruits PALPATION: Yes Soft to palpation and Yes No hepatosplenomegaly present : COMMON NORMALS: Yes no CVA tenderness BLADDER/KIDNEY EXAM: Yes no CVA tenderness Back/Pelvis: COMMON NORMALS: no CVA tenderness, thoracic and lumbar spine normal to inspection, no thoracic nor lumbar tenderness, thoraco-lumbar ROM normal and straight leg raise negative bilaterally Extremity: COMMON NORMALS: normal to inspection, full ROM, capillary refill normal, no joint enlargement, no clubbing, cyanosis or edema, no calf tenderness and no pedal edema NARRATIVE EXTREMITY EXAM: Old wound to lower extremity appears to be normal for patient healing slowly. No signs of erythema with infection Neuro: COMMON NORMALS: patient oriented x3 SENSORIUM/ORIENTATION: Yes alert MENINGEAL SIGNS: Yes no meningeal signs Psych: COMMON NORMALS: mental status grossly normal, Normal thought process present and cooperative THOUGHT PROCESS: Normal thought process present THOUGHT CONTENT: Yes Suicidality present and Yes Hallucination(s) present Course Reevaluation(s): Reevaluation #1: I did discuss at length with patient about findings and Dr. Woodson recommendations. Patient be discharged home. Time: 20:21 Consultations: Consultation #1: I discussed at length with Dr. Woodson psychiatry. He will see patient and advise further. Time: 17:10 Consultation #2: Patient was evaluated by Dr. Woodson psychiatry. Believe this patient is chronic drug abuse and chronic situations. He states is okay to be discharged home follow-up with [facility] seen as an outpatient. Avoid taking methamphetamine and other use of drugs Vital Signs: Vital signs: Vital Signs Temperature 98.3 F 01/18/21 17:53 Pulse Rate 68 01/18/21 20:14 Respiratory Rate 16 01/18/21 20:14 Blood Pressure 116/79 01/18/21 17:53 Pulse Oximetry 99 01/18/21 20:14 MDM - General Adult MDM Narrative: Medical decision making narrative: Patient was evaluated by Dr. Woodson psychiatry. Believe this patient is chronic drug abuse and chronic situations. He states is okay to be discharged home follow-up with [facility] seen as an outpatient. Avoid taking methamphetamine and other use of drugs Lab Data: Labs: Lab Results 01/18/21 01/18/21 01/18/21 Range/Units 16:16 16:16 16:16 WBC 6.7 (4.0-10.0) 10^3/ uL RBC 3.79 L (4.1-5.3) 10^6/u L Hgb 10.1 L (11.7-16.6) g/dL Hct 32.7 L (42.0-52.0) % MCV 86.3 (80-94) fl MCH 26.6 L (28.0-34.0) pg MCHC 30.9 (30.0-36.0) g/dL RDW 15.3 H (12.1-15.1) % Plt Count 426 H (130-400) 10^3/c mm MPV 8.4 (7.4-10.4) fL Neut % (Auto) 58.3 % Lymph % (Auto) 26.1 % [place] % (Auto) 8.8 % Eos % (Auto) 6.1 % Baso % (Auto) 0.4 % Neut # (Auto) 3.91 (1.8-7.7) 10^3/u L Lymph # (Auto) 1.8 (0.8-4.8) 10^3/u L [place] # (Auto) 0.6 (0.2-0.9) 10^3/u L Eos # (Auto) 0.4 (0.0-0.8) 10^3/u L Baso # (Auto) 0.0 (0.0-0.1) 10^3/u L Nucleated RBC % (a uto) 0 % Nucleated RBCs # 0.0 /100WBC Sodium 133 L (136-145) mmol/L Potassium 4.0 (3.5-5.1) mmol/L Chloride 98 (98-107) mmol/L Carbon Dioxide 27 (22-29) mmol/L Anion Gap 12.0 (5-19) BUN 13 (6-20) mg/dL Creatinine 0.7 (0.7-1.2) mg/dL GFR Calculation 127.6 (90-130) mL/min Glucose 89 (65-115) mg/dL Calculated Osmolal ity 276 L (285-295) mOsm/k g Calcium 8.8 (8.5-10.5) mg/dL Total Bilirubin 0.5 (0.15-1.2) mg/dL AST 13 (0-40) U/L ALT 10 (0-41) U/L Alkaline Phosphata se 99 (40-130) IU/L Total Protein 7.6 (6.6-8.7) g/dL Albumin 3.6 (3.5-5.2) g/dL Globulin 4.0 (1.3-4.6) g/dL Urine Color Yellow (Yellow) Urine Appearance Clear (CLEAR) Urine pH 6.5 (5-7) Ur Specific Gravit y 1.010 (1.005-1.030) Urine Protein Neg (Negative) Urine Glucose (UA) Norm (Normal) Urine Ketones Negative (Negative) Urine Blood Trace H (Negative) Urine Nitrate Negative (Negative) Urine Bilirubin Neg (Negative) Urine Urobilinogen Neg (Negative) mg/dL Ur Leukocyte Mela ase Negative (Negative) Urine RBC 0-4 H (0-2) /hpf Urine WBC None (0-5) /hpf Ur Squamous Epith Cells 0-4 H (0-5) /hpf Amorphous Sediment Not Reportable Urine Bacteria Trace (NONE) /hpf Salicylates < 0.3 L (3-10) mg/dL Urine Opiates Scre en (Negative) ng/mL Acetaminophen < 5.0 L (10-30) ug/mL Ur Barbiturates Sc reen (Negative) ng/mL Ur Phencyclidine S crn (Negative) ng/mL Ur Amphetamines Sc reen (Negative) ng/mL U Benzodiazepines Scrn (Negative) ng/mL Urine Cocaine Scre en (Negative) ng/mL U Marijuana (THC) Screen (Negative) ng/mL Ethyl Alcohol < 10 (0-10) mg/dL 01/18/21 Range/Units 16:16 WBC (4.0-10.0) 10^3/ uL RBC (4.1-5.3) 10^6/u L Hgb (11.7-16.6) g/dL Hct (42.0-52.0) % MCV (80-94) fl MCH (28.0-34.0) pg MCHC (30.0-36.0) g/dL RDW (12.1-15.1) % Plt Count (130-400) 10^3/c mm MPV (7.4-10.4) fL Neut % (Auto) % Lymph % (Auto) % [place] % (Auto) % Eos % (Auto) % Baso % (Auto) % Neut # (Auto) (1.8-7.7) 10^3/u L Lymph # (Auto) (0.8-4.8) 10^3/u L [place] # (Auto) (0.2-0.9) 10^3/u L Eos # (Auto) (0.0-0.8) 10^3/u L Baso # (Auto) (0.0-0.1) 10^3/u L Nucleated RBC % (a uto) % Nucleated RBCs # /100WBC Sodium (136-145) mmol/L Potassium (3.5-5.1) mmol/L Chloride (98-107) mmol/L Carbon Dioxide (22-29) mmol/L Anion Gap (5-19) BUN (6-20) mg/dL Creatinine (0.7-1.2) mg/dL GFR Calculation (90-130) mL/min Glucose (65-115) mg/dL Calculated Osmolal ity (285-295) mOsm/k g Calcium (8.5-10.5) mg/dL Total Bilirubin (0.15-1.2) mg/dL AST (0-40) U/L ALT (0-41) U/L Alkaline Phosphata se (40-130) IU/L Total Protein (6.6-8.7) g/dL Albumin (3.5-5.2) g/dL Globulin (1.3-4.6) g/dL Urine Color (Yellow) Urine Appearance (CLEAR) Urine pH (5-7) Ur Specific Gravit y (1.005-1.030) Urine Protein (Negative) Urine Glucose (UA) (Normal) Urine Ketones (Negative) Urine Blood (Negative) Urine Nitrate (Negative) Urine Bilirubin (Negative) Urine Urobilinogen (Negative) mg/dL Ur Leukocyte Mela ase (Negative) Urine RBC (0-2) /hpf Urine WBC (0-5) /hpf Ur Squamous Epith Cells (0-5) /hpf Amorphous Sediment Urine Bacteria (NONE) /hpf Salicylates (3-10) mg/dL Urine Opiates Scre en Negative (Negative) ng/mL Acetaminophen (10-30) ug/mL Ur Barbiturates Sc reen Negative (Negative) ng/mL Ur Phencyclidine S crn Negative (Negative) ng/mL Ur Amphetamines Sc reen Positive H (Negative) ng/mL U Benzodiazepines Scrn Positive H (Negative) ng/mL Urine Cocaine Scre en Negative (Negative) ng/mL U Marijuana (THC) Screen Positive H (Negative) ng/mL Ethyl Alcohol (0-10) mg/dL EKG Data^: EKG 1: Attestation: I personally reviewed and interpreted this EKG as follows: EKG interpretation date: 01/18/21 EKG interpretation time: 16:06 Prior EKG tracings: available for review Computer generated interpretation: This bradycardia heart rate 52 incomplete right bundle branch block. Nonspecific ST changes. Discharge Plan Discharge Patient Disposition: Home Clinical Impression: Drug-induced psychotic disorder, Noncompliance, Methamphetamine use disorder, severe Condition: Stable Prescriptions: No Action naltrexone 50 mg tablet 50 mg PO DAILY Qty: 30 RF: 2 ziprasidone HCl 40 mg capsule 40 mg PO BID 30 Days Qty: 60 RF: 2 Flomax 0.4 mg capsule 0.4 mg PO DAILY Qty: 20 RF: 0 diclofenac sodium 75 mg tablet,delayed release (DR/EC) 75 mg PO BID PRN (Reason: pain) Qty: 20 RF: 0 clindamycin HCl 300 mg capsule 300 mg PO Q8H 7 Days Qty: 21 RF: 0 Celebrex 100 mg capsule 100 mg PO BID Qty: 20 RF: 0 trazodone 50 mg Tablet 50 mg PO BEDTIME PRN (Reason: Sleep) 30 Days Qty: 30 RF: 1 Discharge Orders: Discharge ED (Routine); Ordered 01/18/21 Ordered By: Kenji Jackman Discharge Diet: Advance as tolerated Discharge Activity: Resume usual activity Patient Instructions: Opioid Safety Activity Restrictions/Additional Instructions: Continue all previous medications. Follow-up with [facility] as an outpatient to restart any medical treatment psychological treatment that she may have been previously ordered. Try to avoid meth use the drugs including methamphetamine. Coding Level of Care Code ED Surgical [employer] Knitter Hand Frame for Michaelg Fwd Exam Comprehensive
[2021-01-18 16:23] LABS: Basophils % 0.4 %; Eosinophils # 0.4 10^3/uL (0.0-0.8); Eosinophils % 6.1 %; Hematocrit 32.7 % (42.0-52.0); Hemoglobin 10.1 g/dL (11.7-16.6); Lymphocytes # 1.8 10^3/uL (0.8-4.8); Lymphocytes % 26.1 %; Mean Corpuscular HGB Conc 30.9 g/dL (30.0-36.0); Mean Corpuscular Hemoglobin 26.6 pg (28.0-34.0); Mean Corpuscular Volume 86.3 fl (80-94); Mean Platelet Volume 8.4 fL (7.4-10.4); Monocytes # 0.6 10^3/uL (0.2-0.9); Monocytes % 8.8 %; Neutrophils # 3.91 10^3/uL (1.8-7.7); Neutrophils % 58.3 %; Nucleated Red Blood Cells % 0 %; Platelet Count 426 10^3/cmm (130-400); Red Blood Count 3.79 10^6/uL (4.1-5.3); Red Cell Distribution Width 15.3 % (12.1-15.1); White Blood Count 6.7 10^3/uL (4.0-10.0)
[2021-01-18 16:58] LABS: Alanine Aminotransferase 10 U/L (0-41); Albumin Level 3.6 g/dL (3.5-5.2); Alkaline Phosphatase 99 IU/L (40-130); Aspartate Amino Transferase 13 U/L (0-40); Blood Urea Nitrogen 13 mg/dL (6-20); Calcium 8.8 mg/dL (8.5-10.5); Carbon Dioxide 27 mmol/L (22-29); Chloride 98 mmol/L (98-107); Glomerular Filtration Rate 127.6 mL/min (90-130); Glucose 89 mg/dL (65-115); Osmolality Calculated 276 mOsm/kg (285-295); Sodium 133 mmol/L (136-145); Total Bilirubin 0.5 mg/dL (0.15-1.2); Total Protein 7.6 g/dL (6.6-8.7)
[2021-01-18 17:03] LABS: Amphetamines Screen Urine Positive (Negative); Barbiturates Screen Urine Negative (Negative); Benzodiazepines Screen Urine Positive (Negative); Cocaine Screen Urine Negative (Negative); Opiate Screen Urine Negative (Negative); PCP Screen Urine Negative (Negative); THC Screen Urine Positive (Negative)
[2021-01-18 17:14] LABS: Acetaminophen < 5.0 ug/mL (10-30); Alcohol Level < 10 mg/dL (0-10); Salicylate < 0.3 mg/dL (3-10)
[2021-01-18 17:15] LABS: Add Urine Microscopic? YES; Bacteria Urine TRACE /hpf; Bilirubin Urine Neg (Negative); Blood Urine Trace (Negative); Glucose Urine UA Norm (Normal); Ketones Urine Negative (Negative); Leukocyte Esterase Urine Negative (Negative); Nitrate Urine Negative (Negative); Protein Urine Neg (Negative); RBC Urine 0-4 /hpf (0-2); Squamous Epithelial Cell Urine 0-4 /hpf (0-5); Urine Appearance Clear (CLEAR); Urine Color Yellow (Yellow); Urobilinogen Urine Neg (Negative); pH Urine 6.5 (5-7)
[2021-01-18 17:53] VITALS: BP 116/79; PULSE 70; RESP 16; TEMP 36.8; O2SAT 99
[2021-01-18 20:14] VITALS: PULSE 68; RESP 16; O2SAT 99
[2021-01-18 20:41] VITALS: BP 114/75; PULSE 71; RESP 16; TEMP 37; O2SAT 99
== END 2021-01-18 20:43 | disposition home or self-care (01) ==
PROVIDERS: Emergency Provider Emergency Medicine
DX: F15.959 Other stimulant use, unspecified with stimulant-induced psychotic disorder, unspecified (principal); F17.210 Nicotine dependence, cigarettes, uncomplicated
CPT/HCPCS: 80053; 80306; 80307; 81001; 85025; 99283

== ENCOUNTER 2021-02-07 11:08 | Emergency (ER) | payer SELFPAY ==
[2021-02-07 11:30] VITALS: BP 149/95; PULSE 94; RESP 16; TEMP 36.7; O2SAT 96
[2021-02-07 11:56] VITALS: BP 145/91; PULSE 92; TEMP 36.8; O2SAT 97
--- NOTE | 2021-02-07 12:35 | W.ED.PSYCH ---
Documented by User: Pascual Walker MD 02/08/21 14:53 HPI - Psych General: Chief Complaint: Psychiatric Symptoms Stated Complaint: ON DRUGS/ MHE Time Seen by Provider: 02/07/21 12:34 History of Present Illness: HPI Narrative: Mr Wade is a 35-year-old gentleman with significant past medical history of psychiatric disorder and substance abuse who presents emerged department due to mental health concern. The patient endorses various complaints which are chronic for him including hallucinations that bother him. He endorses occasional SI though no specific plan. He does endorse recent methamphetamine use and does appear clinically intoxicated on methamphetamine. No other specific medical complaints. Overall the course of his symptoms has persisted. It is exacerbated by methamphetamine. He has tried psychiatric medications before and occasionally gets some relief but is not consistently taking them. No other specific exacerbating relieving factors identified. Review of Systems General: Reports: 10 or more systems reviewed and unremarkable except in HPI and below Narrative: CONSTITUTIONAL: denies fever, fatigue, weakness EYES - denies pain, denies loss of vision NOSE - denies congestion or rhinorrhea. THROAT - denies sore throat or difficulty swallowing. CARDIOVASCULAR - denies chest pain and palpitations RESPIRATORY - denies shortness of breath and cough GASTROINTESTINAL - denies abdominal pain, no nausea vomiting, no changes in bowel habits GENITOURINARY - denies dysuria or urinary frequency MUSCULOSKELETAL- denies deformity or pain SKIN - denies rashes. Scattered skin picking mas NEUROLOGIC - denies focal weakness or sensory changes HEMATOLOGIC/LYMPHATIC - denies easy bruising or lymphadenopathy. [facility] ED PFSH: Medical History Creatinine elevation Elevated troponin External otitis of right ear Methamphetamine dependence Noncompliance Open wound of right lower leg Otitis externa Family History Family/Other , The whole family is afflicted with schizoaffective disorder versus bipolar disease. Rampant methamphetamine abuse abounds. Psychiatric illness Social History Smoking and tobacco status: current every day smoker cigarettes Packs smoked per day: 1 Years cigarettes smoked: 11 Quit status (tobacco): has tried quititng Number of times tried to quit tobacco: 3 Second hand smoke exposure: Yes Physical Exam Narrative: EXAM NARRATIVE: GENERAL/CONSTITUTIONAL - well-appearing. 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 At times punching air reporting seeing bugs. Eyes - PERRL, no conjunctival injection ENMT - Atraumatic external nose and ears. Moist mucous membranes NECK - supple. trachea midline CARDIOVASCULAR - regular rate and rhythm. RESPIRATORY -clear to auscultation bilaterally. No retractions or accessory muscle use. ABDOMEN/GI - Nontender/Nondistended. MSK - Extremities without obvious deformity or tenderness to palpation SKIN - Warm, Dry. Scattered pick mas without evidence of infection. NEURO - alert and appropriately oriented. strength and sensation intact. Moves all extremities equally. PSYCH -mildly agitated, appropriate cognition. Course ED course: - Patient was seen and evaluated by me at chair side -Vital signs obtained - Initial evaluation notable for as noted, punching air to hit flies . - Given lead refill of agitation oral Ativan ordered. - Labs notable for no acute abnormality requiring intervention. - Patient will require psychiatric evaluation though based on clinical appearance symptoms are largely secondary to methamphetamine abuse. - Patient care handed off to overnight physician Dr. Haddad pending psychiatrist recommendations Vital Signs: Vital signs: Vital Signs Temperature 98.2 F 02/07/21 11:56 Pulse Rate 97 02/07/21 18:57 Respiratory Rate 16 02/07/21 11:30 Blood Pressure 140/89 02/07/21 14:47 Pulse Oximetry 96 02/07/21 18:57 MDM - Psych Medical Records: Attestation: I reviewed the patient's medical records. Lab Data: Attestation: I reviewed the patient's lab results. Labs: Lab Results 02/07/21 02/07/21 02/07/21 Range/Units 11:44 12:55 12:55 WBC 5.7 (4.0-10.0) 10^3/ uL RBC 3.95 L (4.1-5.3) 10^6/u L Hgb 10.8 L (11.7-16.6) g/dL Hct 33.8 L (42.0-52.0) % MCV 85.6 (80-94) fl MCH 27.3 L (28.0-34.0) pg MCHC 32.0 (30.0-36.0) g/dL RDW 16.3 H (12.1-15.1) % Plt Count 279 (130-400) 10^3/c mm MPV 9.0 (7.4-10.4) fL Neut % (Auto) 54.2 % Lymph % (Auto) 30.9 % [place] % (Auto) 8.4 % Eos % (Auto) 5.6 % Baso % (Auto) 0.7 % Neut # (Auto) 3.09 (1.8-7.7) 10^3/u L Lymph # (Auto) 1.8 (0.8-4.8) 10^3/u L [place] # (Auto) 0.5 (0.2-0.9) 10^3/u L Eos # (Auto) 0.3 (0.0-0.8) 10^3/u L Baso # (Auto) 0.0 (0.0-0.1) 10^3/u L Nucleated RBC % (a uto) 0 % Nucleated RBCs # 0.0 /100WBC Sodium 138 (136-145) mmol/L Potassium 3.9 (3.5-5.1) mmol/L Chloride 103 (98-107) mmol/L Carbon Dioxide 25 (22-29) mmol/L Anion Gap 13.9 (5-19) BUN 13 (6-20) mg/dL Creatinine 0.9 (0.7-1.2) mg/dL GFR Calculation 95.5 (90-130) mL/min Glucose 78 (65-115) mg/dL Calculated Osmolal ity 285 (285-295) mOsm/k g Calcium 8.7 (8.5-10.5) mg/dL Total Bilirubin 0.5 (0.15-1.2) mg/dL AST 29 (0-40) U/L ALT 18 (0-41) U/L Alkaline Phosphata se 102 (40-130) IU/L Total Protein 7.1 (6.6-8.7) g/dL Albumin 3.9 (3.5-5.2) g/dL Globulin 3.2 (1.3-4.6) g/dL TSH 1.08 (0.27-4.20) uIU/ mL Salicylates < 0.3 L (3-10) mg/dL Urine Opiates Scre en Negative (Negative) ng/mL Acetaminophen < 5.0 L (10-30) ug/mL Ur Barbiturates Sc reen Negative (Negative) ng/mL Ur Phencyclidine S crn Negative (Negative) ng/mL Ur Amphetamines Sc reen Positive H (Negative) ng/mL U Benzodiazepines Scrn Negative (Negative) ng/mL Urine Cocaine Scre en Negative (Negative) ng/mL U Marijuana (THC) Screen Positive H (Negative) ng/mL EKG Data^: EKG 1: Attestation: I personally reviewed and interpreted this EKG as follows: EKG interpretation date: 02/07/21 EKG interpretation time: 13:20 Interpretation: Twelve-lead EKG shows a regular sinus rhythm at a rate of 78. SC interval 153, QRS duration 118, QTc 441. Normal axis. Interpretation: Sinus rhythm, mildly limited interpretation secondary to baseline. Discharge Plan Discharge Patient Disposition: Home Clinical Impression: Methamphetamine-induced psychotic disorder, Psychiatric complaint Condition: Stable Prescriptions: No Action ziprasidone HCl 40 mg capsule 40 mg PO BID 30 Days Qty: 60 RF: 2 tamsulosin [Flomax] 0.4 mg capsule 0.4 mg PO DAILY Qty: 20 RF: 0 celecoxib [Celebrex] 100 mg capsule 100 mg PO BID Qty: 20 RF: 0 naltrexone 50 mg tablet 50 mg PO DAILY RF: 0 trazodone 50 mg Tablet 50 mg PO BEDTIME PRN (Reason: Sleep) 30 Days Qty: 30 RF: 1 Discharge Orders: Discharge ED (Routine); Ordered 02/07/21 Ordered By: Eduarda Haddad Discharge Diet: Usual diet Discharge Activity: Resume usual activity Patient Instructions: Methamphetamine Abuse (ED), Suicide Prevention for Adults (ED), Opioid Safety Activity Restrictions/Additional Instructions: Thank you for visiting the emergency department. You were seen and evaluated for psychiatric concerns. You were evaluated by a psychiatrist. Stop doing drugs, failure to do so will lead to or worse. Coding Level of Care Code ED Jewelry Casting Model Maker for Chg Fwd Documented by User: Eduarda Haddad MD 02/07/21 19:11 HPI - Psych General: Chief Complaint: Psychiatric Symptoms Stated Complaint: ON DRUGS/ MHE Time Seen by Provider: 02/07/21 12:34 [facility] ED PFSH: Medical History Creatinine elevation Elevated troponin External otitis of right ear Methamphetamine dependence Noncompliance Open wound of right lower leg Otitis externa Family History Family/Other , The whole family is afflicted with schizoaffective disorder versus bipolar disease. Rampant methamphetamine abuse abounds. Psychiatric illness Social History Smoking and tobacco status: current every day smoker cigarettes Packs smoked per day: 1 Years cigarettes smoked: 11 Quit status (tobacco): has tried quititng Number of times tried to quit tobacco: 3 Second hand smoke exposure: Yes Course Vital Signs: Vital signs: Vital Signs Temperature 98.2 F 02/07/21 11:56 Pulse Rate 97 02/07/21 18:57 Respiratory Rate 16 02/07/21 11:30 Blood Pressure 140/89 02/07/21 14:47 Pulse Oximetry 96 02/07/21 18:57 MDM - Psych MDM Narrative: Medical decision making narrative: I took patient over from Dr. Gamez. Patient was evaluated by psychiatry Dr. Perez who do not believe that requires inpatient admit to the psychiatric dept. Patient has long history of methamphetamine abuse and is stable for discharge at this time. Lab Data: Labs: Lab Results 02/07/21 02/07/21 02/07/21 Range/Units 11:44 12:55 12:55 WBC 5.7 (4.0-10.0) 10^3/ uL RBC 3.95 L (4.1-5.3) 10^6/u L Hgb 10.8 L (11.7-16.6) g/dL Hct 33.8 L (42.0-52.0) % MCV 85.6 (80-94) fl MCH 27.3 L (28.0-34.0) pg MCHC 32.0 (30.0-36.0) g/dL RDW 16.3 H (12.1-15.1) % Plt Count 279 (130-400) 10^3/c mm MPV 9.0 (7.4-10.4) fL Neut % (Auto) 54.2 % Lymph % (Auto) 30.9 % [place] % (Auto) 8.4 % Eos % (Auto) 5.6 % Baso % (Auto) 0.7 % Neut # (Auto) 3.09 (1.8-7.7) 10^3/u L Lymph # (Auto) 1.8 (0.8-4.8) 10^3/u L [place] # (Auto) 0.5 (0.2-0.9) 10^3/u L Eos # (Auto) 0.3 (0.0-0.8) 10^3/u L Baso # (Auto) 0.0 (0.0-0.1) 10^3/u L Nucleated RBC % (a uto) 0 % Nucleated RBCs # 0.0 /100WBC Sodium 138 (136-145) mmol/L Potassium 3.9 (3.5-5.1) mmol/L Chloride 103 (98-107) mmol/L Carbon Dioxide 25 (22-29) mmol/L Anion Gap 13.9 (5-19) BUN 13 (6-20) mg/dL Creatinine 0.9 (0.7-1.2) mg/dL GFR Calculation 95.5 (90-130) mL/min Glucose 78 (65-115) mg/dL Calculated Osmolal ity 285 (285-295) mOsm/k g Calcium 8.7 (8.5-10.5) mg/dL Total Bilirubin 0.5 (0.15-1.2) mg/dL AST 29 (0-40) U/L ALT 18 (0-41) U/L Alkaline Phosphata se 102 (40-130) IU/L Total Protein 7.1 (6.6-8.7) g/dL Albumin 3.9 (3.5-5.2) g/dL Globulin 3.2 (1.3-4.6) g/dL TSH 1.08 (0.27-4.20) uIU/ mL Salicylates < 0.3 L (3-10) mg/dL Urine Opiates Scre en Negative (Negative) ng/mL Acetaminophen < 5.0 L (10-30) ug/mL Ur Barbiturates Sc reen Negative (Negative) ng/mL Ur Phencyclidine S crn Negative (Negative) ng/mL Ur Amphetamines Sc reen Positive H (Negative) ng/mL U Benzodiazepines Scrn Negative (Negative) ng/mL Urine Cocaine Scre en Negative (Negative) ng/mL U Marijuana (THC) Screen Positive H (Negative) ng/mL Discharge Plan Discharge Patient Disposition: Home Clinical Impression: Methamphetamine-induced psychotic disorder, Psychiatric complaint Condition: Stable Prescriptions: No Action ziprasidone HCl 40 mg capsule 40 mg PO BID 30 Days Qty: 60 RF: 2 tamsulosin [Flomax] 0.4 mg capsule 0.4 mg PO DAILY Qty: 20 RF: 0 celecoxib [Celebrex] 100 mg capsule 100 mg PO BID Qty: 20 RF: 0 naltrexone 50 mg tablet 50 mg PO DAILY RF: 0 trazodone 50 mg Tablet 50 mg PO BEDTIME PRN (Reason: Sleep) 30 Days Qty: 30 RF: 1 Discharge Orders: Discharge ED (Routine); Ordered 02/07/21 Ordered By: Eduarda Haddad Discharge Diet: Usual diet Discharge Activity: Resume usual activity Patient Instructions: Methamphetamine Abuse (ED), Suicide Prevention for Adults (ED), Opioid Safety Activity Restrictions/Additional Instructions: Thank you for visiting the emergency department. You were seen and evaluated for psychiatric concerns. You were evaluated by a psychiatrist. Stop doing drugs, failure to do so will lead to or worse. Coding Level of Care Code ED Jewelry Casting Model Maker for Sergei Matute
--- NOTE | 2021-02-07 12:41 | ECG_ITS ---
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 Measurements Intervals [place] Rate: 78 P: 58 [place]: 153 QRS: 26 QRSD: 118 T: 42 QT: 408 QTc: 465 Interpretive Statements Sinus rhythm Incomplete right bundle branch block Compared to ECG 10/23/2020 21:33:55 Sinus tachycardia no longer present Myocardial infarct finding no longer present Electronically Signed On 02-09-2021 9:04:02 CDT by Rosemary Ordaz M.D. [id number]
[2021-02-07] MEDS: LORazepam 2 mg Tablet PO (12:59)
[2021-02-07 13:10] LABS: Basophils % 0.7 %; Eosinophils # 0.3 10^3/uL (0.0-0.8); Eosinophils % 5.6 %; Hematocrit 33.8 % (42.0-52.0); Hemoglobin 10.8 g/dL (11.7-16.6); Lymphocytes # 1.8 10^3/uL (0.8-4.8); Lymphocytes % 30.9 %; Mean Corpuscular Hemoglobin 27.3 pg (28.0-34.0); Mean Corpuscular Volume 85.6 fl (80-94); Monocytes # 0.5 10^3/uL (0.2-0.9); Monocytes % 8.4 %; Neutrophils # 3.09 10^3/uL (1.8-7.7); Neutrophils % 54.2 %; Nucleated Red Blood Cells % 0 %; Platelet Count 279 10^3/cmm (130-400); Red Blood Count 3.95 10^6/uL (4.1-5.3); Red Cell Distribution Width 16.3 % (12.1-15.1); White Blood Count 5.7 10^3/uL (4.0-10.0)
[2021-02-07 13:23] LABS: Amphetamines Screen Urine Positive (Negative); Barbiturates Screen Urine Negative (Negative); Benzodiazepines Screen Urine Negative (Negative); Cocaine Screen Urine Negative (Negative); Opiate Screen Urine Negative (Negative); PCP Screen Urine Negative (Negative); THC Screen Urine Positive (Negative)
--- NOTE | 2021-02-07 14:03 | PC.NURSE ---
PATIENT APPEARS TO BE JUMPY WHEN TOUCHED. PATIENT CURRENTLY RESTING IN HIS CHAIR. NO FURTHER NEEDS AT THIS TIME.
[2021-02-07 14:24] LABS: Alanine Aminotransferase 18 U/L (0-41); Albumin Level 3.9 g/dL (3.5-5.2); Alkaline Phosphatase 102 IU/L (40-130); Anion Gap 13.9 (5-19); Aspartate Amino Transferase 29 U/L (0-40); Blood Urea Nitrogen 13 mg/dL (6-20); Calcium 8.7 mg/dL (8.5-10.5); Carbon Dioxide 25 mmol/L (22-29); Chloride 103 mmol/L (98-107); Globulin 3.2 g/dL (1.3-4.6); Glomerular Filtration Rate 95.5 mL/min (90-130); Glucose 78 mg/dL (65-115); Osmolality Calculated 285 mOsm/kg (285-295); Potassium 3.9 mmol/L (3.5-5.1); Sodium 138 mmol/L (136-145); Thyroid Stimulating Hormone 1.08 uIU/mL (0.27-4.20); Total Bilirubin 0.5 mg/dL (0.15-1.2); Total Protein 7.1 g/dL (6.6-8.7)
[2021-02-07 14:25] LABS: Acetaminophen < 5.0 ug/mL (10-30); Salicylate < 0.3 mg/dL (3-10)
[2021-02-07 14:47] VITALS: BP 140/89; PULSE 94; O2SAT 96
--- NOTE | 2021-02-07 16:41 | P.CONIM_ITS ---
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 The ED note states: Mr Wade is a 35-year-old gentleman with significant past medical history of psychiatric disorder and substance abuse who presents emerged department due to mental health concern. The patient endorses various complaints which are chronic for him including hallucinations that bother him. He endorses occasional SI though no specific plan. He does endorse recent methamphetamine use and does appear clinically intoxicated on methamphetamine. No other specific medical complaints. Overall the course of his symptoms has persisted. It is exacerbated by methamphetamine. He has tried psychiatric medications before and occasionally gets some relief but is not consistently taking them. No other specific exacerbating relieving factors identified. I was asked to see the patient and came to the ED twice to visit him when I heard that he was awake. He was either unable or unwilling to wake up when i entered his room. I talked with his attendant, the nurse and the ED physician. A s this episode seemed similar to a number of other episodes, I recommended that the patient be released when he indicated he was ready to go, as he has not been dangerous to self or others when the effects of the intoxicant wears off. PFSH NPU PFSH: Medical History (Updated 02/09/21 @ 12:54 by Janina Cain) Creatinine elevation Elevated troponin External otitis of right ear Methamphetamine dependence Noncompliance Open wound of right lower leg Otitis externa Psychiatric care Family History Family/Other , The whole family is afflicted with schizoaffective disorder versus bipolar disease. Rampant methamphetamine abuse abounds. Psychiatric illness Social History Smoking and tobacco status: current every day smoker cigarettes Packs smoked per day: 1 Years cigarettes smoked: 11 Quit status (tobacco): has tried quititng Number of times tried to quit tobacco: 3 Second hand smoke exposure: Yes Mental Status Exam MSE Comments: Pt was sleeping curled up in a ball, and was unable to be aroused. Vitals/I&O/Wt Last Vital Signs Temp 98.2 F 02/07/21 11:56 Pulse 97 02/07/21 18:57 Resp 16 02/07/21 11:30 BP 140/89 02/07/21 14:47 Pulse Ox 96 02/07/21 18:57 Weight last 48 hrs Weight 72.575 kg A&P Additional A&P Information The patient appears to be under the influence of meth, and has admitted as such. He describes hallucinations. If this episode goes the way other episodes have, when he margaret up, he will report a remission of the voices and deny any intention to harm self or others. If that is the case, I concur with the plan to release the patient at that point. Involuntary Hold Information 96 Hour Hold: 96 Hour Involuntary Admission: Yes 96 Hour Hold Ending Date: 10/27/20 96 Hour Hold Ending Time: 17:00 Attestations NPU Medical Necessity Statement*: see ED provider note Coding Level of Care Code Acute Recruitment Internship for Sergei Matute
[2021-02-07 18:57] VITALS: PULSE 97; O2SAT 96
== END 2021-02-07 18:58 | disposition home or self-care (01) ==
PROVIDERS: Emergency Medicine; Emergency Provider Emergency Medicine
DX: F15.959 Other stimulant use, unspecified with stimulant-induced psychotic disorder, unspecified (principal); F17.210 Nicotine dependence, cigarettes, uncomplicated
CPT/HCPCS: 80053; 80306; 80307; 84443; 85025; 93005; 99283

== ENCOUNTER 2021-02-14 06:19 | Emergency (ER) | payer SELFPAY ==
[2021-02-14 06:38] VITALS: BP 126/79; PULSE 95; RESP 16; TEMP 36.6; O2SAT 98; BMI 22.5
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
== END 2021-02-14 07:26 | disposition home or self-care (01) ==
PROVIDERS: Emergency Provider Family Medicine
DX: T16.2XXA Foreign body in left ear, initial encounter (principal); T16.1XXA Foreign body in right ear, initial encounter; X58.XXXA Exposure to other specified factors, initial encounter; F17.210 Nicotine dependence, cigarettes, uncomplicated
CPT/HCPCS: 99281

== ENCOUNTER 2021-02-17 09:46 | Inpatient (IN) | payer SELFPAY ==
[2021-02-17 09:51] VITALS: BP 106/64; PULSE 86; RESP 18; TEMP 36.5; O2SAT 96; BMI 20.9
--- NOTE | 2021-02-17 09:58 | W.ED.PSYCH ---
HPI - Psych General: Chief Complaint: Psychiatric Symptoms Stated Complaint: SI NO PLAN Time Seen by Provider: 02/17/21 09:57 History of Present Illness: HPI Narrative: Mr Wade is a 35-year-old gentleman with complex past medical history involving psychiatric disorder and substance abuse who presents emergency department due to suicidal ideation and concern over leg issues. He has been walking around in flip-flops the past few days and has wounds that have developed on his feet. These are small and mild intensity with regards to aching discomfort. No associated signs of systemic illness reported. Denies other trauma. No other specific exacerbating relieving factors identified. He reports compliance with his medication regimen and has avoided methamphetamine for the past few days. Regarding his suicidal ideation he denies a specific plan however he does express better insight than previous ED visits and continues to have depression associated with it. He reports the of a significant other or exsignificant other which is put increased stressors. Review of Systems General: Reports: 10 or more systems reviewed and unremarkable except in HPI and below PFSH ED PFSH: Medical History Acute psychogenic paranoid psychosis Creatinine elevation Elevated troponin External otitis of right ear Methamphetamine dependence Noncompliance Open wound of right lower leg Otitis externa Psychiatric care Family History Family/Other , The whole family is afflicted with schizoaffective disorder versus bipolar disease. Rampant methamphetamine abuse abounds. Psychiatric illness Social History Smoking and tobacco status: current every day smoker cigarettes Packs smoked per day: 1 Years cigarettes smoked: 11 Quit status (tobacco): has tried quititng Number of times tried to quit tobacco: 3 Second hand smoke exposure: Yes Physical Exam Narrative: EXAM NARRATIVE: GENERAL/CONSTITUTIONAL - well-appearing. No acute distress. Eyes - PERRL, no conjunctival injection ENMT - Atraumatic external nose and ears. Moist mucous membranes NECK - supple. trachea midline CARDIOVASCULAR - regular rate and rhythm. Peripheral pulses 2+ and equal RESPIRATORY -clear to auscultation bilaterally. No retractions or accessory muscle use. ABDOMEN/GI - Nontender/Nondistended. No tenderness to percussion or evidence of peritonitis MSK - Extremities without obvious deformity or tenderness to palpation SKIN - Warm, Dry. Small areas of irritation without cellulitis on bilateral feet between the first and second toe where a flip-flop strap would lie. NEURO - alert and appropriately oriented. strength and sensation intact. Moves all extremities equally. PSYCH -anxious and depressed Course ED course: - Patient was seen and evaluated by me at bedside - Patient placed on cardiac monitors, IV access obtained - Initial evaluation notable for no acute distress, nontoxic appearance. No evidence of cellulitis on physical exam. Depressed affect and expressing suicidal ideation. -Given complex history and reported suicidal ideation Dr. Woodson of the psychiatry service aimed about the patient. -Based on ED evaluation at this point including laboratory studies there is no obvious condition that would preclude the patient for inpatient management of psychiatric concerns. -Patient to be admitted to inpatient psychiatry for management of suicidal ideation. Vital Signs: Vital signs: Vital Signs Temperature 98.2 F 02/18/21 05:59 Pulse Rate 54 L 02/18/21 05:59 Respiratory Rate 17 02/18/21 05:59 Blood Pressure 97/68 02/18/21 05:59 Pulse Oximetry 98 02/18/21 05:59 MDM - Psych Medical Records: Attestation: I reviewed the patient's medical records. Lab Data: Attestation: I reviewed the patient's lab results. Labs: Lab Results 02/17/21 02/17/21 Range/Units 12:33 12:33 WBC 5.0 (4.0-10.0) 10^3/ uL RBC 4.08 L (4.1-5.3) 10^6/u L Hgb 11.1 L (11.7-16.6) g/dL Hct 35.3 L (42.0-52.0) % MCV 86.5 (80-94) fl MCH 27.2 L (28.0-34.0) pg MCHC 31.4 (30.0-36.0) g/dL RDW 15.8 H (12.1-15.1) % Plt Count 257 (130-400) 10^3/c mm MPV 8.8 (7.4-10.4) fL Neut % (Auto) 61.7 % Lymph % (Auto) 24.2 % [place] % (Auto) 9.1 % Eos % (Auto) 4.4 % Baso % (Auto) 0.4 % Neut # (Auto) 3.05 (1.8-7.7) 10^3/u L Lymph # (Auto) 1.2 (0.8-4.8) 10^3/u L [place] # (Auto) 0.5 (0.2-0.9) 10^3/u L Eos # (Auto) 0.2 (0.0-0.8) 10^3/u L Baso # (Auto) 0.0 (0.0-0.1) 10^3/u L Nucleated RBC % (a uto) 0 % Nucleated RBCs # 0.0 /100WBC Sodium 140 (136-145) mmol/L Potassium 4.1 (3.5-5.1) mmol/L Chloride 102 (98-107) mmol/L Carbon Dioxide 27 (22-29) mmol/L Anion Gap 15.1 (5-19) BUN 10 (6-20) mg/dL Creatinine 0.8 (0.7-1.2) mg/dL GFR Calculation 109.4 (90-130) mL/min Glucose 86 (65-115) mg/dL Calculated Osmolal ity 288 (285-295) mOsm/k g Calcium 8.6 (8.5-10.5) mg/dL Total Bilirubin 0.5 (0.15-1.2) mg/dL AST 21 (0-40) U/L ALT 16 (0-41) U/L Alkaline Phosphata se 98 (40-130) IU/L Total Protein 6.8 (6.6-8.7) g/dL Albumin 3.7 (3.5-5.2) g/dL Globulin 3.1 (1.3-4.6) g/dL Salicylates 0.5 L (3-10) mg/dL Acetaminophen < 5.0 L (10-30) ug/mL Ethyl Alcohol < 10 (0-10) mg/dL EKG Data^: EKG 1: Attestation: I personally reviewed and interpreted this EKG as follows: EKG interpretation date: 02/17/21 EKG interpretation time: 12:37 Interpretation: Twelve-lead EKG shows a regular sinus rhythm at a rate of 66. ID interval 153, QRS duration 109, QTc 428. Normal axis. Interpretation: Sinus rhythm. Discharge Plan Discharge Patient Disposition: Admitted As Inpatient Admit Provider: Westley Woodson Clinical Impression: Suicidal ideation, Chronic leg pain Condition: Stable Coding Level of Care Code ED Security Risk Analyst for Sergei Matute
[2021-02-17 10:05] VITALS: O2SAT 98
[2021-02-17] MEDS: ibuprofen 600 mg Tablet PO (11:05)
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
--- NOTE | 2021-02-17 11:58 | ECG_ITS ---
[facility] Test Date: 2021-02-17 Pat Name: Sven Wade Department: Room: Gender: Male Internal Communications Intern: : 1985 Requested By: Pascual Walker Order Number: [id number] Bernadette MD: Rosemary Ordaz M.D. Measurements Intervals [place] Rate: 66 P: 59 GA: 153 QRS: 37 QRSD: 109 T: 37 QT: 415 QTc: 435 Interpretive Statements SINUS RHYTHM Compared to ECG 02/07/2021 13:16:12 Incomplete right bundle-branch block no longer present Electronically Signed On 02-17-2021 18:29:20 CDT by Rosemary Ordaz M.D. [id number]
[2021-02-17 12:41] LABS: Basophils % 0.4 %; Eosinophils # 0.2 10^3/uL (0.0-0.8); Eosinophils % 4.4 %; Hematocrit 35.3 % (42.0-52.0); Hemoglobin 11.1 g/dL (11.7-16.6); Lymphocytes # 1.2 10^3/uL (0.8-4.8); Lymphocytes % 24.2 %; Mean Corpuscular HGB Conc 31.4 g/dL (30.0-36.0); Mean Corpuscular Hemoglobin 27.2 pg (28.0-34.0); Mean Corpuscular Volume 86.5 fl (80-94); Mean Platelet Volume 8.8 fL (7.4-10.4); Monocytes # 0.5 10^3/uL (0.2-0.9); Monocytes % 9.1 %; Neutrophils # 3.05 10^3/uL (1.8-7.7); Neutrophils % 61.7 %; Nucleated Red Blood Cells % 0 %; Platelet Count 257 10^3/cmm (130-400); Red Blood Count 4.08 10^6/uL (4.1-5.3); Red Cell Distribution Width 15.8 % (12.1-15.1)
[2021-02-17 13:04] LABS: Alanine Aminotransferase 16 U/L (0-41); Albumin Level 3.7 g/dL (3.5-5.2); Alkaline Phosphatase 98 IU/L (40-130); Anion Gap 15.1 (5-19); Aspartate Amino Transferase 21 U/L (0-40); Blood Urea Nitrogen 10 mg/dL (6-20); Calcium 8.6 mg/dL (8.5-10.5); Carbon Dioxide 27 mmol/L (22-29); Chloride 102 mmol/L (98-107); Globulin 3.1 g/dL (1.3-4.6); Glomerular Filtration Rate 109.4 mL/min (90-130); Glucose 86 mg/dL (65-115); Osmolality Calculated 288 mOsm/kg (285-295); Potassium 4.1 mmol/L (3.5-5.1); Salicylate 0.5 mg/dL (3-10); Sodium 140 mmol/L (136-145); Total Bilirubin 0.5 mg/dL (0.15-1.2); Total Protein 6.8 g/dL (6.6-8.7)
[2021-02-17 13:16] LABS: Acetaminophen < 5.0 ug/mL (10-30); Alcohol Level < 10 mg/dL (0-10)
--- NOTE | 2021-02-17 13:30 | PC.NURSE ---
sitter at bedside, patietn in paper scrubs
[2021-02-17 14:00] VITALS: BP 132/62; PULSE 77; RESP 18; TEMP 36.7; O2SAT 95
[2021-02-17] MEDS: nicotine 2 mg Gum BUCCAL (15:08)
[2021-02-17] MEDS: OLANZapine 5 mg ODT PO (17:22)
[2021-02-17 20:18] VITALS: BP 95/57; PULSE 56; RESP 17; TEMP 36.7; O2SAT 96
[2021-02-17] MEDS: trazodone 50 mg Tablet PO (21:03)
[2021-02-17] MEDS: hyDROXYzine 25 mg Capsule 50 MG PO (21:03)
[2021-02-17] MEDS: ziprasidone hcl 40 mg Capsule PO (21:03)
[2021-02-18 05:59] VITALS: BP 97/68; PULSE 54; RESP 17; TEMP 36.8; O2SAT 98
[2021-02-18] MEDS: ziprasidone hcl 40 mg Capsule PO ×2 (08:05→16:46)
[2021-02-18] MEDS: naltrexone hcl 50 mg Tablet PO (08:05)
--- NOTE | 2021-02-18 10:29 | P.PN_ITS ---
Subjective NPU Subjective: Interval history: Patient presents today taking his medication and denying any problems or concerns. There have been no inappropriate behaviors or reports by staff of inappropriate interactions or rudeness. We agreed to continue with the plan to help him stabilize through his withdrawal and stabilize on his medication. He continues to endorse a plan to go to [facility]. Mental Status Exam MSE Comments: This is a slender white male with hospital scrubs on with dorado ited grooming and adequate eye contact. No abnormal movements except for psychomotor retardation. Cooperative with exam in no acute distress. Speech was normal rate and volume. Mood described as depressed but a little better, affect congruent and tearful. Thought process organized. Thought content: Patient denied suicidal, but endorsed homicidal ideation, there were no delusions reported but some paranoia and persecutory thinking exists, he did not endorse auditory or visual hallucinations. Attention and concentration appear intact and memory was limited but none were formally tested. He is alert and oriented x3. Insight and judgment are limited, impulse control is impaired. Vitals/I&O/Wt Last Vital Signs Temp 98.2 F 02/18/21 05:59 Pulse 54 L 02/18/21 05:59 Resp 17 02/18/21 05:59 BP 97/68 02/18/21 05:59 Pulse Ox 98 02/18/21 05:59 Weight last 48 hrs Weight 76.204 kg Data NPU : 02/17/21 12:33 02/17/21 12:33 A&P Additional A&P Information (1) Suicidal ideation: (2) Acute psychogenic paranoid psychosis: (3) Chronic leg pain: (4) Methamphetamine-induced psychotic disorder: (5) Cannabis use disorder, severe, dependence: (6) Methamphetamine use disorder, severe: (7) History of schizophrenia: (8) Homicidal ideation: Additional A&P Information This is a 35-year-old white male with a long history of psychosis with continued question of whether it is completely drug-induced or primary with drug induced exacerbation, without. The time of sobriety to truly tease out that answer who presents with active methamphetamine use, psychosis and lethality. 1. Continue current medication. 2. Continue every 15 minute checks for safety. 3. Encourage individual, group and milieu therapies. 4. Encourage sober living treatment after discharge at the highest level of care to which he is willing to commit. 5. We will for admission with an attempt to assist him to get the [facility], or these be connected with that plan prior to discharge. Involuntary Hold Information 96 Hour Hold: 96 Hour Involuntary Admission: No 96 Hour Hold Ending Date: 10/27/20 96 Hour Hold Ending Time: 17:00 Attestations NPU Medical Necessity Statement*: Inpatient hospitalization is medically necessary and the clinically appropriate intervention at this time. We will monitor medications and make changes as indicated. Likely length of stay 2-4 days. Coding Level of Care Code Acute Estate Planning Paralegal for Sergei Matute
[2021-02-18 14:00] VITALS: BP 95/58; PULSE 64; RESP 16; TEMP 36.8; O2SAT 100
[2021-02-18] MEDS: nicotine 2 mg Gum BUCCAL (14:20)
[2021-02-18] MEDS: trazodone 50 mg Tablet PO (20:56)
[2021-02-18] MEDS: hyDROXYzine 25 mg Capsule 50 MG PO (20:56)
[2021-02-18 22:00] VITALS: BP 87/43; PULSE 61; RESP 16; TEMP 36.7; O2SAT 100
[2021-02-19 05:26] VITALS: BMI 20.9
[2021-02-19 06:00] VITALS: BP 117/71; PULSE 90; RESP 17; TEMP 36.8; O2SAT 97
[2021-02-19] MEDS: ziprasidone hcl 40 mg Capsule PO ×2 (08:22→16:42)
[2021-02-19] MEDS: naltrexone hcl 50 mg Tablet PO (08:22)
--- NOTE | 2021-02-19 12:23 | P.PN_ITS ---
Subjective NPU Subjective: Interval history: Presents today reporting that things have gone okay over the weekend. He is clearly having his methamphetamine withdrawal resolving. He still endorses a desire to go to [facility]. He endorses a desire to be adherent to his medication and continue his new found adherence to follow-up and aftercare. We agreed we work with the treatment team tomorrow to hopefully get him to the sober living program. Mental Status Exam MSE Comments: This is a slender white male with hospital scrubs on with limited grooming and adequate eye contact. No abnormal movements except for psychomotor retardation. Cooperative with exam in no acute distress. Speech w as normal rate and volume. Mood described as a little better, affect congruent. Thought process organized. Thought content: Patient denied suicidal, but endorsed homicidal ideation, there were no delusions reported but some paranoia and persecutory thinking exists, he did not endorse auditory or visual hallucinations. Attention and concentration appear intact and memory was limited but none were formally tested. He is alert and oriented x3. Insight and judgment are limited, but improving impulse control is limited. Vitals/I&O/Wt Last Vital Signs Temp 98.5 F 02/19/21 22:00 Pulse 98 02/19/21 22:00 Resp 19 H 02/19/21 22:00 BP 96/58 02/19/21 22:00 Pulse Ox 99 02/19/21 22:00 Weight last 48 hrs Weight 76.204 kg Data NPU : 02/17/21 12:33 02/17/21 12:33 A&P Additional A&P Information (1) Suicidal ideation: (2) Acute psychogenic paranoid psychosis: (3) Chronic leg pain: (4) Methamphetamine-induced psychotic disorder: (5) Cannabis use disorder, severe, dependence: (6) Methamphetamine use disorder, severe: (7) History of schizophrenia: (8) Homicidal ideation: Additional A&P Information This is a 35-year-old white male with a long history of psychosis with continued question of whether it is completely drug-induced or primary with drug induced exacerbation, without. The time of sobriety to truly tease out that answer who presents with active methamphetamine use, psychosis and lethality. 1. Continue current medication. 2. Continue every 15 minute checks for safety. 3. Encourage individual, group and milieu therapies. 4. Encourage sober living treatment after discharge at the highest level of care to which he is willing to commit. 5. We will work with treatment team and attempt to assist him to get into [facility], or at least be connected with that plan prior to discharge. Involuntary Hold Information 96 Hour Hold: 96 Hour Involuntary Admission: No 96 Hour Hold Ending Date: 10/27/20 96 Hour Hold Ending Time: 17:00 Attestations NPU Medical Necessity Statement*: Inpatient hospitalization is medically necessary and the clinically appropriate intervention at this time. We will monitor medications and make changes as indicated. Likely length of stay 1-3 days. Coding Level of Care Code Acute Secondary Spanish Teacher for Sergei Matute
[2021-02-19 12:57] VITALS: BP 96/58; PULSE 65; RESP 16; TEMP 36.7; O2SAT 97
[2021-02-19] MEDS: nicotine 2 mg Gum BUCCAL ×2 (14:41→20:55)
[2021-02-19] MEDS: OLANZapine 5 mg ODT PO (14:49)
--- NOTE | 2021-02-19 14:49 | PC.NURSE ---
Addendum entered by Maria Guadalupe Ross LPN 02/19/21 16:17: PRN MED EFFECTIVE NO FURTHER AGITATION, PT RESTING QUIETLY IN BED IN ROOM Original Note: PRN ZYPREXA ZYDIS 5 MG GIVEN PO PER PT C/O AGITATION
[2021-02-19 22:00] VITALS: BP 96/58; PULSE 98; RESP 19; TEMP 36.9; O2SAT 99
[2021-02-20 06:00] VITALS: BP 98/52; PULSE 58; RESP 17; TEMP 36.6; O2SAT 99
[2021-02-20] MEDS: naltrexone hcl 50 mg Tablet PO (08:30)
[2021-02-20] MEDS: ziprasidone hcl 40 mg Capsule PO ×2 (08:30→16:38)
[2021-02-20] MEDS: nicotine 2 mg Gum BUCCAL ×2 (10:51→13:05)
--- NOTE | 2021-02-20 14:32 | PC.RESP ---
SMOKING CESSATION INFORMATION SENT TO PATIENT.
--- NOTE | 2021-02-20 18:13 | P.PN_ITS ---
Subjective NPU Subjective: Interval history: Patient presents today continuing to have improvement over his presentation this past weekend. Additionally is working with the treatment team for possible rehab/sober living placement. There are couple options that did not materialize today we discussed the risk-benefit and alternatives of trying for an additional day and would likely discharge to [facility]. Mental Status Exam MSE Comments: This is a slender white male with hospital scrubs on with limite d grooming and adequate eye contact. No abnormal movements except for psychomotor retardation. Cooperative with exam in no acute distress. Speech was normal rate and volume. Mood described as a little better, affect congruent. Thought process organized. Thought content: Patient denied suicidal , but endorsed homicidal ideation, which will always be there because I do not know that she will kill herself, there were no delusions reported but some paranoia and persecutory thinking exists, he did not endorse auditory or visual hallucinations. Attention and concentration appear intact and memory was limited but none were formally tested. He is alert and oriented x3. Insight and judgment are limited, but improving impulse control is limited. Vitals/I&O/Wt Last Vital Signs Temp 98.1 F 02/20/21 20:46 Pulse 64 02/20/21 20:46 Resp 18 02/20/21 20:46 BP 97/61 02/20/21 20:46 Pulse Ox 98 02/20/21 20:46 Data NPU : 02/17/21 12:33 02/17/21 12:33 A&P Additional A&P Information (1) Suicidal ideation: (2) Acute psychogenic paranoid psychosis: (3) Chronic leg pain: (4) Methamphetamine-induced psychotic disorder: (5) Cannabis use disorder, severe, dependence: (6) Methamphetamine use disorder, severe: (7) History of schizophrenia: (8) Homicidal ideation: This is a 35-year-old white male with a long history of psychosis with continued question of whether it is completely drug-induced or primary with drug induced exacerbation, without. The time of sobriety to truly tease out that answer who presents with active methamphetamine use, psychosis and lethality. 1. Continue current medication. 2. Continue every 15 minute checks for safety. 3. Encourage individual, group and milieu therapies. 4. Encourage sober living treatment after discharge at the highest level of care to which he is willing to commit. 5. We will work with treatment team and attempt to assist him to get into [facility], or at least be connected with that plan prior to discharge. Involuntary Hold Information 96 Hour Hold: 96 Hour Involuntary Admission: No 96 Hour Hold Ending Date: 10/27/20 96 Hour Hold Ending Time: 17:00 Attestations NPU Medical Necessity Statement*: Inpatient hospitalization is medically necessary and the clinically appropriate intervention at this time. We will monitor medications and make changes as indicated. Likely length of stay 1-2 days. Coding Level of Care Code Acute Packing Machine Can Feeder for Sergei Matute
[2021-02-20 20:46] VITALS: BP 97/61; PULSE 64; RESP 18; TEMP 36.7; O2SAT 98
[2021-02-21 06:00] VITALS: BP 97/61; PULSE 64; RESP 18; TEMP 36.7; O2SAT 98
[2021-02-21] MEDS: naltrexone hcl 50 mg Tablet PO (08:31)
[2021-02-21] MEDS: ziprasidone hcl 40 mg Capsule PO (08:31)
[2021-02-21] MEDS: nicotine 2 mg Gum BUCCAL ×2 (10:36→13:52)
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
[2021-02-21 12:30] VITALS: BP 97/61; PULSE 64; RESP 18; TEMP 36.7; O2SAT 98
--- NOTE | 2021-02-21 12:32 | NPU.GN ---
[facility] Group Topic:Coping Skills General Mood of Group:Refused group. Was asleep
== END 2021-02-21 14:41 | disposition home or self-care (01) | DRG 885 ==
LOC: ER 13:25 → NP 13:43
PROVIDERS: Admitting Provider Psychiatry & Neurology Psychiatry; Emergency Provider Emergency Medicine; Visit Provider Psychiatry & Neurology Psychiatry
DX: F23 Brief psychotic disorder (principal); R45.851 Suicidal ideations; F15.20 Other stimulant dependence, uncomplicated; F11.20 Opioid dependence, uncomplicated; F32.9 Major depressive disorder, single episode, unspecified; Z59.0 Homelessness; F12.20 Cannabis dependence, uncomplicated; Z87.820 Personal history of traumatic brain injury; F17.210 Nicotine dependence, cigarettes, uncomplicated; G89.29 Other chronic pain; M79.609 Pain in unspecified limb
CPT/HCPCS: 36415; 80053; 80307; 85025; 93005; 97165; 99285

== ENCOUNTER 2021-03-08 00:56 | Emergency (ER) | payer MEDICAID, SELFPAY ==
[2021-03-08 01:22] VITALS: BP 130/89; PULSE 99; RESP 18; TEMP 36.8; O2SAT 96; BMI 20.9
[2021-03-08 02:10] VITALS: RESP 16
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
--- NOTE | 2021-03-08 02:16 | ED_ITS ---
HPI - General Adult General: Chief complaint: Psychiatric Symptoms Stated complaint: Hallucinacting/HI/SI Time Seen by Provider: 03/08/21 01:28 History of Present Illness: HPI narrative: HPI: [35]yo patient w/ hx of psychosis presenting for hallucinations and passive wish. Patient reports he is seeing dragons and hearing voices. On arrival, the patient is AAOx3 and cooperative with my evaluation. No focal complaints of chest pain, shortness of breath, palpitations, N/V, focal GI/ complaints. Onset: chronic Duration: ongoing Location: home Severity: severe Review of Systems Narrative: Constitutional: No fever, no chills. HEENT: No vision changes CV: No chest pain, no palpitations PULM: No productive cough, no dyspnea. GI: No abdominal pain, no N/V/D. : No dysuria MSKEL: No muscle pain SKIN: No new rashes, no lesions. NEURO: No headache, no focal weakness. HEME: No visible bruises PSYCH: Normal mood PFSH ED PFSH: Medical History Acute psychogenic paranoid psychosis Creatinine elevation Elevated troponin External otitis of right ear Methamphetamine dependence Noncompliance Open wound of right lower leg Otitis externa Psychiatric care Family History Family/Other , The whole family is afflicted with schizoaffective disorder versus bipolar disease. Rampant methamphetamine abuse abounds. Psychiatric illness Social History Smoking and tobacco status: current every day smoker cigarettes Packs smoked per day: 1 Years cigarettes smoked: 11 Quit status (tobacco): has tried quititng Number of times tried to quit tobacco: 3 Second hand smoke exposure: Yes Physical Exam Narrative: EXAM NARRATIVE: Head: Atraumatic Eyes: PERRL, conjunctiva without injection, eyes tracking ENT: Mucous membrane moist NECK: Supple without lymphadenopathy LUNGS: LCTAB CV: RRR ABDOMEN: Soft, nontender EXTREMITY: Normal ROM SKIN: No rash or erythema NEURO: Awake and alert. No focal weakness PSYCH: Cooperative mood and affect. Course Vital Signs: Vital signs: Vital Signs Temperature 98.2 F 03/08/21 01:22 Pulse Rate 99 03/08/21 01:22 Respiratory Rate 16 03/08/21 02:10 Blood Pressure 130/89 03/08/21 01:22 Pulse Oximetry 96 03/08/21 01:22 MDM - General Adult MDM Narrative: Medical decision making narrative: [35]yo patient w/ hx of psychosis presenting for acute psychosis and passive wish/homicidaliy. HDS, exam within normal limit Thoughts are non-linear and unorganized. Clinically the patient displays no overt toxidrome; they are well appearing, with low suspicion for toxic ingestion given history and exam. Symptoms unlikely 2/2 anemia, hypothyroidism, infection, or ICH. Workup: CBC, CMP, Lipase, salicylate/tylenol, UDS Lab findings: wnl [4:30am] On reassessment, labs and workup wnl. Patient is hemodynamically stable with no acute medical complaints. Case discussed with psychiatric provider Dr. Perez at [facility] psych inpatient who evaluated patient via telepsych and recommended discharge with close follow-up. Dr. Perez thinks patient will not benefit from inpatient admission. Given sabiha and laila in the ED. Disposition: Discharge Lab Data: Labs: Lab Results 03/08/21 03/08/21 01:46 01:46 WBC 6.3 10^3/uL 10^3/ uL (4.0-10.0) RBC 3.97 10^6/uL L 10 ^6/uL (4.1-5.3) Hgb 10.8 g/dL L g/dL (11.7-16.6) Hct 33.9 % L % (42.0-52.0) MCV 85.4 fl fl (80-94) MCH 27.2 pg L pg (28.0-34.0) MCHC 31.9 g/dL g/dL (30.0-36.0) RDW 15.9 % H % (12.1-15.1) Plt Count 329 10^3/cmm 10^3 /cmm (130-400) MPV 8.9 fL fL (7.4-10.4) Neut % (Auto) 47.4 % % Lymph % (Auto) 34.6 % % [place] % (Auto) 12.0 % % Eos % (Auto) 5.1 % % Baso % (Auto) 0.6 % % Neut # (Auto) 3.00 10^3/uL 10^3 /uL (1.8-7.7) Lymph # (Auto) 2.2 10^3/uL 10^3/ uL (0.8-4.8) [place] # (Auto) 0.8 10^3/uL 10^3/ uL (0.2-0.9) Eos # (Auto) 0.3 10^3/uL 10^3/ uL (0.0-0.8) Baso # (Auto) 0.0 10^3/uL 10^3/ uL (0.0-0.1) Nucleated RBC % (a uto) 0 % % Nucleated RBCs # 0.0 /100WBC /100W BC Sodium 135 mmol/L L mmol /L (136-145) Potassium 4.1 mmol/L mmol/L (3.5-5.1) Chloride 101 mmol/L mmol/L (98-107) Carbon Dioxide 23 mmol/L mmol/L (22-29) Anion Gap 15.1 (5-19) BUN 19 mg/dL mg/dL (6-20) Creatinine 0.8 mg/dL mg/dL (0.7-1.2) GFR Calculation 109.4 mL/min mL/m in (90-130) Glucose 91 mg/dL mg/dL (65-115) Calculated Osmolal ity 282 mOsm/kg L mOs m/kg (285-295) Calcium 8.8 mg/dL mg/dL (8.5-10.5) Salicylates < 0.3 mg/dL L mg/ dL (3-10) Acetaminophen < 5.0 ug/mL L ug/ mL (10-30) Discharge Plan Discharge Patient Disposition: Home Clinical Impression: Hallucination Condition: Stable Prescriptions: No Action naltrexone 50 mg Tablet 50 mg PO DAILY 30 Days Qty: 30 RF: 1 Geodon 40 mg Capsule 40 mg PO BID 30 Days Qty: 60 RF: 1 Discharge Orders: Discharge ED (Routine); Ordered 03/08/21 Ordered By: Yaakov Krause Discharge Diet: Advance as tolerated Discharge Activity: Resume usual activity Patient Instructions: Anxiety (ED) Activity Restrictions/Additional Instructions: Please come back to the emergency room if you need help, have any hallucinations, or you have any depression or have thoughts about hurting yourself or other people. Coding Level of Care Code ED [employer] Server for Sergei Matute
[2021-03-08 02:18] LABS: Basophils % 0.6 %; Eosinophils # 0.3 10^3/uL (0.0-0.8); Eosinophils % 5.1 %; Hematocrit 33.9 % (42.0-52.0); Hemoglobin 10.8 g/dL (11.7-16.6); Lymphocytes # 2.2 10^3/uL (0.8-4.8); Lymphocytes % 34.6 %; Mean Corpuscular HGB Conc 31.9 g/dL (30.0-36.0); Mean Corpuscular Hemoglobin 27.2 pg (28.0-34.0); Mean Corpuscular Volume 85.4 fl (80-94); Mean Platelet Volume 8.9 fL (7.4-10.4); Monocytes # 0.8 10^3/uL (0.2-0.9); Neutrophils % 47.4 %; Nucleated Red Blood Cells % 0 %; Platelet Count 329 10^3/cmm (130-400); Red Blood Count 3.97 10^6/uL (4.1-5.3); Red Cell Distribution Width 15.9 % (12.1-15.1); White Blood Count 6.3 10^3/uL (4.0-10.0)
[2021-03-08 02:30] LABS: Acetaminophen < 5.0 ug/mL (10-30); Anion Gap 15.1 (5-19); Blood Urea Nitrogen 19 mg/dL (6-20); Calcium 8.8 mg/dL (8.5-10.5); Carbon Dioxide 23 mmol/L (22-29); Chloride 101 mmol/L (98-107); Glomerular Filtration Rate 109.4 mL/min (90-130); Glucose 91 mg/dL (65-115); Osmolality Calculated 282 mOsm/kg (285-295); Potassium 4.1 mmol/L (3.5-5.1); Salicylate < 0.3 mg/dL (3-10); Sodium 135 mmol/L (136-145)
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
[2021-03-08] MEDS: LORazepam 2 mg/mL INJ 1 mL IM (02:42)
[2021-03-08] MEDS: ziprasidone hcl 40 mg Capsule PO (03:30)
--- NOTE | 2021-03-08 08:46 | P.CONIM_ITS ---
Providers/Reason for Consult Consulting Physican/Specialty*: Joaquin Perez MD/psychiatry Reason for Consult*: Evaluation of psychosis and passive wish Psych Consult HPI History of Present Illness Sven Wade is a 35 year old male With a past medical history of substance abuse and methamphetamine induced psychosis who presents with hallucinations and vague statements indicating some thoughts of . I previously met and evaluated the patient under similar circumstances on 02/07/2021. I met with the patient via televideo. He was largely unable to participate in the interview in any meaningful way. He made references to the video screen, to my glasses, to the nurses, as if something suspicious were happening, but never specified what. He could not answer if he was hearing voices or seeing things, but he has reported to others that he is. He is either unable or unwilling to specify his drug use. No UDS was obtained. However he is acting in a similar fashion to previous times when his urine was positive for methamphetamine. The patient neither confirms nor denies suicidal ideation. I asked him in a number of ways how we could be of help to him, but he kept saying that he did not want our help because there were various things he felt we were doing that were not helpful for him. For example, he said the Geodon was not helpful. The ED note states: HPI narrative: HPI: [35]yo patient w/ hx of psychosis presenting for hallucinations and passive wish. Patient reports he is seeing dragons and hearing voices. On arrival, the patient is AAOx3 and cooperative with my evaluation. No focal complaints of chest pain, shortness of breath, palpitations, N/V, focal GI/ complaints. Medical decision making narrative: [35]yo patient w/ hx of psychosis presenting for acute psychosis and passive wish/homicidaliy. HDS, exam within normal limit Thoughts are non-linear and unorganized. Clinically the patient displays no overt toxidrome; they are well appearing, with low suspicion for toxic ingestion given history and exam. Symptoms unlikely 2/2 anemia, hypothyroidism, infection, or ICH. Workup: CBC, CMP, Lipase, salicylate/tylenol, UDS Lab findings: wnl [4:30am] On reassessment, labs and workup wnl. Patient is hemodynamically stable with no acute medical complaints. Case discussed with psychiatric provider Dr. Perez at [facility] psych inpatient who evaluated patient via telepsych and recommended discharge with close follow-up. Dr. Perez thinks patient will not benefit from inpatient admission. Given geodon and ativan in the ED. The patient was admitted to the neuropsychiatric unit here from 02/17 to 02/21/2021. Admission H&P from that 02/17/2021 states: Sven Wade is a 35 year old male who presented to the emergency department with the following report: Chief Complaint: Psychiatric Symptoms Stated Complaint: SI NO PLAN Time Seen by Provider: 02/17/21 09:57 History of Present Illness: HPI Narrative: Mr Wade is a 35-year-old gentleman with complex past medical history involving psychiatric disorder and substance abuse who presents emergency department due to suicidal ideation and concern over leg issues. He has been walking around in flip-flops the past few days and has wounds that have developed on his feet. These are small and mild intensity with regards to aching discomfort. No associated signs of systemic illness reported. Denies other trauma. No other specific exacerbating relieving factors identified. He reports compliance with his medication regimen and has avoided methamphetamine for the past few days. Regarding his suicidal ideation he denies a specific plan however he does express better insight than previous ED visits and continues to have depression associated with it. He reports the of a significant other or exsignificant other which is put increased stressors. A psychiatric consult was requested to determine appropriateness for admission versus discharge. Sven presents today reporting that he is been trying to do better and is been overwhelmed by the consequences of his use plus some other things are out of his control. He reports that his ex committed suicide and he tearfully informed that she would not do that to their child and her other children and that he is so upset that this needed going forward unchecked. He endorsed that he is been going to appointments and trying to do better. He reported a rehab called [facility] or something to that nature that would likely take him. He begged that we might consider him for admission so that he can get himself together. He endorsed having hallucinations and understanding that he will using is not helping. But he endorses that he has recently restarted his Geodon and has been taking it. He denies substantive changes in his psychosocial situation continuing to be homeless at worst and finding place of the flap at best. We discussed the risk of his alternatives of admitting him for short stay if we are able to identify and verified and that he has been following through with treatment which again the concern with previous days where he would, and either leave AMA or leave but not follow-up with the plan. The patient was admitted under similar circumstances on 11/07/2020. Dr. Valdes's psychiatric consultation states in part: Sven Wade is a 35 year old male with multiple emergency department encounters in the context of ongoing methamphetamine and cannabis use presenting to the emergency department with psychotic symptoms in the context of amphetamine intoxication. Patient is currently unable to participate in interview secondary to substance intoxication as well as being provided as needed medication including 2 doses of Ativan and olanzapine. He has been observed acting bizarrely, responding to internal stimuli as well as demonstrating physically agitated behavior. Patient unable to participate in psychiatric review of systems; patient's chart with recent episodes of care reviewed as part of this evaluation. Assessment and plan (1) Methamphetamine-induced psychotic disorder: Status: Acute (2) Methamphetamine abuse: Status: Acute (3) Cannabis abuse: Status: Acute Additional A&P Information Patient routinely presents to the emergency department with amphetamine intoxication and psychotic symptoms most recently being hospitalized with amphetamine intoxication and dehydration. Patient currently presenting with psychotic symptoms and appears to be attending to internal stimuli and has episodes of physical agitation. Urine drug screen once again positive for amphetamines and cannabis with patient being positive for amphetamines on last several presentations to the emergency department. Per previous consultation, patient typically requests admission or presents in the context of acute substance intoxication only to not participate in care and immediately request discharge patient. He continues to be noncompliant with treatment and treatment follow-up although reportedly had attempted attending a [facility]-based program a month ago which did not allow for ongoing use of psychotropic medication. Despite reporting need for psychotropic medication as a means to gain admission, patient frequently refuses medication and has no documented outpatient medication management follow-up. Patient's longstanding history of substance use which demonstrates poor judgment and potential risk for subsequent unexpected, impulsive behavior continues to elevate his risk which cannot be modified or mitigated without harley oing substance treatment which the patient has not been compliant. Risk medication would include recommendation to abstain from the use of substances and alcohol as well as the need for post discharge compliance with substance counseling/treatment in order to further mitigate his risk of harm to self and others. Patient is not currently able to communicate his understanding of the above recommendations but unfortunately continues to engage in risk-taking behavior to include substance abuse. Inpatient psychiatric hospitalization is not indicated at this time. Inpatient psychiatric hospitalization will not further mitigate this risk. Patient's current and previous presentations are purely in the context of serial episodes of amphetamine intoxication with no demonstrated psychosis outside of substance use. Patient requires substance detox with follow on residential or intensive outpatient substance treatment. Intensive outpatient or residential substance treatment is the most appropriate level of care after substance detox. PFSH NPU PFSH: Medical History Acute psychogenic paranoid psychosis Creatinine elevation Elevated troponin External otitis of right ear Methamphetamine dependence Noncompliance Open wound of right lower leg Otitis externa Psychiatric care Family History Family/Other , The whole family is afflicted with schizoaffective disorder versus bipolar disease. Rampant methamphetamine abuse abounds. Psychiatric illness Social History Smoking and tobacco status: current every day smoker cigarettes Packs smoked per day: 1 Years cigarettes smoked: 11 Quit status (tobacco): has tried quititng Number of times tried to quit tobacco: 3 Second hand smoke exposure: Yes Mental Status Exam MSE Comments: The patient was seen via televideo, and made numerous paranoid comments about the televideo process. He wanted to know where the camera was, wanted to know if I was taking a picture of him, ask what was going on, etc. He was largely unable to cooperate with the exam. He had psychomotor agitation but there were no stereotypic behaviors or tics noted. Speech was rapid but understandable. Attention and concentration were distractible. Mood and affect were both irritable. Thought process was disorganized. Thought content was positive for paranoid delusions and reports of auditory and visual hallucinations. He had no overt suicidal or homicidal ideation. Insight and judgment are poor. Vitals/I&O/Wt Last Vital Signs Temp 98.2 F 03/08/21 01:22 Pulse 99 03/08/21 01:22 Resp 16 03/08/21 02:10 BP 130/89 03/08/21 01:22 Pulse Ox 96 03/08/21 01:22 Weight last 48 hrs Weight 76.204 kg A&P Assessment and plan (1) Methamphetamine-induced psychotic disorder: Status: Acute (2) Cannabis use disorder, severe, dependence: Status: Acute (3) Methamphetamine use disorder, severe: Status: Acute (4) History of schizophrenia: Status: Acute (5) Noncompliance: Status: Acute Additional A&P Information I discussed the case with both Dr. Mckenzie and Dr. Jackman. After reviewing the patient's records over the past 2 years, it is apparent that he frequently comes to the emergency room with a methamphetamine induced psychosis. Occasionally he gets admitted for a few days, but more often than not he receives some antipsychotic medication, sleeps for a bit, becomes more organized, and then is discharged, usually at his request. When he does get admitted, he usually declines to participate in unit groups and activities, and requests to leave shortly after arrival. I agree with Dr. Valdes's comprehensive and eloquent assessment from 11/07/2020, which is reproduced in full above in this note. Basically, hospitalization does not reduce the risk that the patient will hurt himself or others. He requires residential or intensive outpatient substance abuse treatment to reduce this risk, because it is his best chance of abstaining from intoxicants that cause the risk in the first place. Hospitalization does not provide much benefit either. Therefore it is recommended that the patient be treated symptomatically in the ED for whatever time is needed for his thinking to become reorganized. When he request to leave, he should be allowed to leave with recommendations for follow-up with the people he has been referred to, and to strongly consider engaging in residential substance use treatment. Involuntary Hold Information 96 Hour Hold: 96 Hour Involuntary Admission: No 96 Hour Hold Ending Date: 10/27/20 96 Hour Hold Ending Time: 17:00 Attestations NPU Medical Necessity Statement*: Per ED physician. Coding Level of Care Code Acute Hvac Mechanical Engineer for Sergei Matute Diagnoses Methamphetamine-induced psychotic disorder F15.959 Cannabis use disorder, severe, dependence F12.20 Methamphetamine use disorder, severe F15.20 History of schizophrenia Z86.59 Noncompliance Z91.19
== END 2021-03-08 08:40 | disposition home or self-care (01) ==
PROVIDERS: Emergency Provider Emergency Medicine
DX: R44.1 Visual hallucinations (principal); F17.210 Nicotine dependence, cigarettes, uncomplicated
CPT/HCPCS: 80048; 80307; 85025; 96372; 99283; J2060

== ENCOUNTER 2021-03-10 19:24 | Emergency (ER) | payer MEDICAID, SELFPAY ==
[2021-03-10 19:31] VITALS: BP 138/79; PULSE 100; RESP 16; TEMP 36.6; O2SAT 96
--- NOTE | 2021-03-10 23:02 | W.ED.GENADLT ---
Documented by User: Yaakov Krause MD 03/11/21 18:36 HPI - General Adult General: Chief complaint: Overdose Stated complaint: Ear Ache\SOB\Phys Symptoms Time Seen by Provider: 03/10/21 19:54 History of Present Illness: HPI narrative: Patient is a 35-year-old male with a history of polysubstance use who presents the emergency room after ingesting an unknown substance. Patient says that this happened about an hour ago. It is unclear whether he ingested heroin or pass out. Shortly after, patient report feeling extremely hot and was hallucinating. Patient denies any homicidal or suicidal ideation. Patient [place] any associate chest pain, shortness of breath, palpitation, nausea/vomiting, abdominal complaints or complaints. Onset:1 hr ago Duration:1 hr Location: streets Severity: moderate Review of Systems Narrative: Constitutional: No fever, no chills. HEENT: No vision changes CV: No chest pain, no palpitations PULM: no cough, no dyspnea. GI: No abdominal pain, no N/V/D. : No dysuria MSKEL: No muscle pain SKIN: No new rashes, no lesions. NEURO: No headache, no focal weakness. HEME: No visible bruises PSYCH: Normal mood PFSH ED PFSH: Medical History Acute psychogenic paranoid psychosis Creatinine elevation Elevated troponin External otitis of right ear Methamphetamine dependence Noncompliance Open wound of right lower leg Otitis externa Psychiatric care Family History Family/Other , The whole family is afflicted with schizoaffective disorder versus bipolar disease. Rampant methamphetamine abuse abounds. Psychiatric illness Social History Smoking and tobacco status: current every day smoker cigarettes Packs smoked per day: 1 Years cigarettes smoked: 11 Quit status (tobacco): has tried quititng Number of times tried to quit tobacco: 3 Second hand smoke exposure: Yes Physical Exam Narrative: EXAM NARRATIVE: Head: Atraumatic Eyes: PERRL, conjunctiva without injection ENT: Mucous membrane moist NECK: Supple, ROM intact LUNGS: LCTAB, no crackles/rhonchi CV: RRR ABDOMEN: Soft, nontender in all quadrants EXTREMITY: Normal ROM SKIN: No rash or erythema NEURO: Awake and alert, no focal motor deficits PSYCH: Normal mood and affect Course Vital Signs: Vital signs: Vital Signs Temperature 97.8 F 03/10/21 19:31 Pulse Rate 56 L 03/11/21 00:22 Respiratory Rate 17 03/11/21 00:22 Blood Pressure 110/71 03/11/21 00:22 Pulse Oximetry 99 03/11/21 00:22 MDM - General Adult MDM Narrative: Medical decision making narrative: Case signed out to Dr. Nomi Alex. Lab Data: Labs: Lab Results 03/10/21 03/10/21 23:30 23:30 WBC 4.5 10^3/uL 10^3/ uL (4.0-10.0) RBC 3.32 10^6/uL L 10 ^6/uL (4.1-5.3) Hgb 9.3 g/dL L g/dL (11.7-16.6) Hct 29.3 % L % (42.0-52.0) MCV 88.3 fl fl (80-94) MCH 28.0 pg pg (28.0-34.0) MCHC 31.7 g/dL g/dL (30.0-36.0) RDW 15.9 % H % (12.1-15.1) Plt Count 260 10^3/cmm 10^3 /cmm (130-400) MPV 9.0 fL fL (7.4-10.4) Neut % (Auto) 63.3 % % Lymph % (Auto) 24.4 % % [place] % (Auto) 7.0 % % Eos % (Auto) 4.4 % % Baso % (Auto) 0.7 % % Neut # (Auto) 2.87 10^3/uL 10^3 /uL (1.8-7.7) Lymph # (Auto) 1.1 10^3/uL 10^3/ uL (0.8-4.8) [place] # (Auto) 0.3 10^3/uL 10^3/ uL (0.2-0.9) Eos # (Auto) 0.2 10^3/uL 10^3/ uL (0.0-0.8) Baso # (Auto) 0.0 10^3/uL 10^3/ uL (0.0-0.1) Nucleated RBC % (a uto) 0 % % Nucleated RBCs # 0.0 /100WBC /100W BC Sodium 136 mmol/L mmol/L (136-145) Potassium 4.0 mmol/L mmol/L (3.5-5.1) Chloride 102 mmol/L mmol/L (98-107) Carbon Dioxide 26 mmol/L mmol/L (22-29) Anion Gap 12.0 (5-19) BUN 17 mg/dL mg/dL (6-20) Creatinine 0.9 mg/dL mg/dL (0.7-1.2) GFR Calculation 95.5 mL/min mL/mi n (90-130) Glucose 99 mg/dL mg/dL (65-115) Calculated Osmolal ity 284 mOsm/kg L mOs m/kg (285-295) Calcium 8.3 mg/dL L mg/dL (8.5-10.5) Discharge Plan Discharge Patient Disposition: Home Clinical Impression: Accidental drug ingestion Condition: Stable Prescriptions: No Action naltrexone 50 mg Tablet 50 mg PO DAILY 30 Days Qty: 30 RF: 1 Geodon 40 mg Capsule 40 mg PO BID 30 Days Qty: 60 RF: 1 Discharge Orders: Discharge ED (Routine); Ordered 03/10/21 Ordered By: Nomi Ramires Discharge Diet: Advance as tolerated Discharge Activity: Resume usual activity Patient Instructions: Opioid Safety Activity Restrictions/Additional Instructions: Please come back to the emergency room if you need help, have any hallucinations, or you have any depression or have thoughts about hurting yourself or other people. Coding Level of Care Code ED Die Drawing Checker for Chg Fwd Documented by User: Nomi Ramires DO 03/10/21 23:47 HPI - General Adult General: Chief complaint: Overdose Stated complaint: Ear Ache\SOB\Phys Symptoms Time Seen by Provider: 03/10/21 19:54 PFSH ED PFSH: Medical History Acute psychogenic paranoid psychosis Creatinine elevation Elevated troponin External otitis of right ear Methamphetamine dependence Noncompliance Open wound of right lower leg Otitis externa Psychiatric care Family History Family/Other , The whole family is afflicted with schizoaffective disorder versus bipolar disease. Rampant methamphetamine abuse abounds. Psychiatric illness Social History Smoking and tobacco status: current every day smoker cigarettes Packs smoked per day: 1 Years cigarettes smoked: 11 Quit status (tobacco): has tried quititng Number of times tried to quit tobacco: 3 Second hand smoke exposure: Yes Course Vital Signs: Vital signs: Vital Signs Temperature 97.8 F 03/10/21 19:31 Pulse Rate 56 L 03/11/21 00:22 Respiratory Rate 17 03/11/21 00:22 Blood Pressure 110/71 03/11/21 00:22 Pulse Oximetry 99 03/11/21 00:22 MDM - General Adult MDM Narrative: Medical decision making narrative: 35-year-old male with illicit drug ingestion. He was checked out to me by Dr. Krause at shift change. His heart rate is 56. His blood pressure is 107/71. He is medically stable. His hemoglobin is 9.3, white blood cell count 4.5. He has a chronic wound to the leg that appears stable. He will be discharged Lab Data: Labs: Lab Results 03/10/21 03/10/21 23:30 23:30 WBC 4.5 10^3/uL 10^3/ uL (4.0-10.0) RBC 3.32 10^6/uL L 10 ^6/uL (4.1-5.3) Hgb 9.3 g/dL L g/dL (11.7-16.6) Hct 29.3 % L % (42.0-52.0) MCV 88.3 fl fl (80-94) MCH 28.0 pg pg (28.0-34.0) MCHC 31.7 g/dL g/dL (30.0-36.0) RDW 15.9 % H % (12.1-15.1) Plt Count 260 10^3/cmm 10^3 /cmm (130-400) MPV 9.0 fL fL (7.4-10.4) Neut % (Auto) 63.3 % % Lymph % (Auto) 24.4 % % [place] % (Auto) 7.0 % % Eos % (Auto) 4.4 % % Baso % (Auto) 0.7 % % Neut # (Auto) 2.87 10^3/uL 10^3 /uL (1.8-7.7) Lymph # (Auto) 1.1 10^3/uL 10^3/ uL (0.8-4.8) [place] # (Auto) 0.3 10^3/uL 10^3/ uL (0.2-0.9) Eos # (Auto) 0.2 10^3/uL 10^3/ uL (0.0-0.8) Baso # (Auto) 0.0 10^3/uL 10^3/ uL (0.0-0.1) Nucleated RBC % (a uto) 0 % % Nucleated RBCs # 0.0 /100WBC /100W BC Sodium 136 mmol/L mmol/L (136-145) Potassium 4.0 mmol/L mmol/L (3.5-5.1) Chloride 102 mmol/L mmol/L (98-107) Carbon Dioxide 26 mmol/L mmol/L (22-29) Anion Gap 12.0 (5-19) BUN 17 mg/dL mg/dL (6-20) Creatinine 0.9 mg/dL mg/dL (0.7-1.2) GFR Calculation 95.5 mL/min mL/mi n (90-130) Glucose 99 mg/dL mg/dL (65-115) Calculated Osmolal ity 284 mOsm/kg L mOs m/kg (285-295) Calcium 8.3 mg/dL L mg/dL (8.5-10.5) Discharge Plan Discharge Patient Disposition: Home Clinical Impression: Accidental drug ingestion Condition: Stable Prescriptions: No Action naltrexone 50 mg Tablet 50 mg PO DAILY 30 Days Qty: 30 RF: 1 Geodon 40 mg Capsule 40 mg PO BID 30 Days Qty: 60 RF: 1 Discharge Orders: Discharge ED (Routine); Ordered 03/10/21 Ordered By: Nomi Ramires Discharge Diet: Advance as tolerated Discharge Activity: Resume usual activity Patient Instructions: Opioid Safety Activity Restrictions/Additional Instructions: Please come back to the emergency room if you need help, have any hallucinations, or you have any depression or have thoughts about hurting yourself or other people. Coding Level of Care Code ED Die Drawing Checker for Sergei Matute
[2021-03-10 23:35] LABS: Basophils % 0.7 %; Eosinophils # 0.2 10^3/uL (0.0-0.8); Eosinophils % 4.4 %; Hematocrit 29.3 % (42.0-52.0); Hemoglobin 9.3 g/dL (11.7-16.6); Lymphocytes # 1.1 10^3/uL (0.8-4.8); Lymphocytes % 24.4 %; Mean Corpuscular HGB Conc 31.7 g/dL (30.0-36.0); Mean Corpuscular Volume 88.3 fl (80-94); Monocytes # 0.3 10^3/uL (0.2-0.9); Neutrophils # 2.87 10^3/uL (1.8-7.7); Neutrophils % 63.3 %; Nucleated Red Blood Cells % 0 %; Platelet Count 260 10^3/cmm (130-400); Red Blood Count 3.32 10^6/uL (4.1-5.3); Red Cell Distribution Width 15.9 % (12.1-15.1); White Blood Count 4.5 10^3/uL (4.0-10.0)
[2021-03-10] MEDS: sodium chloride 0.9% 1,000 ML 999 ML IV (23:48)
[2021-03-11] LABS: Blood Urea Nitrogen 17 mg/dL (6-20); Calcium 8.3 mg/dL (8.5-10.5); Carbon Dioxide 26 mmol/L (22-29); Chloride 102 mmol/L (98-107); Glomerular Filtration Rate 95.5 mL/min (90-130); Glucose 99 mg/dL (65-115); Osmolality Calculated 284 mOsm/kg (285-295); Sodium 136 mmol/L (136-145)
[2021-03-11 00:22] VITALS: BP 110/71; PULSE 56; RESP 17; O2SAT 99
== END 2021-03-11 00:22 | disposition home or self-care (01) ==
PROVIDERS: Emergency Medicine; Emergency Provider Emergency Medicine
DX: T88.7XXA Unspecified adverse effect of drug or medicament, initial encounter (principal); T50.905A Adverse effect of unspecified drugs, medicaments and biological substances, initial encounter; F17.210 Nicotine dependence, cigarettes, uncomplicated
CPT/HCPCS: 80048; 85025; 96360; 99284; J7030

== ENCOUNTER 2021-04-23 05:43 | Emergency (ER) | payer MEDICAID, SELFPAY ==
[2021-04-23 05:45] VITALS: BP 142/94; PULSE 102; RESP 16; TEMP 36.7; O2SAT 100; BMI 24.2
--- NOTE | 2021-04-23 05:55 | W.ED.PSYCHS ---
Documented by User: Eduarda Haddad MD 04/23/21 18:17 HPI - Psych General: Chief Complaint: Psychiatric Symptoms Stated Complaint: SUICIDAL IDEATIONS Time Seen by Provider: 04/23/21 05:46 Source: EMS and police Mode of arrival: EMS Limitations: no limitations History of Present Illness: HPI Narrative: 35-year-old male is very well-known to the ER has a long history of substance abuse he states that he was doing methamphetamines tonight and is at the [facility] in the burial agent and pulled up he told them that he wanted to by copyman. He states that he wanted them to shoot him in the neck. He is having some flight of ideas here he states he has a charm on his necklace and is hearing things he thinks someone is behind him. He has had chronic paranoia in the past due to his drug abuse she does admit to meth abuse tonight Associated symptoms: Reports suicidal ideation Review of Systems Const: Denies: fever(s), chills, body aches or change in appetite Eyes: Denies: blurry vision or eye discomfort ENMT: Denies: throat pain or dental pain Card: Denies: chest pain Resp: Denies: dyspnea GI: Denies: abdominal pain, nausea, vomiting or diarrhea : Denies: dysuria Musc: Denies: neck pain or back pain Skin/Breast: Denies: rash Neuro: Denies: headache(s) Psych: Reports: suicidal ideation Delvis/Lymph: Denies: easy bruising All/Imm: Denies: urticaria PFSH ED PFSH: Medical History Acute psychogenic paranoid psychosis Creatinine elevation Elevated troponin External otitis of right ear Methamphetamine dependence Noncompliance Open wound of right lower leg Otitis externa Psychiatric care Family History Family/Other , The whole family is afflicted with schizoaffective disorder versus bipolar disease. Rampant methamphetamine abuse abounds. Psychiatric illness Social History Smoking and tobacco status: current every day smoker cigarettes Packs smoked per day: 1 Years cigarettes smoked: 11 Quit status (tobacco): has tried quititng Number of times tried to quit tobacco: 3 Second hand smoke exposure: Yes Physical Exam Const: COMMON NORMALS: no acute distress, patient oriented x3 and healthy appearing HENMT: COMMON NORMALS: normocephalic and atraumatic HEAD & SCALP: normocephalic and atraumatic Eye: COMMON NORMALS: Equal, round and reactive pupils present and EOMs intact bilaterally PUPIL: Yes Equal, round and reactive pupils present Neck/C-Spine: COMMON NORMALS: full ROM and supple Chest: COMMONS NORMALS: normal inspection of the chest and normal palpation of entire chest wall Resp: COMMON NORMALS: normal respiratory effort, No retractions, No use of accessory muscles and clear to auscultation bilaterally AUSCULTATION: clear to auscultation bilaterally Cardio: COMMON NORMALS: regular rate, regular rhythm and No murmurs present (Cardio) RATE: regular rate RHYTHM: regular rhythm GI: COMMON NORMALS: Normal to inspection, nondistended, normoactive bowel sounds present, Soft to palpation, non-tender and no masses PALPATION: Yes Soft to palpation Extremity: COMMON NORMALS: normal to inspection and full ROM Neuro: COMMON NORMALS: patient oriented x3, moves all extremities and no focal motor deficits Psych: COMMON NORMALS: mental status grossly normal and cooperative THOUGHT CONTENT: Yes Suicidality present OTHER: Patient here is denying suicidality to me but told the burial agent he wanted to by copyman. He is under the influence of methamphetamine he is acting appropriately and answering my questions appropriately Skin: COMMON NORMALS: no rashes or lesions noted and no wounds GENERAL SKIN EXAM: no rashes or lesions noted Course Vital Signs: Vital signs: Vital Signs Temperature 98.0 F 04/23/21 05:45 Pulse Rate 102 H 04/23/21 06:02 Respiratory Rate 18 04/23/21 06:02 Blood Pressure 142/94 04/23/21 06:02 Pulse Oximetry 100 04/23/21 06:02 Discharge Plan Discharge Patient Disposition: Home Clinical Impression: Methamphetamine abuse Condition: Stable Prescriptions: No Action naltrexone 50 mg Tablet 50 mg PO DAILY 30 Days Qty: 30 RF: 1 Geodon 40 mg Capsule 40 mg PO BID 30 Days Qty: 60 RF: 1 Discharge Orders: Discharge ED (Routine); Ordered 04/23/21 Ordered By: Pascual Walker Discharge Diet: Advance as tolerated Discharge Activity: Resume usual activity Patient Instructions: Methamphetamine Abuse (ED) Sign Out Sign Out Data: Patient Sign Out occurred on 04/23/21 at 06:01. Patient's care was discussed, and care was transferred from to Pascual Walker MD. Coding Level of Care Code ED Cup Machine Operator for Chg Fwd Exam Comprehensive Documented by User: Pascual Walker MD 04/29/21 00:46 HPI - Psych General: Chief Complaint: Psychiatric Symptoms Stated Complaint: SUICIDAL IDEATIONS Time Seen by Provider: 04/23/21 05:46 [facility] ED PFSH: Medical History Acute psychogenic paranoid psychosis Creatinine elevation Elevated troponin External otitis of right ear Methamphetamine dependence Noncompliance Open wound of right lower leg Otitis externa Psychiatric care Family History Family/Other , The whole family is afflicted with schizoaffective disorder versus bipolar disease. Rampant methamphetamine abuse abounds. Psychiatric illness Social History Smoking and tobacco status: current every day smoker cigarettes Packs smoked per day: 1 Years cigarettes smoked: 11 Quit status (tobacco): has tried quititng Number of times tried to quit tobacco: 3 Second hand smoke exposure: Yes Course Vital Signs: Vital signs: Vital Signs Temperature 98.0 F 04/23/21 05:45 Pulse Rate 102 H 04/23/21 06:02 Respiratory Rate 18 04/23/21 06:02 Blood Pressure 142/94 04/23/21 06:02 Pulse Oximetry 100 04/23/21 06:02 MDM - Psych MDM Narrative: Medical decision making narrative: Patient care handoff received from Dr. Haddad pending reevaluation and psychiatry service recommendations. After discussion with psychiatry service no indication for hospitalization if agitation level improves. Patient did have improvement in agitation level and returned to baseline from previous ED visits. Low risk for lethality. Discharged in satisfactory condition. Pascual Walker MD Emergency Medicine Discharge Plan Discharge Patient Disposition: Home Clinical Impression: Methamphetamine abuse Condition: Stable Prescriptions: No Action naltrexone 50 mg Tablet 50 mg PO DAILY 30 Days Qty: 30 RF: 1 Geodon 40 mg Capsule 40 mg PO BID 30 Days Qty: 60 RF: 1 Discharge Orders: Discharge ED (Routine); Ordered 04/23/21 Ordered By: Pascual Walker Discharge Diet: Advance as tolerated Discharge Activity: Resume usual activity Patient Instructions: Methamphetamine Abuse (ED) Sign Out Sign Out Data: Patient Sign Out occurred on 04/23/21 at 06:01. Patient's care was discussed, and care was transferred from to Pascual Walker MD. Coding Level of Care Code ED Cup Machine Operator for Chg Fwd Exam Comprehensive
[2021-04-23 06:02] VITALS: BP 142/94; PULSE 102; RESP 18; O2SAT 100
[2021-04-23] MEDS: LORazepam 1 mg Tablet PO (06:31)
--- NOTE | 2021-04-23 06:51 | PC.NURSE ---
Assumed care of pt at this time. Walked in to introduce myself to pt and before this RN can say anything, pt states angrily, Watch yourself!
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
== END 2021-04-23 08:13 | disposition home or self-care (01) ==
PROVIDERS: Emergency Provider Emergency Medicine
DX: F15.10 Other stimulant abuse, uncomplicated (principal); F17.210 Nicotine dependence, cigarettes, uncomplicated
CPT/HCPCS: 99283

== ENCOUNTER 2021-05-20 03:07 | Emergency (ER) | payer MEDICAID, SELFPAY ==
[2021-05-20 03:19] VITALS: BP 148/104; PULSE 85; RESP 18; TEMP 36.6; O2SAT 100; BMI 22.2
[2021-05-20 04:03] VITALS: BP 145/100; PULSE 85; RESP 18; TEMP 36.6; O2SAT 100
--- NOTE | 2021-05-20 04:32 | W.ED.EAR ---
HPI - Ear Problem General: Chief complaint: Ear Stated complaint: Left ear pain Time Seen by Provider: 05/20/21 03:56 History of Present Illness: HPI Narrative: 35-year-old male with a history of chronic substance abuse well-known to the emergency department. He presents with several complaints save an HEENT nature. The first complaint is that of ear pain on the left side for which he has been treated before. He states he has been on antibiotics for months without much improvement. On his last visit, he admitted to not feeling the antibiotics he was prescribed. His other complaints are a sore spot in the right nasal passage and feeling like he has glass in my eyes . He denies any fever. MD Complaint: ear pain and ear discharge Location: left ear Severity: moderate Relieving factors: nothing Exacerbating factors: palpation Associated symptoms: Reports external ear pain; Denies fever(s), headache(s) or rhinorrhea Treatment prior to arrival: other Review of Systems Const: Denies: fever(s) ENMT: Reports: throat pain Resp: Denies: dyspnea Neuro: Denies: headache(s) [facility] ED PFSH: Medical History Acute psychogenic paranoid psychosis Creatinine elevation Elevated troponin External otitis of right ear Methamphetamine dependence Noncompliance Open wound of right lower leg Otitis externa Psychiatric care Family History Family/Other , The whole family is afflicted with schizoaffective disorder versus bipolar disease. Rampant methamphetamine abuse abounds. Psychiatric illness Social History Smoking and tobacco status: current every day smoker cigarettes Packs smoked per day: 1 Years cigarettes smoked: 11 Quit status (tobacco): has tried quititng Number of times tried to quit tobacco: 3 Second hand smoke exposure: Yes Physical Exam Const: COMMON NORMALS: no acute distress, patient oriented x3 and alert HENMT: COMMON NORMALS: normocephalic and Normal external nose present HEAD & SCALP: normocephalic FACE & SINUS: no sinus tenderness, no Flattened naso-labial fold present, no crepitus, no ecchymosis and no edema NOSE: Normal external nose present, Normal septum present, No nasal discharge present and Abnormal mucous membranes and turbinates present TYMPANIC MEMBRANE: TM abnormal OTHER: HEENT exam reveals a skin ulceration with some purulent drainage to the left antihelix. There is some scarring of the TM, without active infection or fluid. The right appears normal. The left nare shows a small ulceration to the medial surface. There is also a comedone on the left eyebrow that is tender for him and swollen. Chest: COMMONS NORMALS: normal inspection of the chest Resp: COMMON NORMALS: normal respiratory effort, No use of accessory muscles and clear to auscultation bilaterally AUSCULTATION: clear to auscultation bilaterally Cardio: COMMON NORMALS: regular rate and regular rhythm RATE: regular rate RHYTHM: regular rhythm GI: COMMON NORMALS: Normal to inspection, nondistended, normoactive bowel sounds present and Soft to palpation PALPATION: Yes Soft to palpation Neuro: COMMON NORMALS: patient oriented x3 SENSORIUM/ORIENTATION: Yes alert Course Vital Signs: Vital signs: Vital Signs Temperature 97.8 F 05/20/21 04:03 Pulse Rate 85 05/20/21 04:03 Respiratory Rate 18 05/20/21 04:03 Blood Pressure 145/100 05/20/21 04:03 Pulse Oximetry 100 05/20/21 04:03 MDM - Ear MDM Narrative: Medical decision making narrative: Topicals for ear, eyebrow, and nare. He asks about steroids for my infection . He says that he gets better when he uses these. I advised him against long-term use of steroids this lady can weaken the immune systems ability to fight infection. We will give him 1 dose of dexamethasone here. Discharge Plan Discharge Patient Disposition: Home Clinical Impression: Cellulitis diffuse, face Otitis externa Qualifiers: Otitis externa type: other infective Chronicity: acute Laterality: left Qualified Code(s): H60.392 - Other infective otitis externa, left ear Condition: Stable Prescriptions: No Action naltrexone 50 mg Tablet 50 mg PO DAILY 30 Days Qty: 30 RF: 1 Geodon 40 mg Capsule 40 mg PO BID 30 Days Qty: 60 RF: 1 Discharge Orders: Discharge ED (Routine); Ordered 05/20/21 Ordered By: Nomi Ramires Patient Instructions: Otitis Externa - Adult, Cellulitis (ED) Activity Restrictions/Additional Instructions: Use the cream on your left ear at least twice daily. Use the eyedrops in your eyes twice daily for the next week. You may also use the cream on your nose and eyebrow areas twice daily for the next week or so. Return for fever greater than 100, worsening symptoms. Coding Level of Care Code ED Pump Stitcher for Sergei Matute Exam Detailed
[2021-05-20] MEDS: mupirocin oint 22 gm 1 APPLIC TOPICAL (05:55)
[2021-05-20 05:56] VITALS: BP 137/82; PULSE 85; RESP 18; TEMP 36.6; O2SAT 100
[2021-05-20] MEDS: ciprofloxacin 0.3% Op Soln 2.5 mL Btl 1 DROP EYE-BOTH (05:56)
== END 2021-05-20 05:57 | disposition home or self-care (01) ==
PROVIDERS: Emergency Provider Emergency Medicine
DX: L03.211 Cellulitis of face (principal); H60.392 Other infective otitis externa, left ear; F17.210 Nicotine dependence, cigarettes, uncomplicated
CPT/HCPCS: 99283

== ENCOUNTER 2021-06-19 01:49 | Emergency (ER) | payer MEDICAID, SELFPAY ==
[2021-06-19 01:56] VITALS: BP 133/77; PULSE 93; RESP 18; TEMP 36.4; O2SAT 100; BMI 22.5
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
[2021-06-19] MEDS: HYDROcodone-acetaminophen 5-325 mg Tablet 1 TAB PO (02:41)
== END 2021-06-19 02:50 | disposition home or self-care (01) ==
PROVIDERS: Emergency Provider Emergency Medicine
DX: F32.A Depression, unspecified (principal); S81.801A Unspecified open wound, right lower leg, initial encounter; X58.XXXA Exposure to other specified factors, initial encounter; F17.210 Nicotine dependence, cigarettes, uncomplicated
CPT/HCPCS: 99283

== ENCOUNTER 2021-07-09 21:26 | Emergency (ER) | payer MEDICAID, SELFPAY ==
[2021-07-09 21:29] VITALS: BP 134/90; PULSE 115; RESP 18; TEMP 36.4; O2SAT 96
--- NOTE | 2021-07-09 21:42 | PC.NURSE ---
pt swinging wildly in air and stating he is going to kill strangers. pt is having visual hallucinations. and conversations with himself.
[2021-07-09] MEDS: ziprasidone 20 mg/mL SDV IM (21:52)
[2021-07-09] MEDS: LORazepam 2 mg/mL INJ 1 mL IM (21:52)
[2021-07-09 22:25] VITALS: BP 137/64; PULSE 118; RESP 18; O2SAT 93
[2021-07-09 22:25] LABS: Basophils % 0.3 %; Eosinophils % 0.5 %; Hematocrit 32.9 % (42.0-52.0); Hemoglobin 10.7 g/dL (11.7-16.6); Lymphocytes # 1.4 10^3/uL (0.8-4.8); Lymphocytes % 19.3 %; Mean Corpuscular HGB Conc 32.5 g/dL (30.0-36.0); Mean Corpuscular Hemoglobin 28.8 pg (28.0-34.0); Mean Corpuscular Volume 88.7 fl (80-94); Mean Platelet Volume 8.9 fL (7.4-10.4); Monocytes # 0.7 10^3/uL (0.2-0.9); Monocytes % 9.2 %; Neutrophils # 5.15 10^3/uL (1.8-7.7); Neutrophils % 70.4 %; Nucleated Red Blood Cells % 0 %; Platelet Count 233 10^3/cmm (130-400); Red Blood Count 3.71 10^6/uL (4.1-5.3); Red Cell Distribution Width 13.9 % (12.1-15.1); White Blood Count 7.3 10^3/uL (4.0-10.0)
[2021-07-09 22:49] LABS: Alanine Aminotransferase 34 U/L (0-41); Albumin Level 4.2 g/dL (3.5-5.2); Alkaline Phosphatase 111 IU/L (40-130); Anion Gap 20.4 (5-19); Aspartate Amino Transferase 45 U/L (0-40); Blood Urea Nitrogen 13 mg/dL (6-20); Calcium 9.4 mg/dL (8.5-10.5); Carbon Dioxide 21 mmol/L (22-29); Chloride 104 mmol/L (98-107); Globulin 2.5 g/dL (1.3-4.6); Glomerular Filtration Rate 75.7 mL/min (90-130); Glucose 86 mg/dL (65-115); Osmolality Calculated 293 mOsm/kg (285-295); Potassium 3.4 mmol/L (3.5-5.1); Sodium 142 mmol/L (136-145); Total Bilirubin 0.7 mg/dL (0.15-1.2); Total Protein 6.7 g/dL (6.6-8.7)
[2021-07-09 22:59] LABS: Acetaminophen < 5.0 ug/mL (10-30); Alcohol Level < 10 mg/dL (0-10); Salicylate < 0.3 mg/dL (3-10)
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
[2021-07-09 23:42] VITALS: BP 120/71; PULSE 101; RESP 20; O2SAT 96
[2021-07-10 00:27] VITALS: BP 100/76; PULSE 99; RESP 31; O2SAT 95
[2021-07-10 01:27] VITALS: BP 117/78; PULSE 87; RESP 21; O2SAT 97
--- NOTE | 2021-07-10 04:25 | PC.NURSE ---
restraint bed pt unwilling to take medications upon arrival. along with the help from [facility], this nurse, kamron rn, kat rn, blas rn, linda rn, and daria with security physically restrained pt to give medications and then used the restraint bed for approximately 40 minutes unti lpt was no longer deemed a threat to himself or anyone else. also at this time pt changed into a gown and clothes bagged.
[2021-07-10] MEDS: LORazepam 2 mg/mL INJ 1 mL IM (05:10)
[2021-07-10 10:55] VITALS: BP 112/72; PULSE 99; RESP 19; O2SAT 98
== END 2021-07-10 11:05 | disposition home or self-care (01) ==
PROVIDERS: Emergency Medicine; Emergency Provider Family Medicine
DX: F19.959 Other psychoactive substance use, unspecified with psychoactive substance-induced psychotic disorder, unspecified (principal); R45.850 Homicidal ideations; F17.210 Nicotine dependence, cigarettes, uncomplicated
CPT/HCPCS: 80053; 80307; 85025; 96372; 99284; J2060; J3486; J3490

== ENCOUNTER 2021-07-11 04:11 | Emergency (ER) | payer MEDICAID, SELFPAY ==
[2021-07-11 04:16] VITALS: PULSE 118; RESP 18; TEMP 36.8; O2SAT 98; BMI 23.1
--- NOTE | 2021-07-11 04:20 | W.ED.PSYCHS ---
HPI - Psych General: Chief Complaint: Psychiatric Symptoms Stated Complaint: MHE Time Seen by Provider: 07/11/21 04:15 Source: patient and EMS Mode of arrival: EMS Limitations: no limitations History of Present Illness: 35-year-old male who is very well-known to the ER is here with EMS and police is found on [address] with hallucinations he is homeless and does have a long history of methamphetamine abuse. He did use meth tonight he states that he felt like he was seeing people out to get him he has since calm down though. He denies any suicidal or homicidal ideations. Associated symptoms: Reports auditory hallucinations Review of Systems Const: Denies: fever(s), chills, body aches or change in appetite Eyes: Denies: blurry vision or eye discomfort ENMT: Denies: throat pain or dental pain Card: Denies: chest pain Resp: Denies: dyspnea GI: Denies: abdominal pain, nausea, vomiting or diarrhea : Denies: dysuria Musc: Denies: neck pain or back pain Skin/Breast: Denies: rash Neuro: Denies: headache(s) Psych: Reports: auditory hallucinations Delvis/Lymph: Denies: easy bruising All/Imm: Denies: urticaria PFSH ED PFSH: Medical History Acute psychogenic paranoid psychosis Creatinine elevation Elevated troponin External otitis of right ear Methamphetamine dependence Noncompliance Open wound of right lower leg Otitis externa Psychiatric care Family History Family/Other , The whole family is afflicted with schizoaffective disorder versus bipolar disease. Rampant methamphetamine abuse abounds. Psychiatric illness Social History Smoking and tobacco status: current every day smoker cigarettes Packs smoked per day: 1 Years cigarettes smoked: 11 Quit status (tobacco): has tried quititng Number of times tried to quit tobacco: 3 Second hand smoke exposure: Yes Physical Exam Const: COMMON NORMALS: no acute distress, patient oriented x3 and healthy appearing HENMT: COMMON NORMALS: normocephalic and atraumatic HEAD & SCALP: normocephalic and atraumatic Eye: COMMON NORMALS: Equal, round and reactive pupils present and EOMs intact bilaterally PUPIL: Yes Equal, round and reactive pupils present Neck/C-Spine: COMMON NORMALS: full ROM and supple Chest: COMMONS NORMALS: normal inspection of the chest and normal palpation of entire chest wall Resp: COMMON NORMALS: normal respiratory effort, No retractions, No use of accessory muscles and clear to auscultation bilaterally AUSCULTATION: clear to auscultation bilaterally Cardio: COMMON NORMALS: regular rate, regular rhythm and No murmurs present (Cardio) RATE: regular rate RHYTHM: regular rhythm GI: COMMON NORMALS: Normal to inspection, nondistended, normoactive bowel sounds present, Soft to palpation, non-tender and no masses PALPATION: Yes Soft to palpation Extremity: COMMON NORMALS: normal to inspection and full ROM Neuro: COMMON NORMALS: patient oriented x3, moves all extremities and no focal motor deficits Psych: COMMON NORMALS: mental status grossly normal and cooperative THOUGHT CONTENT: Yes Hallucination(s) present Skin: COMMON NORMALS: no rashes or lesions noted and no wounds GENERAL SKIN EXAM: no rashes or lesions noted Course Vital Signs: Vital signs: Vital Signs Temperature 98.2 F 07/11/21 04:16 Pulse Rate 118 H 07/11/21 04:16 Respiratory Rate 18 07/11/21 04:16 Pulse Oximetry 98 07/11/21 04:16 MDM - Psych Medical Decision Making Sven presents here with some hallucinations likely from his methamphetamine abuse. He is not homicidal or suicidal here has been appropriate. He is evaluated by Dr. Woodson who agrees that he is stable for discharge and he is not a threat to himself or others will discharge him at this time. Discharge Plan Discharge Patient Disposition: Home Clinical Impression: Amphetamine abuse-episodic Condition: Stable Prescriptions: No Action naltrexone 50 mg Tablet 50 mg PO DAILY 30 Days Qty: 30 1RF ziprasidone HCl [Geodon] 40 mg Capsule 40 mg PO BID 30 Days Qty: 60 1RF Discharge Orders: Discharge ED (Routine); Ordered 07/11/21 Ordered By: Eduarda Haddad Discharge Diet: Advance as tolerated Discharge Activity: Resume usual activity Patient Instructions: Methamphetamine Abuse (ED) Coding Level of Care Code ED Rn Bone Marrow Transplant for Chg Fwd Exam Comprehensive
[2021-07-11] MEDS: LORazepam 2 mg Tablet PO (05:03)
== END 2021-07-11 05:06 | disposition home or self-care (01) ==
PROVIDERS: Emergency Provider Emergency Medicine
DX: F15.10 Other stimulant abuse, uncomplicated (principal); F17.210 Nicotine dependence, cigarettes, uncomplicated
CPT/HCPCS: 99283

== ENCOUNTER 2021-07-11 11:01 | Emergency (ER) | payer MEDICAID, SELFPAY ==
--- NOTE | 2021-07-11 11:06 | W.ED.GENADLT ---
HPI - General Adult General: Chief complaint: Psychiatric Symptoms Stated complaint: HALLUCINATIONS, PSYCH EVAL Time Seen by Provider: 07/11/21 11:05 History of Present Illness: HPI: [35]yo patient w/ hx of psychosis and polysubstance use (including meth yesterday) BIBP after patient was found on the side of the road shadow boxing. Cassidy tells me he is hearing voice and seeing hallucinations but has off of his medications for the last few weeks he was kicked out of custodial. Rafy was seen and evaluated 6 hrs ago in the ER. On arrival, the patient is AAOx3 and cooperative with my evaluation. No focal complaints of chest pain, shortness of breath, palpitations, N/V, focal GI/ complaints. Currently denies SI/HI. Onset: unknown Duration: ongoing Location: home Severity: moderate Associated symptoms: Deny chest pain, dyspnea, nausea, rash, palpitations or vomiting Review of Systems Const: Denies: fever(s) or chills Eyes: Denies: change in vision ENMT: Denies: mouth pain Card: Denies: chest pain or palpitations Resp: Denies: dyspnea or non-productive cough GI: Denies: abdominal pain, nausea, vomiting or diarrhea : Denies: dysuria Musc: Denies: extremity pain Skin/Breast: Denies: rash or new lesions Neuro: Denies: weakness in extremities Psych: Reports: other (Normal mood, +active visual and auditory hallucinations) Delvis/Lymph: Denies: easy bruising PFSH ED PFSH: Medical History Acute psychogenic paranoid psychosis Creatinine elevation Elevated troponin External otitis of right ear Methamphetamine dependence Noncompliance Open wound of right lower leg Otitis externa Psychiatric care Family History Family/Other , The whole family is afflicted with schizoaffective disorder versus bipolar disease. Rampant methamphetamine abuse abounds. Psychiatric illness Social History Smoking and tobacco status: current every day smoker cigarettes Packs smoked per day: 1 Years cigarettes smoked: 11 Quit status (tobacco): has tried quititng Number of times tried to quit tobacco: 3 Second hand smoke exposure: Yes Physical Exam Const: COMMON NORMALS: alert HENMT: COMMON NORMALS: atraumatic HEAD & SCALP: atraumatic MOUTH: moist mucous membranes not abnormal Eye: COMMON NORMALS: EOMs intact bilaterally and conjunctivae normal CONJUNCTIVA: Yes conjunctivae normal Neck/C-Spine: COMMON NORMALS: full ROM and supple Resp: COMMON NORMALS: normal respiratory effort and clear to auscultation bilaterally AUSCULTATION: clear to auscultation bilaterally Cardio: COMMON NORMALS: regular rate RATE: regular rate GI: COMMON NORMALS: Soft to palpation and non-tender PALPATION: Yes Soft to palpation Extremity: COMMON NORMALS: full ROM Neuro: SENSORIUM/ORIENTATION: Yes alert MOTOR EXAM: No Abnormal motor strength present and Other motor observations present (no focal motor deficits) Psych: COMMON NORMALS: speech normal SPEECH: Yes normal speech MOOD & AFFECT: Yes euthymic mood Course Vital Signs: Vital signs: Vital Signs Temperature 98.0 F 07/11/21 14:18 Pulse Rate 72 07/11/21 14:18 Respiratory Rate 14 07/11/21 14:18 Blood Pressure 111/82 07/11/21 14:18 Pulse Oximetry 97 07/11/21 14:18 MDM - General Adult Medical Decision Making [35]yo patient w/ hx of polysubstance use and psychosis presenting for inability to take care of self, hallucinations and off of medications. HDS, exam within normal limit Thoughts are linear and organized, but patient has activeAH/VH. Denies SI/HI. Clinically the patient displays no overt toxidrome; they are well appearing, with low suspicion for toxic ingestion given history and exam. Symptoms unlikely 2/2 anemia, hypothyroidism, infection, or ICH. [1:52pm] Patient is hemodynamically stable with no acute medical complaints. Given patient was here 6 hrs ago, case discussed with psychiatric provider Dr. Woodson at [facility] psych inpatient who evaluated patient at bedside and recommended discharge with close follow-up. I discussed case with the [facility] at [facility] and providers agree with seeing this patient at this afternoon for psychosis. Disposition: Discharge to [facility]. Discharge Plan Discharge Patient Disposition: Home Clinical Impression: Hallucination Condition: Stable Prescriptions: No Action naltrexone 50 mg Tablet 50 mg PO DAILY 30 Days Qty: 30 1RF ziprasidone HCl [Geodon] 40 mg Capsule 40 mg PO BID 30 Days Qty: 60 1RF Discharge Orders: Discharge ED (Routine); Ordered 07/15/21 Ordered By: Yaakov Krause Discharge Diet: Advance as tolerated Discharge Activity: Increase activity as tolerated Patient Instructions: Psychotic Disorder (ED) Activity Restrictions/Additional Instructions: Please come back to the emergency room if you need help, have any hallucinations, or you have any depression or have thoughts about hurting yourself or other people. Coding Level of Care Code ED Supervisor [employer] for Sergei Fwd Exam Comprehensive
[2021-07-11 14:18] VITALS: BP 111/82; PULSE 72; RESP 14; TEMP 36.7; O2SAT 97
--- NOTE | 2021-07-11 14:26 | PC.NURSE ---
attempted to obtain vs from pt he stated, why the fuck why i do that when they are discharging me . provided pt with 2 cola's and sack lunch per pt request. security escorts pt to waiting room.
== END 2021-07-11 14:28 | disposition home or self-care (01) ==
PROVIDERS: Emergency Provider Emergency Medicine
DX: R44.3 Hallucinations, unspecified (principal); F17.210 Nicotine dependence, cigarettes, uncomplicated
CPT/HCPCS: 99283